=== PATIENT | female | born 1940 | race Caucasian/White ===

== ENCOUNTER → 2017-01-18 | Outpatient (CLI) | payer OTHER, MEDICARE ==
[2017-01-18 08:58] LABS: Basophils % (A) 1 %; CH 31.9; Eosinophils # (A) 0.1 k/uL (0-0.7); Eosinophils % (A) 1 %; HCT 42.2 % (34.0-46.0); HDW 2.18; HGB 13.5 gm/dL (11.4-16.0); Luc # (Auto) 0.12; Luc % (Auto) 3; Lymphocytes # (A) 0.9 k/uL (1.0-4.8); Lymphocytes % (A) 22 %; MCH 32.1 pg (25.0-35.0); MCV 100.2 fL (80.0-100.0); Macrocytosis Slight; Mean Platelet Volume 7.8; Monocytes # (A) 0.2 k/uL (0-1.0); Monocytes % (A) 6 %; Neutrophils # (A) 2.9 k/uL (1.3-7.7); Neutrophils % (A) 68 %; RBC 4.21 m/uL (3.80-5.40); RDW 15.2 % (11.5-15.5); WBC 4.2 k/uL (3.8-10.6); WBC (Perox) 4.17
[2017-01-18 09:11] LABS: ALT 28 U/L (9-52); AST 27 U/L (14-36); Alkaline Phosphatase 189 U/L (38-126); Anion Gap 10 mmol/L; Blood Urea Nitrogen 9 mg/dL (7-17); Calcium 9.5 mg/dL (8.4-10.2); Carbon Dioxide 29 mmol/L (22-30); Chloride 103 mmol/L (98-107); Cholesterol 160 mg/dL (<200); Glucose 109 mg/dL (74-99); HDL Cholesterol 68 mg/dL (40-60); Non-African American GFR(MDRD) >60 (>60 ml/min/1.73 sqM); Potassium 4.8 mmol/L (3.5-5.1); Sodium 142 mmol/L (137-145); Total Bilirubin 1.2 mg/dL (0.2-1.3); Total Protein 8.1 g/dL (6.3-8.2); Triglycerides 67 mg/dL (<150)
[2017-01-18 09:16] LABS: Appearance,Urine Clear (Clear); Bilirubin,Urine Negative (Negative); Glucose,Urine (UA) Negative (Negative); Ketones,Urine Negative (Negative); Leukocyte Esterase,Urine Small (Negative); Mucus,Urine Rare /hpf; Nitrite,Urine Negative (Negative); PH, Urine 6.5 (5.0-8.0); Particle Count 3392; Protein,Urine Trace (Negative); RBC,Urine 9 /hpf (0-5); Specific Gravity,Urine 1.012 (1.001-1.035); Squamous Epithelial Cell,Urine 1 /hpf (0-4); UA Billing (MACRO vs. MICRO) MICRO; Urobilinogen,Urine <2.0 mg/dL (<2.0); WBC,Urine 2 /hpf (0-5)
--- NOTE | 2017-01-18 14:39 | MM ---
Reason for exam: screening (asymptomatic). Last mammogram was performed 10 years and 7 months ago. History: Patient is postmenopausal and history of other cancer. Family history of breast cancer in grandmother. Physical Findings: A clinical breast exam by your physician is recommended on an annual basis and results should be correlated with mammographic findings. MG Screening Mammo w CAD Bilateral CC, MLO, and XCCL view(s) were taken. Prior study comparison: June 20, 2006, bilateral screening mammogram w/CAD. February 10, 2004, bilateral screening mammogram. The breast tissue is heterogeneously dense. This may lower the sensitivity of mammography. Stable benign calcifications. There is no discrete abnormality. No significant changes when compared with prior studies. ASSESSMENT: Benign, BI-RAD 2 RECOMMENDATION: Routine screening mammogram of both breasts in 1 year.
== END | disposition home or self-care (01) ==
LOC: RADMAMWWP 08:20
PROVIDERS: ATTEND Internal Medicine
DX: Z12.31 Encounter for screening mammogram for malignant neoplasm of breast (principal); I48.91 Unspecified atrial fibrillation; I10 Essential (primary) hypertension; I42.9 Cardiomyopathy, unspecified; E55.9 Vitamin D deficiency, unspecified
CPT/HCPCS: 83880; 80061; 80053; 84443; 85025; 81001; 82306; G0202

== ENCOUNTER 2017-01-28 08:30 | Observation (INO) | payer OTHER, MEDICARE ==
[2017-01-28] MEDS ORDERED: LORazepam 2 MG/ML SYRINGE IV STA (08:53)
[2017-01-28] MEDS ORDERED: MECLIZINE 12.5 MG TAB PO STA (08:53)
[2017-01-28] MEDS ORDERED: METOCLOPRAMIDE 5 MG/ML 2 ML VIAL IVP STA (08:54)
--- NOTE | 2017-01-28 08:58 | ED ---
General Adult HPI - General Chief complaint: Dizziness Stated complaint: DIZZINESS, NAUSEA Time Seen by Provider: 01/28/17 08:49 Source: patient, family, RN notes reviewed Mode of arrival: wheelchair Limitations: no limitations - History of Present Illness Initial comments: Patient is a pleasant 76-year-old female presenting to the emergency Department with complaints of dizziness and nausea and vomiting. Onset of symptoms was 2 or 3 days ago. Patient has dizziness described as a spinning sensation. Dizziness is worse with upright position and head. Dizziness is mild while lying down or resting. Patient did take Antivert once this morning without improvement. Patient has had similar symptoms previously and has had previous evaluations for this including computed tomography scan of the brain. Symptoms seem worse this time than other events. - Related Data Home Medications Medication Instructions Recorded Confirmed Amoxicillin 875 mg PO Q12HR 01/28/17 01/28/17 Aspirin EC [Ecotrin Low Dose] 81 mg PO BID 01/28/17 01/28/17 Cholecalciferol [Vitamin D3] 1,000 unit PO DAILY 01/28/17 01/28/17 Cyanocobalamin (Vitamin B-12) 1,000 mcg PO DAILY 01/28/17 01/28/17 [Vitamin B-12] Digoxin [Digitek] 125 mcg PO DAILY 01/28/17 01/28/17 Famotidine [Pepcid AC] 10 mg PO DAILY 01/28/17 01/28/17 L.acidoph,Paracasei, B.lactis 1 cap PO DAILY 01/28/17 01/28/17 [Probiotic] Levalbuterol HCl [Xopenex 0.63 mg INHALATION RT-DAILY PRN 01/28/17 01/28/17 Nebulized] Magnesium 200 mg PO DAILY PRN 01/28/17 01/28/17 Meclizine [Antivert] 25 mg PO Q6H PRN 01/28/17 01/28/17 Montelukast [Singulair] 10 mg PO DAILY 01/28/17 01/28/17 Ondansetron Odt [Zofran ODT] 4 mg SL TID PRN 01/28/17 01/28/17 Potassium 99 mg PO DAILY PRN 01/28/17 01/28/17 Scopolamine [TransDerm Scop] 1 mg TD Q3D 01/28/17 01/28/17 Spironolactone [Aldactone] 25 mg PO DAILY 01/28/17 01/28/17 Allergies Allergy/AdvReac Type Severity Reaction Status Date / Time diltiazem [From Cardizem] AdvReac Nausea & Verified 01/28/17 10:36 Vomiting verapamil AdvReac Nausea & Verified 01/28/17 10:36 Vomiting Review of Systems ROS Statement: Those systems with pertinent positive or pertinent negative responses have been documented in the HPI. ROS Other: All systems not noted in ROS Statement are negative. Constitutional: Denies: fever Eyes: Denies: eye pain ENT: Denies: ear pain Respiratory: Denies: cough Cardiovascular: Denies: chest pain Endocrine: Denies: fatigue Gastrointestinal: Reports: nausea, vomiting. Denies: abdominal pain Genitourinary: Denies: dysuria Musculoskeletal: Denies: back pain Skin: Denies: rash Neurological: Reports: vertigo. Denies: headache, weakness, paresthesias, confusion Past Medical History History of Any Multi-Drug Resistant Organisms: None Reported Past Surgical History: Ablation, Cholecystectomy Additional Past Surgical History / Comment(s): d and c Past Psychological History: No Psychological Hx Reported Smoking Status: Never smoker Past Alcohol Use History: None Reported Past Drug Use History: None Reported General Exam Limitations: no limitations General appearance: alert, in no apparent distress Head exam: Present: atraumatic Eye exam: Present: normal appearance, PERRL, EOMI. Absent: nystagmus ENT exam: Present: normal oropharynx Neck exam: Present: normal inspection Respiratory exam: Present: normal lung sounds bilaterally Cardiovascular Exam: Present: irregular rhythm GI/Abdominal exam: Present: soft. Absent: tenderness Extremities exam: Present: normal inspection Neurological exam: Present: alert, CN II-XII intact. Absent: motor sensory deficit Expanded Cranial nerves: EOM's Intact: Normal, Facial Sensation: Normal Sensory exam: Upper Extremity Light Touch: Normal, Lower Extremity Light Touch: Normal Motor strength exam: RUE: 5, LUE: 5, RLE: 5, LLE: 5 Eye Response: (4) open spontaneously Motor Response: (6) obeys commands Verbal Response: (5) oriented Psychiatric exam: Present: normal affect, normal mood Skin exam: Present: normal color Course Vital Signs 01/28/17 01/28/17 01/28/17 08:31 09:13 10:00 Temperature 97 F L Pulse Rate 121 H 97 95 Respiratory 18 20 20 Rate Blood Pressure 151/92 155/75 136/63 O2 Sat by Pulse 94 L 96 96 Oximetry 01/28/17 11:00 Temperature Pulse Rate 70 Respiratory 98 H Rate Blood Pressure 131/62 O2 Sat by Pulse 96 Oximetry EKG Findings - EKG Comments: EKG Findings:: A. fib with RVR, rate 105. QRS 96. QT 266. QTc 351. Right axis. Incomplete right bundle-branch block. Septal Q waves. T-wave inversion in leads V3 through V6 as well as inferior. Previous EKG reviewed dated 2012. Medical Decision Making - Medical Decision Making Patient reevaluated and resting comfortably in bed. Patient states nausea has improved however remains dizzy and unable to get up. Case was discussed with Dr. danielson, who will admit for Dr. Faustin. MRI will be added. Neurology will be consulted. Patient updated. - Lab Data Result diagrams: 01/28/17 09:00 01/28/17 09:00 Lab Results 01/28/17 01/28/17 01/28/17 Range/Units 09:00 09:00 09:00 WBC 6.5 (3.8-10.6) k/uL RBC 4.24 (3.80-5.40) m/uL Hgb 13.5 (11.4-16.0) gm/dL Hct 42.2 (34.0-46.0) % MCV 99.5 (80.0-100.0) fL MCH 31.7 (25.0-35.0) pg MCHC 31.9 (31.0-37.0) g/dL RDW 14.9 (11.5-15.5) % Plt Count 118 L (150-450) k/uL Neutrophils % 79 % Lymphocytes % 14 % Monocytes % 5 % Eosinophils % 0 % Basophils % 0 % Neutrophils # 5.1 (1.3-7.7) k/uL Lymphocytes # 0.9 L (1.0-4.8) k/uL Monocytes # 0.3 (0-1.0) k/uL Eosinophils # 0.0 (0-0.7) k/uL Basophils # 0.0 (0-0.2) k/uL Macrocytosis Slight PT 13.0 H (9.0-12.0) sec INR 1.3 H (<1.2) APTT 24.0 (22.0-30.0) sec Sodium 139 (137-145) mmol/L Potassium 4.3 (3.5-5.1) mmol/L Chloride 100 (98-107) mmol/L Carbon Dioxide 25 (22-30) mmol/L Anion Gap 14 mmol/L BUN 23 H (7-17) mg/dL Creatinine 0.78 (0.52-1.04) mg/dL Est GFR (MDRD) Af Amer >60 (>60 ml/min/1.73 sqM) Est GFR (MDRD) Non-Af >60 (>60 ml/min/1.73 sqM) Glucose 125 H (74-99) mg/dL Calcium 9.4 (8.4-10.2) mg/dL Total Bilirubin 1.7 H (0.2-1.3) mg/dL AST 32 (14-36) U/L ALT 22 (9-52) U/L Alkaline Phosphatase 176 H (38-126) U/L Troponin I (0.000-0.034) ng/mL Total Protein 8.6 H (6.3-8.2) g/dL Albumin 4.4 (3.5-5.0) g/dL Digoxin 0.8 ng/mL 01/28/17 Range/Units 09:00 WBC (3.8-10.6) k/uL RBC (3.80-5.40) m/uL Hgb (11.4-16.0) gm/dL Hct (34.0-46.0) % MCV (80.0-100.0) fL MCH (25.0-35.0) pg MCHC (31.0-37.0) g/dL RDW (11.5-15.5) % Plt Count (150-450) k/uL Neutrophils % % Lymphocytes % % Monocytes % % Eosinophils % % Basophils % % Neutrophils # (1.3-7.7) k/uL Lymphocytes # (1.0-4.8) k/uL Monocytes # (0-1.0) k/uL Eosinophils # (0-0.7) k/uL Basophils # (0-0.2) k/uL Macrocytosis PT (9.0-12.0) sec INR (<1.2) APTT (22.0-30.0) sec Sodium (137-145) mmol/L Potassium (3.5-5.1) mmol/L Chloride (98-107) mmol/L Carbon Dioxide (22-30) mmol/L Anion Gap mmol/L BUN (7-17) mg/dL Creatinine (0.52-1.04) mg/dL Est GFR (MDRD) Af Amer (>60 ml/min/1.73 sqM) Est GFR (MDRD) Non-Af (>60 ml/min/1.73 sqM) Glucose (74-99) mg/dL Calcium (8.4-10.2) mg/dL Total Bilirubin (0.2-1.3) mg/dL AST (14-36) U/L ALT (9-52) U/L Alkaline Phosphatase (38-126) U/L Troponin I <0.012 (0.000-0.034) ng/mL Total Protein (6.3-8.2) g/dL Albumin (3.5-5.0) g/dL Digoxin ng/mL Disposition Clinical Impression: Vertigo Disposition: ADMITTED IP TO THIS HOSP Referrals: Filippo Bryant MD [Primary Care Provider] - 1-2 days Decision Time: 11:34
[2017-01-28 09:13] LABS: Basophils % (A) 0 %; CH 32.3; CHCM 32.6; Eosinophils % (A) 0 %; HCT 42.2 % (34.0-46.0); HDW 2.25; HGB 13.5 gm/dL (11.4-16.0); Luc # (Auto) 0.12; Luc % (Auto) 2; Lymphocytes # (A) 0.9 k/uL (1.0-4.8); Lymphocytes % (A) 14 %; MCH 31.7 pg (25.0-35.0); MCHC 31.9 g/dL (31.0-37.0); MCV 99.5 fL (80.0-100.0); Macrocytosis Slight; Mean Platelet Volume 8.1; Monocytes # (A) 0.3 k/uL (0-1.0); Monocytes % (A) 5 %; Neutrophils # (A) 5.1 k/uL (1.3-7.7); Neutrophils % (A) 79 %; RBC 4.24 m/uL (3.80-5.40); RDW 14.9 % (11.5-15.5); WBC 6.5 k/uL (3.8-10.6); WBC (Perox) 6.06
[2017-01-28 09:25] LABS: INR 1.3 (<1.2)
[2017-01-28 09:31] LABS: ALT 22 U/L (9-52); AST 32 U/L (14-36); Alkaline Phosphatase 176 U/L (38-126); Anion Gap 14 mmol/L; Blood Urea Nitrogen 23 mg/dL (7-17); Calcium 9.4 mg/dL (8.4-10.2); Carbon Dioxide 25 mmol/L (22-30); Chloride 100 mmol/L (98-107); Glucose 125 mg/dL (74-99); Non-African American GFR(MDRD) >60 (>60 ml/min/1.73 sqM); Potassium 4.3 mmol/L (3.5-5.1); Sodium 139 mmol/L (137-145); Total Bilirubin 1.7 mg/dL (0.2-1.3); Total Protein 8.6 g/dL (6.3-8.2)
[2017-01-28] MEDS ORDERED: SCOPOLAMINE 1.5MG/72HR PATCH TRANSDERM STA (09:40)
[2017-01-28 09:54] LABS: Digoxin 0.8 ng/mL
[2017-01-28] MEDS ORDERED: ONDANSETRON 4 MG/2 ML VIAL IVP STA (10:31)
[2017-01-28] MEDS ORDERED: ONDANSETRON 4 MG/2 ML VIAL IVP PRN (11:35)
[2017-01-28] MEDS ORDERED: NALOXONE 0.4 MG/ML 1 ML VIAL IV PRN (11:35)
[2017-01-28] MEDS ORDERED: LORazepam 2 MG/ML SYRINGE IV PRN (11:35)
[2017-01-28] MEDS ORDERED: SODIUM CHLORIDE 0.9% 1,000 ML IV SCH (11:45)
[2017-01-28] MEDS ORDERED: MECLIZINE 25 MG TAB PO SCH (13:00)
[2017-01-28 13:15] VITALS: BMI 23.2
[2017-01-28] MEDS: METOCLOPRAMIDE 5 MG/ML 2 ML VIAL IVP SCH ×2 (13:22→18:18)
--- NOTE | 2017-01-28 15:14 | MR ---
EXAMINATION TYPE: MR brain wo/w con DATE OF EXAM: 01/28/2017 COMPARISON: MRI brain August 14, 2009. CT brain May 06, 2013 HISTORY: Intractable vertigo, nausea TECHNIQUE: Multiplanar, multisequence images of the brain and brainstem is performed without and with IV contras t, utilizing 10 mL intravenous MultiHance . FINDINGS: Diffusion weighted images demonstrate no evidence of a recent infarct or other diffusion ab normality. There is no worrisome extra-axial fluid collection. There is ventricular and sulcal promi nence consistent with diffuse cerebral atrophy. There are focal areas of T2 hyperintensity seen throu ghout the deep and periventricular white matter bilaterally. Lesions are nonspecific in appearance an d distribution but most likely on basis of product of chronic small vessel ischemic change in patient of this age. Progression in findings from [address] is noted. Midline structures demonstrate normal morphology. The craniocervical junction appears within normal limits. Post contrast images demonstrate no abnormal enhancement. The dural venous sinuses appear pa tent. There is moderate to severe mucosal thickening involving sphenoid sinuses bilaterally more prom inent than prior MRI. No suspicious fluid signal mastoid air cells is present bilaterally. IMPRESSION: 1. There is mild to moderate diffuse cerebral atrophy and chronic small vessel ischemic change identi fied with progression from prior MRI noted. 2. No evidence of a recent infarct or suspicious enhancement. 3. More prominent bilateral sphenoid sinus disease most likely chronic, acute component not excluded.
[2017-01-28 16:53] VITALS: BP 120/59; PULSE 93; RESP 16; TEMP 98.3
[2017-01-28] MEDS ORDERED: DIGOXIN 125 MCG TAB PO SCH (17:30)
[2017-01-28] MEDS ORDERED: ENOXAPARIN 40 MG/0.4 ML SYRINGE SQ SCH (17:30)
[2017-01-28] MEDS ORDERED: SPIRONOLACTONE 25 MG TAB PO SCH (17:30)
[2017-01-28] MEDS ORDERED: MONTELUKAST 10 MG TAB PO SCH (17:30)
[2017-01-28] MEDS ORDERED: FAMOTIDINE 20 MG TAB PO SCH (17:30)
[2017-01-28] MEDS ORDERED: AMOXICILLIN 875 MG TAB PO SCH (21:00)
[2017-01-28] MEDS ORDERED: ASPIRIN 81 MG CHEW PO SCH (21:00)
--- NOTE | 2017-01-29 11:24 | HP ---
DATE OF ADMISSION: 01/28/17 PRESENTING COMPLAINT: Vertigo. HISTORY OF PRESENTING COMPLAINT: This is a very pleasant 76-year-old patient of Dr. Bryant whose chronic stable medical conditions include atrial fibrillation , some allergies, GERD. The patient presents with two to three days of severe vertigo, things are spinning especially when she moves about. There is some dizziness and vomiting. No change in speech. No change in vision. No focal weakness. The patient did go to see Dr. Bryant in the office and she was prescribed some medications and she feels much worse after that. Hence decided to come down to the hospital. There is no fever. The patient had some trouble with the left ear. Does get ear gets her ear cleaned. Denies any head injury. REVIEW OF SYSTEMS: Constitutional: None. HEENT: As above. Respiratory: None. Cardiovascular: None. Gastrointestinal: Some heartburn. : None. Musculoskeletal: Aches and pains in the joints. Dermatological: None. Hematological: None . Lymphatics: None. PSYCHIATRY: Anxiety, situational. Neurological: As above. Past history of basal cell skin cancer, atrial fibrillation, anxiety, moderate tricuspid regurgitation, severe pulmonary hypertension. Past surgical history of ablation, cholecystectomy, D&C. SOCIAL HISTORY: No smoking. No alcohol. . FAMILY HISTORY: Diabetes Type 2. Home medications: 1. Potassium 99 meq po daily prn. 2. Xopenex 0.63 mg daily prn. 3. Magnesium 200 mg daily prn. 4. Vitamin B12 1000 mcg po daily. 5. Vitamin D3 1000 units po daily. 6. Pepcid a.c. 10 mg po daily. 7. Aspirin 81 mg po b.i.d. 8. Amoxicillin 875 po q12. 9. Aldactone 25 mg po daily. 10. Antivert 25 mg po q6h prn. 11. Digoxin 0.125 mcg po daily. 12. Scopolamine patch every three days. 13. Zofran 4 mg t.i.d. prn. 14. Singulair 10 mg daily. ALLERGIES: CARDIZEM, VERAPAMIL CAUSING NAUSEA. On examination, Temperature 97. Pulse 95. Respiratory rate 18. Blood pressure 124/74. Pulse ox 96% on 2 L. GENERAL APPEARANCE: Average built. Sitting up. Tired appearing. EYES: pupils equal. Conjunctivae normal. HEENT: Oral cavity normal. NECK: JVD not raised. Mass not palpable. RESPIRATORY: Effort normal. LUNGS: Slight decreased breath sounds. CARDIOVASCULAR: Heart sounds irregular. No edema. ABDOMEN: Soft. Nontender. Liver and spleen not palpable. LYMPHATICS: No lymph nodes palpable in the neck and axillae. PSYCHIATRIC: Alert and oriented times three. Mood and affect normal. NEUROLOGICAL: Questionable nystagmus. Slight facial asymmetry. The patient has history of [place] palsy. Power and sensation grossly intact. MUSCULOSKELETAL: Evidence of osteoarthritis especially in the hands. INVESTIGATIONS: White count 6.5, platelets 118. Potassium 4.3. BUN 23. EKG shows atrial fibrillation, rate 106. ASSESSMENT: 1. Acute severe vertigo associated with slight nystagmus. This could well be benign paroxysmal positional vertigo, less likely a central cause but need to rule out the same. 2. Persistent atrial fibrillation, on aspirin. 3. Moderate tricuspid regurgitation nonrheumatic. 4. Severe secondary pulmonary hypertension. 5. Elevated BUN probably from the patient being on diuretic and increased oral intake. PLAN: MRI of the brain was ordered. We will go ahead and do Eppley maneuver and see how she does. Home medications will be resumed. Care was discussed with the patient and at the bedside. Copy to Dr. Bryant. INÉS
--- NOTE | 2017-01-31 14:41 | DS ---
DATE OF ADMISSION: 01/28/2017 DATE OF DISCHARGE: 01/28/2017 FINAL DIAGNOSES: 1. Acute severe benign paroxysmal positional vertigo. 2. Intermittent asthma. 3. Persistent atrial fibrillation. 4. Moderate tricuspid regurgitation, nonrheumatic. 5. Severe secondary pulmonary hypertension. HOSPITAL COURSE: This patient presented with severe vertigo, nausea, vomiting and possible nystagmus was present. MR of the brain showed some chronic changes. 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 MR of the brain shows some chronic changes. I performed the Edwige maneuver at the bedside about 4 times. Patient felt remarkably improved, was able to walk to the door and back. I printed instructions for the same and gave that to the patient and the and did stop patient's scopolamine, Antivert and Zofran. DISCHARGE MEDICATIONS: 1. Amoxicillin 875 mg q.12 complete course. 2. Aspirin 81 mg p.o. b.i.d. 3. Vitamin D3 one thousand units p.o. daily. 4. Vitamin B12 one thousand mcg p.o. daily. 5. Digoxin 125 mcg p.o. daily. 6. Pepcid a.c. 10 mg p.o. daily. 7. Probiotic 1 capsule p.o. daily. 8. Xopenex 0.63 inhalation daily p.r.n. 9. Magnesium 200 mg p.o. daily p.r.n. 10. Singulair 10 mg p.o. daily. 11. Potassium 99 mEq p.o. daily p.r.n. 12. Aldactone 25 mg p.o. daily. Follow up with Dr. Bryant in 3 days. Patient has been given Edwige maneuver to be done at home, self instructions. [facility]
== END 2017-01-28 18:37 | disposition home or self-care (01) ==
LOC: EC 08:30 → 5MS5E 11:35
PROVIDERS: ADMIT Hospitalist; ATTEND Hospitalist
DX: J45.20 Mild intermittent asthma, uncomplicated (principal); H81.10 Benign paroxysmal vertigo, unspecified ear; I48.1 Persistent atrial fibrillation; I36.1 Nonrheumatic tricuspid (valve) insufficiency; I27.2 Other secondary pulmonary hypertension; G51.0 Bell's palsy; K21.9 Gastro-esophageal reflux disease without esophagitis; Z79.899 Other long term (current) drug therapy; Z79.82 Long term (current) use of aspirin; Z79.2 Long term (current) use of antibiotics; Z88.8 Allergy status to other drugs, medicaments and biological substances; Z83.3 Family history of diabetes mellitus; Z85.828 Personal history of other malignant neoplasm of skin; R79.89 Other specified abnormal findings of blood chemistry
CPT/HCPCS: 99285; 96374; 96375 ×2; 36415; 93005; 80053; 80162; 84484; 85025; 85610; 85730; 70553; G0378; J2060; J2765; J2405; A9577

== ENCOUNTER 2017-02-17 05:11 | Inpatient (IN) | payer OTHER, MEDICARE ==
[2017-02-17 05:26] LABS: Glucose,Whole Blood 138 mg/dL (75-99)
[2017-02-17] MEDS ORDERED: RX INFO: IV CONTRAST WAS GIVEN 1 EACH MISC MISCELLANE PRN (05:33)
--- NOTE | 2017-02-17 05:37 | ED ---
General Adult HPI - General Chief complaint: Neuro Symptoms/Deficit Stated complaint: poss stroke Time Seen by Provider: 02/17/17 05:14 Source: EMS, RN notes reviewed Mode of arrival: EMS Limitations: altered mental status, physical limitation - History of Present Illness Initial comments: Patient is a 76-year-old female presenting to the emergency department by EMS for concerns for stroke. Patient reportedly last seen well around 10 PM last night. Patient has inability to form words and provides no additional history. - Related Data Allergies Allergy/AdvReac Type Severity Reaction Status Date / Time No Known Allergies Allergy Verified 02/17/17 05:27 Review of Systems ROS Statement: Those systems with pertinent positive or pertinent negative responses have been documented in the HPI. ROS Other: All systems not noted in ROS Statement are negative. Limitations: ROS unobtainable due to patients medical condition Past Medical History Past Medical History: Unable to Obtain History of Any Multi-Drug Resistant Organisms: Unobtainable Past Surgical History: Unable to Obtain Past Psychological History: Unable to Obtain Smoking Status: Unknown if ever smoked Past Alcohol Use History: Unable to Obtain Past Drug Use History: Unable to Obtain General Exam Limitations: language barrier, altered mental status, physical limitation General appearance: alert, other (Left-sided neglect) Head exam: Present: atraumatic Eye exam: Present: normal appearance, PERRL, other (Unable to follow with eyes towards the left past midline.) ENT exam: Present: normal oropharynx Neck exam: Present: normal inspection Respiratory exam: Present: normal lung sounds bilaterally Cardiovascular Exam: Present: tachycardia, irregular rhythm GI/Abdominal exam: Present: soft. Absent: tenderness Extremities exam: Present: normal inspection Neurological exam: Present: alert, altered, other (Left-sided neglect. Nonverbal. Unable to evaluate sensory exam) Expanded Neurological exam: Present: other (Left sided facial droop) Speech: Present: total aphasia Cranial nerves: EOM's Intact: Abnormal Left Motor strength exam: RUE: 5, LUE: 0, RLE: 5, LLE: 2/1 Psychiatric exam: Present: flat affect, other (Nonverbal) Skin exam: Present: normal color Course Vital Signs 02/17/17 05:27 Temperature 97.9 F Pulse Rate 121 H Respiratory 16 Rate Blood Pressure 183/106 O2 Sat by Pulse 96 Oximetry - Reevaluation(s) Reevaluation #1: 02/17/17 05:44 Patient reevaluated and is able to lift left arm and leg off the bed at this time. No change of speech. Family is present. confirms last known well was 10 PM. Patient is not a candidate for TPA secondary to last known well is greater than 4.5 hours. 02/17/17 05:58 Patient was unable to be seen upon immediate arrival secondary to patient going directly to computed tomography scan. EKG Findings - EKG Comments: EKG Findings:: A. fib with RVR, rate 123. QRS 96. QT 290. QTC 4:15. Right axis. Incomplete right bundle-branch block. Inverted T waves inferior and V1 through V5. Medical Decision Making - Medical Decision Making Family was updated as well as patient. Case was discussed in detail with Dr. danielson, who will admit for Dr. Millan. - Lab Data Result diagrams: 02/17/17 05:31 02/17/17 05:31 Lab Results 02/17/17 02/17/17 02/17/17 Range/Units 05:25 05:31 05:31 WBC 6.1 (3.8-10.6) k/uL RBC 4.43 (3.80-5.40) m/uL Hgb 14.1 (11.4-16.0) gm/dL Hct 44.4 (34.0-46.0) % MCV 100.2 H (80.0-100.0) fL MCH 31.8 (25.0-35.0) pg MCHC 31.7 (31.0-37.0) g/dL RDW 15.6 H (11.5-15.5) % Plt Count 132 L (150-450) k/uL Neutrophils % 72 % Lymphocytes % 19 % Monocytes % 5 % Eosinophils % 1 % Basophils % 1 % Neutrophils # 4.4 (1.3-7.7) k/uL Lymphocytes # 1.2 (1.0-4.8) k/uL Monocytes # 0.3 (0-1.0) k/uL Eosinophils # 0.1 (0-0.7) k/uL Basophils # 0.0 (0-0.2) k/uL Macrocytosis Slight PT (9.0-12.0) sec INR (<1.2) APTT (22.0-30.0) sec Sodium (137-145) mmol/L Potassium (3.5-5.1) mmol/L Chloride (98-107) mmol/L Carbon Dioxide (22-30) mmol/L Anion Gap mmol/L BUN (7-17) mg/dL Creatinine (0.52-1.04) mg/dL Est GFR (MDRD) Af Amer (>60 ml/min/1.73 sqM) Est GFR (MDRD) Non-Af (>60 ml/min/1.73 sqM) Glucose (74-99) mg/dL POC Glucose (mg/dL) 138 H (75-99) mg/dL POC Glu Ruffling Hemmer Automatic ID Nani Suárez Calcium (8.4-10.2) mg/dL Total Bilirubin (0.2-1.3) mg/dL AST (14-36) U/L ALT (9-52) U/L Alkaline Phosphatase (38-126) U/L Total Creatine Kinase 47 (30-135) U/L Total Protein (6.3-8.2) g/dL Albumin (3.5-5.0) g/dL 02/17/17 02/17/17 Range/Units 05:31 05:31 WBC (3.8-10.6) k/uL RBC (3.80-5.40) m/uL Hgb (11.4-16.0) gm/dL Hct (34.0-46.0) % MCV (80.0-100.0) fL MCH (25.0-35.0) pg MCHC (31.0-37.0) g/dL RDW (11.5-15.5) % Plt Count (150-450) k/uL Neutrophils % % Lymphocytes % % Monocytes % % Eosinophils % % Basophils % % Neutrophils # (1.3-7.7) k/uL Lymphocytes # (1.0-4.8) k/uL Monocytes # (0-1.0) k/uL Eosinophils # (0-0.7) k/uL Basophils # (0-0.2) k/uL Macrocytosis PT 12.9 H (9.0-12.0) sec INR 1.3 H (<1.2) APTT 23.5 (22.0-30.0) sec Sodium 139 (137-145) mmol/L Potassium 4.1 (3.5-5.1) mmol/L Chloride 102 (98-107) mmol/L Carbon Dioxide 24 (22-30) mmol/L Anion Gap 13 mmol/L BUN 15 (7-17) mg/dL Creatinine 0.70 (0.52-1.04) mg/dL Est GFR (MDRD) Af Amer >60 (>60 ml/min/1.73 sqM) Est GFR (MDRD) Non-Af >60 (>60 ml/min/1.73 sqM) Glucose 153 H (74-99) mg/dL POC Glucose (mg/dL) (75-99) mg/dL POC Glu Ruffling Hemmer Automatic ID Calcium 9.7 (8.4-10.2) mg/dL Total Bilirubin 1.2 (0.2-1.3) mg/dL AST 24 (14-36) U/L ALT 27 (9-52) U/L Alkaline Phosphatase 235 H (38-126) U/L Total Creatine Kinase (30-135) U/L Total Protein 8.3 H (6.3-8.2) g/dL Albumin 4.3 (3.5-5.0) g/dL - Radiology Data Radiology results: image reviewed (Computed tomography scan of the brain shows subtle asymmetry left frontal lobe. Possible small infarct. 1 view chest x- ray shows cardiomegaly with prominent interstitial markings. Mediastinal and hilar prominence.) Disposition Clinical Impression: Cerebrovascular accident Disposition: ADMITTED IP TO THIS [facility] Condition: Serious Referrals: Filippo Bryant MD [Primary Care Provider] - 1-2 days Decision Time: 06:41
--- NOTE | 2017-02-17 05:40 | CT ---
ADDENDUM - Added by Harjeet Pedraza M.D. on 02/17/2017 5:39 AM (-04:00) EXAM: CT Head Without Intravenous Contrast CLINICAL HISTORY: Reason: Altered mental status, neurologic deficits. TECHNIQUE: Axial computed tomography images of the head/brain without intravenous contrast. CTDI is 60.30 mGy and DLP is 1090.40 mGy-cm. This CT exam was performed using one or more of the following dose reduction techniques: automated exposure control, adjustment of the mA and/or kV according to patient size, and/or use of iterative reconstruction technique. COMPARISON: No relevant prior studies available. FINDINGS: Brain: Set against the background of atrophy and chronic small vessel ischemic changes, there is a small subtle region of hypodensity in the posterior left frontal subcortical region, for example on axial images 35- 39. A small chronic appearing lacunar infarct is seen in the right internal capsule anterior limb. There is no bleed, midline shift or mass effect. Ventricles: No evidence of hydrocephalus. Bones/joints: No acute fracture. Soft tissues: Unremarkable. Vasculature: Intracranial atherosclerosis. Sinuses: Complex left sphenoid sinus disease, containing some higher density material within that may be on the basis of chronic inspissated secretions or fungal sinus disease. There is attenuation of a portion of the wall between the left and right sphenoid sinuses, with mild mucosal thickening present in the right sphenoid sinus, to a much lesser degree than the left. Small amount of mucosal thickening or tiny mucous retention cyst versus polyp inferiorly in the right frontal sinus. The remaining visualized paranasal sinuses are otherwise clear. Mastoid air cells: Unremarkable. No mastoid effusion. IMPRESSION: 1. Allowing for the presence of atrophy and chronic small vessel ischemic changes, there is subtle asymmetry with posterior left frontal lobe hypodensity that may be on the basis of a small infarct, that is of indeterminate chronicity and which could be better evaluated by MRI. 2. Bilateral sinus disease including complex left sphenoid sinus disease that may be extending into the right sphenoid sinus and for which further workup could be obtained on an elective basis if no priors. [employer] 02/17/17 05:43 Call Doctor Regarding Stroke, called Dr. Monk on 02/17 05: 42 (-04:00)
[2017-02-17 05:53] LABS: Basophils % (A) 1 %; CH 32.9; Eosinophils # (A) 0.1 k/uL (0-0.7); Eosinophils % (A) 1 %; HCT 44.4 % (34.0-46.0); HDW 2.21; HGB 14.1 gm/dL (11.4-16.0); Luc # (Auto) 0.14; Luc % (Auto) 2; Lymphocytes # (A) 1.2 k/uL (1.0-4.8); Lymphocytes % (A) 19 %; MCH 31.8 pg (25.0-35.0); MCHC 31.7 g/dL (31.0-37.0); MCV 100.2 fL (80.0-100.0); Macrocytosis Slight; Monocytes # (A) 0.3 k/uL (0-1.0); Monocytes % (A) 5 %; Neutrophils # (A) 4.4 k/uL (1.3-7.7); Neutrophils % (A) 72 %; RBC 4.43 m/uL (3.80-5.40); RDW 15.6 % (11.5-15.5); WBC 6.1 k/uL (3.8-10.6); WBC (Perox) 5.77
[2017-02-17 06:04] LABS: ALT 27 U/L (9-52); AST 24 U/L (14-36); Alkaline Phosphatase 235 U/L (38-126); Anion Gap 13 mmol/L; Blood Urea Nitrogen 15 mg/dL (7-17); Calcium 9.7 mg/dL (8.4-10.2); Carbon Dioxide 24 mmol/L (22-30); Chloride 102 mmol/L (98-107); Glucose 153 mg/dL (74-99); Non-African American GFR(MDRD) >60 (>60 ml/min/1.73 sqM); Potassium 4.1 mmol/L (3.5-5.1); Sodium 139 mmol/L (137-145); Total Bilirubin 1.2 mg/dL (0.2-1.3); Total Protein 8.3 g/dL (6.3-8.2)
[2017-02-17 06:16] LABS: Creatine Kinase 47 U/L (30-135)
--- NOTE | 2017-02-17 06:18 | XR ---
EXAM: XR Chest, 1 View CLINICAL HISTORY: Reason: altered mental status TECHNIQUE: Frontal view of the chest. COMPARISON: No relevant prior studies available. FINDINGS: Lungs: Prominent indistinct pulmonary vascular markings throughout, with subpleural reticular opacities in the right lung base. Linear opacities in the right and left mid lung field suggesting atelectasis or scarring. Pleural space: Unremarkable. No gross pleural effusion or pneumothorax. Heart: Moderate cardiomegaly is present. Mediastinum: Mild prominence of the mediastinal contours which may be on the basis of aortic ectasia, along with hilar prominence noted, more apparent on the right whereas on the left is partially obscured. Bones/joints: Mild curvature of the thoracic spine, may in part be positional. Osteopenia and degenerative changes without acute displaced fracture. IMPRESSION: 1. Cardiomegaly with prominent interstitial markings that may reflect a component of pulmonary vascular congestion/mild CHF in the acute setting. The possibility of underlying chronic interstitial disease is not excluded at this time, and could be further assessed by comparison of priors or attention on follow-up. 2. Likewise there is prominence of the mediastinum and [place] for which comparison to priors could be helpful to ensure stability, otherwise recommend attention on follow-up which could include nonemergent assessment by CT including to exclude a hilar or perihilar abnormality.
[2017-02-17 06:21] LABS: INR 1.3 (<1.2); Partial Thromboplastin Time 23.5 sec (22.0-30.0); Prothrombin Time 12.9 sec (9.0-12.0)
[2017-02-17 06:29] LABS: Creatine Kinase MB 1.2 ng/mL (0.0-2.4); Troponin I <0.012 ng/mL (0.000-0.034)
[2017-02-17] MEDS ORDERED: ASPIRIN 325 MG TAB PO STA (06:45)
[2017-02-17] MEDS ORDERED: ONDANSETRON 4 MG/2 ML VIAL IVP STA ×2 (06:48→10:42)
[2017-02-17] MEDS: SODIUM CHLORIDE 0.9% 1,000 ML IV SCH (06:49)
--- NOTE | 2017-02-17 07:21 | CT ---
EXAMINATION TYPE: CT angio head neck DATE OF EXAM: 02/17/2017 HISTORY: Possible stroke COMPARISON: NONE CT DLP: 193.1 mGycm. Automated Exposure Control for Dose Reduction was Utilized. TECHNIQUE: CTA scan of the neck is performed with IV Contrast, patient injected with 65 mL of Omnipa que 350, axial images are obtained, coronal and sagittal reformatted images are reviewed. Three-D rec onstructed images are created on an independent workstation and reviewed. FINDINGS: Neck: The origins of the great vessels are unremarkable. At the right carotid bulb. Approximately 33% stenosis of the common carotid artery and approximately 25% stenosis of the external carotid artery. Calcific atheromatous changes do not extend into the internal carotid artery. At the left carotid bu lb there is severe narrowing of the external carotid artery as a focus of atherosclerosis plaque is s ituated at the ostia occupying over 70% of the lumen. Within the internal carotid artery just after t he bifurcation there is also approximately 33% stenosis. Left upper lobe airspace disease with peribronchial thickening and air bronchograms is seen as well a s to a lesser degree within the right lung apex. Nodular pleural parenchymal scarring is appreciated as well as at least moderate emphysematous changes and left-sided pleural thickening. Osseous structu res appear overall intact with mild degenerative changes of the cervical spine noted. Head: The left posterior communicating artery is diminutive but thought to be present and therefore t he [place] of [place] is complete. Vertebral arteries are codominant. No evidence of intracranial aneur ysm, occlusion, or stenosis other than calcific atherosclerotic prominence changes of the cavernous p ortions and supraclinoid portions of the carotid arteries of approximately 60% bilaterally. IMPRESSION: 1. No evidence of hemodynamically significant stenosis within the common carotids or internal carotid s. No evidence of intracranial aneurysm, occlusion, or dissection. 2. At least 70% stenosis of the left external carotid artery. 3. Multifocal airspace disease within the lungs, suspicious for pneumonia superimposed upon pulmonary emphysema.
[2017-02-17 08:20] LABS: Glucose,Whole Blood 127 mg/dL (75-99)
[2017-02-17] MEDS ORDERED: MECLIZINE 25 MG TAB PO PRN (08:20)
[2017-02-17] MEDS ORDERED: FAMOTIDINE 20 MG TAB PO SCH (09:00)
[2017-02-17] MEDS ORDERED: NON-FORMULARY DRUG (Potassium [Potassium] 99 MG) PO SCH (09:00)
[2017-02-17] MEDS ORDERED: ENOXAPARIN 40 MG/0.4 ML SYRINGE SQ SCH (09:00)
[2017-02-17] MEDS: DIGOXIN 125 MCG TAB PO SCH (10:52)
[2017-02-17] MEDS: FAMOTIDINE 20 MG/2 ML VIAL IV SCH (11:08)
[2017-02-17] MEDS: CHOLECALCIFEROL 1,000 UNIT TAB PO SCH (11:15)
[2017-02-17] MEDS: MAGNESIUM OXIDE 400 MG TAB PO SCH (11:16)
[2017-02-17] MEDS: LACTOBACILLUS ACIDOPH & BULGAR 1 EACH PACKET PO SCH (11:16)
[2017-02-17] MEDS: DIGOXIN 100 MCG/ML 1 ML AMP IVP SCH (11:27)
[2017-02-17] MEDS: SPIRONOLACTONE 25 MG TAB PO SCH (11:28)
--- NOTE | 2017-02-17 13:36 | P.HPIM ---
History of Present Illness H&P Date: 02/17/17 Chief Complaint: Weak on the left side and slurring of speech History of presenting complaint: This is a pleasant 76-year-old patient of Dr. Faustin was chronic stable medical conditions include atrial fibrillation and GERD. Patient was recently in the hospital with vertigo diagnosed with BPPV and responded well to Hallpike maneuver. When patient went home she continued to improve after doing the exercises at home. Patient went to bed at 10:00 last night and 4:00 she woke up her stating not feeling well. Patient was weak in the left arm and left leg and speech becomes slurred. Patient has chronic Khan's palsy. Denies any headache or change in vision. Patient's speech is slurred able to speak some words. Most of history is updated with the at the bedside. GEN.: Tired EYES: None HEENT: None NECK: None RESPIRATORY: None CARDIOVASCULAR: None GASTROINTESTINAL: None GENITOURINARY: None MUSCULOSKELETAL: None LYMPHATICS: None HEMATOLOGICAL: None PSYCHIATRY: None NEUROLOGICAL: As above Past medical history: Intermittent asthma,, atrial fibrillation moderate tricuspid regurgitation nondramatic, severe secondary pulmonary hypertension Past surgical history Ablation, cholecystectomy, D&C Social history: No smoking, no alcohol, Family history: Diabetes mellitus type 2 Home medications reviewed in the computer ALLERGIES: Diltiazem, verapamil VITAL SIGNS: 97.9, 121, 16, 145/86, 96% 2 L GENERAL: Average built, laying in bed tired appearing slurred speech. EYES: Pupils equal. Conjunctiva normal. HEENT: External appearance of nose and ears normal, oral cavity grossly normal. NECK: JVD not raised; masses not palpable. HEART: Irregular heartbeat; no edema. LUNGS: Respiratory rate normal; clear to auscultation. ABDOMEN: Soft, nontender, liver spleen not palpable, no masses palpable. LYMPHATICS: No lymph nodes palpable in the axilla and neck. PSYCH: Difficult to assessl. NEUROLOGICAL: Mouth pulled to the to the right, speech is slurred, power in the left arm and left leg 4 /5 Investigations: White count 6.1, hemoglobin 14.1, potassium 4.1 CT with contrast of the brain-results noted EKG-atrial fibrillation Assessment: -Acute stroke in the left handed patient probably in the right MCA territory, could be embolic -Atrial fibrillation persistent with a prior history of ablation -Intermittent asthma -Moderate tricuspid regurgitation nondramatic -Severe secondary pulmonary hypertension Plan: PTOT and speech therapy consulted. Spoke to the nurse to get a bedside swallow eval with applesauce. We'll get a cardiology consultation. Hold off any anticoagulation because of stroke. According to left-sided weakness likely improved since this morning. Which is a good sign. Care was discussed with the patient and in detail. Past Medical History Past Medical History: Atrial Fibrillation, Cancer, Heart Failure, Hypertension, Pneumonia, Vascular Disorder Additional Past Medical History / Comment(s): Pt's family express concern over a chronic cough that has been a problem for alittle less than 1 yr, pulmonary HTN, bronchitis, "hole in heart", failed cardiac ablation, vertigo-recently tx with head/neck manipulation that helped, basal cell skin cancer with removal, stomach ulcer years ago, PVD, varicosities, diverticular dx, UTI/hematuria, sinus problems, past R knee fracture. PT IS LEFT HANDED. History of Any Multi-Drug Resistant Organisms: None Reported Past Surgical History: Cardiac Ablation, Section, Cholecystectomy, Orthopedic Surgery, Tonsillectomy Additional Past Surgical History / Comment(s): R rotator cuff repair, skin cancer removed from nose. Past Anesthesia/Blood Transfusion Reactions: Postoperative Nausea & Vomiting ( PONV) Additional Past Anesthesia/Blood Transfusion Reaction / Comment(s): Pt received blood in past without reaction. Smoking Status: Never smoker - Past Family History Father Family Medical History: CVA/TIA, Myocardial Infarction ([place]) Additional Family Medical History / Comment(s): Father had [place]/CVA sometime in his 60's. Mother Family Medical History: Cancer Additional Family Medical History / Comment(s): Mother at the age of 53yrs from cervical cancer. Medications and Allergies Home Medications Medication Instructions Recorded Confirmed Type Aspirin 81 mg PO BID 02/17/17 02/17/17 History Cholecalciferol [Vitamin D3] 1,000 unit PO DAILY 02/17/17 02/17/17 History Cyanocobalamin (Vitamin B-12) 1,000 mcg PO DAILY 02/17/17 02/17/17 History [Vitamin B-12] Digoxin [Digitek] 125 mcg PO DAILY 02/17/17 02/17/17 History Famotidine [Pepcid] 40 mg PO DAILY 02/17/17 02/17/17 History L.acidoph,Paracasei, B.lactis 1 cap PO DAILY 02/17/17 02/17/17 History [Probiotic] Levalbuterol HCl [Xopenex 0.63 mg INHALATION RT-DAILY 02/17/17 02/17/17 History Nebulized] Magnesium Oxide [Magox 400] 400 mg PO DAILY 02/17/17 02/17/17 History Meclizine [Antivert] 25 mg PO Q6H PRN 02/17/17 02/17/17 History Potassium 99 mg PO DAILY 02/17/17 02/17/17 History Spironolactone [Aldactone] 25 mg PO DAILY 02/17/17 02/17/17 History Unknown Otc Allergy Relief 1 - 2 tab PO Q8H PRN 02/17/17 02/17/17 History Allergies Allergy/AdvReac Type Severity Reaction Status Date / Time diltiazem [From Cardizem] Allergy Severe Unknown Verified 02/17/17 07:39 verapamil Allergy Severe Unknown Verified 02/17/17 07:39 Results CBC & Chem 7: 02/17/17 05:31 02/17/17 05:31 Thrombosis Risk Factor Assmnt - Choose All That Apply Thrombosis Risk Factor Assessment Level: High Risk
--- NOTE | 2017-02-17 14:36 | US ---
EXAMINATION TYPE: US carotid duplex BILAT DATE OF EXAM: 02/17/2017 COMPARISON: CT angio CLINICAL HISTORY: Stenosis. stroke EXAM MEASUREMENTS: RIGHT: Peak Systolic Velocity (PSV) cm/sec ----- Right CCA: 83.4 ----- Right ICA: 91.9 ----- Right ECA: 135.2 ICA/CCA ratio: 1.1 RIGHT: End Diastole cm/sec ----- Right CCA: 10.1 ----- Right ICA: 11.7 ----- Right ECA: 0.0 LEFT: Peak Systolic Velocity (PSV) cm/sec ----- Left CCA: 86.4 ----- Left ICA: 85.3 ----- Left ECA: 99.6 ICA/CCA ratio: 1.0 LEFT: End Diastole cm/sec ----- Left CCA: 12.8 ----- Left ICA: 10.6 ----- Left ECA: 0.0 VERTEBRALS (direction of flow): Right Vertebral: Antegrade Left Vertebral: Antegrade No significant stenosis seen, bilateral plaque noted, intimal thickening noted. IMPRESSION: Bilateral matos scale plaquing within the bilateral carotid bulbs and left common carotid without hemodynamically significant stenosis within either carotid system.
--- NOTE | 2017-02-17 14:55 | P.CRDCN ---
History of Present Illness Consult reason: atrial fibrillation Chief complaint: cva, acute History of present illness: Patient was admitted with a stroke. She is underlying atrial fibrillation and has stopped Coumadin and also stop Xarelto plus because of bleeding in the mouth. She follows with a senior game designer in [place]. She states digoxin at home but has refused calcium channel blockers and possibly beta blockers for an unclear reason at this time she can't give me much of a history. Her states that she nudged him with the right hand at night indicating to him that her left arm was not moving and she could barely speak She denied chest discomfort she does not appear to be short of breath ALLERGIES state that she is ALLERGIC to diltiazem and verapamil Medication list is reviewed and does not include any anticoagulation, anticoagulants were stopped by the patient On examination heart rates are now in the 90s respirations 18-20 blood pressure 142/82 mmHg Breath sounds are reduced bilaterally Heart sounds S1 and S2 are irregular no murmurs no gallops abdomen is soft nontender extremities are warm left-sided weakness noted speech is slurred. Impression Permanent atrial fibrillation, history of A. fib ablation 10 years back at [facility] Not taking anticoagulants only taking aspirin at home Has stopped Coumadin as stopped xarelto in the past Hypertension Elevated AZALIA VASC or Suggest Rate controlled with metoprolol 25 mg twice daily and digoxin low-dose Anticoagulated with ELIQUIS 5 mg twice daily. She is under 60 kg weight, age 76 creatinine is normal. I will start her on 5 g twice daily of ELIQUIS if okay with neurology. CT of the brain shows a small infarct left frontal lobe posteriorly Her daughter also stated that she had a lot of cough and CT shows evidence for sinusitis Past Medical History Past Medical History: Atrial Fibrillation, Cancer, Heart Failure, Hypertension, Pneumonia, Vascular Disorder Additional Past Medical History / Comment(s): Pt's family express concern over a chronic cough that has been a problem for alittle less than 1 yr, pulmonary HTN, bronchitis, "hole in heart", failed cardiac ablation, vertigo-recently tx with head/neck manipulation that helped, basal cell skin cancer with removal, stomach ulcer years ago, PVD, varicosities, diverticular dx, UTI/hematuria, sinus problems, past R knee fracture. PT IS LEFT HANDED. History of Any Multi-Drug Resistant Organisms: None Reported Past Surgical History: Cardiac Ablation, Section, Cholecystectomy, Orthopedic Surgery, Tonsillectomy Additional Past Surgical History / Comment(s): R rotator cuff repair, skin cancer removed from nose. Past Anesthesia/Blood Transfusion Reactions: Postoperative Nausea & Vomiting ( PONV) Additional Past Anesthesia/Blood Transfusion Reaction / Comment(s): Pt received blood in past without reaction. Smoking Status: Never smoker - Past Family History Father Family Medical History: CVA/TIA, Myocardial Infarction ([place]) Additional Family Medical History / Comment(s): Father had [place]/CVA sometime in his 60's. Mother Family Medical History: Cancer Additional Family Medical History / Comment(s): Mother at the age of 53yrs from cervical cancer. Medications and Allergies Home Medications Medication Instructions Recorded Confirmed Type Cholecalciferol [Vitamin D3] 1,000 unit PO DAILY 02/17/17 02/17/17 History Cyanocobalamin (Vitamin B-12) 1,000 mcg PO DAILY 02/17/17 02/17/17 History [Vitamin B-12] Digoxin [Digitek] 125 mcg PO DAILY 02/17/17 02/17/17 History Famotidine [Pepcid] 40 mg PO DAILY 02/17/17 02/17/17 History L.acidoph,Paracasei, B.lactis 1 cap PO DAILY 02/17/17 02/17/17 History [Probiotic] Levalbuterol HCl [Xopenex 0.63 mg INHALATION RT-DAILY 02/17/17 02/17/17 History Nebulized] Magnesium Oxide [Magox 400] 400 mg PO DAILY 02/17/17 02/17/17 History Meclizine [Antivert] 25 mg PO Q6H PRN 02/17/17 02/17/17 History RX: Aspirin 81 mg PO BID 02/17/17 02/17/17 History RX: Potassium 99 mg PO DAILY 02/17/17 02/17/17 History Spironolactone [Aldactone] 25 mg PO DAILY 02/17/17 02/17/17 History Unknown Otc Allergy Relief 1 - 2 tab PO Q8H PRN 02/17/17 02/17/17 History Allergies Allergy/AdvReac Type Severity Reaction Status Date / Time diltiazem [From Cardizem] Allergy Severe Unknown Verified 02/17/17 07:39 verapamil Allergy Severe Unknown Verified 02/17/17 07:39 Physical Exam Vitals: Vital Signs Temp Pulse Pulse Resp BP BP Pulse Ox 02/17/17 14:00 91 29 H 142/82 98 02/17/17 13:50 87 23 140/68 99 02/17/17 13:40 89 21 140/68 98 02/17/17 13:30 95 125/67 98 02/17/17 13:20 95 25 H 145/71 99 02/17/17 13:10 88 22 145/71 98 02/17/17 13:00 87 17 145/79 98 02/17/17 12:50 80 22 146/78 98 02/17/17 12:40 97 31 H 146/78 98 02/17/17 12:30 96 23 140/72 98 02/17/17 12:20 98.4 F 88 25 H 149/67 98 02/17/17 12:10 98 24 159/75 98 02/17/17 12:00 92 104 H 17 159/75 98 02/17/17 11:50 90 26 H 134/58 99 02/17/17 11:40 92 11 L 134/58 98 02/17/17 11:30 85 28 H 134/68 99 02/17/17 11:20 82 17 131/69 98 02/17/17 11:10 96 24 131/69 98 02/17/17 11:00 95 23 129/79 99 02/17/17 10:50 95 31 H 139/80 99 02/17/17 10:40 96 23 139/80 98 02/17/17 10:30 93 25 H 135/70 98 02/17/17 10:20 93 27 H 134/64 97 02/17/17 10:10 107 H 24 134/64 98 02/17/17 10:00 102 H 27 H 140/85 96 02/17/17 09:50 94 28 H 137/80 99 02/17/17 09:40 92 25 H 137/80 97 02/17/17 09:30 96 26 H 139/82 97 02/17/17 09:20 98 26 H 141/75 97 02/17/17 09:10 98 25 H 141/75 97 02/17/17 09:00 98 25 H 143/82 98 02/17/17 08:50 105 H 22 149/68 97 02/17/17 08:45 97.8 F 104 H 22 134/64 02/17/17 08:40 141/86 97 02/17/17 08:30 98.2 F 98 26 H 141/86 98 02/17/17 08:20 93 13 145/86 96 02/17/17 08:10 106 H 27 H 145/86 97 02/17/17 08:00 104 H 100 25 H 119/74 98 02/17/17 07:54 105 H 23 02/17/17 07:45 98.2 F 100 145/86 02/17/17 05:27 97.9 F 121 H 16 183/106 96 Intake and Output 02/16/17 02/17/17 02/17/17 22:59 06:59 14:59 Intake Total 140 Output Total 320 Balance -180 Intake: Intake, IV Titration 140 Amount Sodium Chloride 0.9% 1, 140 000 ml @ 20 mls/hr IV . Q24H [facility] Rx#:[id number] Output: Urine 320 Other: Voiding Method Bedpan Weight 58.105 kg 58 kg Patient Weight 02/18/17 06:59 Weight 58 kg Results 02/17/17 05:31 02/17/17 05:31 Cardiac Enzymes 02/17/17 02/17/17 Range/Units 05:31 05:31 AST 24 (14-36) U/L CK-MB (CK-2) 1.2 (0.0-2.4) ng/mL Troponin I <0.012 (0.000-0.034) ng/mL Coagulation 02/17/17 Range/Units 05:31 PT 12.9 H (9.0-12.0) sec APTT 23.5 (22.0-30.0) sec CBC 02/17/17 Range/Units 05:31 WBC 6.1 (3.8-10.6) k/uL RBC 4.43 (3.80-5.40) m/uL Hgb 14.1 (11.4-16.0) gm/dL Hct 44.4 (34.0-46.0) % Plt Count 132 L (150-450) k/uL Comprehensive Metabolic Panel 02/17/17 Range/Units 05:31 Sodium 139 (137-145) mmol/L Potassium 4.1 (3.5-5.1) mmol/L Chloride 102 (98-107) mmol/L Carbon Dioxide 24 (22-30) mmol/L BUN 15 (7-17) mg/dL Creatinine 0.70 (0.52-1.04) mg/dL Glucose 153 H (74-99) mg/dL Calcium 9.7 (8.4-10.2) mg/dL AST 24 (14-36) U/L ALT 27 (9-52) U/L Alkaline Phosphatase 235 H (38-126) U/L Total Protein 8.3 H (6.3-8.2) g/dL Albumin 4.3 (3.5-5.0) g/dL Current Medications Generic Name Dose Route Start Last Admin Trade Name Freq PRN Reason Stop Dose Admin Aspirin 300 mg 02/17/17 10:30 Aspirin RECTAL DAILY [facility] Cholecalciferol 1,000 unit 02/17/17 09:00 02/17/17 11:15 Vitamin D3 PO Not Given DAILY [facility] Digoxin 125 mcg 02/17/17 09:00 02/17/17 10:52 Lanoxin PO Not Given DAILY REJI Digoxin 100 mcg 02/17/17 10:45 02/17/17 11:27 Lanoxin Pediatric IVP 100 mcg DAILY REJI Administration Enoxaparin Sodium 40 mg 02/17/17 09:00 02/17/17 09:31 Lovenox SQ 40 mg DAILY REJI Administration Famotidine 20 mg 02/17/17 10:30 02/17/17 11:08 Pepcid IV 20 mg DAILY REJI Administration Sodium Chloride 1,000 mls @ 20 mls/hr 02/17/17 06:45 02/17/17 06:49 Saline 0.9% IV 20 mls/hr .Q24H REJI Administration Lactobacillus Acidoph/Bulgaricus 1 each 02/17/17 09:00 02/17/17 11:16 Lactinex PO Not Given DAILY REJI Levalbuterol HCl 0.625 mg 02/18/17 08:00 Xopenex Nebulized INHALATION RT-DAILY REJI Magnesium Oxide 400 mg 02/17/17 09:00 02/17/17 11:16 Mag-Ox PO Not Given DAILY REJI Meclizine HCl 25 mg 02/17/17 08:20 Antivert PO Q6H PRN Vertigo Metoprolol Tartrate 25 mg 02/17/17 21:00 Lopressor PO BID REJI Miscellaneous Information 1 each 02/17/17 05:33 02/17/17 06:48 Rx Info: Iv Contrast Was Given MISCELLANE 02/19/17 05:33 1 each DAILY PRN Administration Per Protocol Spironolactone 25 mg 02/17/17 09:00 02/17/17 11:28 Aldactone PO Not Given DAILY REJI Intake and Output 02/16/17 02/17/17 02/17/17 22:59 06:59 14:59 Intake Total 140 Output Total 320 Balance -180 Intake: Intake, IV Titration 140 Amount Sodium Chloride 0.9% 1, 140 000 ml @ 20 mls/hr IV . Q24H [facility] Rx#:[id number] Output: Urine 320 Other: Voiding Method Bedpan Weight 58.105 kg 58 kg Patient Weight 02/18/17 06:59 Weight 58 kg 02/17/17 05:31 02/17/17 05:31
--- NOTE | 2017-02-17 16:50 | ECHOF ---
Referral Reason:Thrombus MEASUREMENTS -------- HEIGHT: 157.5 cm WEIGHT: 58.1 kg BP: 141/86 RVIDd: 4.0 cm (< 3.3) IVSd: 1.2 cm (0.6 - 1.1) LVIDd: 3.4 cm (3.9 - 5.3) LVPWd: 1.0 cm (0.6 - 1.1) IVSs: 1.2 cm LVIDs: 2.8 cm LVPWs: 1.5 cm LA Diam: 3.6 cm (2.7 - 3.8) LAESV Index (A-L): 45.47 ml/m Ao Diam: 2.5 cm (2.0 - 3.7) AV Cusp: 1.3 cm (1.5 - 2.6) LA Diam: 4.0 cm (2.7 - 3.8) MV EXCURSION: 14.577 mm (> 18.000) MV EF SLOPE: 50 mm/s (70 - 150) EPSS: 0.4 cm MV E Gilberto: 1.11 m/s MV DecT: 235 ms MV A Gilberto: 0.02 m/s MV E/A Ratio: 48.98 RAP: 20.00 mmHg RVSP: 79.84 mmHg FINDINGS -------- Atrial fibrillation. This was a technically adequate study. There is mild concentric left ventricular hypertrophy. Overall left ventricular systolic function is normal with, an EF between 55 - 60 %. The right ventricle is severely enlarged. The right ventricular septal wall is flattened in systole which is consistent with right ventricular pressure overload. LA is severely dilated >40 ml/m2 The right atrium is markedly enlarged. There is mild aortic valve sclerosis. There is no evidence of aortic regurgitation. Mild mitral annular calcification present. Mild mitral regurgitation is present. Moderate to severe tricuspid regurgitation present. There is severe pulmonary hypertension. The right ventricular systolic pressure, as measured by Doppler, is 79.84mmHg. Trace/mild (physiologic) pulmonic regurgitation. The aortic root, ascending aorta and aortic arch are normal. The inferior vena cava is dilated with no significant inspiratory collapse which is consistent estimated right atrial pressure of >20 mmHg. There is no pericardial effusion. CONCLUSIONS -------- 1. There is mild concentric left ventricular hypertrophy. 2. Moderate to severe tricuspid regurgitation present. 3. There is severe pulmonary hypertension. 4. The right ventricular systolic pressure, as measured by Doppler, is 79.84mmHg. 5. Trace/mild (physiologic) pulmonic regurgitation. 6. The aortic root, ascending aorta and aortic arch are normal. 7. The inferior vena cava is dilated with no significant inspiratory collapse which is consistent estimated right atrial pressure of >20 mmHg. 8. There is no pericardial effusion. 9. Overall left ventricular systolic function is normal with, an EF between 55 - 60 %. 10. The right ventricle is severely enlarged. 11. The right ventricular septal wall is flattened in systole which is consistent with right ventricular pressure overload. 12. LA is severely dilated >40 ml/m2 13. The right atrium is markedly enlarged. 14. There is mild aortic valve sclerosis. 15. Mild mitral annular calcification present. 16. Mild mitral regurgitation is present. AUTOMAT[employer] PROFILE SANDER OPERATOR: Elisabeth Sheikh RDCS
[2017-02-17] MEDS: ASPIRIN 300 MG SUPP RECTAL SCH (18:25)
[2017-02-17] MEDS: METOPROLOL TARTRATE 25 MG TAB PO SCH (20:51)
[2017-02-17] MEDS: APIXABAN 5 MG TAB PO SCH (22:12)
[2017-02-18 05:53] LABS: Cholesterol 124 mg/dL (<200); HDL Cholesterol 42 mg/dL (40-60)
[2017-02-18] MEDS ORDERED: LEVALBUTEROL NEB 1.25 MG/3 ML AMP INHALATION SCH ×3 (08:00→16:34)
--- NOTE | 2017-02-18 08:07 | P.CNNES ---
History of Present Illness Consult date: 02/17/17 Reason for Consult: Patient with atrial fibrillation and left sided weakness. History of Present Illness: This patient is a 76-year-old right-handed white female who was brought into the emergency room at [facility] for evaluation of left-sided weakness. Patient apparently woke up at 2 AM in the morning and tried to awaken her to inform him that she was feeling weak on her left side. Apparently she had to use her right arm to shake him awake. When the was awakened he noticed that she was complaining of left-sided weakness. Her speech was also somewhat slurred. He was able to assist her to a sitting position on the bed and noticed that she also had left-sided facial droop. She did try to lift her left arm but it would fall to her side. The immediately called EMS and when they had arrived she continued to show signs of left-sided weakness. Her speech is also very hard to comprehend as it was slurred. The patient has a long-standing history of chronic atrial fibrillation. She had stopped taking Coumadin and Xarelto about 5 years ago even though she continues to be in atrial fibrillation. Apparently she had developed some bleeding problems and did not wish to continue using anticoagulant medications. The patient was brought into the emergency room where she was further evaluated. In the ER she was noted to have left-sided arm and leg weakness. Her speech was still dysarthric. She was sent for a computed tomography scan of the brain as well as a CT angiogram of the head and neck. Apparently a code stroke was initiated in the ER but the patient was not felt to be a candidate for TPA or other intervention. Her initial NIH stroke scale was noted to be 22 at 5:30 AM. A repeat NIH stroke scale done at 5:45 AM revealed a score to be 10. Patient was not a candidate for further neuro interventional treatments. She was recommended admission to the hospital for a complete stroke evaluation. The patient underwent a computed tomography scan of the brain which revealed atrophy and chronic small vessel ischemic changes. There was a questionable hypodensity noted in the left frontal lobe. There was evidence of diffuse sinusitis. The patient was transferred to the intensive care unit for further close monitoring. Her speech remains very dysarthric at this time. Her left-sided weakness is more pronounced. Her daughter and are at the bedside. They're aware that she has not been on anticoagulation even though she has a history of chronic atrial fibrillation. She has been very resistant to use long-term anticoagulation as she was afraid of bleeding. The patient underwent TACE speech evaluation and apparently did pass her swallow study. She underwent carotid Doppler ultrasound which revealed 70% stenosis of the left external carotid artery only. There was no comment of internal carotid artery stenosis. The patient is now evaluated in the intensive care unit. As noted her speech remains dysarthric. She denies any headache pain. She continues to demonstrate left-sided weakness. Neurology is now been consulted for further evaluation and recommendations. Review of Systems Constitutional: Denies chills, Denies fever Eyes: denies blurred vision, denies pain Ears, nose, mouth and throat: Denies headache, Denies sore throat Cardiovascular: Denies chest pain, Denies shortness of breath Respiratory: Denies cough Gastrointestinal: Denies abdominal pain, Denies diarrhea, Denies nausea, Denies vomiting Genitourinary: Denies dysuria, Denies hematuria Musculoskeletal: Denies myalgias Integumentary: Denies pruritus, Denies rash Neurological: Reports aphasia, Reports change in speech, Reports confusion, Reports motor disturbance, Reports paralysis, Denies numbness, Denies weakness Psychiatric: Denies anxiety, Denies depression Endocrine: Denies fatigue, Denies weight change Past Medical History Past Medical History: Atrial Fibrillation, Cancer, Heart Failure, Hypertension, Pneumonia, Vascular Disorder Additional Past Medical History / Comment(s): Pt's family express concern over a chronic cough that has been a problem for alittle less than 1 yr, pulmonary HTN, bronchitis, "hole in heart", failed cardiac ablation, vertigo-recently tx with head/neck manipulation that helped, basal cell skin cancer with removal, stomach ulcer years ago, PVD, varicosities, diverticular dx, UTI/hematuria, sinus problems, past R knee fracture. PT IS LEFT HANDED. History of Any Multi-Drug Resistant Organisms: None Reported Past Surgical History: Cardiac Ablation, Section, Cholecystectomy, Orthopedic Surgery, Tonsillectomy Additional Past Surgical History / Comment(s): R rotator cuff repair, skin cancer removed from nose. Past Anesthesia/Blood Transfusion Reactions: Postoperative Nausea & Vomiting ( PONV) Additional Past Anesthesia/Blood Transfusion Reaction / Comment(s): Pt received blood in past without reaction. Smoking Status: Never smoker - Past Family History Father Family Medical History: CVA/TIA, Myocardial Infarction (DC) Additional Family Medical History / Comment(s): Father had DC/CVA sometime in his 60's. Mother Family Medical History: Cancer Additional Family Medical History / Comment(s): Mother at the age of 53yrs from cervical cancer. Medications and Allergies Home Medications Medication Instructions Recorded Confirmed Type Aspirin 81 mg PO BID 02/17/17 02/17/17 History Cholecalciferol [Vitamin D3] 1,000 unit PO DAILY 02/17/17 02/17/17 History Cyanocobalamin (Vitamin B-12) 1,000 mcg PO DAILY 02/17/17 02/17/17 History [Vitamin B-12] Digoxin [Digitek] 125 mcg PO DAILY 02/17/17 02/17/17 History Famotidine [Pepcid] 40 mg PO DAILY 02/17/17 02/17/17 History L.acidoph,Paracasei, B.lactis 1 cap PO DAILY 02/17/17 02/17/17 History [Probiotic] Levalbuterol HCl [Xopenex 0.63 mg INHALATION RT-DAILY 02/17/17 02/17/17 History Nebulized] Magnesium Oxide [Magox 400] 400 mg PO DAILY 02/17/17 02/17/17 History Meclizine [Antivert] 25 mg PO Q6H PRN 02/17/17 02/17/17 History Potassium 99 mg PO DAILY 02/17/17 02/17/17 History Spironolactone [Aldactone] 25 mg PO DAILY 02/17/17 02/17/17 History Unknown Otc Allergy Relief 1 - 2 tab PO Q8H PRN 02/17/17 02/17/17 History Allergies Allergy/AdvReac Type Severity Reaction Status Date / Time diltiazem [From Cardizem] Allergy Severe Unknown Verified 02/17/17 07:39 verapamil Allergy Severe Unknown Verified 02/17/17 07:39 Physical Examination - Vital Signs Vital Signs: Vital Signs Temp Pulse Pulse Resp BP BP Pulse Ox 02/17/17 21:00 85 22 147/72 99 02/17/17 20:30 82 16 134/62 98 02/17/17 20:00 98 F 84 78 22 134/62 98 02/17/17 19:30 95 25 H 127/62 97 02/17/17 19:00 96 26 H 133/74 98 02/17/17 18:30 95 21 119/63 100 02/17/17 18:20 87 26 H 123/61 99 02/17/17 18:10 95 24 123/61 99 02/17/17 18:00 95 24 137/60 99 02/17/17 17:50 82 25 H 140/69 99 02/17/17 17:40 98 29 H 142/76 98 02/17/17 17:30 94 25 H 142/76 99 02/17/17 17:20 92 27 H 129/68 99 02/17/17 17:10 89 7 L 129/68 99 02/17/17 17:00 86 25 H 132/71 02/17/17 16:50 101 H 29 H 116/64 99 02/17/17 16:40 94 30 H 127/66 99 02/17/17 16:30 92 22 127/66 99 02/17/17 16:20 81 24 123/73 99 02/17/17 16:10 93 24 123/73 99 02/17/17 16:00 98.1 F 85 104 H 22 108/57 100 02/17/17 15:50 89 22 112/57 98 02/17/17 15:40 87 23 113/65 99 02/17/17 15:30 85 23 113/65 99 02/17/17 15:20 89 25 H 137/68 99 02/17/17 15:10 100 28 H 137/68 99 02/17/17 15:00 97 26 H 135/78 98 02/17/17 14:50 95 27 H 137/73 98 02/17/17 14:40 101 H 29 H 137/73 99 02/17/17 14:30 102 H 25 H 141/72 98 02/17/17 14:20 82 28 H 142/47 98 02/17/17 14:10 91 25 H 142/82 98 02/17/17 14:00 91 29 H 142/82 98 02/17/17 13:50 87 23 140/68 99 02/17/17 13:40 89 21 140/68 98 02/17/17 13:30 95 125/67 98 02/17/17 13:20 95 25 H 145/71 99 02/17/17 13:10 88 22 145/71 98 02/17/17 13:00 87 17 145/79 98 02/17/17 12:50 80 22 146/78 98 02/17/17 12:40 97 31 H 146/78 98 02/17/17 12:30 96 23 140/72 98 02/17/17 12:20 98.4 F 88 25 H 149/67 98 02/17/17 12:10 98 24 159/75 98 02/17/17 12:00 92 104 H 17 159/75 98 02/17/17 11:50 90 26 H 134/58 99 02/17/17 11:40 92 11 L 134/58 98 02/17/17 11:30 85 28 H 134/68 99 02/17/17 11:20 82 17 131/69 98 02/17/17 11:10 96 24 131/69 98 02/17/17 11:00 95 23 129/79 99 02/17/17 10:50 95 31 H 139/80 99 02/17/17 10:40 96 23 139/80 98 02/17/17 10:30 93 25 H 135/70 98 02/17/17 10:20 93 27 H 134/64 97 02/17/17 10:10 107 H 24 134/64 98 02/17/17 10:00 102 H 27 H 140/85 96 02/17/17 09:50 94 28 H 137/80 99 02/17/17 09:40 92 25 H 137/80 97 02/17/17 09:30 96 26 H 139/82 97 02/17/17 09:20 98 26 H 141/75 97 02/17/17 09:10 98 25 H 141/75 97 02/17/17 09:00 98 25 H 143/82 98 02/17/17 08:50 105 H 22 149/68 97 02/17/17 08:45 97.8 F 104 H 22 134/64 02/17/17 08:40 141/86 97 02/17/17 08:30 98.2 F 98 26 H 141/86 98 02/17/17 08:20 93 13 145/86 96 02/17/17 08:10 106 H 27 H 145/86 97 02/17/17 08:00 104 H 100 25 H 119/74 98 02/17/17 07:54 105 H 23 02/17/17 07:45 98.2 F 100 145/86 02/17/17 05:27 97.9 F 121 H 16 183/106 96 Intake and Output 02/17/17 02/17/17 02/17/17 06:59 14:59 22:59 Intake Total 140 480 Output Total 320 595 Balance -180 -115 Intake: IV 60 Sodium Chloride 0.9% 1, 60 000 ml @ 20 mls/hr IV . Q24H [facility] Rx#:[id number] Intake, IV Titration 140 60 Amount Sodium Chloride 0.9% 1, 140 60 000 ml @ 20 mls/hr IV . Q24H [facility] Rx#:[id number] Oral 360 Output: Urine 320 595 Other: Voiding Method Bedpan Bedpan Weight 58.105 kg 58 kg 58 kg Patient Weight 02/18/17 06:59 Weight 58 kg - Constitutional General appearance: average body habitus, cooperative - EENT EENT: mucous membranes moist - Respiratory Respiratory: lungs clear, normal breath sounds - Cardiovascular Cardiovascular: normal S1, normal S2 Extremities: no peripheral edema bilaterally - Gastrointestinal Gastrointestinal: normoactive bowel sounds - Integumentary Integumentary: normal - Neurologic Cranial nerve examination: PERRL, EOMI, VFF, V1/V2/V3 grossly intact, tongue midline, intact gag reflex, intact corneal reflex, facial droop (Patient has left upper motor neuron facial weakness.), normal palatal elevation Speech examination: intact Sensorimotor examination: intact Motor examination - right side: 4/5: biceps, triceps, wrist flexion, wrist extension, core blower, hip flexors, knee extensors, dorsiflexion, toe extension (EHL) , plantarflexion Motor examination - left side: 2/5: wrist flexion, wrist extension, 3/5: biceps , triceps, core blower, hip flexors, knee extensors, dorsiflexion, toe extension (EHL) , plantarflexion Detailed sensory examination: intact Reflex and gait examination: intact Reflexes: 1+: ankle, bicep, knee, tricep - Musculoskeletal Musculoskeletal: no pain - Psychiatric Psychiatric: mood/affect appropriate, cooperative Results - Laboratory Findings CBC and BMP: 02/17/17 05:31 02/17/17 05:31 Abnormal Lab Findings: Abnormal Labs 02/17/17 02/17/17 02/17/17 05:25 05:31 05:31 MCV 100.2 H RDW 15.6 H Plt Count 132 L PT INR Glucose 153 H POC Glucose (mg/dL) 138 H Alkaline Phosphatase 235 H Total Protein 8.3 H TSH 02/17/17 02/17/17 02/17/17 05:31 05:31 08:18 MCV RDW Plt Count PT 12.9 H INR 1.3 H Glucose POC Glucose (mg/dL) 127 H Alkaline Phosphatase Total Protein TSH 6.250 H Assessment and Plan (1) Acute right arterial ischemic stroke, MCA (middle cerebral artery) Status: Acute Code(s): I63.511 - CEREB INFRC D/T UNSP OCCLS OR STENOS OF RIGHT MID CEREB ART (2) Chronic atrial fibrillation Status: Acute Code(s): I48.2 - CHRONIC ATRIAL FIBRILLATION (3) Expressive aphasia Status: Acute Code(s): R47.01 - APHASIA (4) Vertigo Status: Acute Code(s): R42 - DIZZINESS AND GIDDINESS Plan: This patient is a 76-year-old right-handed white female who awakened at 2 AM in the morning with left-sided weakness. She was able to alert her who immediately called EMS. She was brought into the emergency room at [facility] for further evaluation. A code stroke was initiated in the ER. Her initial NIH stroke scale was noted to be 22. 15 minutes later her repeat NIH stroke scale was 10. The neural interventionalists did not feel she was a candidate for TPA or other neural intervention at this time. She underwent a computed tomography scan of the brain which revealed a questionable hypodensity in the left frontal lobe. She has a long-standing history of chronic atrial fibrillation but had stopped taking anticoagulation treatment for the past 5 years. She was transferred to the intensive care unit for close monitoring. Her neurological examination reveals significant left-sided weakness with expressive aphasia. This patient has suffered an acute right MCA stroke. We had a long discussion with the patient as well as her and daughter in the ICU. We're strongly recommending she should consider starting on anticoagulation with Eliquis which was recommended by Dr. Dhillon from cardiology. There is no contraindication answer CAT scan of the brain failed to reveal any evidence of acute hemorrhage. The daughter was very agreeable and had been mentioning to her mother over the years that she should restart anticoagulation. Apparently the patient was very resistant as she did develop some bleeding problems when she was on Coumadin earlier in her history. At this time given the finding of any acute stroke we have explained the importance of anticoagulation to the patient. She is now agreeable and she'll be started on Eliquis tonight. We are recommending the patient to undergo an MRI of the brain tomorrow morning for further evaluation for acute right MCA stroke. We are recommending a complete stroke evaluation for the patient. This case was discussed today with Dr. Dhillon and in regards to her neurological status. He is in full agreement with our recommendations. Her overall prognosis at this time remains very guarded. Her case was discussed at length with her and her daughter at bedside. All of their questions were answered. They are aware of her guarded condition in the intensive care unit at this time. Time with Patient: Greater than 30
[2017-02-18] MEDS: CHOLECALCIFEROL 1,000 UNIT TAB PO SCH (08:50)
[2017-02-18] MEDS: APIXABAN 5 MG TAB PO SCH ×2 (08:50→20:21)
[2017-02-18] MEDS: MAGNESIUM OXIDE 400 MG TAB PO SCH (08:50)
[2017-02-18] MEDS: FAMOTIDINE 20 MG/2 ML VIAL IV SCH (08:51)
[2017-02-18] MEDS: DIGOXIN 100 MCG/ML 1 ML AMP IVP SCH (08:51)
[2017-02-18] MEDS: SPIRONOLACTONE 25 MG TAB PO SCH (08:51)
[2017-02-18] MEDS: LACTOBACILLUS ACIDOPH & BULGAR 1 EACH PACKET PO SCH (08:51)
[2017-02-18] MEDS: ASPIRIN 300 MG SUPP RECTAL SCH (08:51)
[2017-02-18] MEDS: METOPROLOL TARTRATE 25 MG TAB PO SCH ×2 (08:51→20:21)
[2017-02-18] MEDS: SODIUM CHLORIDE 0.9% 1,000 ML IV SCH ×2 (08:52→11:00)
[2017-02-18] MEDS ORDERED: ASPIRIN 325 MG TAB PO SCH (09:00)
--- NOTE | 2017-02-18 09:56 | MR ---
EXAMINATION TYPE: MR brain wo con DATE OF EXAM: 02/18/2017 COMPARISON: NONE HISTORY: Facial droop T1-weighted sagittal, T2, FLAIR, and diffusion axial, and T2 coronal coronal views of the brain are s ubmitted. There is 1.8 cm area of abnormal signal involving the right basal ganglia extending into the right pe riventricular white matter. Small additional focus of abnormal signal seen adjacent within the more s uperior right periventricular white matter 2 additional tiny adjacent foci compatible with acute isch emia. No midline shift.. Ventricular system remains midline. There are numerous focal areas of abnormal signal additionally within the white matter which are nons pecific but most typical remote microvascular ischemia. Changes of chronic sinusitis noted. [id number] degenerative change. Craniocervical junction maintained. Sella turcica has a normal appearance. Craniocervical junction ma intained. Sella turcica has a normal appearance. No cerebellopontine angle mass. Port called to patient's nurse. IMPRESSION: 1. Findings are compatible with acute ischemia with multiple areas involving the right basal ganglia and deep white matter on the right with the largest measuring approximately 1.8 cm. 2. Degenerative and nonspecific white matter findings most typical of remote microvascular ischemia.
--- NOTE | 2017-02-18 13:21 | P.PN ---
<oRse Mason - Last Filed: 02/18/17 12:46> Progress Note - Text DATE OF SERVICE: 02/18/2017 PRESENTING COMPLAINT: Left sided weakness slurring of speech INTERVAL HISTORY: 76-year-old female was awoken from sleep not feeling well with weakness in her left arm and left leg speech becomes slurred. Has chronic Khan's palsy. MRI imaging reveals acute ischemia multiple areas involving the right basal ganglia on the right with the greatest measuring approximately 1.8 cm. 02/18/2017: Patient sitting up in the bed today, drinking a protein shake. Still has some difficulty speaking, however improved. Left-sided weakness improving. Speech recommending mechanical soft with thin liquids. Remains in atrial fibrillation , cardiology initiated Eliquis for anticoagulation. REVIEW OF SYSTEMS: Done for constitutional ,cardiovascular, GI, pulmonary with relevant findings as above. CURRENT MEDICATIONS Eliquis, aspirin, digoxin, Pepcid, Xopenex, Antivert, Lopressor. PHYSICAL EXAM VITAL SIGNS: Temperature 98.7, pulse 95, respirations 19, blood pressure 119/61, oxygen saturation 95% on 2 L. GENERAL APPEARANCE: Sitting up in bed, not in distress. EYES: Pupils equal. Conjunctiva normal. NECK: JVD not raised. Mass not palpable. RESPIRATORY: Respiratory effort normal. Lungs clear to auscultation. CARDIOVASCULAR: Irregular rhythm. No edema. ABDOMEN: Soft. Liver and spleen not palpable. No tenderness. No mass palpable. PSYCHIATRY: Alert and oriented x3. Mood and affect normal. NEUROLOGICAL: Mouth pulled to the right, speech slurred power in the left arm and left leg 4/5. INVESTIGATIONS: Temperature 98.7, respiratory rate 19, blood pressure 119/61, oxygen saturation 95% on 2 L pulse 71. Brain MRI: Acute ischemia in multiple areas above the right basal ganglia. Degenerative nonspecific white matter findings. ASSESSMENT: -Acute stroke in the left handed patient probably in the right MCA territory, could be embolic -Atrial fibrillation persistent with a prior history of ablation -Intermittent asthma -Moderate tricuspid regurgitation nonrheumatic -Severe secondary pulmonary hypertension PLAN: PT OT continues to work with the patient. speech recommends mechanical soft with thin liquid diet and cardiology has initiated Eliquis for anticoagulation for atrial fibrillation. Plan of care discussed with the patient and granddaughter at the bedside questions were answered. We'll continue to follow closely. NETBACKUP ADMIN statement: Patient was seen and examined by nurse practitioner Rose Mason and all elements of the case discussed with attending Dr. Washington <Mark Washington - Last Filed: 02/18/17 15:48> Progress Note - Text Attending note. Date of service-02/18/2017 This patient was seen and examined by me . Discussed the patient with my nurse practitioner Ms. Mason. Admitted stroke. In the ICU/overflow. Heart rate is controlled. And A. fib. Left-sided weakness a bit better. Speech is a bit more clear. more awake.. Patient had not been taking anticoagulation for last 5 years in fear of bleeding. Now started on Eliquis On examination: Neuro-speech slurred but improved, power on the left-sided 4 /5 improved from yesterday Investigations: MRI-shows infarct in the basal ganglia on the right side Assessment and plan: Acute stroke in the right basal ganglia felt to be embolic acute and a left- handed patient Persistent atrial fibrillation Patient now on Eliquis. Discussed with the patient and at the bedside.
[2017-02-18] MEDS ORDERED: FUROSEMIDE 10 MG/ML 2 ML VIAL IV ONE (15:38)
[2017-02-18] MEDS ORDERED: POLYETHYLENE GLYCOL 3350 17 GM POWD.PACK PO PRN (17:32)
[2017-02-19] MEDS: SODIUM CHLORIDE 0.9% 1,000 ML IV SCH ×2 (02:07→12:00)
[2017-02-19 05:06] LABS: Anion Gap 8 mmol/L; Blood Urea Nitrogen 18 mg/dL (7-17); Carbon Dioxide 27 mmol/L (22-30); Chloride 105 mmol/L (98-107); Glucose 97 mg/dL (74-99); Non-African American GFR(MDRD) >60 (>60 ml/min/1.73 sqM); Potassium 4.4 mmol/L (3.5-5.1); Sodium 140 mmol/L (137-145)
[2017-02-19] MEDS: APIXABAN 5 MG TAB PO SCH ×2 (10:49→20:39)
[2017-02-19] MEDS: METOPROLOL TARTRATE 25 MG TAB PO SCH ×2 (10:50→20:39)
[2017-02-19] MEDS: LACTOBACILLUS ACIDOPH & BULGAR 1 EACH PACKET PO SCH (10:50)
[2017-02-19] MEDS: FAMOTIDINE 20 MG/2 ML VIAL IV SCH (10:50)
[2017-02-19] MEDS: DIGOXIN 100 MCG/ML 1 ML AMP IVP SCH (10:50)
[2017-02-19] MEDS: ASPIRIN 325 MG TAB PO SCH (10:50)
[2017-02-19] MEDS: MAGNESIUM OXIDE 400 MG TAB PO SCH (10:51)
[2017-02-19] MEDS: CHOLECALCIFEROL 1,000 UNIT TAB PO SCH (10:51)
[2017-02-19] MEDS: SPIRONOLACTONE 25 MG TAB PO SCH (10:51)
[2017-02-19] MEDS ORDERED: FUROSEMIDE 10 MG/ML 2 ML VIAL IV ONE (11:31)
--- NOTE | 2017-02-19 11:31 | P.PN ---
Subjective Patient shows neurologic improvement since her admission. She was admitted with a CVA with speech disturbance and left-sided weakness. Both have begun to improve. She has permanent atrial fibrillation and she was not taking any anticoagulants. She had been treated with Coumadin in the past and she had been treated with a NOAC in the past but she stopped it. She denies any chest discomfort she does not appear to be short of breath On examination she is afebrile 96.8F pulse rate is in the 90s blood pressure 125/60 mmHg respirations 18 nonlabored Breath sounds are reduced bilaterally with rhonchorous breath sounds and some crackles at the bases bilaterally Heart sounds irregular soft no murmurs Abdomen soft nontender Extremities are warm, no lower extremity edema Impression Permanent atrial fibrillation, rate controlled on digoxin and beta blockers now Anticoagulated with ELIQUIS Acute CVA secondary to noncompliance with medications, anticoagulants for stroke prevention Plan. Continue current medications but if she is eating enough. IV fluids and give her Lasix Objective - Vital Signs Vital signs: Vital Signs Temp 96.8 F L 02/19/17 08:00 Pulse 95 02/19/17 08:00 Resp 18 02/19/17 08:00 BP 125/62 02/19/17 08:00 Pulse Ox 93 L 02/19/17 08:00 Intake & Output 02/18/17 02/19/17 02/19/17 18:59 06:59 18:59 Intake Total 160 236 Output Total 200 1000 Balance -200 -840 236 Weight 57.8 kg 53.5 kg Intake: IV 160 Sodium Chloride 0.9% 1, 160 000 ml @ 20 mls/hr IV . Q24H [facility] Rx#:[id number] Oral 236 Output: Urine 200 1000 Other: Voiding Method Bedpan Bedpan Bedpan # Voids 2 - Labs CBC & Chem 7: 02/17/17 05:31 02/19/17 03:46 Labs: Abnormal Lab Results - Last 24 Hours (Table) 02/19/17 Range/Units 03:46 BUN 18 H (7-17) mg/dL
[2017-02-19] MEDS ORDERED: LEVALBUTEROL NEB 1.25 MG/3 ML AMP INHALATION SCH (11:45)
--- NOTE | 2017-02-19 14:01 | P.PN ---
Subjective This patient is a 76-year-old female who was seen yesterday and neurology consultation for acute stroke syndrome. Patient presented with acute left- sided weakness and slurred speech. She underwent MRI of the brain today which confirms evidence of right hemispheric stroke. There are multiple areas of acute infarction suggesting a cardioembolic stroke. She has a long-standing history of chronic atrial fibrillation. Yesterday she was finally convinced to start on anticoagulation for treatment of her atrial fibrillation. She is now on Eliquis. Case was discussed today with her cosmetic chemist Dr. Foley. He is in full agreement that she will need long-term anticoagulation with Eliquis. The patient was seen today in the intensive care unit. She does seem to be more awake and alert. She is following simple commands. She continues to demonstrate significant left-sided hemiparesis and an expressive aphasia. We will continue close neurological follow-up of this patient during this admission. Objective - Vital Signs Vital signs: Vital Signs Temp 98.3 F 02/18/17 20:00 Pulse 75 02/18/17 16:00 Resp 16 02/18/17 20:00 BP 117/59 02/18/17 20:00 Pulse Ox 99 02/18/17 20:00 Intake & Output 02/18/17 02/18/17 02/19/17 06:59 18:59 06:59 Intake Total 100 Output Total 175 200 500 Balance -75 -200 -500 Weight 57.8 kg 57.8 kg Intake: IV 100 Sodium Chloride 0.9% 1, 100 000 ml @ 20 mls/hr IV . Q24H [facility] Rx#:[id number] Output: Urine 175 200 500 Other: Voiding Method Bedpan Bedpan # Voids 1 - Exam Physical examination: PHYSICAL EXAMINATION: Patient is resting comfortably in bed. VITAL SIGNS: Blood pressure is [119/61]. Heart rate is [75]. Respiration is [18] . Temperature is [98.7]. HEENT: Head is atraumatic, neck is supple, there were no carotid bruits. CHEST: Lungs are clear to auscultation and percussion. CARDIAC: S1, S2 normal rate and rhythm. There is no murmur. ABDOMEN: Soft and nontender. Bowel sounds are present. EXTREMITIES: There is no pedal edema. Peripheral pulses are present. Neurological examination: Patient's neurological examination is unchanged from yesterday. - Labs CBC & Chem 7: 02/17/17 05:31 02/19/17 03:46 Assessment and Plan (1) Acute right arterial ischemic stroke, MCA (middle cerebral artery) Status: Acute Code(s): I63.511 - CEREB INFRC D/T UNSP OCCLS OR STENOS OF RIGHT MID CEREB ART (2) Chronic atrial fibrillation Status: Acute Code(s): I48.2 - CHRONIC ATRIAL FIBRILLATION (3) Expressive aphasia Status: Acute Code(s): R47.01 - APHASIA (4) Vertigo Status: Acute Code(s): R42 - DIZZINESS AND GIDDINESS Plan: This patient is a 76-year-old right-handed white female who awakened at 2 AM in the morning with left-sided weakness. She was able to alert her who immediately called EMS. She was brought into the emergency room at [facility] for further evaluation. A code stroke was initiated in the ER. Her initial NIH stroke scale was noted to be 22. 15 minutes later her repeat NIH stroke scale was 10. The neural interventionalists did not feel she was a candidate for TPA or other neural intervention at this time. She underwent a computed tomography scan of the brain which revealed a questionable hypodensity in the left frontal lobe. She has a long-standing history of chronic atrial fibrillation but had stopped taking anticoagulation treatment for the past 5 years. She was transferred to the intensive care unit for close monitoring. Her neurological examination reveals significant left-sided weakness with expressive aphasia. This patient has suffered an acute right MCA stroke. We had a long discussion with the patient as well as her and daughter in the ICU. We're strongly recommending she should consider starting on anticoagulation with Eliquis which was recommended by Dr. Dhillon from cardiology. There is no contraindication answer CAT scan of the brain failed to reveal any evidence of acute hemorrhage. The daughter was very agreeable and had been mentioning to her mother over the years that she should restart anticoagulation. Apparently the patient was very resistant as she did develop some bleeding problems when she was on Coumadin earlier in her history. At this time given the finding of any acute stroke we have explained the importance of anticoagulation to the patient. She is now agreeable and she'll be started on Eliquis tonight. Patient underwent MRI of the brain today which was reviewed. MRI does reveal evidence of acute right MCA infarction involving multiple areas. This MRI finding is consistent with cardioembolic stroke. Patient has been started on long-term anticoagulation for treatment of her atrial fibrillation. This case was discussed today with Dr. Dhillon and in regards to her neurological status. He is in full agreement with our recommendations. Her overall prognosis at this time remains very guarded. Her case was discussed at length with her and her daughter at bedside. All of their questions were answered. They are aware of her guarded condition in the intensive care unit at this time.
--- NOTE | 2017-02-19 15:23 | P.PN ---
<Rose Mason - Last Filed: 02/19/17 15:11> Progress Note - Text DATE OF SERVICE: 02/19/2017 PRESENTING COMPLAINT: Left sided weakness slurring of speech INTERVAL HISTORY: 76-year-old female was awoken from sleep not feeling well with weakness in her left arm and left leg speech becomes slurred. Has chronic Khan's palsy. MRI imaging reveals acute ischemia multiple areas involving the right basal ganglia on the right with the greatest measuring approximately 1.8 cm. 02/19/2017: Patient sitting up in her bed, appears rn wound, drinking a protein shake. Continues to have difficulty speaking improves daily. Left-sided weakness improving. Remains in atrial fibrillation rate controlled in the 70s to 80s. Tolerating her diet eating about 50%. Ambulatory with assistance and a walker. Last BM 02/19/2017. Has had a bloody nose secondary dry effects of oxygen. 02/18/2017: Patient sitting up in the bed today, drinking a protein shake. Still has some difficulty speaking, however improved. Left-sided weakness improving. Speech recommending mechanical soft with thin liquids. Remains in atrial fibrillation , cardiology initiated Eliquis for anticoagulation. REVIEW OF SYSTEMS: Done for constitutional ,cardiovascular, GI, pulmonary, neurologic with relevant findings as above. CURRENT MEDICATIONS Eliquis, aspirin, digoxin, Pepcid, Xopenex, Antivert, Lopressor. PHYSICAL EXAM VITAL SIGNS: Temperature 96.8, pulse 98, respiratory rate 18, blood pressure 123/68, oxygen saturation 93% on room air. GENERAL APPEARANCE: Sitting up in bed, not in distress. EYES: Pupils equal. Conjunctiva normal. NECK: JVD not raised. Mass not palpable. RESPIRATORY: Respiratory effort normal. Lungs clear to auscultation. CARDIOVASCULAR: Irregular rhythm. No edema. ABDOMEN: Soft. Liver and spleen not palpable. No tenderness. No mass palpable. PSYCHIATRY: Alert and oriented x3. Mood and affect normal. NEUROLOGICAL: Mouth pulled to the right, speech slurred power in the left arm and left leg 4/5. INVESTIGATIONS: BUN 18, Accu-Cheks noted ASSESSMENT: -Acute stroke in the left handed patient probably in the right basal ganglia, could be embolic -Persistent Atrial fibrillation persistent with a prior history of ablation -Intermittent asthma -Moderate tricuspid regurgitation nonrheumatic -Severe secondary pulmonary hypertension PLAN: PT OT continues to work with the patient. We'll continue with mechanical soft/ thin liquid diet. Continue with Eliquis for anticoagulation for atrial fibrillation. Plan of care discussed with the patient and granddaughter at the bedside questions were answered. We'll continue to follow closely. PHOTOCOMPOSITION KEYBOARD OPERATOR statement: Patient was seen and examined by nurse practitioner Rose Mason and all elements of the case discussed with attending Dr. Washington <Mark Washington - Last Filed: 02/19/17 17:23> Progress Note - Text Attending note. Date of service-02/19/2017 This patient was seen and examined by me . Discussed the patient with my nurse practitioner Ms. Mason. Admitted with acute stroke. Speech more improvement. Though still slurred. Left-sided weakness even better. Tolerating a diet. and son at the bedside. Patient states she's had respiratory symptoms on and off for about at least a year. She was exposed to the smoking all 4 first and parents for many years that is second hand smoking. Patient often has a cough. Sometimes clear sputum and sometimes yellow. Some wheezing present. Coughing sputum right now. On examination: Lungs-decreased breath sounds respiratory wheezing, some crackles. Neurology- power on the left side 4/5, speech is still slurred but improved Investigations: Potassium 4.4, BUN 18, creatinine 0.7 Assessment and plan: -Acute COPD exacerbation in a patient exposed to secondhand smoking -Possible right basal pneumonia suspected gram-negative organism -Acute stroke in the basal ganglia improving along with dysarthria Will start patient on inhaled bronchodilators, nebulized steroid and Mucinex. Checks x-ray will be done. Sputum be sent off for Gram stain and culture. Care was discussed with the patient and family the bedside. Will DC the IV fluids.
--- NOTE | 2017-02-19 18:38 | XR ---
EXAMINATION TYPE: XR chest 1V DATE OF EXAM: 02/19/2017 COMPARISON: NONE HISTORY: 02/17/2017 TECHNIQUE: Single frontal view of the chest is obtained. FINDINGS: There is increasing confluence within the mil[place] and prominent pulmonary vascular markings a nd interstitial lung markings with diffuse reticular opacities. No evidence of pleural effusion or pn eumothorax. Cardiomegaly is redemonstrated. There is tortuosity of the thoracic aorta and redemonstra tion of hilar prominence. Generalized osseous demineralization and degenerative changes of the thorac ic spine are noted. Lungs are hyperinflated. IMPRESSION: Worsening interstitial edema and pulmonary vascular congestion in combination with cardi omegaly likely relates to underlying congestive heart failure. Multifocal pneumonia is also possible. Hilar prominence could also relate to underlying adenopathy.
[2017-02-19] MEDS: guaiFENesin 600 MG TABLET.ER PO SCH (20:39)
[2017-02-19] MEDS: LEVALBUTEROL NEB 1.25 MG/3 ML AMP INHALATION SCH ×2 (20:40→20:41)
[2017-02-19] MEDS: IPRATROPIUM 0.5 MG/2.5 ML NEBU INHALATION SCH ×2 (20:40→20:41)
[2017-02-19] MEDS: BUDESONIDE 1 MG/2 ML NEBU INHALATION SCH (20:41)
--- NOTE | 2017-02-20 00:35 | P.PN ---
Subjective This patient is a 76-year-old female who was seen yesterday and neurology consultation for acute stroke syndrome. Patient presented with acute left- sided weakness and slurred speech. She underwent MRI of the brain today which confirms evidence of right hemispheric stroke. There are multiple areas of acute infarction suggesting a cardioembolic stroke. She has a long-standing history of chronic atrial fibrillation. Yesterday she was finally convinced to start on anticoagulation for treatment of her atrial fibrillation. She is now on Eliquis. We are waiting for the recommendations from cardiology. In terms of her neurological status following this recent stroke there is some improvement with that her speech today. Her left-sided facial weakness also seems to be improved today. Patient is to continue with all inpatient therapies including PT OT and speech therapy evaluations. She may be a candidate for inpatient rehab placement. We will continue to monitor her progress summary closely during this admission. Her overall prognosis at this time remains guarded. Objective - Vital Signs Vital signs: Vital Signs Temp 96.8 F L 02/19/17 11:30 Pulse 98 02/19/17 11:30 Resp 18 02/19/17 11:30 BP 123/68 02/19/17 11:30 Pulse Ox 93 L 02/19/17 11:30 Intake & Output 02/18/17 02/19/17 02/19/17 18:59 06:59 18:59 Intake Total 160 856 Output Total 200 1000 Balance -200 -840 856 Weight 57.8 kg 53.5 kg Intake: IV 160 Sodium Chloride 0.9% 1, 160 000 ml @ 20 mls/hr IV . Q[facility]H [facility] Rx#:[id number] Oral 856 Output: Urine 200 1000 Other: Voiding Method Bedpan Bedpan Bedpan # Voids 2 1 # Bowel Movements 1 - Exam Physical examination: PHYSICAL EXAMINATION: Patient is resting comfortably in bed. VITAL SIGNS: Blood pressure is [119/61]. Heart rate is [75]. Respiration is [18] . Temperature is [98.7]. HEENT: Head is atraumatic, neck is supple, there were no carotid bruits. CHEST: Lungs are clear to auscultation and percussion. CARDIAC: S1, S2 normal rate and rhythm. There is no murmur. ABDOMEN: Soft and nontender. Bowel sounds are present. EXTREMITIES: There is no pedal edema. Peripheral pulses are present. Neurological examination: Patient's neurological examination is unchanged from yesterday. - Labs CBC & Chem 7: 02/17/17 05:31 02/19/17 03:46 Labs: Abnormal Lab Results - Last 24 Hours (Table) 02/19/17 Range/Units 03:46 BUN 18 H (7-17) mg/dL Assessment and Plan (1) Acute right arterial ischemic stroke, MCA (middle cerebral artery) Status: Acute Code(s): I63.511 - CEREB INFRC D/T UNSP OCCLS OR STENOS OF RIGHT MID CEREB ART (2) Chronic atrial fibrillation Status: Acute Code(s): I48.2 - CHRONIC ATRIAL FIBRILLATION (3) Expressive aphasia Status: Acute Code(s): R47.01 - APHASIA (4) Vertigo Status: Acute Code(s): R42 - DIZZINESS AND GIDDINESS Plan: This patient is a 76-year-old right-handed white female who awakened at 2 AM in the morning with left-sided weakness. She was able to alert her who immediately called EMS. She was brought into the emergency room at [facility] for further evaluation. A code stroke was initiated in the ER. Her initial NIH stroke scale was noted to be 22. 15 minutes later her repeat NIH stroke scale was 10. The neural interventionalists did not feel she was a candidate for TPA or other neural intervention at this time. She underwent a computed tomography scan of the brain which revealed a questionable hypodensity in the left frontal lobe. She has a long-standing history of chronic atrial fibrillation but had stopped taking anticoagulation treatment for the past 5 years. She was transferred to the intensive care unit for close monitoring. Her neurological examination reveals significant left-sided weakness with expressive aphasia. This patient has suffered an acute right MCA stroke. We had a long discussion with the patient as well as her and daughter in the ICU. We're strongly recommending she should consider starting on anticoagulation with Eliquis which was recommended by Dr. Dhillon from cardiology. There is no contraindication answer CAT scan of the brain failed to reveal any evidence of acute hemorrhage. The daughter was very agreeable and had been mentioning to her mother over the years that she should restart anticoagulation. Apparently the patient was very resistant as she did develop some bleeding problems when she was on Coumadin earlier in her history. At this time given the finding of any acute stroke we have explained the importance of anticoagulation to the patient. She is now agreeable and she'll be started on Eliquis tonight. Patient underwent MRI of the brain today which was reviewed. MRI does reveal evidence of acute right MCA infarction involving multiple areas. This MRI finding is consistent with cardioembolic stroke. Patient has been started on long-term anticoagulation for treatment of her atrial fibrillation. This case was discussed today with Dr. Dhillon and in regards to her neurological status. He is in full agreement with our recommendations. Her overall prognosis at this time remains very guarded. Her case was discussed at length with her and her daughter at bedside. All of their questions were answered. Patient was transferred out of the ICU today as she is showing some slight improvement from her recent stroke. She denies any headache at this time. We will continue close neurological follow-up and recommendations: They are aware of her guarded condition and we will need to monitor her neurological status daily. Her overall prognosis at this time remains very guarded.
[2017-02-20] MEDS ORDERED: LEVALBUTEROL NEB (CONC) 1.25 MG/0.5 ML AMP INHALATION SCH (08:00)
[2017-02-20] MEDS: BUDESONIDE 1 MG/2 ML NEBU INHALATION SCH ×2 (08:28→19:50)
[2017-02-20] MEDS: IPRATROPIUM 0.5 MG/2.5 ML NEBU INHALATION SCH ×2 (08:28→12:52)
[2017-02-20] MEDS: ASPIRIN 325 MG TAB PO SCH (08:57)
[2017-02-20] MEDS: METOPROLOL TARTRATE 25 MG TAB PO SCH ×2 (08:57→22:34)
[2017-02-20] MEDS: APIXABAN 5 MG TAB PO SCH ×2 (08:58→22:35)
[2017-02-20] MEDS: guaiFENesin 600 MG TABLET.ER PO SCH ×2 (08:58→22:40)
[2017-02-20] MEDS: FAMOTIDINE 20 MG/2 ML VIAL IV SCH (08:59)
[2017-02-20] MEDS: MAGNESIUM OXIDE 400 MG TAB PO SCH (08:59)
[2017-02-20] MEDS: SPIRONOLACTONE 25 MG TAB PO SCH (08:59)
[2017-02-20] MEDS: LACTOBACILLUS ACIDOPH & BULGAR 1 EACH PACKET PO SCH (08:59)
[2017-02-20] MEDS: CHOLECALCIFEROL 1,000 UNIT TAB PO SCH (08:59)
--- NOTE | 2017-02-20 13:08 | P.PN ---
Subjective Principal diagnosis: CVA This is a 76-year-old female with history of paroxysmal atrial fibrillation with prior ablation, secundum ASD, hypertension, pulmonary hypertension who presented to the hospital with a CVA. Patient had been on Coumadin as well as Xarelto in the past and had stopped taking both of these on her own. Patient had also been on Valium in the past which she discontinued. She is now been initiated on Eliquis. He did have a lengthy discussion with her and her daughter today regarding the importance of continuing on anticoagulation. Brain MRI did reveal findings compatible with acute ischemia with multiple areas involving the right basal ganglia and deep white matter in the right. Measuring approximately 1.8 cm. Patient was seen and examined this morning, sitting up in the chair, complaining of feeling tired, did not sleep well through the night last night. Still having some symptoms of expressive aphasia, although able to get her words out eventually. Blood pressure 132/80 with a heart rate in the low 100s. Continues to be in atrial fibrillation Objective - Vital Signs Vital signs: Vital Signs Temp 97.6 F 02/20/17 08:00 Pulse 105 H 02/20/17 08:47 Resp 18 02/20/17 08:00 BP 133/78 02/20/17 08:00 Pulse Ox 95 02/20/17 08:28 Intake & Output 02/19/17 02/20/17 02/20/17 18:59 06:59 18:59 Intake Total 1452 100 240 Output Total 250 675 Balance 1202 -575 240 Weight 55.1 kg Intake: Oral 1452 100 240 Output: Urine 250 675 Other: Voiding Method Bedpan Bedpan Bedside Commode # Voids 1 # Bowel Movements 1 - Exam PHYSICAL EXAMINATION: HEENT: Head is atraumatic, normocephalic. Pupils equal, round. Neck is supple. There is no elevated jugular venous pressure. HEART EXAMINATION: Heart S1 and S2 irregularly irregular CHEST EXAMINATION: Lungs are clear to auscultation and precussion. No chest wall tenderness is noted on palpation or with deep breathing. ABDOMEN: Soft, nontender. Bowel sounds are heard. No organomegaly noted. EXTREMITIES: 2+ peripheral pulses with no evidence of peripheral edema and no calf tenderness noted. NEUROLOGIC patient is awake, alert and oriented -3. Positive expressive aphasia . - Labs CBC & Chem 7: 02/17/17 05:31 02/19/17 03:46 Labs: Microbiology - Last 24 Hours (Table) 02/19/17 14:00 Gram Stain - Preliminary Sputum Assessment and Plan (1) Paroxysmal a-fib Status: Acute (2) ASD (atrial septal defect) Status: Acute (3) HTN (hypertension) Status: Acute (4) Pulmonary HTN Status: Acute (5) Acute right arterial ischemic stroke, MCA (middle cerebral artery) Status: Acute (6) Expressive aphasia Status: Acute Plan: From cardiology's perspective, we'll recommend to continue current medications which include the Eliquis 5 mg one tablet by mouth twice a day. Patient and daughter have been instructed regarding the importance of not stopping Eliquis under any circumstance DNP note has been reviewed, I agree with a documented findings and plan of care. Patient was seen and examined.
[2017-02-20] MEDS: IPRATROPIUM-ALBUTEROL 3 ML NEB INHALATION SCH ×2 (15:16→19:50)
--- NOTE | 2017-02-20 15:33 | CDI ---
In responding to this query, please exercise your independent professional judgment. The [facility] Coding Staff and Clinical Documentation Specialists appreciate your assistance in clarifying documentation, maintaining compliance with coding guidelines, accurately documenting patients condition and capturing severity of illness. The fact that a question is asked does not imply that any particular answer is desired or expected. Communication forms are a method of clarifying documentation and are not made part of the Legal Health Record. Thank you in advance for your clarification. Last Revision, August 2016 Christophe Wooten [address] [place] [place] [address] Documentation Clarification Form Date: 02/20/2017 3:21:00 PM From: Lara Boyce CCS, CCDS Admit Date: 02/17/2017 6:41:00 AM Patient Name: Margarette Arambula Visit Number: [id number] Discharge Date: Dr. Sahil Dhillon: CHF is documented in the patient's history of the H/P and the consults by cardiology & neurology. History/Risk Factors: Permanent Atrial Fibrillation, moderate tricuspid regurgitation & severe secondary pulmonary hypertension. Previously was on anticoagulants, stopped taking due to bleeding. Clinical Indicators: The patient presented with left side weakness & slurred speech, diagnosed with an about CVA. VS: P 121, BP 183/106, PO 96 2Lnc BNP: 1010 Echocardiogram Results: EF 55-60% left ventricular systolic function is normal, right ventricle severely enlarged. Chest X Ray: Cardiomegaly with prominent interstitial markings, may reflect a component of pulmonary vascular congestion/mild CHF in the acute setting. Treatment: IV Lasix started 02/18, Levalbuterol neb INH, O2 2Lnc. Consults: Cardiology & Neurology In your professional opinion, can you please clarify the acuity and type of CHF if known? Systolic Heart Failure: Acute Chronic Acute on Chronic Diastolic Heart Failure: Acute Chronic Acute on Chronic Systolic & Diastolic Heart Failure: Acute Chronic Acute on Chronic Unable to determine Other, please specify Please document in your progress notes and discharge summary in order to capture severity of illness and risk of mortality. Include clinical findings that support your diagnosis. FYI: Press F11 to launch patient chart. IN[employer]
--- NOTE | 2017-02-20 16:58 | P.PN ---
<Rose Mason - Last Filed: 02/21/17 14:37> Progress Note - Text DATE OF SERVICE: 02/20/2017 PRESENTING COMPLAINT: Left sided weakness slurring of speech INTERVAL HISTORY: 76-year-old female was awoken from sleep not feeling well with weakness in her left arm and left leg speech becomes slurred. Has chronic Khan's palsy. MRI imaging reveals acute ischemia multiple areas involving the right basal ganglia on the right with the greatest measuring approximately 1.8 cm. 02/20/2017: Patient sitting up in bed, just finished a shower, speech improving much more clear today. Left-sided weakness improving. Remains in atrial fibrillation rate controlled in the 70s to 80s, tolerating her diet eating about 50%. Ambulatory with assistance and a walker. Agreeable to work with physical therapy. Last BM 02/19/2017. No further bloody noses. 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 Continues to have difficulty speaking improves daily. Left-sided weakness improving. Remains in atrial fibrillation rate controlled in the 70s to 80s. Tolerating her diet eating about 50%. Ambulatory with assistance and a walker. Last BM 02/19/2017. Has had a bloody nose secondary dry effects of oxygen. 02/18/2017: Patient sitting up in the bed today, drinking a protein shake. Still has some difficulty speaking, however improved. Left-sided weakness improving. Speech recommending mechanical soft with thin liquids. Remains in atrial fibrillation , cardiology initiated Eliquis for anticoagulation. REVIEW OF SYSTEMS: Done for constitutional ,cardiovascular, GI, pulmonary, neurologic with relevant findings as above. CURRENT MEDICATIONS Eliquis, aspirin, digoxin, Pepcid, Xopenex, Antivert, Lopressor, ceftriaxone. PHYSICAL EXAM VITAL SIGNS: Temperature 96.8, pulse 98, respiratory rate 18, blood pressure 123/68, oxygen saturation 93% on room air. GENERAL APPEARANCE: Sitting up in bed, not in distress. EYES: Pupils equal. Conjunctiva normal. NECK: JVD not raised. Mass not palpable. RESPIRATORY: Respiratory effort normal. Lungs diminished with crackles on the right base to auscultation. CARDIOVASCULAR: Irregular rhythm. No edema. ABDOMEN: Soft. Liver and spleen not palpable. No tenderness. No mass palpable. PSYCHIATRY: Alert and oriented x3. Mood and affect normal. NEUROLOGICAL: Mouth pulled to the right, speech slurred power in the left arm and left leg 4/5. INVESTIGATIONS: None new ASSESSMENT: -Acute stroke in the left handed patient probably in the right basal ganglia, along with dysarthria could be embolic -Right basal pneumonia suspect gram-negative organism -Acute COPD exacerbation in a patient exposed to secondhand smoking -Epistaxis, secondary to dry effects of oxygen therapy -Persistent Atrial fibrillation persistent with a prior history of ablation -Intermittent asthma -Moderate tricuspid regurgitation nonrheumatic -Severe secondary pulmonary hypertension PLAN: PT OT continues to work with the patient. We'll continue with mechanical soft/ thin liquid diet. Continue with Eliquis for anticoagulation for atrial fibrillation. Continue inhaled bronchodilators antibiotics, nebulized steroids and Mucinex. Await sputum culture results. We'll see how the patient is tomorrow and may be able to discharge her to home versus inpatient rehab at [facility](patient request). Plan of care discussed with the patient the bedside she is in agreement. We will continue to follow closely. RN STAFF statement: Patient was seen and examined by nurse practitioner Rose Mason and all elements of the case discussed with attending Dr. Washington <Mark Washington - Last Filed: 02/21/17 17:28> Progress Note - Text Attending note. Date of service-02/20/2017 This patient was seen and examined by me . Discussed the patient with my nurse practitioner Ms. Mason. Left-sided weakness improving. Speech bit more clear. On examination: Neuro-power of the left side 4/5, speech improved-still slurred Investigations: Assessment and plan: Acute stroke in the right basal ganglia. Physical therapy suggesting possibly inpatient rehab patient is not sure. Other medications to continue. Discussed with the patient.
--- NOTE | 2017-02-21 06:30 | P.CONS ---
History of Present Illness - Chief Complaint Gait disturbance with left hemiparesthesias - History of Present Illness I had the op to see patient for inpatient rehab consultation with regard to gait disturbance. She was admitted to [facility] February 17 with acute onset left- sided weakness. Seen by Dr. Lissa Rausch who notes MCA infarct. Seen by Dr. Dhillon for A. fib. Workup includes chest x-ray demonstrates increased congestion as well as cardiomegaly. Brain MRI demonstrates right basal ganglia infarct as well as chronic change. Carotid Doppler with bilateral plaques only. In November CT negative for stenosis. Head CT with atrophy and chronic change. Speech therapy reports swallow study and recommend pured and thin liquid. PT and OT prescribed. Previous functional history as elicited from patient: 76-year-old left-handed white female who is lives in one floor home with . Retired. Doesn't smoke or drink and never did. Describes independent with cooking, laundry, driving, standing shower and gait without device. Dr. Bryant his regular doctor. Review of Systems Review of systems: ENT: Denies sneezes or discharge. Eyes: Denies discharge or photophobia. Cardiac: Denies chest pain or palpitation. Pulmonary: Denies cough or shortness of breath. Breast: Denies discharge or lumps. Gastrointestinal: Denies nausea, emesis, constipation, diarrhea. Genitourinary: Denies discharge or frequency. Musculoskeletal: Mild discomfort in left leg. Neurologic: Left-sided weakness and numbness. Endocrine: Denies shakes or sweats. Oncology: Denies cancers. Dermatologic: Denies rash, itching, pruritus. ALLERGY/immunology: Denies sneezes, rashes. Past Medical History Past Medical History: Atrial Fibrillation, Cancer, Heart Failure, Hypertension, Pneumonia, Vascular Disorder Additional Past Medical History / Comment(s): Pt's family express concern over a chronic cough that has been a problem for alittle less than 1 yr, pulmonary HTN, bronchitis, "hole in heart", failed cardiac ablation, vertigo-recently tx with head/neck manipulation that helped, basal cell skin cancer with removal, stomach ulcer years ago, PVD, varicosities, diverticular dx, UTI/hematuria, sinus problems, past R knee fracture. PT IS LEFT HANDED. History of Any Multi-Drug Resistant Organisms: None Reported Past Surgical History: Cardiac Ablation, Section, Cholecystectomy, Orthopedic Surgery, Tonsillectomy Additional Past Surgical History / Comment(s): R rotator cuff repair, skin cancer removed from nose. Past Anesthesia/Blood Transfusion Reactions: Postoperative Nausea & Vomiting ( PONV) Additional Past Anesthesia/Blood Transfusion Reaction / Comm: Pt received blood in past without reaction. Smoking Status: Never smoker - Past Family History Mother Family Medical History: Diabetes Mellitus Father Family Medical History: CVA/TIA, Myocardial Infarction ([place]) Additional Family Medical History / Comment(s): Father had [place]/CVA sometime in his 60's. Medications and Allergies Home Medications Medication Instructions Recorded Confirmed Type Amoxicillin 875 mg PO Q12HR 01/28/17 01/28/17 History Aspirin EC [Ecotrin Low Dose] 81 mg PO BID 01/28/17 01/28/17 History Cholecalciferol [Vitamin D3] 1,000 unit PO DAILY 01/28/17 01/28/17 History Cyanocobalamin (Vitamin B-12) 1,000 mcg PO DAILY 01/28/17 01/28/17 History [Vitamin B-12] Digoxin [Digitek] 125 mcg PO DAILY 01/28/17 01/28/17 History Famotidine [Pepcid AC] 10 mg PO DAILY 01/28/17 01/28/17 History L.acidoph,Paracasei, B.lactis 1 cap PO DAILY 01/28/17 01/28/17 History [Probiotic] Levalbuterol HCl [Xopenex 0.63 mg INHALATION RT-DAILY PRN 01/28/17 01/28/17 History Nebulized] Magnesium 200 mg PO DAILY PRN 01/28/17 01/28/17 History Montelukast [Singulair] 10 mg PO DAILY 01/28/17 01/28/17 History Potassium 99 mg PO DAILY PRN 01/28/17 01/28/17 History Spironolactone [Aldactone] 25 mg PO DAILY 01/28/17 01/28/17 History Aspirin 81 mg PO BID 02/17/17 02/17/17 History Cholecalciferol [Vitamin D3] 1,000 unit PO DAILY 02/17/17 02/17/17 History Cyanocobalamin (Vitamin B-12) 1,000 mcg PO DAILY 02/17/17 02/17/17 History [Vitamin B-12] Digoxin [Digitek] 125 mcg PO DAILY 02/17/17 02/17/17 History Famotidine [Pepcid] 40 mg PO DAILY 02/17/17 02/17/17 History L.acidoph,Paracasei, B.lactis 1 cap PO DAILY 02/17/17 02/17/17 History [Probiotic] Levalbuterol HCl [Xopenex 0.63 mg INHALATION RT-DAILY 02/17/17 02/17/17 History Nebulized] Magnesium Oxide [Magox 400] 400 mg PO DAILY 02/17/17 02/17/17 History Meclizine [Antivert] 25 mg PO Q6H PRN 02/17/17 02/17/17 History Potassium 99 mg PO DAILY 02/17/17 02/17/17 History Spironolactone [Aldactone] 25 mg PO DAILY 02/17/17 02/17/17 History Unknown Otc Allergy Relief 1 - 2 tab PO Q8H PRN 02/17/17 02/17/17 History Allergies Allergy/AdvReac Type Severity Reaction Status Date / Time diltiazem [From Cardize] AdvReac Nausea & Verified 01/28/17 10:36 Vomiting verapamil AdvReac Nausea & Verified 01/28/17 10:36 Vomiting Physical Exam Vitals: Vital Signs Temp Pulse Pulse Resp BP Pulse Ox 02/20/17 22:46 97 F L 116 H 18 151/76 97 02/20/17 20:11 95 02/20/17 19:52 105 H 02/20/17 16:00 96 16 02/20/17 15:55 98 02/20/17 15:17 97 02/20/17 15:00 96 16 129/61 98 02/20/17 08:47 105 H 02/20/17 08:28 103 H 95 02/20/17 08:00 97.6 F 98 18 133/78 98 Intake and Output 02/20/17 02/20/17 02/21/17 14:59 22:59 06:59 Intake Total 340 100 Output Total 400 100 Balance -60 0 Intake: Oral 340 100 Output: Urine 400 100 Other: Voiding Method Bedside Commode # Voids 2 Skin: Atrophic, intact. General: Medium build and comfortable appearance. Head: Normocephalic, atraumatic. Eyes: Symmetric. Pupils equal round. Ears: Symmetric. Hearing within normal limits. Mouth: Clear. Neck: Supple. Carotid without bruit. Cardiac: Regular rate and rhythm. Lungs: Clear anteriorly and posteriorly. Abdomen: Soft active nontender. Extremities: Normal tone. Neurological: Mental status: Alert, cooperative, pleasant. Cranial nerves: Symmetric facial tone and trapezius. Motor: Active movement all 4 limbs with apraxia and synergy on left side. Sensation: Intact throughout. DTRs: Symmetric and equal throughout. Mobility: Sits with minimal assistance. Results CBC & Chem 7: 02/17/17 05:31 02/19/17 03:46 Chest x-ray: report reviewed (Cardiomegaly. Followed for increasing congestion. ) CT Scan - head: report reviewed (Chronic small vessel change and atrophy.) MRI - head: report reviewed (Left basal ganglia infarct. Chronic change.) Assessment and Plan (1) Acute right arterial ischemic stroke, MCA (middle cerebral artery) Status: Acute Plan: Impression: 1. Gait disturbance. 2. Acute stroke result in left hemiparesthesias. 3. Atrial septal defect. 4. Atrial fibrillation. 5. Cardiac disease. 6. Peripheral vascular disease. 7. Hypertension. Comments and plan: At this time speech therapies ongoing in PT and OT are prescribed. We'll follow therapies with yourself. We will of course consider for inpatient rehab.
[2017-02-21 07:40] VITALS: BP 120/78; RESP 16; TEMP 98.5
[2017-02-21] MEDS: IPRATROPIUM-ALBUTEROL 3 ML NEB INHALATION SCH ×2 (07:58→11:10)
[2017-02-21] MEDS: BUDESONIDE 1 MG/2 ML NEBU INHALATION SCH (07:58)
[2017-02-21 08:00] VITALS: PULSE 100
[2017-02-21] MEDS: METOPROLOL TARTRATE 25 MG TAB PO SCH (09:33)
[2017-02-21] MEDS: LACTOBACILLUS ACIDOPH & BULGAR 1 EACH PACKET PO SCH (09:33)
[2017-02-21] MEDS: ASPIRIN 325 MG TAB PO SCH (09:33)
[2017-02-21] MEDS: SPIRONOLACTONE 25 MG TAB PO SCH (09:34)
[2017-02-21] MEDS: MAGNESIUM OXIDE 400 MG TAB PO SCH (09:34)
[2017-02-21] MEDS: APIXABAN 5 MG TAB PO SCH (09:34)
[2017-02-21] MEDS: DIGOXIN 125 MCG TAB PO SCH (09:34)
[2017-02-21] MEDS: guaiFENesin 600 MG TABLET.ER PO SCH (09:34)
[2017-02-21] MEDS: FAMOTIDINE 20 MG/2 ML VIAL IV SCH (09:34)
[2017-02-21] MEDS: CHOLECALCIFEROL 1,000 UNIT TAB PO SCH (09:34)
[2017-02-21 14:41] VITALS: BMI 22.2
--- NOTE | 2017-02-21 14:49 | P.DS ---
<Rose Mason - Last Filed: 02/21/17 14:35> Providers Date of admission: 02/17/17 06:41 Expected date of discharge: 02/21/17 Attending physician: Mark Washington Consults: 02/17/17 06:45 Consult Physician Urgent Consulting Provider: Karolyn Headley Consult Reason/Comments: cva Do you want consulting provider notified?: Yes 02/20/17 15:47 Consult Physician Routine Consulting Provider: Lakhwinder Iraheta Consult Reason/Comments: eval for inpatient rehab Do you want consulting provider notified?: Yes Primary care physician: [facility] [place] Course: FINAL DIAGNOSES: -Acute stroke in the left handed patient in the right basal ganglia, along with dysarthria could be embolic -Right basal pneumonia suspect gram-negative organism -Acute COPD exacerbation in a patient exposed to secondhand smoking -Epistaxis, secondary to dry effects of oxygen therapy -Persistent Atrial fibrillation persistent with a prior history of ablation -Moderate tricuspid regurgitation nonrheumatic -Severe secondary pulmonary hypertension -Subclinical hypothyroidism HOSPTIAL COURSE: 76-year-old female presented after she was awoken from sleep with stroke-like symptoms which included weakness in the left arm and left leg and slurred speech. Imaging revealed acute stroke in the right basal ganglia. Neurology cardiology, speech therapy, physical therapy occupational therapy all consulted. Has history is significant for atrial fibrillation, anticoagulation held per cardiology and neurology. Speech and left-sided weakness improved over subsequent days. Anti-coagulation reinitiated by cardiology for atrial fibrillation. Condition has stabilized and patient would like to go home however no family at home during the day and there are concerns for her safety patient may benefit from additional intensive therapy at rehab. Tolerating her diet, ambulatory with a walker and assistance, moving her bowels. Therefore patient is being transferred to [facility] for rehabilitation. PHYSICAL EXAM: CARDIOVASCULAR: Irregular rhythm, no edema RESPIRATORY: Respiratory effort normal, lungs clear to auscultation bilaterally MUSKULOSKELETAL: Left-sided hemiparesis continues strength 4/5 on the left 5/5 on the right NEUROLOGIC: Alert and oriented 3, has some dysarthria, has some gait dysfunction requiring the use a walker. Patient was seen and examined by nurse practitioner Rose Mason in all elements of the case discussed with attending Dr. Washington DISPOSITION: Discharge to [facility] rehabilitation [facility] Patient Condition at Discharge: Stable Plan - Discharge Summary New Discharge Prescriptions: New Apixaban [Eliquis] 5 mg PO BID tab Budesonide [Pulmicort] 1 mg INHALATION RT-BID neb Cefuroxime Axetil [Ceftin] 500 mg PO BID #6 tab Ipratropium Nebulized [Atrovent Nebulized] 0.5 mg INHALATION Q8HR #1 neb Metoprolol Tartrate [Lopressor] 25 mg PO BID tab Polyethylene Glycol 3350 [Miralax] 17 gm PO DAILY PRN pack PRN Reason: Constipation Atorvastatin [Lipitor] 20 mg PO HS tab Continue Montelukast [Singulair] 10 mg PO DAILY Magnesium 200 mg PO DAILY PRN PRN Reason: When she remembers/wants to Cyanocobalamin (Vitamin B-12) [Vitamin B-12] 1,000 mcg PO DAILY Cholecalciferol [Vitamin D3] 1,000 unit PO DAILY Magnesium Oxide [Magox 400] 400 mg PO DAILY Cholecalciferol [Vitamin D3] 1,000 unit PO DAILY L.acidoph,Paracasei, B.lactis [Probiotic] 1 cap PO DAILY Famotidine [Pepcid] 40 mg PO DAILY Aspirin 81 mg PO BID Spironolactone [Aldactone] 25 mg PO DAILY Digoxin [Digitek] 125 mcg PO DAILY Changed Levalbuterol HCl [Xopenex Nebulized] 0.63 mg INHALATION RT-TID #0 Discontinued Potassium 99 mg PO DAILY PRN PRN Reason: When she remembers/wants to L.acidoph,Paracasei, B.lactis [Probiotic] 1 cap PO DAILY Famotidine [Pepcid AC] 10 mg PO DAILY Aspirin EC [Ecotrin Low Dose] 81 mg PO BID Amoxicillin 875 mg PO Q12HR Spironolactone [Aldactone] 25 mg PO DAILY Digoxin [Digitek] 125 mcg PO DAILY Levalbuterol HCl [Xopenex Nebulized] 0.63 mg INHALATION RT-DAILY PRN PRN Reason: sob Potassium 99 mg PO DAILY Meclizine [Antivert] 25 mg PO Q6H PRN PRN Reason: Vertigo Cyanocobalamin (Vitamin B-12) [Vitamin B-12] 1,000 mcg PO DAILY Unknown Otc Allergy Relief 1 - 2 tab PO Q8H PRN PRN Reason: Allergy Symptoms Discharge Medication List Cholecalciferol [Vitamin D3] 1,000 unit PO DAILY 01/28/17 [History] Cyanocobalamin (Vitamin B-12) [Vitamin B-12] 1,000 mcg PO DAILY 01/28/17 [ History] Magnesium 200 mg PO DAILY PRN 01/28/17 [History] Montelukast [Singulair] 10 mg PO DAILY 01/28/17 [History] Aspirin 81 mg PO BID 02/17/17 [History] Cholecalciferol [Vitamin D3] 1,000 unit PO DAILY 02/17/17 [History] Digoxin [Digitek] 125 mcg PO DAILY 02/17/17 [History] Famotidine [Pepcid] 40 mg PO DAILY 02/17/17 [History] L.acidoph,Paracasei, B.lactis [Probiotic] 1 cap PO DAILY 02/17/17 [History] Magnesium Oxide [Magox 400] 400 mg PO DAILY 02/17/17 [History] Spironolactone [Aldactone] 25 mg PO DAILY 02/17/17 [History] Apixaban [Eliquis] 5 mg PO BID tab 02/21/17 [Rx] Atorvastatin [Lipitor] 20 mg PO HS tab 02/21/17 [Rx] Budesonide [Pulmicort] 1 mg INHALATION RT-BID neb 02/21/17 [Rx] Cefuroxime Axetil [Ceftin] 500 mg PO BID #6 tab 02/21/17 [Rx] Ipratropium Nebulized [Atrovent Nebulized] 0.5 mg INHALATION Q8HR #1 neb [Rx] Levalbuterol HCl [Xopenex Nebulized] 0.63 mg INHALATION RT-TID #0 02/21/17 [Rx] Metoprolol Tartrate [Lopressor] 25 mg PO BID tab 02/21/17 [Rx] Polyethylene Glycol 3350 [Miralax] 17 gm PO DAILY PRN pack 02/21/17 [Rx] Follow up Appointment(s)/Referral(s): Lakhwinder Iraheta MD [STAFF PHYSICIAN] - 02/22/17 Filippo Bryant MD [Primary Care Provider] - As Needed Discharge Disposition: STILL PT- FOR INTERIM BILLING <Mark Washington - Last Filed: 02/22/17 19:05> Hospital Course: Attending note. Date of service-02/21/2017 This patient was seen and examined by me . Discussed the patient with my nurse practitioner Ms. Mason. Doing better. Speech improved. Patient will be going to rehab. Walking better with support. On examination: Power and left-sided 4/5, speech a bit slow Investigations: Assessment and plan: Acute stroke with left-sided weakness and dysarthria slowly improving. Discharge to [facility] inpatient rehab under care of Dr. Villavicencio Discharge planning more than 35 minutes
[2017-02-21] MEDS ORDERED: ATORVASTATIN 20 MG TAB PO SCH (21:00)
== END 2017-02-21 15:24 | disposition still patient (30) | DRG 64 ==
LOC: EDBD → SUPCPDRO 05:11 → EC 05:11 → 6ICU 06:41 → MERGE 06:41 → 6SEL 02-19 04:52 → 4MS4W 02-20 22:04
PROVIDERS: ADMIT Hospitalist; ATTEND Hospitalist
DX: I63.511 Cerebral infarction due to unspecified occlusion or stenosis of right middle cerebral artery (principal); J15.6 Pneumonia due to other Gram-negative bacteria; I11.0 Hypertensive heart disease with heart failure; I48.1 Persistent atrial fibrillation; I27.2 Other secondary pulmonary hypertension; I50.9 Heart failure, unspecified; J44.0 Chronic obstructive pulmonary disease with (acute) lower respiratory infection; J44.1 Chronic obstructive pulmonary disease with (acute) exacerbation; Q21.1 Atrial septal defect; I48.0 Paroxysmal atrial fibrillation; I48.2 Chronic atrial fibrillation; G51.0 Bell's palsy; I07.1 Rheumatic tricuspid insufficiency; I73.9 Peripheral vascular disease, unspecified; K21.9 Gastro-esophageal reflux disease without esophagitis; Z77.22 Contact with and (suspected) exposure to environmental tobacco smoke (acute) (chronic); E02 Subclinical iodine-deficiency hypothyroidism; R04.0 Epistaxis; R47.81 Slurred speech; R29.710 NIHSS score 10; R47.01 Aphasia; R42 Dizziness and giddiness; R26.9 Unspecified abnormalities of gait and mobility; I45.10 Unspecified right bundle-branch block; I65.22 Occlusion and stenosis of left carotid artery; J45.20 Mild intermittent asthma, uncomplicated; Y92.230 Patient room in hospital as the place of occurrence of the external cause; T41.5X5A Adverse effect of therapeutic gases, initial encounter; Z83.3 Family history of diabetes mellitus; I69.322 Dysarthria following cerebral infarction; Z88.8 Allergy status to other drugs, medicaments and biological substances; Z79.899 Other long term (current) drug therapy; Z90.49 Acquired absence of other specified parts of digestive tract; Z86.79 Personal history of other diseases of the circulatory system; Z87.01 Personal history of pneumonia (recurrent); Z85.828 Personal history of other malignant neoplasm of skin; Z82.3 Family history of stroke; Z79.82 Long term (current) use of aspirin; Z79.51 Long term (current) use of inhaled steroids; Z80.49 Family history of malignant neoplasm of other genital organs; Z82.49 Family history of ischemic heart disease and other diseases of the circulatory system
CPT/HCPCS: 36415; 70450; 70496; 70498; 70551; 71010; 80048; 80053; 80061; 82550; 82553; 83880; 84439; 84443; 84484; 85025; 85610; 85730; 87070; 87077; 87186; 87205; 93005; 93306; 93880; 94640; 94760; 95819; 96361; 96374; 99285

== ENCOUNTER → 2017-04-07 | Outpatient (CLI) | payer OTHER, MEDICARE ==
--- NOTE | 2017-04-07 17:08 | CT ---
EXAMINATION TYPE: CT chest wo con DATE OF EXAM: 04/07/2017 COMPARISON: May 27, 2016 HISTORY: Chronic cough X [address] DLP: 131.6 mGycm. Automated Exposure Control for Dose Reduction was Utilized. TECHNIQUE: CT scan of the thorax is performed without IV contrast. FINDINGS: There is consolidation and atelectasis in the anterior segment of the left upper lobe. There is bilat eral nodular pulmonary infiltrate. There is patchy reticular nodular infiltrate at the midlung [place] bilaterally. Heart is moderately enlarged. There is no pleural effusion. There are large central pul monary arteries. There is no pericardial effusion. Thoracic aorta is atheromatous. There is no eviden ce of aneurysm. The bony thorax is intact. There is some mild focal consolidation and atelectasis in the right middle lobe. IMPRESSION: Extensive bilateral pulmonary findings as above. These are fairly stable compared to old CT scan. I see no new pulmonary infiltrate. Severe cardiomegaly. Enlarged pulmonary arteries consistent with chronic pulmonary hypertension.
== END | disposition home or self-care (01) ==
LOC: RADCTMAIN 16:38
PROVIDERS: ATTEND Internal Medicine Critical Care Medicine
DX: I28.8 Other diseases of pulmonary vessels (principal); I51.7 Cardiomegaly
CPT/HCPCS: 71250

== ENCOUNTER → 2017-08-10 | Outpatient (CLI) | payer OTHER, MEDICARE ==
--- NOTE | 2017-06-15 07:34 | P.PN ---
Progress Note - Text This is in response to documentation query Chart reviewed. Reviewed my notes. Patient was evaluated and managed for atrial fibrillation, permanent. Was receiving IV Lasix Normal LV function and normal ejection fraction left ventricular on 2-D echo Dilated right ventricle secondary to severe pulmonary hypertension on 2-D echo Likely acute on chronic right-sided heart failure secondary to pulmonary hypertension Possible diastolic heart failure, acute and chronic Unable to determine any further
== END ==
LOC: RADBDWWP 15:04
PROVIDERS: ATTEND Family Medicine
DX: Z53.9 Procedure and treatment not carried out, unspecified reason (principal)

== ENCOUNTER → 2017-08-10 | Outpatient (CLI) | payer OTHER, MEDICARE ==
--- NOTE | 2017-08-10 16:04 | US ---
EXAMINATION TYPE: US carotid duplex BILAT DATE OF EXAM: 08/10/2017 COMPARISON: US CLINICAL HISTORY: I65.29 OCCLUSION AND STENOSIS OF CAROTID ARTERY; atrial fibrillation; left facial w eakness per patient after prior TIA 2017 EXAM MEASUREMENTS: RIGHT: Peak Systolic Velocity (PSV) cm/sec ----- Right CCA: 75.3 ----- Right ICA: 78.2 ----- Right ECA: 138.4 ICA/CCA ratio: 1.0 RIGHT: End Diastole cm/sec ----- Right CCA: 5.6 ----- Right ICA: 11.0 ----- Right ECA: 0.0 LEFT: Peak Systolic Velocity (PSV) cm/sec ----- Left CCA: 63.4 ----- Left ICA: 65.1 ----- Left ECA: 117.4 ICA/CCA ratio: 1.0 LEFT: End Diastole cm/sec ----- Left CCA: 13.6 ----- Left ICA: 10.1 ----- Left ECA: 9.8 VERTEBRALS (direction of flow): Right Vertebral: Antegrade Left Vertebral: Antegrade Rhythm: Arrhythmia IMPRESSION: Abnormal high resistive waveform is noted in bilateral ICA. Hyperechoic wall plaque is n oted at bilateral carotid bifurcation and abnormally elevated PSV (>125cm/sec) is noted in right ECA proximally. Criteria for Assigning % of Stenosis / Diameter reduction (Estimation based on the indirect measurements of the internal carotid artery velocities (ICA PSV). 1. Normal (no stenosis)=ICA PSV < 125 cm/s: ratio < 2.0: ICA EDV<40 cm/s. 2. Less than 50% stenosis=ICA PSV < 125 cm/s: ratio < 2.0: ICA EDV<40 cm/s. 3. 50 to 69% stenosis=ICA PSV of 125 to 230 cm/s: ration 2.0 ? 4.0: ICA EDV 40-100 cm/s. 4. Greater than 70% stenosis to near occlusion= ICA PSV > 230 cm/s: ratio > 4.0: ICA EDV > 100 cm/s. 5. Near occlusion= ICA PSV velocities may be low or undetectable: variable ratio and ICA EDV. 6. Total occlusion=unable to detect flow.
== END | disposition home or self-care (01) ==
LOC: RADUSWWP 15:06
PROVIDERS: ATTEND Family Medicine
DX: I65.23 Occlusion and stenosis of bilateral carotid arteries (principal)
CPT/HCPCS: 93880

== ENCOUNTER → 2017-11-09 | Outpatient (CLI) | payer OTHER, MEDICARE ==
[2017-11-09 11:00] LABS: Anion Gap 11 mmol/L; Blood Urea Nitrogen 13 mg/dL (7-17); Calcium 9.1 mg/dL (8.4-10.2); Carbon Dioxide 33 mmol/L (22-30); Chloride 84 mmol/L (98-107); Glucose 192 mg/dL (74-99); Potassium 3.9 mmol/L (3.5-5.1); Sodium 128 mmol/L (137-145)
[2017-11-09 14:01] LABS: Magnesium 1.6 mg/dL (1.6-2.3)
== END ==
LOC: LABWHC1 10:16
PROVIDERS: ATTEND Nurse Practitioner Adult Health
DX: I10 Essential (primary) hypertension (principal)
CPT/HCPCS: 36415; 80048; 83735

== ENCOUNTER 2017-11-23 19:43 | Inpatient (IN) | payer OTHER, MEDICARE ==
[2017-11-23] MEDS ORDERED: FUROSEMIDE 10 MG/ML 4 ML VIAL IV STA (21:12)
[2017-11-23] MEDS ORDERED: methylPREDNISolone SOD SUCCI 125 MG/2 ML VIAL IV STA (21:12)
[2017-11-23] MEDS ORDERED: SODIUM CHLORIDE 0.9% 1,000 ML IV STA ×2 (21:12)
[2017-11-23] MEDS ORDERED: IPRATROPIUM-ALBUTEROL 3 ML NEB INHALATION STA (21:12)
[2017-11-23 21:47] LABS: Basophils % (A) 0 %; Eosinophils % (A) 1 %; HCT 35.6 % (34.0-46.0); HGB 12.1 gm/dL (11.4-16.0); Lymphocytes # (A) 0.7 k/uL (1.0-4.8); Lymphocytes % (A) 10 %; MCH 32.9 pg (25.0-35.0); MCV 96.9 fL (80.0-100.0); Mean Platelet Volume 8.2; Monocytes # (A) 0.4 k/uL (0-1.0); Monocytes % (A) 6 %; Neutrophils # (A) 5.6 k/uL (1.3-7.7); Neutrophils % (A) 83 %; Platelet Count 136 k/uL (150-450); RBC 3.67 m/uL (3.80-5.40); RDW 13.6 % (11.5-15.5); WBC 6.8 k/uL (3.8-10.6)
[2017-11-23 21:56] LABS: INR 1.4 (<1.2); Partial Thromboplastin Time 25.8 sec (22.0-30.0); Prothrombin Time 13.5 sec (9.0-12.0)
--- NOTE | 2017-11-23 21:58 | ED ---
Extremity Problem HPI - General Chief complaint: Extremity Problem,Nontraumatic Stated complaint: weakness/leg swelling Time Seen by Provider: 11/23/17 20:54 Source: patient, RN notes reviewed, old records reviewed Mode of arrival: ambulatory Limitations: no limitations - History of Present Illness Initial comments: 77-year-old female presents emergency Department chief complaint of increased fatigue weakness short of breath and bilateral lower extremity swelling. She reports she called her florist supplies salesperson told her to double her Lasix. She states that she is about 2 weeks ago but stopped. Patient states that her which was grossly worse over the past few weeks. Patient also states that she's been having a significant cough and shortness of breath. Unable to lay down flat with her difficult in breathing. - Related Data Home Medications Medication Instructions Recorded Confirmed Cyanocobalamin (Vitamin B-12) 1,000 mcg PO DAILY 01/28/17 11/23/17 [Vitamin B-12] Cholecalciferol [Vitamin D3] 1,000 unit PO DAILY 02/17/17 11/23/17 Digoxin [Digitek] 125 mcg PO DAILY 02/17/17 11/23/17 L.acidoph,Paracasei, B.lactis 1 cap PO DAILY 02/17/17 11/23/17 [Probiotic] Spironolactone [Aldactone] 25 mg PO DAILY 02/17/17 11/23/17 Apixaban [Eliquis] 2.5 mg PO BID 11/23/17 11/23/17 Famotidine [Pepcid] 20 mg PO DAILY 11/23/17 11/23/17 Furosemide [Lasix] 40 mg PO DAILY PRN 11/23/17 11/23/17 Magnesium Oxide [Mag-Ox] 250 mg PO DAILY 11/23/17 11/23/17 Potassium 99 mg PO DAILY 11/23/17 11/23/17 guaiFENesin [Mucinex] 600 mg PO Q12H 11/23/17 11/23/17 Previous Rx's Medication Instructions Recorded Levalbuterol HCl [Xopenex 0.63 mg INHALATION RT-TID #0 02/21/17 Nebulized] Metoprolol Tartrate [Lopressor] 25 mg PO BID tab 02/21/17 Allergies Allergy/AdvReac Type Severity Reaction Status Date / Time diltiazem [From Cardizem] AdvReac Nausea & Verified 11/23/17 21:01 Vomiting verapamil AdvReac Nausea & Verified 11/23/17 21:01 Vomiting Review of Systems ROS Statement: Those systems with pertinent positive or pertinent negative responses have been documented in the HPI. ROS Other: All systems not noted in ROS Statement are negative. Past Medical History Past Medical History: Atrial Fibrillation, Cancer, Heart Failure, Hypertension, Pneumonia, Vascular Disorder Additional Past Medical History / Comment(s): Pt's family express concern over a chronic cough that has been a problem for alittle less than 1 yr, pulmonary HTN, bronchitis, "hole in heart", failed cardiac ablation, vertigo-recently tx with head/neck manipulation that helped, basal cell skin cancer with removal, stomach ulcer years ago, PVD, varicosities, diverticular dx, UTI/hematuria, sinus problems, past R knee fracture. PT IS LEFT HANDED. History of Any Multi-Drug Resistant Organisms: None Reported Past Surgical History: Ablation, Cardiac Ablation, Section, Cholecystectomy, Orthopedic Surgery, Tonsillectomy Additional Past Surgical History / Comment(s): R rotator cuff repair, skin cancer removed from nose. Past Anesthesia/Blood Transfusion Reactions: No Reported Reaction, Postoperative Nausea & Vomiting (PONV) Additional Past Anesthesia/Blood Transfusion Reaction / Comment(s): Pt received blood in past without reaction. Past Psychological History: Anxiety, No Psychological Hx Reported Smoking Status: Never smoker - Past Family History Mother Family Medical History: Diabetes Mellitus Father Family Medical History: CVA/TIA, Myocardial Infarction ([place]) Additional Family Medical History / Comment(s): Father had [place]/CVA sometime in his 60's. General Exam - General Exam Comments Initial Comments: Is a 77-year-old female. Does appear weak. Limitations: no limitations General appearance: alert, in no apparent distress Head exam: Present: atraumatic, normocephalic, normal inspection Eye exam: Present: normal appearance, PERRL, EOMI. Absent: scleral icterus, conjunctival injection, periorbital swelling ENT exam: Present: normal exam, mucous membranes moist Neck exam: Present: normal inspection. Absent: tenderness, meningismus, lymphadenopathy Respiratory exam: Present: wheezes, rhonchi, decreased breath sounds. Absent: normal lung sounds bilaterally, respiratory distress, rales, stridor Cardiovascular Exam: Present: regular rate, normal rhythm, normal heart sounds. Absent: systolic murmur, diastolic murmur, rubs, gallop, clicks GI/Abdominal exam: Present: soft, normal bowel sounds. Absent: distended, tenderness, guarding, rebound, rigid Extremities exam: Present: normal inspection, full ROM, normal capillary refill. Absent: tenderness, pedal edema, joint swelling, calf tenderness Back exam: Present: normal inspection Neurological exam: Present: alert, oriented X3, CN II-XII intact Psychiatric exam: Present: normal affect, normal mood Skin exam: Present: warm, dry, intact, normal color. Absent: rash Course Vital Signs 11/23/17 11/23/17 11/23/17 20:15 21:43 21:51 Temperature 98.9 F Pulse Rate 109 H 92 86 Respiratory 18 18 18 Rate Blood Pressure 147/65 143/63 O2 Sat by Pulse 95 98 Oximetry 11/23/17 11/24/17 23:00 00:19 Temperature Pulse Rate 92 83 Respiratory 18 18 Rate Blood Pressure 137/61 133/61 O2 Sat by Pulse 100 98 Oximetry Medical Decision Making - Medical Decision Making Patient is a 77-year-old female presents today chief complaint of bilateral edema, shortness of breath. She also said an increased cough. History of pulmonary fibrosis. She's been on amoxicillin from her roll icer. At this time Patient does have significant wheezing and productive cough. DuoNeb treatment completed and started on Solu-Medrol. She does have significant bilateral pitting edema. Started the Patient on Lasix as well. Does complain of orthopnea. Patient will be started on 40 mg Lasix every 4 as well as Nitropaste for heart failure exacerbation. Chest x-ray does show some cardiac megaly in mild pleural effusion. We'll consult patient's roll icer and florist supplies salesperson. I'll start the Patient on Levaquin as well due to the significant cough with productive sputum. - Lab Data Result diagrams: 11/23/17 21:35 11/23/17 21:35 Lab Results 11/23/17 11/23/17 11/23/17 Range/Units 21:35 21:35 21:35 WBC 6.8 (3.8-10.6) k/uL RBC 3.67 L (3.80-5.40) m/uL Hgb 12.1 (11.4-16.0) gm/dL Hct 35.6 (34.0-46.0) % MCV 96.9 (80.0-100.0) fL MCH 32.9 (25.0-35.0) pg MCHC 34.0 (31.0-37.0) g/dL RDW 13.6 (11.5-15.5) % Plt Count 136 L (150-450) k/uL Neutrophils % 83 % Lymphocytes % 10 % Monocytes % 6 % Eosinophils % 1 % Basophils % 0 % Neutrophils # 5.6 (1.3-7.7) k/uL Lymphocytes # 0.7 L (1.0-4.8) k/uL Monocytes # 0.4 (0-1.0) k/uL Eosinophils # 0.0 (0-0.7) k/uL Basophils # 0.0 (0-0.2) k/uL PT (9.0-12.0) sec INR (<1.2) APTT (22.0-30.0) sec Sodium 130 L (137-145) mmol/L Potassium 4.3 (3.5-5.1) mmol/L Chloride 88 L (98-107) mmol/L Carbon Dioxide 31 H (22-30) mmol/L Anion Gap 11 mmol/L BUN 12 (7-17) mg/dL Creatinine 0.60 (0.52-1.04) mg/dL Est GFR (CKD-EPI)AfAm >90 (>60 ml/min/1.73 sqM) Est GFR (CKD-EPI)NonAf 90 (>60 ml/min/1.73 sqM) Glucose 125 H (74-99) mg/dL Plasma Lactic Acid Christopher (0.7-2.0) mmol/L Calcium 9.5 (8.4-10.2) mg/dL Total Bilirubin 1.1 (0.2-1.3) mg/dL AST 29 (14-36) U/L ALT 25 (9-52) U/L Alkaline Phosphatase 142 H (38-126) U/L Total Creatine Kinase 56 (30-135) U/L CK-MB (CK-2) 0.9 (0.0-2.4) ng/mL CK-MB (CK-2) Rel Index 1.6 Troponin I 0.013 (0.000-0.034) ng/mL NT-Pro-B Natriuret Pep pg/mL Total Protein 8.4 H (6.3-8.2) g/dL Albumin 4.3 (3.5-5.0) g/dL Urine Color Urine Appearance (Clear) Urine pH (5.0-8.0) Ur Specific [place] (1.001-1.035) Urine Protein (Negative) Urine Glucose (UA) (Negative) Urine Ketones (Negative) Urine Blood (Negative) Urine Nitrite (Negative) Urine Bilirubin (Negative) Urine Urobilinogen (<2.0) mg/dL Ur Leukocyte Esterase (Negative) Urine RBC (0-5) /hpf Urine WBC (0-5) /hpf Ur Squamous Epith Cells (0-4) /hpf Urine Bacteria (None) /hpf 11/23/17 11/23/17 11/23/17 Range/Units 21:35 21:35 21:35 WBC (3.8-10.6) k/uL RBC (3.80-5.40) m/uL Hgb (11.4-16.0) gm/dL Hct (34.0-46.0) % MCV (80.0-100.0) fL MCH (25.0-35.0) pg MCHC (31.0-37.0) g/dL RDW (11.5-15.5) % Plt Count (150-450) k/uL Neutrophils % % Lymphocytes % % Monocytes % % Eosinophils % % Basophils % % Neutrophils # (1.3-7.7) k/uL Lymphocytes # (1.0-4.8) k/uL Monocytes # (0-1.0) k/uL Eosinophils # (0-0.7) k/uL Basophils # (0-0.2) k/uL PT 13.5 H (9.0-12.0) sec INR 1.4 H (<1.2) APTT 25.8 (22.0-30.0) sec Sodium (137-145) mmol/L Potassium (3.5-5.1) mmol/L Chloride (98-107) mmol/L Carbon Dioxide (22-30) mmol/L Anion Gap mmol/L BUN (7-17) mg/dL Creatinine (0.52-1.04) mg/dL Est GFR (CKD-EPI)AfAm (>60 ml/min/1.73 sqM) Est GFR (CKD-EPI)NonAf (>60 ml/min/1.73 sqM) Glucose (74-99) mg/dL Plasma Lactic Acid Christopher 1.1 (0.7-2.0) mmol/L Calcium (8.4-10.2) mg/dL Total Bilirubin (0.2-1.3) mg/dL AST (14-36) U/L ALT (9-52) U/L Alkaline Phosphatase (38-126) U/L Total Creatine Kinase (30-135) U/L CK-MB (CK-2) (0.0-2.4) ng/mL CK-MB (CK-2) Rel Index Troponin I (0.000-0.034) ng/mL NT-Pro-B Natriuret Pep 1810 pg/mL Total Protein (6.3-8.2) g/dL Albumin (3.5-5.0) g/dL Urine Color Urine Appearance (Clear) Urine pH (5.0-8.0) Ur Specific [place] (1.001-1.035) Urine Protein (Negative) Urine Glucose (UA) (Negative) Urine Ketones (Negative) Urine Blood (Negative) Urine Nitrite (Negative) Urine Bilirubin (Negative) Urine Urobilinogen (<2.0) mg/dL Ur Leukocyte Esterase (Negative) Urine RBC (0-5) /hpf Urine WBC (0-5) /hpf Ur Squamous Epith Cells (0-4) /hpf Urine Bacteria (None) /hpf 11/23/17 Range/Units 21:50 WBC (3.8-10.6) k/uL RBC (3.80-5.40) m/uL Hgb (11.4-16.0) gm/dL Hct (34.0-46.0) % MCV (80.0-100.0) fL MCH (25.0-35.0) pg MCHC (31.0-37.0) g/dL RDW (11.5-15.5) % Plt Count (150-450) k/uL Neutrophils % % Lymphocytes % % Monocytes % % Eosinophils % % Basophils % % Neutrophils # (1.3-7.7) k/uL Lymphocytes # (1.0-4.8) k/uL Monocytes # (0-1.0) k/uL Eosinophils # (0-0.7) k/uL Basophils # (0-0.2) k/uL PT (9.0-12.0) sec INR (<1.2) APTT (22.0-30.0) sec Sodium (137-145) mmol/L Potassium (3.5-5.1) mmol/L Chloride (98-107) mmol/L Carbon Dioxide (22-30) mmol/L Anion Gap mmol/L BUN (7-17) mg/dL Creatinine (0.52-1.04) mg/dL Est GFR (CKD-EPI)AfAm (>60 ml/min/1.73 sqM) Est GFR (CKD-EPI)NonAf (>60 ml/min/1.73 sqM) Glucose (74-99) mg/dL Plasma Lactic Acid Christopher (0.7-2.0) mmol/L Calcium (8.4-10.2) mg/dL Total Bilirubin (0.2-1.3) mg/dL AST (14-36) U/L ALT (9-52) U/L Alkaline Phosphatase (38-126) U/L Total Creatine Kinase (30-135) U/L CK-MB (CK-2) (0.0-2.4) ng/mL CK-MB (CK-2) Rel Index Troponin I (0.000-0.034) ng/mL NT-Pro-B Natriuret Pep pg/mL Total Protein (6.3-8.2) g/dL Albumin (3.5-5.0) g/dL Urine Color Light Yellow Urine Appearance Clear (Clear) Urine pH 7.5 (5.0-8.0) Ur Specific [place] 1.005 (1.001-1.035) Urine Protein Negative (Negative) Urine Glucose (UA) Negative (Negative) Urine Ketones Negative (Negative) Urine Blood Trace H (Negative) Urine Nitrite Negative (Negative) Urine Bilirubin Negative (Negative) Urine Urobilinogen <2.0 (<2.0) mg/dL Ur Leukocyte Esterase Large H (Negative) Urine RBC 3 (0-5) /hpf Urine WBC 16 H (0-5) /hpf Ur Squamous Epith Cells <1 (0-4) /hpf Urine Bacteria Occasional H (None) /hpf 11/23/17 21:59 EKG shows A. fib with RVR. Possible right ventricular hypertrophy. ST-T wave anabiotic comments considering for ischemia. I see to having significant anterolateral ischemia. Abnormal EKG noted. I did compare this EKG from her previous one and January. There is no significant changes. Ventricular rate of 160s per minute. I'll detect. Respiration 90. QTQTC's to 88/382 ms. - Radiology Data Radiology results: report reviewed CT chest excursion is currently midline from pulmonary fibrosis. Mild heart failure. No change compared on exam. Disposition Clinical Impression: Weakness, Difficulty breathing, CHF (congestive heart failure), Pulmonary fibrosis Disposition: ADMITTED IP TO THIS HOSP Condition: Stable Is patient prescribed a controlled substance at d/c from ED?: No When asked, does pt state using other controlled substances?: No If prescribed controlled substance>3 days was MAPS reviewed?: No If opioid is for acute pain is fill amount 7 days or less?: No If Rx opioid, was Start Talking consent form obtained?: No Time of Disposition: 23:41
[2017-11-23 22:00] LABS: ALT 25 U/L (9-52); AST 29 U/L (14-36); Albumin 4.3 g/dL (3.5-5.0); Alkaline Phosphatase 142 U/L (38-126); Blood Urea Nitrogen 12 mg/dL (7-17); Calcium 9.5 mg/dL (8.4-10.2); Carbon Dioxide 31 mmol/L (22-30); Glucose 125 mg/dL (74-99); Potassium 4.3 mmol/L (3.5-5.1); Sodium 130 mmol/L (137-145); Total Bilirubin 1.1 mg/dL (0.2-1.3); Total Protein 8.4 g/dL (6.3-8.2)
[2017-11-23 22:03] LABS: Chloride 88 mmol/L (98-107)
[2017-11-23 22:23] LABS: Appearance,Urine Clear (Clear); Bacteria,Urine Occasional /hpf; Bilirubin,Urine Negative (Negative); Blood,Urine Trace (Negative); Color,Urine Light Yellow; Glucose,Urine (UA) Negative (Negative); Ketones,Urine Negative (Negative); Leukocyte Esterase,Urine Large (Negative); Nitrite,Urine Negative (Negative); PH, Urine 7.5 (5.0-8.0); Protein,Urine Negative (Negative); RBC,Urine 3 /hpf (0-5); Specific Gravity,Urine 1.005 (1.001-1.035); Squamous Epithelial Cell,Urine <1 /hpf (0-4); Urobilinogen,Urine <2.0 mg/dL (<2.0); WBC,Urine 16 /hpf (0-5)
--- NOTE | 2017-11-23 22:24 | XR ---
EXAMINATION TYPE: XR chest 2V DATE OF EXAM: 11/23/2017 COMPARISON: 02/19/2017 HISTORY: Weakness. Leg swelling TECHNIQUE: Frontal and lateral views of the chest are obtained. FINDINGS: Heart is enlarged. There is pulmonary vascular congestion. Thoracic aorta is atheromatous. There are mild bilateral perihilar pulmonary infiltrates. IMPRESSION: Cardiomegaly and pulmonary fibrosis. There is probably mild heart failure. No change com pared to old exam.
[2017-11-23 22:26] LABS: Creatine Kinase MB 0.9 ng/mL (0.0-2.4); Troponin I 0.013 ng/mL (0.000-0.034)
[2017-11-23] MEDS ORDERED: LEVOFLOXACIN 750MG-D5W PMX 750 MG in DEXTROSE/WATER 1 150ML.BAG IVPB STA (23:21)
[2017-11-23] MEDS ORDERED: IBUPROFEN 400 MG TAB PO PRN (23:41)
[2017-11-23] MEDS ORDERED: ACETAMINOPHEN TAB 325 MG TAB PO PRN (23:41)
[2017-11-23] MEDS ORDERED: ONDANSETRON 4 MG/2 ML VIAL IVP PRN (23:41)
[2017-11-23] MEDS ORDERED: NALOXONE 0.4 MG/ML 1 ML VIAL IV PRN (23:41)
[2017-11-23] MEDS ORDERED: KETOROLAC 30 MG/ML 1 ML VIAL IVP PRN (23:41)
[2017-11-23] MEDS ORDERED: MORPHINE SULFATE 2 MG/ML SYRINGE IV PRN (23:41)
[2017-11-23] MEDS ORDERED: SODIUM CHLORIDE 0.9% 1,000 ML IV SCH (23:45)
[2017-11-23 23:55] LABS: Anion Gap 11 mmol/L
[2017-11-24] MEDS: ASPIRIN 325 MG TAB PO STA ×2 (00:20→00:26)
[2017-11-24] MEDS ORDERED: IPRATROPIUM-ALBUTEROL 3 ML NEB INHALATION PRN (00:43)
[2017-11-24 01:01] VITALS: RESP 16
[2017-11-24] MEDS ORDERED: IPRATROPIUM-ALBUTEROL 3 ML NEB INHALATION SCH (04:00)
[2017-11-24] MEDS: FUROSEMIDE 10 MG/ML 4 ML VIAL IV SCH ×3 (06:32→21:09)
[2017-11-24] MEDS ORDERED: NITROGLYCERIN OINT 1 INCH/GM PACKET TOPICAL SCH (09:00)
[2017-11-24] MEDS ORDERED: PANTOPRAZOLE 40 MG/10 ML VIAL IV SCH (09:00)
[2017-11-24] MEDS ORDERED: SPIRONOLACTONE 25 MG TAB PO SCH (09:15)
[2017-11-24] MEDS: IPRATROPIUM-ALBUTEROL 3 ML NEB INHALATION SCH ×4 (09:26→19:46)
[2017-11-24] MEDS: DIGOXIN 125 MCG TAB PO SCH (10:49)
[2017-11-24] MEDS: METOPROLOL TARTRATE 25 MG TAB PO SCH ×2 (10:49→21:09)
[2017-11-24] MEDS: APIXABAN 5 MG TAB PO SCH ×2 (10:49→21:08)
[2017-11-24] MEDS: MAGNESIUM OXIDE 400 MG TAB PO SCH (10:49)
[2017-11-24 11:44] VITALS: BMI 21.4
--- NOTE | 2017-11-24 11:47 | P.CRDCN ---
History of Present Illness History of present illness: Patient interviewed and examined Admitted with right-sided failure Suggest increasing spironolactone to 50 g by mouth daily, stopping oral potassium and upon discharge she should be on 40 mg by mouth twice a day of Lasix Follow-up with Dr. Escalante in about 4 weeks post discharge Please see full dictation by nurse practitioner Past Medical History Past Medical History: Atrial Fibrillation, Cancer, Heart Failure, Hypertension, Pneumonia, Vascular Disorder Additional Past Medical History / Comment(s): Pt's family express concern over a chronic cough that has been a problem for alittle less than 1 yr, pulmonary HTN, bronchitis, "hole in heart", failed cardiac ablation, vertigo-recently tx with head/neck manipulation that helped, basal cell skin cancer with removal, stomach ulcer years ago, PVD, varicosities, diverticular dx, UTI/hematuria, sinus problems, past R knee fracture. PT IS LEFT HANDED. History of Any Multi-Drug Resistant Organisms: None Reported Past Surgical History: Ablation, Cardiac Ablation, Section, Cholecystectomy, Orthopedic Surgery, Tonsillectomy Additional Past Surgical History / Comment(s): R rotator cuff repair, skin cancer removed from nose. Past Anesthesia/Blood Transfusion Reactions: No Reported Reaction, Postoperative Nausea & Vomiting (PONV) Additional Past Anesthesia/Blood Transfusion Reaction / Comment(s): Pt received blood in past without reaction. Past Psychological History: Anxiety, No Psychological Hx Reported Smoking Status: Never smoker - Past Family History Mother Family Medical History: Diabetes Mellitus Father Family Medical History: CVA/TIA, Myocardial Infarction ([place]) Additional Family Medical History / Comment(s): Father had [place]/CVA sometime in his 60's. Medications and Allergies Home Medications Medication Instructions Recorded Confirmed Type Cyanocobalamin (Vitamin B-12) 1,000 mcg PO DAILY 01/28/17 11/23/17 History [Vitamin B-12] Cholecalciferol [Vitamin D3] 1,000 unit PO DAILY 02/17/17 11/23/17 History Digoxin [Digitek] 125 mcg PO DAILY 02/17/17 11/23/17 History L.acidoph,Paracasei, B.lactis 1 cap PO DAILY 02/17/17 11/23/17 History [Probiotic] Spironolactone [Aldactone] 25 mg PO DAILY 02/17/17 11/23/17 History Levalbuterol HCl [Xopenex 0.63 mg INHALATION RT-TID #0 02/21/17 11/23/17 Rx Nebulized] Metoprolol Tartrate [Lopressor] 25 mg PO BID tab 02/21/17 11/23/17 Rx Apixaban [Eliquis] 2.5 mg PO BID 11/23/17 11/23/17 History Famotidine [Pepcid] 20 mg PO DAILY 11/23/17 11/23/17 History Furosemide [Lasix] 40 mg PO DAILY PRN 11/23/17 11/23/17 History Magnesium Oxide [Mag-Ox] 250 mg PO DAILY 11/23/17 11/23/17 History Potassium 99 mg PO DAILY 11/23/17 11/23/17 History guaiFENesin [Mucinex] 600 mg PO Q12H 11/23/17 11/23/17 History Allergies Allergy/AdvReac Type Severity Reaction Status Date / Time diltiazem [From Cardizem] AdvReac Nausea & Verified 11/23/17 21:01 Vomiting verapamil AdvReac Nausea & Verified 11/23/17 21:01 Vomiting Physical Exam Vitals: Vital Signs Temp Pulse Pulse Resp BP BP Pulse Ox 11/24/17 09:36 80 16 11/24/17 09:26 78 16 98 11/24/17 08:00 81 16 11/24/17 06:21 97.1 F L 86 16 107/57 96 11/24/17 01:18 83 11/24/17 00:59 97.9 F 89 16 128/75 100 11/24/17 00:19 83 18 133/61 98 11/23/17 23:00 92 18 137/61 100 11/23/17 21:51 86 18 143/63 98 11/23/17 21:43 92 18 11/23/17 20:15 98.9 F 109 H 18 147/65 95 Intake and Output 11/23/17 11/24/17 11/24/17 22:59 06:59 14:59 Intake Total 250 Balance 250 Intake: Oral 250 Other: Voiding Method Bedside Commode Bedside Commode # Voids 3 4 # Bowel Movements 1 Weight 49.442 kg 51.5 kg 51.5 kg Results 11/23/17 21:35 11/23/17 21:35 Cardiac Enzymes 11/23/17 11/23/17 Range/Units 21:35 21:35 AST 29 (14-36) U/L CK-MB (CK-2) 0.9 (0.0-2.4) ng/mL Troponin I 0.013 (0.000-0.034) ng/mL Coagulation 11/23/17 Range/Units 21:35 PT 13.5 H (9.0-12.0) sec APTT 25.8 (22.0-30.0) sec CBC 11/23/17 Range/Units 21:35 WBC 6.8 (3.8-10.6) k/uL RBC 3.67 L (3.80-5.40) m/uL Hgb 12.1 (11.4-16.0) gm/dL Hct 35.6 (34.0-46.0) % Plt Count 136 L (150-450) k/uL Comprehensive Metabolic Panel 11/23/17 Range/Units 21:35 Sodium 130 L (137-145) mmol/L Potassium 4.3 (3.5-5.1) mmol/L Chloride 88 L (98-107) mmol/L Carbon Dioxide 31 H (22-30) mmol/L BUN 12 (7-17) mg/dL Creatinine 0.60 (0.52-1.04) mg/dL Glucose 125 H (74-99) mg/dL Calcium 9.5 (8.4-10.2) mg/dL AST 29 (14-36) U/L ALT 25 (9-52) U/L Alkaline Phosphatase 142 H (38-126) U/L Total Protein 8.4 H (6.3-8.2) g/dL Albumin 4.3 (3.5-5.0) g/dL Current Medications Generic Name Dose Route Start Last Admin Trade Name Freq PRN Reason Stop Dose Admin Acetaminophen 650 mg 11/23/17 23:41 Tylenol Tab PO Q6HR PRN Mild Pain or Fever > 100.5 Albuterol/Ipratropium 3 ml 11/24/17 00:43 Duoneb 0.5 Mg-3 Mg/3 Ml Soln INHALATION RT-QID PRN Shortness Of Breath Or Wheezing Albuterol/Ipratropium 3 ml 11/24/17 08:00 11/24/17 09:26 Duoneb 0.5 Mg-3 Mg/3 Ml Soln INHALATION 3 ml RT-QID REJI Administration Apixaban 5 mg 11/24/17 09:15 11/24/17 10:49 Eliquis PO 5 mg BID REJI Administration Digoxin 125 mcg 11/24/17 09:15 11/24/17 10:49 Lanoxin PO 125 mcg DAILY REJI Administration Furosemide 40 mg 11/24/17 06:00 11/24/17 06:32 Lasix IV 40 mg Q8H REJI Administration Sodium Chloride 1,000 mls @ 50 mls/hr 11/23/17 21:12 11/23/17 21:51 Saline 0.9% IV 11/24/17 17:11 50 mls/hr .Q20H STA Administration Magnesium Oxide 400 mg 11/24/17 12:00 11/24/17 10:49 Mag-Ox PO 400 mg 1200 REJI Administration Metoprolol Tartrate 25 mg 11/24/17 09:15 11/24/17 10:49 Lopressor PO 25 mg BID REJI Administration Morphine Sulfate 4 mg 11/23/17 23:41 Morphine Sulfate (Inj) IV Q4HR PRN Severe Pain Naloxone HCl 0.2 mg 11/23/17 23:41 Narcan IV Q2M PRN Opioid Reversal Ondansetron HCl 4 mg 11/23/17 23:41 Zofran IVP Q8HR PRN Nausea And Vomiting Pantoprazole Sodium 40 mg 11/24/17 09:00 Protonix IV DAILY REJI Spironolactone 25 mg 11/24/17 09:15 11/24/17 10:49 Aldactone PO 25 mg DAILY REJI Administration Spironolactone 50 mg 11/25/17 09:00 Aldactone PO DAILY REJI Intake and Output 11/23/17 11/24/17 11/24/17 22:59 06:59 14:59 Intake Total 250 Balance 250 Intake: Oral 250 Other: Voiding Method Bedside Commode Bedside Commode # Voids 3 4 # Bowel Movements 1 Weight 49.442 kg 51.5 kg 51.5 kg Patient Weight 11/25/17 06:59 Weight 51.5 kg 11/23/17 21:35 11/23/17 21:35
--- NOTE | 2017-11-24 12:57 | P.CRDCN ---
History of Present Illness History of present illness: Mrs. Arambula is a pleasant 77-year-old female past medical history significant for paroxysmal atrial fibrillation, hypertension, right-sided diastolic heart failure, pulmonary fibrosis and anxiety. She follows with Dr. Escalante in the office. We have been asked to see her in consultation secondary to symptoms of heart failure. She presented to the hospital last night with complaints of increased weakness, fatigue, shortness of breath, orthopnea and bilateral lower extremity edema. This has been getting progressively worse over the previous 2 weeks. She denies symptoms of chest pain, dizziness, palpitations, nausea or vomiting. At the time of my exam this morning she is seen resting comfortably in bed. She continues to have ongoing lower extremity edema however she states this has significantly decreased since being admitted into the hospital. She has been receiving IV Lasix 40 mg every 8 hours. Most recent echocardiogram performed in the office January 2017 reveals preserved left ventricular systolic function with ejection fraction 55-60%, moderate to severe tricuspid regurgitation and severe pulmonary hypertension with RVSP of 79.84 mmHg. 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 She has since followed up in the office and was recommended to discontinue daily aspirin remain on Eliquis 5 mg twice a day. However she was discharged home on 2.5 mg twice a day. EKG reveals atrial fibrillation with controlled ventricular response. Chest x-ray shows cardiomegaly and pulmonary fibrosis with mild heart failure. Laboratory data reviewed, hemoglobin 12.1, platelets 136, INR 1.4, sodium 1:30, potassium 4.3, creatinine 0.6, GFR 90, proBNP 1810, troponin 0.013. Current cardiac medications include Eliquis 2.5 mg twice a day, Lasix 40 mg daily when necessary, Aldactone 25 mg daily, digoxin 125 g daily, Lopressor 25 mg twice a day and potassium and magnesium supplementation. Review of Systems At the time of my exam: CONSTITUTIONAL: Denies fever. Denies chills. EYES: Denies blurred vision. Denies vision changes. Denies eye pain. EARS, NOSE, MOUTH & THROAT: Denies headache. Denies sore throat. Denies ear pain. CARDIOVASCULAR: Denies chest pain. Complains of shortness of breath. Complains of orthopnea. Denies PND. Denies palpitations. RESPIRATORY: Denies cough. GASTROINTESTINAL: Denies abdominal pain. Denies diarrhea. Denies constipation. Denies nausea. Denies vomiting. MUSCULOSKELETAL: Denies myalgias. INTEGUMENTARY: Denies pruitis. Denies rash. NEUROLOGIC: Denies numbness. Denies tingling. Denies weakness. PSYCHIATRIC: Denies anxiety. Denies depression. ENDOCRINE: Denies fatigue. Denies weight change. Denies polydipsia. Denies polyurina. GENITOURINARY: Denies burning, hematuria or urgency with micturation. HEMATOLOGIC: Denies history of anemia. Denies bleeding. Past Medical History Past Medical History: Atrial Fibrillation, Cancer, Heart Failure, Hypertension, Pneumonia, Vascular Disorder Additional Past Medical History / Comment(s): Pt's family express concern over a chronic cough that has been a problem for alittle less than 1 yr, pulmonary HTN, bronchitis, "hole in heart", failed cardiac ablation, vertigo-recently tx with head/neck manipulation that helped, basal cell skin cancer with removal, stomach ulcer years ago, PVD, varicosities, diverticular dx, UTI/hematuria, sinus problems, past R knee fracture. PT IS LEFT HANDED. History of Any Multi-Drug Resistant Organisms: None Reported Past Surgical History: Ablation, Cardiac Ablation, Section, Cholecystectomy, Orthopedic Surgery, Tonsillectomy Additional Past Surgical History / Comment(s): R rotator cuff repair, skin cancer removed from nose. Past Anesthesia/Blood Transfusion Reactions: No Reported Reaction, Postoperative Nausea & Vomiting (PONV) Additional Past Anesthesia/Blood Transfusion Reaction / Comment(s): Pt received blood in past without reaction. Past Psychological History: Anxiety, No Psychological Hx Reported Smoking Status: Never smoker - Past Family History Mother Family Medical History: Diabetes Mellitus Father Family Medical History: CVA/TIA, Myocardial Infarction ([place]) Additional Family Medical History / Comment(s): Father had [place]/CVA sometime in his 60's. Medications and Allergies Home Medications Medication Instructions Recorded Confirmed Type Cyanocobalamin (Vitamin B-12) 1,000 mcg PO DAILY 01/28/17 11/23/17 History [Vitamin B-12] Cholecalciferol [Vitamin D3] 1,000 unit PO DAILY 02/17/17 11/23/17 History Digoxin [Digitek] 125 mcg PO DAILY 02/17/17 11/23/17 History L.acidoph,Paracasei, B.lactis 1 cap PO DAILY 02/17/17 11/23/17 History [Probiotic] Spironolactone [Aldactone] 25 mg PO DAILY 02/17/17 11/23/17 History Levalbuterol HCl [Xopenex 0.63 mg INHALATION RT-TID #0 02/21/17 11/23/17 Rx Nebulized] Metoprolol Tartrate [Lopressor] 25 mg PO BID tab 02/21/17 11/23/17 Rx Famotidine [Pepcid] 20 mg PO DAILY 11/23/17 11/23/17 History Magnesium Oxide [Mag-Ox] 250 mg PO DAILY 11/23/17 11/23/17 History guaiFENesin [Mucinex] 600 mg PO Q12H 11/23/17 11/23/17 History Apixaban [Eliquis] 5 mg PO BID #60 tab 11/24/17 Rx Furosemide [Lasix] 40 mg PO BID #60 tablet 11/24/17 Rx Spironolactone [Aldactone] 50 mg PO DAILY #30 tab 11/24/17 Rx Allergies Allergy/AdvReac Type Severity Reaction Status Date / Time diltiazem [From Cardizem] AdvReac Nausea & Verified 11/23/17 21:01 Vomiting verapamil AdvReac Nausea & Verified 11/23/17 21:01 Vomiting Physical Exam Vitals: Vital Signs Temp Pulse Pulse Resp BP BP Pulse Ox 11/24/17 06:21 97.1 F L 86 16 107/57 96 11/24/17 01:18 83 11/24/17 00:59 97.9 F 89 16 128/75 100 11/24/17 00:19 83 18 133/61 98 11/23/17 23:00 92 18 137/61 100 11/23/17 21:51 86 18 143/63 98 11/23/17 21:43 92 18 11/23/17 20:15 98.9 F 109 H 18 147/65 95 Intake and Output 11/23/17 11/24/17 11/24/17 22:59 06:59 14:59 Intake Total 250 Balance 250 Intake: Oral 250 Other: Voiding Method Bedside Commode # Voids 3 Weight 49.442 kg 51.5 kg Blood pressure 107/57 heart rate 86 afebrile maintaining oxygen saturation on nasal cannula 2 L GENERAL: This is a 77-year-old female in no apparent distress at the time of my examination. HEENT: Head is atraumatic, normocephalic. Pupils are equal, round. Sclerae anicteric. Conjunctivae are clear. Mucous membranes of the mouth are moist. Neck is supple. There is jugular venous distention, 1 cm. No carotid bruit is heard. LUNGS: Bibasilar rales. No wheezes or rhonchi. No chest wall tenderness is noted on palpation or with deep breathing. Diminished bilaterally. HEART: Irregular rate and rhythm without murmurs, rubs or gallops. S1 and S2 heard. ABDOMEN: Soft, nontender. Bowel sounds are heard. No organomegaly noted. EXTREMITIES: 2+ pitting bilateral lower extremity edema and no calf tenderness noted. VASCULAR: Radial and dorsalis pedis pulses palpated, no evidence of clubbing. NEUROLOGIC: Patient is awake, alert and oriented x3. Results 11/23/17 21:35 11/23/17 21:35 Cardiac Enzymes 11/23/17 11/23/17 Range/Units 21:35 21:35 AST 29 (14-36) U/L CK-MB (CK-2) 0.9 (0.0-2.4) ng/mL Troponin I 0.013 (0.000-0.034) ng/mL Coagulation 11/23/17 Range/Units 21:35 PT 13.5 H (9.0-12.0) sec APTT 25.8 (22.0-30.0) sec CBC 11/23/17 Range/Units 21:35 WBC 6.8 (3.8-10.6) k/uL RBC 3.67 L (3.80-5.40) m/uL Hgb 12.1 (11.4-16.0) gm/dL Hct 35.6 (34.0-46.0) % Plt Count 136 L (150-450) k/uL Comprehensive Metabolic Panel 11/23/17 Range/Units 21:35 Sodium 130 L (137-145) mmol/L Potassium 4.3 (3.5-5.1) mmol/L Chloride 88 L (98-107) mmol/L Carbon Dioxide 31 H (22-30) mmol/L BUN 12 (7-17) mg/dL Creatinine 0.60 (0.52-1.04) mg/dL Glucose 125 H (74-99) mg/dL Calcium 9.5 (8.4-10.2) mg/dL AST 29 (14-36) U/L ALT 25 (9-52) U/L Alkaline Phosphatase 142 H (38-126) U/L Total Protein 8.4 H (6.3-8.2) g/dL Albumin 4.3 (3.5-5.0) g/dL Current Medications Generic Name Dose Route Start Last Admin Trade Name Freq PRN Reason Stop Dose Admin Acetaminophen 650 mg 11/23/17 23:41 Tylenol Tab PO Q6HR PRN Mild Pain or Fever > 100.5 Albuterol/Ipratropium 3 ml 11/24/17 00:43 Duoneb 0.5 Mg-3 Mg/3 Ml Soln INHALATION RT-QID PRN Shortness Of Breath Or Wheezing Albuterol/Ipratropium 3 ml 11/24/17 08:00 Duoneb 0.5 Mg-3 Mg/3 Ml Soln INHALATION RT-QID [facility] Apixaban 5 mg 11/24/17 09:15 Eliquis PO BID [facility] Digoxin 125 mcg 11/24/17 09:15 Lanoxin PO DAILY [facility] Furosemide 40 mg 11/24/17 06:00 11/24/17 06:32 Lasix IV 40 mg Q8H REJI Administration Sodium Chloride 1,000 mls @ 50 mls/hr 11/23/17 21:12 11/23/17 21:51 Saline 0.9% IV 11/24/17 17:11 50 mls/hr .Q20H STA Administration Metoprolol Tartrate 25 mg 11/24/17 09:15 Lopressor PO BID [facility] Morphine Sulfate 4 mg 11/23/17 23:41 Morphine Sulfate (Inj) IV Q4HR PRN Severe Pain Naloxone HCl 0.2 mg 11/23/17 23:41 Narcan IV Q2M PRN Opioid Reversal Non-Formulary Medication 250 mg 11/24/17 09:15 Magnesium Oxide PO DAILY [facility] Ondansetron HCl 4 mg 11/23/17 23:41 Zofran IVP Q8HR PRN Nausea And Vomiting Pantoprazole Sodium 40 mg 11/24/17 09:00 Protonix IV DAILY REJI Spironolactone 25 mg 11/24/17 09:15 Aldactone PO DAILY REJI Intake and Output 11/23/17 11/24/17 11/24/17 22:59 06:59 14:59 Intake Total 250 Balance 250 Intake: Oral 250 Other: Voiding Method Bedside Commode # Voids 3 Weight 49.442 kg 51.5 kg 11/23/17 21:35 11/23/17 21:35 Assessment and Plan Assessment: ASSESSMENT 1. Acute on chronic diastolic heart failure 2. Pulmonary hypertension 3. Pulmonary fibrosis 4. Paroxysmal atrial fibrillation with controlled ventricular response on long- term anticoagulation 5. Hypertension PLAN Obtain 2D echocardiogram and doppler study to assess cardiac structure and function. Agree with aggressive diuresis with IV Lasix 40 mg every 8 hours. Increase Aldactone to 50 mg daily. Discontinue potassium supplementation. Daily weights. Strict intake and output. Follow kidney function and electrolytes daily. Eliquis should be increased to 5 mg by mouth twice a day, no aspirin. When she is stable for discharge she should go on Lasix 40 mg twice a day. Thank you kindly for this consultation, we will continue to follow this patient closely. Nurse Practitioner note has been reviewed, I agree with a documented findings and plan of care. Patient was seen and examined.
--- NOTE | 2017-11-24 14:42 | P.CNPUL ---
History of Present Illness Consult date: 11/24/17 Reason for consult: dyspnea History of present illness: This is a 77-year-old. Patient was hospitalized because of increased shortness of breath and fluid overload consistent with CHF. The patient is known to have right-sided heart failure. The patient also known to have some chronic nonspecific pulmonary fibrosis and the exact etiology has not been established although based on the CAT scan findings the distribution and the characteristics of the pulmonary fibrosis is not consistent with UIP. The patient has been under the care of Dr. Spear in our office. The patient has significant pulmonary hypertension and based on recent echocardiogram the patient has a normal LV function with an ejection fraction of 55-60% and she has severe tricuspid regurgitation and severe pulmonary potential with a RVSP of 79 mmHg. The patient has had previous hospitalization for CVA and she has also history of chronic atrial fibrillation for which she is maintained on long- term articulation with Eliquis. She has hypertensive also. During this current hospitalization, she reports marked edema in lower extremity is bilaterally and she is responding nicely to diuretics and she is currently on IV Lasix. Going back to our records from the office, the patient has pulmonary function tests that were done in our office and the patient FVC is 39% and total lung capacity of 60% of predicted and this is consistent with severe restrictive lung disease exacerbation with her pulmonary fibrosis. Note that there has been only limited decline in her lung capacity over the past 7 years in comparison to the previous function test that was done in 2009.. The patient does not have any exposure to organic or inorganic dust. No history of any rheumatologic disease or disorder. Most of lupus. No other connective tissue disease or rheumatologic disorder. She has worked as a respiratory therapist in the past. No previous history of DVT. No previous history of pulmonary embolism. No history of any chronic liver disease. She has a chronic cough. Her last CAT scan of the chest that was done in 03/2017 showed chronic fibrotic changes along with cardiomegaly and pulmonary hypertension and distended pulmonary arteries yet unchanged compared to the prior films and her pulmonary fibrosis within thought to be relatively stable. Review of Systems CONSTITUTIONAL: Denies fever. Denies chills. The patient reports that she's been progressively getting worse and she's been losing weight because of diminished eating. EYES: Denies blurred vision. Denies vision changes. Denies eye pain. EARS, NOSE, MOUTH & THROAT: Denies headache. Denies sore throat. Denies ear pain. CARDIOVASCULAR: Denies chest pain. Complains of shortness of breath. Complains of orthopnea. Denies PND. Denies palpitations. The patient has chronic lower extremity edema bilaterally which has gotten worse RESPIRATORY: Patient has a chronic cough. The patient also has chronic exertional dyspnea GASTROINTESTINAL: Denies abdominal pain. Denies diarrhea. Denies constipation. Denies nausea. Denies vomiting. MUSCULOSKELETAL: Denies myalgias. INTEGUMENTARY: Denies pruitis. Denies rash. NEUROLOGIC: Denies numbness. Denies tingling. Denies weakness. PSYCHIATRIC: Denies anxiety. Denies depression. ENDOCRINE: Denies fatigue. Denies weight change. Denies polydipsia. Denies polyurina. GENITOURINARY: Denies burning, hematuria or urgency with micturation. HEMATOLOGIC: Denies history of anemia. Denies bleeding. Past Medical History Past Medical History: Atrial Fibrillation, Cancer, Heart Failure, Hypertension, Pneumonia, Vascular Disorder Additional Past Medical History / Comment(s): Pulmonary fibrosis, severe restrictive lung disease secondary to pulmonary fibrosis, right-sided heart failure, severe pulmonary hypertension, chronic atrial fibrillation, skin cancer , hypertension, peripheral vascular disease, previous history of cardiac ablation for A. fib/failed, varicose his lower extremities, diverticulosis, chronic sinus disease, degenerative arthritis, history of peptic ulcer disease requiring surgery, history of vertigo, basal cell cancer of the skin that was resected. History of CVA doubt any significant residuals. History of Any Multi-Drug Resistant Organisms: None Reported Past Surgical History: Ablation, Cardiac Ablation, Section, Cholecystectomy, Orthopedic Surgery, Tonsillectomy Additional Past Surgical History / Comment(s): R rotator cuff repair, skin cancer removed from nose. Past Anesthesia/Blood Transfusion Reactions: No Reported Reaction, Postoperative Nausea & Vomiting (PONV) Additional Past Anesthesia/Blood Transfusion Reaction / Comment(s): Pt received blood in past without reaction. Past Psychological History: Anxiety, No Psychological Hx Reported Smoking Status: Never smoker - Past Family History Mother Family Medical History: Diabetes Mellitus Father Family Medical History: CVA/TIA, Myocardial Infarction ([place]) Additional Family Medical History / Comment(s): Father had [place]/CVA sometime in his 60's. Medications and Allergies Home Medications Medication Instructions Recorded Confirmed Type Cyanocobalamin (Vitamin B-12) 1,000 mcg PO DAILY 01/28/17 11/23/17 History [Vitamin B-12] Cholecalciferol [Vitamin D3] 1,000 unit PO DAILY 02/17/17 11/23/17 History Digoxin [Digitek] 125 mcg PO DAILY 02/17/17 11/23/17 History L.acidoph,Paracasei, B.lactis 1 cap PO DAILY 02/17/17 11/23/17 History [Probiotic] Spironolactone [Aldactone] 25 mg PO DAILY 02/17/17 11/23/17 History Levalbuterol HCl [Xopenex 0.63 mg INHALATION RT-TID #0 02/21/17 11/23/17 Rx Nebulized] Metoprolol Tartrate [Lopressor] 25 mg PO BID tab 02/21/17 11/23/17 Rx Famotidine [Pepcid] 20 mg PO DAILY 11/23/17 11/23/17 History Magnesium Oxide [Mag-Ox] 250 mg PO DAILY 11/23/17 11/23/17 History guaiFENesin [Mucinex] 600 mg PO Q12H 11/23/17 11/23/17 History Apixaban [Eliquis] 5 mg PO BID #60 tab 11/24/17 Rx Furosemide [Lasix] 40 mg PO BID #60 tablet 11/24/17 Rx Spironolactone [Aldactone] 50 mg PO DAILY #30 tab 11/24/17 Rx Allergies Allergy/AdvReac Type Severity Reaction Status Date / Time diltiazem [From Cardizem] AdvReac Nausea & Verified 11/23/17 21:01 Vomiting verapamil AdvReac Nausea & Verified 11/23/17 21:01 Vomiting Physical Exam Vitals: Vital Signs Temp Pulse Pulse Resp BP BP Pulse Ox 11/24/17 09:36 80 16 11/24/17 09:26 78 16 98 11/24/17 08:00 81 16 11/24/17 06:21 97.1 F L 86 16 107/57 96 11/24/17 01:18 83 11/24/17 00:59 97.9 F 89 16 128/75 100 11/24/17 00:19 83 18 133/61 98 11/23/17 23:00 92 18 137/61 100 11/23/17 21:51 86 18 143/63 98 11/23/17 21:43 92 18 11/23/17 20:15 98.9 F 109 H 18 147/65 95 Intake and Output 11/23/17 11/24/17 11/24/17 22:59 06:59 14:59 Intake Total 250 Balance 250 Intake: Oral 250 Other: Voiding Method Bedside Commode Bedside Commode # Voids 3 4 # Bowel Movements 1 Weight 49.442 kg 51.5 kg 51.5 kg Gen. appearance the patient is calm comfortable likely distress. She is not using excessive muscle breathing and she is very comfortable in terms of her breathing. Head exam was generally normal. There was no scleral icterus or corneal arcus. Mucous membranes were moist. Neck was supple and with jugular venous distension, thyromegaly, or carotid bruits. Carotids were easily palpable bilaterally. There was no adenopathy. Lungs sounds are diminished and the patient has crackles in the mid and lower lung [place] bilaterally heard posteriorly and anteriorly. No wheezing. Her still Abdominal exam revealed normal bowel sounds. The abdomen was soft, non-tender, and without masses, organomegaly, or appreciable enlargement of the abdominal aorta. Extremities show decreased edema lower oximetry is bilaterally, +1-2 pitting edema, no cyanosis or clubbing, no wounds or ulceration Examination of the skin revealed no evidence of significant rashes, suspicious appearing nevi or other concerning lesions. Neurologic to the patient awake and alert and is no focal neurological deficit. Results - Laboratory Findings CBC and BMP: 11/23/17 21:35 11/23/17 21:35 PT/INR, D-dimer PT 13.5 sec (9.0-12.0) H 11/23/17 21:35 INR 1.4 (<1.2) H 11/23/17 21:35 Abnormal lab findings: Abnormal Labs 11/23/17 11/23/17 11/23/17 21:35 21:35 21:35 RBC 3.67 L Plt Count 136 L Lymphocytes # 0.7 L PT 13.5 H INR 1.4 H Sodium 130 L Chloride 88 L Carbon Dioxide 31 H Glucose 125 H Alkaline Phosphatase 142 H Total Protein 8.4 H Urine Blood Ur Leukocyte Esterase Urine WBC Urine Bacteria 11/23/17 21:50 RBC Plt Count Lymphocytes # PT INR Sodium Chloride Carbon Dioxide Glucose Alkaline Phosphatase Total Protein Urine Blood Trace H Ur Leukocyte Esterase Large H Urine WBC 16 H Urine Bacteria Occasional H - Diagnostic Findings Chest x-ray: image reviewed Assessment and Plan Plan: Assessment 1 pulmonary fibrosis with severe restrictive lung disease. The exact nature of this pulmonary fibrosis is not established, yet based on our records, the patient's pulmonary fibrosis and severe yet stable. Pulmonary function test that was done in 2009 and 2016 showed a limited drop in the lung capacity with the most recent PFT showing an FVC of 39% and a total lung capacity of 60%. The patient is not oxygen dependent yet. Meanwhile, CAT scans in 2016 and 2016 showed no significant progression in the pulmonary fibrosis 2 congestion heart failure which is essentially right-sided heart failure with severe pulmonary hypertension and extensive lower extremity edema. 3 acute hypoxic history failure essentially secondary to CHF and the patient is currently responding nicely to diuretics. Lower extremity edema is improving and the patient is less short of breath compared to yesterday 4 chronic atrial fibrillation on long-term and to coagulation with Eliquis 5 history of CVA without any residual deficits 6 hypertension 7 peripheral vascular disease 8 history of peptic ulcer disease 9 diverticular disease 10 osteoarthritis 11 skin cancer of a basal cell type, resected Plan Discussed the findings with the patient. Agree on diuresis for now with Lasix 40 mg every 8 hours to which the patient is responding nicely. Continue Aldactone. Fluid and salt restriction. Monitor lower extremity edema. Monitor the electrolytes and renal function. Continue Eliquis for now. Assess for home O2 at time of discharge. No need for antibiotics. We'll continue to follow.
--- NOTE | 2017-11-24 16:53 | P.HPIM ---
History of Present Illness 17-year-old female patient is admitted came in with complains of generalized fatigue pedal edema patient does have significant pulmonary artery hypertension possible right-sided high heart failure and cor pulmonale. Patient was also comparing of some shortness of breath patient chest x-ray showed interstitial lung disease with possibly of some mild pulmonary edema. Patient is receiving Lasix for cor pulmonale right-sided heart failure along with possibly of chronic diastolic dysfunction. Patient does have history of atrial fibrillation on anticoagulations with Eliquis. Patient is feeling better today but the lung examination quite a bit of wheezing patient appears to have COPD as well never smoked was exposed to secondhand smoking. Presently patient is being continued on systemic steroids in the form of IV steroids pulmonology is following the patient as well as IV diuretic therapy and cardiology is following the patient as well. Patient denied any cough fever chills patient does not have pneumonia as per the chest x-ray Review of Systems REVIEW OF SYSTEMS: CONSTITUTIONAL: No fever, no malaise, no fatigue. HEENT: No recent visual problems or hearing problems. Denied any sore throat. CARDIOVASCULAR: No chest pain, orthopnea, PND, no palpitations, no syncope. PULMONARY: no cough, no hemoptysis. GASTROINTESTINAL: No diarrhea, no nausea, no vomiting, no abdominal pain. Normoactive bowel sounds. NEUROLOGICAL: No headaches, no weakness, no numbness. HEMATOLOGICAL: Denies any bleeding or petechiae. GENITOURINARY: Denies any burning micturition, frequency, or urgency. MUSCULOSKELETAL/RHEUMATOLOGICAL: Denies any joint pain, swelling, or any muscle pain. ENDOCRINE: Denies any polyuria or polydipsia. The rest of the 14-point review of systems is negative. Past Medical History Past Medical History: Atrial Fibrillation, Cancer, Heart Failure, Hypertension, Pneumonia, Vascular Disorder Additional Past Medical History / Comment(s): Pulmonary fibrosis, severe restrictive lung disease secondary to pulmonary fibrosis, right-sided heart failure, severe pulmonary hypertension, chronic atrial fibrillation, skin cancer , hypertension, peripheral vascular disease, previous history of cardiac ablation for A. fib/failed, varicose his lower extremities, diverticulosis, chronic sinus disease, degenerative arthritis, history of peptic ulcer disease requiring surgery, history of vertigo, basal cell cancer of the skin that was resected. History of CVA doubt any significant residuals. History of Any Multi-Drug Resistant Organisms: None Reported Past Surgical History: Ablation, Cardiac Ablation, Section, Cholecystectomy, Orthopedic Surgery, Tonsillectomy Additional Past Surgical History / Comment(s): R rotator cuff repair, skin cancer removed from nose. Past Anesthesia/Blood Transfusion Reactions: No Reported Reaction, Postoperative Nausea & Vomiting (PONV) Additional Past Anesthesia/Blood Transfusion Reaction / Comment(s): Pt received blood in past without reaction. Past Psychological History: Anxiety, No Psychological Hx Reported Smoking Status: Never smoker - Past Family History Mother Family Medical History: Diabetes Mellitus Father Family Medical History: CVA/TIA, Myocardial Infarction (VT) Additional Family Medical History / Comment(s): Father had VT/CVA sometime in his 60's. Medications and Allergies Home Medications Medication Instructions Recorded Confirmed Type Cyanocobalamin (Vitamin B-12) 1,000 mcg PO DAILY 01/28/17 11/23/17 History [Vitamin B-12] Cholecalciferol [Vitamin D3] 1,000 unit PO DAILY 02/17/17 11/23/17 History Digoxin [Digitek] 125 mcg PO DAILY 02/17/17 11/23/17 History L.acidoph,Paracasei, B.lactis 1 cap PO DAILY 02/17/17 11/23/17 History [Probiotic] Spironolactone [Aldactone] 25 mg PO DAILY 02/17/17 11/23/17 History Levalbuterol HCl [Xopenex 0.63 mg INHALATION RT-TID #0 02/21/17 11/23/17 Rx Nebulized] Metoprolol Tartrate [Lopressor] 25 mg PO BID tab 02/21/17 11/23/17 Rx Famotidine [Pepcid] 20 mg PO DAILY 11/23/17 11/23/17 History Magnesium Oxide [Mag-Ox] 250 mg PO DAILY 11/23/17 11/23/17 History guaiFENesin [Mucinex] 600 mg PO Q12H 11/23/17 11/23/17 History Apixaban [Eliquis] 5 mg PO BID #60 tab 11/24/17 Rx Furosemide [Lasix] 40 mg PO BID #60 tablet 11/24/17 Rx Spironolactone [Aldactone] 50 mg PO DAILY #30 tab 11/24/17 Rx Allergies Allergy/AdvReac Type Severity Reaction Status Date / Time diltiazem [From Cardizem] AdvReac Nausea & Verified 11/23/17 21:01 Vomiting verapamil AdvReac Nausea & Verified 11/23/17 21:01 Vomiting Physical Exam Vitals: Vital Signs Temp Pulse Pulse Resp BP BP Pulse Ox 11/24/17 15:56 80 11/24/17 15:49 78 11/24/17 14:40 97.0 F L 77 16 113/55 96 11/24/17 09:36 80 16 11/24/17 09:26 78 16 98 11/24/17 08:00 81 16 11/24/17 06:21 97.1 F L 86 16 107/57 96 11/24/17 01:18 83 11/24/17 00:59 97.9 F 89 16 128/75 100 11/24/17 00:19 83 18 133/61 98 11/23/17 23:00 92 18 137/61 100 11/23/17 21:51 86 18 143/63 98 11/23/17 21:43 92 18 11/23/17 20:15 98.9 F 109 H 18 147/65 95 Intake and Output 11/24/17 11/24/17 11/24/17 06:59 14:59 22:59 Intake Total 250 Balance 250 Intake: Oral 250 Other: Voiding Method Bedside Commode Bedside Commode Bedside Commode # Voids 3 4 # Bowel Movements 1 Weight 51.5 kg 51.5 kg PHYSICAL EXAMINATION: GENERAL: The patient is alert and oriented x3, not in any acute distress. Well developed, well nourished. HEENT: Pupils are round and equally reacting to light. EOMI. No scleral icterus. No conjunctival pallor. Normocephalic, atraumatic. No pharyngeal erythema. No thyromegaly. CARDIOVASCULAR: S1 and S2 present. No murmurs, rubs, or gallops. Patient appears to have some elevated JVD PULMONARY: Rhonchus breath sounds bibasilar crackles fine crackles bilaterally and expiratory wheezing ABDOMEN: Soft, nontender, nondistended, normoactive bowel sounds. No palpable organomegaly. MUSCULOSKELETAL: No joint swelling or deformity. EXTREMITIES: No cyanosis, clubbing, does have 2+ pitting pedal edema or pedal edema was much worse yesterday. NEUROLOGICAL: Gross neurological examination did not reveal any focal deficits. SKIN: No rashes. Results CBC & Chem 7: 11/23/17 21:35 11/23/17 21:35 Labs: Abnormal Lab Results - Last 24 Hours (Table) 11/23/17 11/23/17 11/23/17 Range/Units 21:35 21:35 21:35 RBC 3.67 L (3.80-5.40) m/uL Plt Count 136 L (150-450) k/uL Lymphocytes # 0.7 L (1.0-4.8) k/uL PT 13.5 H (9.0-12.0) sec INR 1.4 H (<1.2) Sodium 130 L (137-145) mmol/L Chloride 88 L (98-107) mmol/L Carbon Dioxide 31 H (22-30) mmol/L Glucose 125 H (74-99) mg/dL Alkaline Phosphatase 142 H (38-126) U/L Total Protein 8.4 H (6.3-8.2) g/dL Urine Blood (Negative) Ur Leukocyte Esterase (Negative) Urine WBC (0-5) /hpf Urine Bacteria (None) /hpf 11/23/17 Range/Units 21:50 RBC (3.80-5.40) m/uL Plt Count (150-450) k/uL Lymphocytes # (1.0-4.8) k/uL PT (9.0-12.0) sec INR (<1.2) Sodium (137-145) mmol/L Chloride (98-107) mmol/L Carbon Dioxide (22-30) mmol/L Glucose (74-99) mg/dL Alkaline Phosphatase (38-126) U/L Total Protein (6.3-8.2) g/dL Urine Blood Trace H (Negative) Ur Leukocyte Esterase Large H (Negative) Urine WBC 16 H (0-5) /hpf Urine Bacteria Occasional H (None) /hpf Thrombosis Risk Factor Assmnt - Choose All That Apply Any of the Below Risk Factors Present?: No Each Risk Factor Represents 3 Points: Age 75 years or older Other congenital or acquired thrombophilia - If yes, enter type in comment: No Thrombosis Risk Factor Assessment Total Risk Factor Score: 3 Thrombosis Risk Factor Assessment Level: Moderate Risk Assessment and Plan Plan: -Shortness of breath: Secondary to pulmonary fibrosis, and COPD exacerbation patient is still surgery to be continued -Patient has right-sided heart failure with cor pulmonale by suspicion is low that patient has chronic diastolic dysfunction patient has bilateral pedal edema patient is diuresing well with the diuretics which will be continued. -Atrial fibrillation chronic rate controlled on anti-correlation as mentioned above which will be continued -History of CVA in the past -Hypertension Having progressive disease -Gastroesophageal reflux disease -Severe osteoarthritis -Hyponatremia: Appears to be hypervolemic hyponatremia expected to improve with the Lasix
[2017-11-24] MEDS: BENZOCAINE/MENTHOL LOZENG 1 EACH LOZENGE MUCOUS MEM PRN ×2 (17:56→21:09)
[2017-11-25] MEDS: BENZOCAINE/MENTHOL LOZENG 1 EACH LOZENGE MUCOUS MEM PRN ×2 (03:59→12:04)
[2017-11-25] MEDS: FUROSEMIDE 10 MG/ML 4 ML VIAL IV SCH ×2 (06:08→14:35)
[2017-11-25 08:04] VITALS: BP 115/62; TEMP 97.5
[2017-11-25] MEDS: METOPROLOL TARTRATE 25 MG TAB PO SCH (08:06)
[2017-11-25] MEDS: APIXABAN 5 MG TAB PO SCH (08:07)
[2017-11-25] MEDS: DIGOXIN 125 MCG TAB PO SCH (08:07)
[2017-11-25 08:27] LABS: HCT 36.1 % (34.0-46.0); HGB 12.4 gm/dL (11.4-16.0); MCH 33.6 pg (25.0-35.0); MCHC 34.3 g/dL (31.0-37.0); MCV 97.9 fL (80.0-100.0); Mean Platelet Volume 7.8; Platelet Count 121 k/uL (150-450); RBC 3.69 m/uL (3.80-5.40); WBC 8.2 k/uL (3.8-10.6)
[2017-11-25 08:32] LABS: Anion Gap 15 mmol/L; Calcium 9.2 mg/dL (8.4-10.2); Carbon Dioxide 29 mmol/L (22-30); Chloride 92 mmol/L (98-107); Glucose 96 mg/dL (74-99); Sodium 136 mmol/L (137-145)
[2017-11-25 08:36] LABS: Blood Urea Nitrogen 17 mg/dL (7-17); Potassium 4.3 mmol/L (3.5-5.1)
[2017-11-25] MEDS ORDERED: SPIRONOLACTONE 25 MG TAB PO SCH (09:00)
[2017-11-25] MEDS ORDERED: PANTOPRAZOLE 40 MG TABLET PO SCH (09:00)
[2017-11-25] MEDS: IPRATROPIUM-ALBUTEROL 3 ML NEB INHALATION SCH ×3 (09:16→15:31)
--- NOTE | 2017-11-25 11:56 | ECHOF ---
Referral Reason:sob MEASUREMENTS -------- HEIGHT: 154.9 cm WEIGHT: 51.3 kg BP: 107/57 RVIDd: 3.5 cm (< 3.3) IVSd: 1.0 cm (0.6 - 1.1) LVIDd: 2.7 cm (3.9 - 5.3) LVPWd: 1.0 cm (0.6 - 1.1) IVSs: 1.3 cm LVIDs: 2.0 cm LVPWs: 1.3 cm LAESV Index (A-L): 58.83 ml/m Ao Diam: 2.9 cm (2.0 - 3.7) AV Cusp: 1.4 cm (1.5 - 2.6) LA Diam: 4.8 cm (2.7 - 3.8) EPSS: 0.9 cm MV E Gilberto: 1.37 m/s MV DecT: 171 ms MV A Gilberto: 0.51 m/s MV E/A Ratio: 2.66 RAP: 15.00 mmHg RVSP: 81.28 mmHg MV EF SLOPE: 59.18 mm/s (70 - 150) MV EXCURSION: 1.19 cm (> 18.000) FINDINGS -------- Sinus rhythm. This was a technically good study. The left ventricular size is normal. Left ventricular wall thickness is normal. Overall left vent ricular systolic function is low-normal with, an EF between 50 - 55 %. The right ventricle is severely enlarged. The right ventricular septal wall is flattened in diastol e and systole which is consistent with right ventricular volume and pressure overload. LA is severely dilated >40 ml/m2 The right atrium is markedly enlarged. Aortic valve is trileaflet and is mildly thickened. There is no evidence of aortic regurgitation. There is no evidence of aortic stenosis. The mitral valve leaflets are mildly thickened. Moderate mitral annular calcification present. Mi ld mitral regurgitation is present. Severe tricuspid regurgitation present. There is severe pulmonary hypertension. The right ventric ular systolic pressure, as measured by Doppler, is 81.28mmHg. Trace/mild (physiologic) pulmonic regurgitation. The aortic root size is normal. The inferior vena cava is dilated with no significant inspiratory collapse which is consistent estima loida right atrial pressure of >20 mmHg. There is no pericardial effusion. CONCLUSIONS -------- 1. Sinus rhythm. 2. This was a technically good study. 3. The left ventricular size is normal. 4. Left ventricular wall thickness is normal. 5. Overall left ventricular systolic function is low-normal with, an EF between 50 - 55 %. 6. The right ventricle is severely enlarged. 7. The right ventricular septal wall is flattened in diastole and systole which is consistent with r ight ventricular volume and pressure overload. 8. LA is severely dilated >40 ml/m2 9. The right atrium is markedly enlarged. 10. Aortic valve is trileaflet and is mildly thickened. 11. The mitral valve leaflets are mildly thickened. 12. Moderate mitral annular calcification present. 13. Mild mitral regurgitation is present. 14. Severe tricuspid regurgitation present. 15. There is severe pulmonary hypertension. 16. The right ventricular systolic pressure, as measured by Doppler, is 81.28mmHg. 17. Trace/mild (physiologic) pulmonic regurgitation. 18. The aortic root size is normal. 19. The inferior vena cava is dilated with no significant inspiratory collapse which is consistent es timated right atrial pressure of >20 mmHg. 20. There is no pericardial effusion. FURNACE KEEPER: Adalberto Philip RDCS
[2017-11-25] MEDS: MAGNESIUM OXIDE 400 MG TAB PO SCH (12:04)
--- NOTE | 2017-11-25 12:52 | P.PN ---
Subjective Progress Note Date: 11/25/17 Principal diagnosis: Acute exacerbation of chronic right-sided congestive heart failure and pulmonary fibrosis. This is a 77-year-old. Patient was hospitalized because of increased shortness of breath and fluid overload consistent with CHF. The patient is known to have right-sided heart failure. The patient also known to have some chronic nonspecific pulmonary fibrosis and the exact etiology has not been established although based on the CAT scan findings the distribution and the characteristics of the pulmonary fibrosis is not consistent with UIP. The patient has been under the care of Dr. Spear in our office. The patient has significant pulmonary hypertension and based on recent echocardiogram the patient has a normal LV function with an ejection fraction of 55-60% and she has severe tricuspid regurgitation and severe pulmonary potential with a RVSP of 79 mmHg. The patient has had previous hospitalization for CVA and she has also history of chronic atrial fibrillation for which she is maintained on long- term articulation with Eliquis. She has hypertensive also. During this current hospitalization, she reports marked edema in lower extremity is bilaterally and she is responding nicely to diuretics and she is currently on IV Lasix. Going back to our records from the office, the patient has pulmonary function tests that were done in our office and the patient FVC is 39% and total lung capacity of 60% of predicted and this is consistent with severe restrictive lung disease exacerbation with her pulmonary fibrosis. Note that there has been only limited decline in her lung capacity over the past 7 years in comparison to the previous function test that was done in 2009.. The patient does not have any exposure to organic or inorganic dust. No history of any rheumatologic disease or disorder. Most of lupus. No other connective tissue disease or rheumatologic disorder. She has worked as a respiratory therapist in the past. No previous history of DVT. No previous history of pulmonary embolism. No history of any chronic liver disease. She has a chronic cough. Her last CAT scan of the chest that was done in 03/2017 showed chronic fibrotic changes along with cardiomegaly and pulmonary hypertension and distended pulmonary arteries yet unchanged compared to the prior films and her pulmonary fibrosis within thought to be relatively stable. The patient is seen today 11/25/2017 in follow-up on the regular medical floor. She is currently awake and alert in no acute distress. She is resting quite comfortably in bed. She is maintaining O2 saturations in the 90s on room air. She is doing quite a bit better today as compared to yesterday. She is diuresing well. Weight has improved from 51.5 kg to 48.5 kg. White count 8.2. Hemoglobin 12.4. Bicarb 29. Creatinine 0.65. Objective - Vital Signs Vital signs: Vital Signs Temp 97.5 F L 11/25/17 07:00 Pulse 80 11/25/17 12:37 Resp 16 11/25/17 07:00 BP 115/62 11/25/17 07:00 Pulse Ox 97 11/25/17 07:00 Intake & Output 11/24/17 11/25/17 11/25/17 18:59 06:59 18:59 Intake Total 1450 200 Output Total 1650 750 Balance -200 -750 200 Weight 51.5 kg 48.5 kg Intake: Oral 1450 200 Output: Urine 1650 750 Other: Voiding Method Bedside Commode Bedside Commode # Voids 1 1 # Bowel Movements 1 - Exam Gen. appearance the patient is calm comfortable likely distress. She is not using excessive muscle breathing and she is very comfortable in terms of her breathing. Head exam was generally normal. There was no scleral icterus or corneal arcus. Mucous membranes were moist. Neck was supple and with jugular venous distension, thyromegaly, or carotid bruits. Carotids were easily palpable bilaterally. There was no adenopathy. Lungs sounds are diminished and the patient has crackles in the mid and lower lung el[place] bilaterally heard posteriorly and anteriorly. No wheezing. Her still Abdominal exam revealed normal bowel sounds. The abdomen was soft, non-tender, and without masses, organomegaly, or appreciable enlargement of the abdominal aorta. Extremities show decreased edema lower oximetry is bilaterally, +1 pitting edema , no cyanosis or clubbing, no wounds or ulceration Examination of the skin revealed no evidence of significant rashes, suspicious appearing nevi or other concerning lesions. Neurologic to the patient awake and alert and is no focal neurological deficit. - Labs CBC & Chem 7: 11/25/17 07:29 11/25/17 07:29 Labs: Abnormal Lab Results - Last 24 Hours (Table) 11/25/17 11/25/17 Range/Units 07: 07:29 RBC 3.69 L (3.80-5.40) m/uL Plt Count 121 L (150-450) k/uL Sodium 136 L (137-145) mmol/L Chloride 92 L (98-107) mmol/L Microbiology - Last 24 Hours (Table) 11/23/17 21:35 Blood Culture - Preliminary Blood No Growth after 24 hours 11/24/17 11:36 Urine Culture - Preliminary Urine,Voided Assessment and Plan Assessment: Assessment 1 pulmonary fibrosis with severe restrictive lung disease. The exact nature of this pulmonary fibrosis is not established, yet based on our records, the patient's pulmonary fibrosis and severe yet stable. Pulmonary function test that was done in 2009 and 2016 showed a limited drop in the lung capacity with the most recent PFT showing an FVC of 39% and a total lung capacity of 60%. The patient is not oxygen dependent yet. Meanwhile, CAT scans in 2015 and 2016 showed no significant progression in the pulmonary fibrosis 2 congestion heart failure which is essentially right-sided heart failure with severe pulmonary hypertension and extensive lower extremity edema. 3 acute hypoxic history failure essentially secondary to CHF and the patient is currently responding nicely to diuretics. Lower extremity edema is improving and the patient is less short of breath compared to yesterday 4 chronic atrial fibrillation on long-term and to coagulation with Eliquis 5 history of CVA without any residual deficits 6 hypertension 7 peripheral vascular disease 8 history of peptic ulcer disease 9 diverticular disease 10 osteoarthritis 11 skin cancer of a basal cell type, resected Plan The patient was seen and evaluated by Dr. Johnson. She is improved from the pulmonary standpoint. Maintaining O2 saturations in the 90s on room air now. We'll continue with her current medications. Increase her activity as tolerated. We'll continue to follow make further recommendations based on her clinical status. I, the cosigning physician, performed a history & physical examination of the patient. Lungs sounds a crackles in the bilateral posterior bases. Maintaining good O2 saturations in the 90s on room air. I discussed the assessment and plan of care with my nurse practitioner, Dea Desia. I attest to the above note as dictated by her.
--- NOTE | 2017-11-25 13:08 | P.DS ---
Providers Date of admission: 11/23/17 23:32 Attending physician: Teresa Ring Consults: 11/23/17 23:41 Consult Physician Stat Consulting Provider: Cody Spear Consult Reason/Comments: Pulmonary fibrosis, YOUNG Do you want consulting provider notified?: Yes, Notify in am Consult Physician Stat Consulting Provider: Sahil Dhillon Consult Reason/Comments: CHF Do you want consulting provider notified?: Yes, Notify in am Primary care physician: Rigo Hyman Hospital Course: This is a 77-year-old female patient who presented to the hospital with generalized fatigue and pedal edema. The patient has a significant pulmonary history including pulmonary fibrosis. She follows closely with a coding compliance auditor on a regular basis. She still has some lower extremity edema but it has improved. She denies any shortness of breath and has been able to ambulate without any difficulties. She states she feels stronger and she is stable for discharge home today. Patient Condition at Discharge: Stable Plan - Discharge Summary Discharge Rx Participant: Yes New Discharge Prescriptions: New Apixaban [Eliquis] 5 mg PO BID #60 tab Spironolactone [Aldactone] 50 mg PO DAILY #30 tab Changed Furosemide [Lasix] 40 mg PO BID #60 tablet Discontinued Apixaban [Eliquis] 2.5 mg PO BID Potassium 99 mg PO DAILY No Action Cyanocobalamin (Vitamin B-12) [Vitamin B-12] 1,000 mcg PO DAILY Cholecalciferol [Vitamin D3] 1,000 unit PO DAILY L.acidoph,Paracasei, B.lactis [Probiotic] 1 cap PO DAILY Spironolactone [Aldactone] 25 mg PO DAILY Digoxin [Digitek] 125 mcg PO DAILY Metoprolol Tartrate [Lopressor] 25 mg PO BID tab Levalbuterol HCl [Xopenex Nebulized] 0.63 mg INHALATION RT-TID #0 guaiFENesin [Mucinex] 600 mg PO Q12H Magnesium Oxide [Mag-Ox] 250 mg PO DAILY Famotidine [Pepcid] 20 mg PO DAILY Discharge Medication List Cyanocobalamin (Vitamin B-12) [Vitamin B-12] 1,000 mcg PO DAILY 01/28/17 [ History] Cholecalciferol [Vitamin D3] 1,000 unit PO DAILY 02/17/17 [History] Digoxin [Digitek] 125 mcg PO DAILY 02/17/17 [History] L.acidoph,Paracasei, B.lactis [Probiotic] 1 cap PO DAILY 02/17/17 [History] Spironolactone [Aldactone] 25 mg PO DAILY 02/17/17 [History] Levalbuterol HCl [Xopenex Nebulized] 0.63 mg INHALATION RT-TID #0 02/21/17 [Rx] Metoprolol Tartrate [Lopressor] 25 mg PO BID tab 02/21/17 [Rx] Famotidine [Pepcid] 20 mg PO DAILY 11/23/17 [History] Magnesium Oxide [Mag-Ox] 250 mg PO DAILY 11/23/17 [History] guaiFENesin [Mucinex] 600 mg PO Q12H 11/23/17 [History] Apixaban [Eliquis] 5 mg PO BID #60 tab 11/24/17 [Rx] Furosemide [Lasix] 40 mg PO BID #60 tablet 11/24/17 [Rx] Spironolactone [Aldactone] 50 mg PO DAILY #30 tab 11/24/17 [Rx] Follow up Appointment(s)/Referral(s): Rigo Hyman MD [Primary Care Provider] - 3 Days Sahil Dhillon MD [STAFF PHYSICIAN] - 2 Weeks Guero Johnson MD [STAFF PHYSICIAN] - 1 Week Discharge Disposition: HOME SELF-CARE
[2017-11-25 15:34] VITALS: PULSE 84
== END 2017-11-25 16:46 | disposition home or self-care (01) | DRG 291 ==
LOC: EC 19:43 → 4MS4W 23:32
PROVIDERS: ADMIT Hospitalist; ATTEND Hospitalist
DX: I11.0 Hypertensive heart disease with heart failure (principal); J96.01 Acute respiratory failure with hypoxia; J44.1 Chronic obstructive pulmonary disease with (acute) exacerbation; E87.1 Hypo-osmolality and hyponatremia; I50.33 Acute on chronic diastolic (congestive) heart failure; J84.10 Pulmonary fibrosis, unspecified; F41.9 Anxiety disorder, unspecified; I07.1 Rheumatic tricuspid insufficiency; I27.21 Secondary pulmonary arterial hypertension; I48.2 Chronic atrial fibrillation; I27.81 Cor pulmonale (chronic); I73.9 Peripheral vascular disease, unspecified; K21.9 Gastro-esophageal reflux disease without esophagitis; K57.90 Diverticulosis of intestine, part unspecified, without perforation or abscess without bleeding; M19.90 Unspecified osteoarthritis, unspecified site; Z79.01 Long term (current) use of anticoagulants; Z79.899 Other long term (current) drug therapy; Z82.3 Family history of stroke; Z82.49 Family history of ischemic heart disease and other diseases of the circulatory system; Z83.3 Family history of diabetes mellitus; Z85.828 Personal history of other malignant neoplasm of skin; Z86.73 Personal history of transient ischemic attack (TIA), and cerebral infarction without residual deficits; Z87.11 Personal history of peptic ulcer disease
CPT/HCPCS: 36415; 71046; 80048; 80053; 81001; 82550; 82553; 83605; 83880; 84484; 85025; 85027; 85610; 85730; 87040; 87086; 93005; 93306; 94640; 94760; 96361; 96374; 96375; 99285

== ENCOUNTER 2018-04-15 17:46 | Emergency (ER) | payer OTHER, MEDICARE ==
[2018-04-15] MEDS ORDERED: SODIUM CHLORIDE 0.9% 500 ML 500 ML IV STA (18:06)
[2018-04-15] MEDS ORDERED: SODIUM CHLORIDE 0.9% 1,000 ML IV STA ×2 (18:06)
--- NOTE | 2018-04-15 18:07 | ED ---
Weakness HPI - General Chief complaint: Weakness Stated complaint: weakness Time Seen by Provider: 04/15/18 17:56 Source: patient, RN notes reviewed, old records reviewed Mode of arrival: wheelchair Limitations: no limitations - History of Present Illness Initial comments: This is a 77-year-old female the ER for evaluation. Patient is significant history of heart disease significant history of lung disease coming in for failure to thrive weakness and anorexia dehydration not feeling well. Symptoms of been increasing steadily over the past few months. No recent change in medications no fevers no cough no congestion no chest pain no significant shortness of breath that is different from normal MD Complaint: generalized weakness -: month(s) Location: generalized Severity: moderate Severity scale (1-10): 6 Quality: crushing Consistency: constant Improves with: rest Worsens with: movement Context: recent illness Associated Symptoms: nausea/vomiting, shortness of breath - Related Data Home Medications Medication Instructions Recorded Confirmed Cyanocobalamin (Vitamin B-12) 1,000 mcg PO DAILY 01/28/17 04/18/18 [Vitamin B-12] Cholecalciferol [Vitamin D3] 1,000 unit PO DAILY 02/17/17 04/18/18 Digoxin [Digitek] 125 mcg PO DAILY 02/17/17 04/18/18 L.acidoph,Paracasei, B.lactis 1 cap PO DAILY 02/17/17 04/18/18 [Probiotic] Spironolactone [Aldactone] 25 mg PO DAILY 02/17/17 04/18/18 Famotidine [Pepcid] 20 mg PO DAILY 11/23/17 04/18/18 Apixaban [Eliquis] 2.5 mg PO HS 04/18/18 04/18/18 Apixaban [Eliquis] 5 mg PO QAM 04/18/18 04/18/18 Benzonatate [Tessalon Perles] 200 mg PO TID 04/18/18 04/18/18 Levalbuterol HCl [Xopenex 0.63 mg INHALATION RT-Q4H 04/18/18 04/18/18 Nebulized] Previous Rx's Medication Instructions Recorded Metoprolol Tartrate [Lopressor] 25 mg PO BID tab 02/21/17 Furosemide [Lasix] 40 mg PO BID #60 tablet 11/24/17 Allergies Allergy/AdvReac Type Severity Reaction Status Date / Time diltiazem [From Cardizem] AdvReac Nausea & Verified 04/18/18 20:59 Vomiting verapamil AdvReac Nausea & Verified 04/18/18 20:59 Vomiting Review of Systems ROS Statement: Those systems with pertinent positive or pertinent negative responses have been documented in the HPI. ROS Other: All systems not noted in ROS Statement are negative. Past Medical History Past Medical History: Atrial Fibrillation, Cancer, Heart Failure, Hypertension, Pneumonia, Vascular Disorder Additional Past Medical History / Comment(s): Pulmonary fibrosis, severe restrictive lung disease secondary to pulmonary fibrosis, right-sided heart failure, severe pulmonary hypertension, chronic atrial fibrillation, skin cancer , hypertension, peripheral vascular disease, previous history of cardiac ablation for A. fib/failed, varicose his lower extremities, diverticulosis, chronic sinus disease, degenerative arthritis, history of peptic ulcer disease requiring surgery, history of vertigo, basal cell cancer of the skin that was resected. History of CVA doubt any significant residuals. History of Any Multi-Drug Resistant Organisms: None Reported Past Surgical History: Ablation, Cardiac Ablation, Section, Cholecystectomy, Orthopedic Surgery, Tonsillectomy Additional Past Surgical History / Comment(s): R rotator cuff repair, skin cancer removed from nose. Past Anesthesia/Blood Transfusion Reactions: No Reported Reaction, Postoperative Nausea & Vomiting (PONV) Additional Past Anesthesia/Blood Transfusion Reaction / Comment(s): Pt received blood in past without reaction. Past Psychological History: Anxiety Smoking Status: Never smoker Past Alcohol Use History: None Reported Past Drug Use History: None Reported - Past Family History Mother Family Medical History: Diabetes Mellitus Father Family Medical History: CVA/TIA, Myocardial Infarction ([place]) Additional Family Medical History / Comment(s): Father had PR/CVA sometime in his 60's. General Exam Limitations: no limitations General appearance: alert, in no apparent distress Head exam: Present: atraumatic, normocephalic, normal inspection Eye exam: Present: normal appearance, PERRL, EOMI. Absent: scleral icterus, conjunctival injection, periorbital swelling ENT exam: Present: normal exam, mucous membranes moist Neck exam: Present: normal inspection. Absent: tenderness, meningismus, lymphadenopathy Respiratory exam: Present: normal lung sounds bilaterally. Absent: respiratory distress, wheezes, rales, rhonchi, stridor Cardiovascular Exam: Present: regular rate, normal rhythm, normal heart sounds. Absent: systolic murmur, diastolic murmur, rubs, gallop, clicks GI/Abdominal exam: Present: soft, normal bowel sounds. Absent: distended, tenderness, guarding, rebound, rigid Extremities exam: Present: normal inspection, full ROM, normal capillary refill. Absent: tenderness, pedal edema, joint swelling, calf tenderness Back exam: Present: normal inspection Neurological exam: Present: alert, oriented X3, CN II-XII intact Psychiatric exam: Present: normal affect, normal mood Skin exam: Present: warm, dry, intact, normal color. Absent: rash Course Vital Signs 04/15/18 04/15/18 04/15/18 17:50 19:38 19:40 Temperature 98.3 F Pulse Rate 106 H 98 Respiratory 18 18 Rate Blood Pressure 123/65 O2 Sat by Pulse 96 100 98 Oximetry 04/15/18 04/15/18 04/15/18 19:50 20:00 20:10 Temperature Pulse Rate 101 H 98 104 H Respiratory 18 16 18 Rate Blood Pressure 131/81 131/81 137/69 O2 Sat by Pulse 96 97 100 Oximetry 04/15/18 04/15/18 20:20 21:25 Temperature 97.1 F L Pulse Rate 90 85 Respiratory 16 16 Rate Blood Pressure 137/69 134/60 O2 Sat by Pulse 100 100 Oximetry - Reevaluation(s) Reevaluation #1: Medical record is reviewed Patient currently denies any specific complaints, states symptoms much improved feels improved EKG Findings - EKG Comments: EKG Findings:: EKG shows A. fib rate of 91, QRS 90, QTC 373 Medical Decision Making - Medical Decision Making 77 female the ER with nonspecific weakness. Lab work x-ray unremarkable. Patient sent better with hydration, be discharged home - Lab Data Result diagrams: 04/15/18 18:55 04/15/18 18:55 Lab Results 04/15/18 04/15/18 04/15/18 Range/Units 18:55 18:55 18:55 WBC 5.1 (3.8-10.6) k/uL RBC 3.14 L (3.80-5.40) m/uL Hgb 8.6 L (11.4-16.0) gm/dL Hct 27.1 L (34.0-46.0) % MCV 86.3 (80.0-100.0) fL MCH 27.3 (25.0-35.0) pg MCHC 31.6 (31.0-37.0) g/dL RDW 15.3 (11.5-15.5) % Plt Count 205 (150-450) k/uL Neutrophils % 78 % Lymphocytes % 11 % Monocytes % 8 % Eosinophils % 1 % Basophils % 0 % Neutrophils # 3.9 (1.3-7.7) k/uL Lymphocytes # 0.6 L (1.0-4.8) k/uL Monocytes # 0.4 (0-1.0) k/uL Eosinophils # 0.0 (0-0.7) k/uL Basophils # 0.0 (0-0.2) k/uL Hypochromasia Marked Poikilocytosis Slight Sodium 134 L (137-145) mmol/L Potassium 3.7 (3.5-5.1) mmol/L Chloride 93 L (98-107) mmol/L Carbon Dioxide 32 H (22-30) mmol/L Anion Gap 9 mmol/L BUN 22 H (7-17) mg/dL Creatinine 0.67 (0.52-1.04) mg/dL Est GFR (CKD-EPI)AfAm >90 (>60 ml/min/1.73 sqM) Est GFR (CKD-EPI)NonAf 86 (>60 ml/min/1.73 sqM) Glucose 123 H (74-99) mg/dL Calcium 9.0 (8.4-10.2) mg/dL Phosphorus 2.9 (2.5-4.5) mg/dL Magnesium 1.7 (1.6-2.3) mg/dL Total Bilirubin 0.9 (0.2-1.3) mg/dL AST 30 (14-36) U/L ALT 20 (9-52) U/L Alkaline Phosphatase 165 H (38-126) U/L Total Creatine Kinase 45 (30-135) U/L CK-MB (CK-2) 1.2 (0.0-2.4) ng/mL CK-MB (CK-2) Rel Index 2.7 Troponin I <0.012 (0.000-0.034) ng/mL Total Protein 8.8 H (6.3-8.2) g/dL Albumin 3.8 (3.5-5.0) g/dL TSH 2.170 (0.465-4.680) mIU/L Urine Color Urine Appearance (Clear) Urine pH (5.0-8.0) Ur Specific [place] (1.001-1.035) Urine Protein (Negative) Urine Glucose (UA) (Negative) Urine Ketones (Negative) Urine Blood (Negative) Urine Nitrite (Negative) Urine Bilirubin (Negative) Urine Urobilinogen (<2.0) mg/dL Ur Leukocyte Esterase (Negative) Urine RBC (0-5) /hpf Urine WBC (0-5) /hpf 04/15/18 Range/Units 20:15 WBC (3.8-10.6) k/uL RBC (3.80-5.40) m/uL Hgb (11.4-16.0) gm/dL Hct (34.0-46.0) % MCV (80.0-100.0) fL MCH (25.0-35.0) pg MCHC (31.0-37.0) g/dL RDW (11.5-15.5) % Plt Count (150-450) k/uL Neutrophils % % Lymphocytes % % Monocytes % % Eosinophils % % Basophils % % Neutrophils # (1.3-7.7) k/uL Lymphocytes # (1.0-4.8) k/uL Monocytes # (0-1.0) k/uL Eosinophils # (0-0.7) k/uL Basophils # (0-0.2) k/uL Hypochromasia Poikilocytosis Sodium (137-145) mmol/L Potassium (3.5-5.1) mmol/L Chloride (98-107) mmol/L Carbon Dioxide (22-30) mmol/L Anion Gap mmol/L BUN (7-17) mg/dL Creatinine (0.52-1.04) mg/dL Est GFR (CKD-EPI)AfAm (>60 ml/min/1.73 sqM) Est GFR (CKD-EPI)NonAf (>60 ml/min/1.73 sqM) Glucose (74-99) mg/dL Calcium (8.4-10.2) mg/dL Phosphorus (2.5-4.5) mg/dL Magnesium (1.6-2.3) mg/dL Total Bilirubin (0.2-1.3) mg/dL AST (14-36) U/L ALT (9-52) U/L Alkaline Phosphatase (38-126) U/L Total Creatine Kinase (30-135) U/L CK-MB (CK-2) (0.0-2.4) ng/mL CK-MB (CK-2) Rel Index Troponin I (0.000-0.034) ng/mL Total Protein (6.3-8.2) g/dL Albumin (3.5-5.0) g/dL TSH (0.465-4.680) mIU/L Urine Color Yellow Urine Appearance Clear (Clear) Urine pH 6.5 (5.0-8.0) Ur Specific [place] 1.008 (1.001-1.035) Urine Protein Negative (Negative) Urine Glucose (UA) Negative (Negative) Urine Ketones Negative (Negative) Urine Blood Negative (Negative) Urine Nitrite Negative (Negative) Urine Bilirubin Negative (Negative) Urine Urobilinogen <2.0 (<2.0) mg/dL Ur Leukocyte Esterase Small H (Negative) Urine RBC <1 (0-5) /hpf Urine WBC 6 H (0-5) /hpf - Radiology Data Radiology results: report reviewed (Chest x-rays negative for acute disease), image reviewed Disposition Clinical Impression: Weakness Disposition: HOME SELF-CARE Condition: Fair Instructions: Weakness (ED) Is patient prescribed a controlled substance at d/c from ED?: No Referrals: Rigo Hyman MD [Primary Care Provider] - 1-2 days
[2018-04-15 19:10] LABS: Basophils % (A) 0 %; Eosinophils % (A) 1 %; HCT 27.1 % (34.0-46.0); HGB 8.6 gm/dL (11.4-16.0); Hypochromasia Marked; Lymphocytes # (A) 0.6 k/uL (1.0-4.8); Lymphocytes % (A) 11 %; MCH 27.3 pg (25.0-35.0); MCHC 31.6 g/dL (31.0-37.0); MCV 86.3 fL (80.0-100.0); Mean Platelet Volume 7.1; Monocytes # (A) 0.4 k/uL (0-1.0); Monocytes % (A) 8 %; Neutrophils # (A) 3.9 k/uL (1.3-7.7); Neutrophils % (A) 78 %; Platelet Count 205 k/uL (150-450); Poikilocytosis Slight; RBC 3.14 m/uL (3.80-5.40); RDW 15.3 % (11.5-15.5); WBC 5.1 k/uL (3.8-10.6)
--- NOTE | 2018-04-15 19:11 | XR ---
EXAMINATION TYPE: XR chest 2V DATE OF EXAM: 04/15/2018 COMPARISON: 11/23/2017 HISTORY: Pulmonary fibrosis TECHNIQUE: Frontal and lateral views of the chest are obtained. FINDINGS: Heart is enlarged. There is coarsening of the pulmonary interstitial markings. There is mi nimal pulmonary interstitial edema. Thoracic aorta is atheromatous. There are large central pulmonary arteries. There is no definite pleural effusion. IMPRESSION: Pulmonary fibrosis. Mild heart failure is possible. Pulmonary hypertension. No significa nt change.
[2018-04-15 19:20] LABS: ALT 20 U/L (9-52); AST 30 U/L (14-36); Albumin 3.8 g/dL (3.5-5.0); Alkaline Phosphatase 165 U/L (38-126); Anion Gap 9 mmol/L; Blood Urea Nitrogen 22 mg/dL (7-17); Carbon Dioxide 32 mmol/L (22-30); Chloride 93 mmol/L (98-107); Glucose 123 mg/dL (74-99); Magnesium 1.7 mg/dL (1.6-2.3); Phosphorus 2.9 mg/dL (2.5-4.5); Potassium 3.7 mmol/L (3.5-5.1); Sodium 134 mmol/L (137-145); Total Bilirubin 0.9 mg/dL (0.2-1.3); Total Protein 8.8 g/dL (6.3-8.2)
[2018-04-15 19:22] LABS: Creatine Kinase 45 U/L (30-135)
[2018-04-15 19:35] LABS: Creatine Kinase MB 1.2 ng/mL (0.0-2.4); Troponin I <0.012 ng/mL (0.000-0.034)
[2018-04-15 20:38] LABS: Appearance,Urine Clear (Clear); Bilirubin,Urine Negative (Negative); Blood,Urine Negative (Negative); Color,Urine Yellow; Glucose,Urine (UA) Negative (Negative); Ketones,Urine Negative (Negative); Leukocyte Esterase,Urine Small (Negative); Nitrite,Urine Negative (Negative); PH, Urine 6.5 (5.0-8.0); Protein,Urine Negative (Negative); RBC,Urine <1 /hpf (0-5); Specific Gravity,Urine 1.008 (1.001-1.035); Urobilinogen,Urine <2.0 mg/dL (<2.0); WBC,Urine 6 /hpf (0-5)
[2018-04-15 21:27] VITALS: BP 134/60; PULSE 85; RESP 16; TEMP 97.1
== END 2018-04-15 21:38 | disposition home or self-care (01) ==
LOC: EC 17:46
DX: R53.1 Weakness (principal); E86.0 Dehydration; R62.7 Adult failure to thrive; R63.0 Anorexia; R11.2 Nausea with vomiting, unspecified; R06.02 Shortness of breath; I11.0 Hypertensive heart disease with heart failure; I50.9 Heart failure, unspecified; I27.20 Pulmonary hypertension, unspecified; I48.2 Chronic atrial fibrillation; J84.10 Pulmonary fibrosis, unspecified; I73.9 Peripheral vascular disease, unspecified; Z85.828 Personal history of other malignant neoplasm of skin; Z86.73 Personal history of transient ischemic attack (TIA), and cerebral infarction without residual deficits; Z98.890 Other specified postprocedural states; Z82.49 Family history of ischemic heart disease and other diseases of the circulatory system; Z79.899 Other long term (current) drug therapy; Z88.8 Allergy status to other drugs, medicaments and biological substances
CPT/HCPCS: 36415; 71046; 80053; 81001; 82550; 82553; 83735; 84100; 84443; 84484; 85025; 87077; 87086; 87186; 93005; 96360; 96361; 99285

== ENCOUNTER 2018-04-18 16:43 | Inpatient (IN) | payer OTHER, MEDICARE ==
--- NOTE | 2018-04-18 17:05 | ED ---
General Adult HPI - General Chief complaint: Recheck/Abnormal Lab/Rx Stated complaint: Weakness, Swelling in legs Time Seen by Provider: 04/18/18 17:00 Source: patient, RN notes reviewed Mode of arrival: wheelchair Limitations: no limitations - History of Present Illness Initial comments: 37-year-old female with significant past medical cardiac and pulmonary history presents to the emergency department for a chief complaint weakness in bilateral lower extremity swelling. Patient states this weakness has been ongoing for 1 year and worsening. She states she has difficulty sleeping at night due to pulmonary fibrosis which causes her to be tired and weak. Patient states she was last seen here in the emergency department 4 days ago for weakness and discharged home. She states she followed up with Dr. Hyman's office who diagnosed her with anemia and attempted to direct admit her but was unable. Patient admits to mild increase in her baseline shortness of breath due to the weakness. She states she has a chronic cough due to pulmonary fibrosis. Patient states she also has congestive heart failure and chronic A. fib and has had increased swelling in her legs over the past week. She states she is currently taking Lasix. She states the swelling increased after she received saline while in the emergency department. Patient denies any complaints of chest pain. Patient has no other complaints at this time including fever, back pain, chest pain, abdominal pain, nausea or vomiting, headache, or visual changes. - Related Data Home Medications Medication Instructions Recorded Confirmed Cyanocobalamin (Vitamin B-12) 1,000 mcg PO DAILY 01/28/17 04/18/18 [Vitamin B-12] Cholecalciferol [Vitamin D3] 1,000 unit PO DAILY 02/17/17 04/18/18 Digoxin [Digitek] 125 mcg PO DAILY 02/17/17 04/18/18 L.acidoph,Paracasei, B.lactis 1 cap PO DAILY 02/17/17 04/18/18 [Probiotic] Spironolactone [Aldactone] 25 mg PO DAILY 02/17/17 04/18/18 Famotidine [Pepcid] 20 mg PO DAILY 11/23/17 04/18/18 Apixaban [Eliquis] 2.5 mg PO HS 04/18/18 04/18/18 Apixaban [Eliquis] 5 mg PO QAM 04/18/18 04/18/18 Benzonatate [Tessalon Perles] 200 mg PO TID 04/18/18 04/18/18 Levalbuterol HCl [Xopenex 0.63 mg INHALATION RT-Q4H PRN 04/18/18 04/18/18 Nebulized] Previous Rx's Medication Instructions Recorded Metoprolol Tartrate [Lopressor] 25 mg PO BID tab 02/21/17 Furosemide [Lasix] 40 mg PO BID #60 tablet 11/24/17 Allergies Allergy/AdvReac Type Severity Reaction Status Date / Time diltiazem [From Cardizem] AdvReac Nausea & Verified 04/18/18 19:21 Vomiting verapamil AdvReac Nausea & Verified 04/18/18 19:21 Vomiting Review of Systems ROS Statement: Those systems with pertinent positive or pertinent negative responses have been documented in the HPI. ROS Other: All systems not noted in ROS Statement are negative. Past Medical History Past Medical History: Atrial Fibrillation, Cancer, Heart Failure, Hypertension, Pneumonia, Vascular Disorder Additional Past Medical History / Comment(s): Pulmonary fibrosis, severe restrictive lung disease secondary to pulmonary fibrosis, right-sided heart failure, severe pulmonary hypertension, chronic atrial fibrillation, skin cancer , hypertension, peripheral vascular disease, previous history of cardiac ablation for A. fib/failed, varicose his lower extremities, diverticulosis, chronic sinus disease, degenerative arthritis, history of peptic ulcer disease requiring surgery, history of vertigo, basal cell cancer of the skin that was resected. History of CVA doubt any significant residuals. History of Any Multi-Drug Resistant Organisms: None Reported Past Surgical History: Ablation, Cardiac Ablation, Section, Cholecystectomy, Orthopedic Surgery, Tonsillectomy Additional Past Surgical History / Comment(s): R rotator cuff repair, skin cancer removed from nose. Past Anesthesia/Blood Transfusion Reactions: No Reported Reaction, Postoperative Nausea & Vomiting (PONV) Additional Past Anesthesia/Blood Transfusion Reaction / Comment(s): Pt received blood in past without reaction. Past Psychological History: Anxiety Smoking Status: Never smoker Past Alcohol Use History: None Reported Past Drug Use History: None Reported - Past Family History Mother Family Medical History: Diabetes Mellitus Father Family Medical History: CVA/TIA, Myocardial Infarction ([place]) Additional Family Medical History / Comment(s): Father had [place]/CVA sometime in his 60's. General Exam Limitations: no limitations General appearance: alert, in no apparent distress Head exam: Present: atraumatic, normocephalic, normal inspection Eye exam: Present: normal appearance, PERRL, EOMI. Absent: scleral icterus, conjunctival injection, periorbital swelling ENT exam: Present: normal exam, mucous membranes moist Neck exam: Present: normal inspection, full ROM. Absent: tenderness, meningismus, lymphadenopathy Respiratory exam: Present: wheezes (Mild wheezing bilaterally) Cardiovascular Exam: Present: regular rate, irregular rhythm (Atrial fibrillation) GI/Abdominal exam: Present: soft, normal bowel sounds. Absent: distended, tenderness, guarding, rebound, rigid Extremities exam: Present: normal capillary refill (Capillary refill less than 2 seconds and DP pulse 2+.), pedal edema (2+ pitting edema in bilateral lower extremities), other (Non-erythematous, non-cellulitic appearing. No wheezing noted. No open wounds. No signs of infection noted.). Absent: joint swelling Back exam: Absent: tenderness, CVA tenderness (R), CVA tenderness (L) Neurological exam: Present: alert, oriented X3, CN II-XII intact Psychiatric exam: Present: normal affect, normal mood Course Vital Signs 04/18/18 04/18/18 04/18/18 16:51 18:34 18:43 Temperature 98.0 F Pulse Rate 82 79 78 Respiratory 16 18 18 Rate Blood Pressure 124/56 O2 Sat by Pulse 100 Oximetry 04/18/18 19:45 Temperature 98.5 F Pulse Rate 80 Respiratory 16 Rate Blood Pressure 119/67 O2 Sat by Pulse 95 Oximetry EKG Findings - EKG Comments: EKG Findings:: Atrial fibrillation with a ventricular rate of 86, QRS duration 92, QTC 375. Increased depression in V6 compared to last EKG. Medical Decision Making - Medical Decision Making 77-year-old female presents To the emergency department for a chief complaint of anemia sent in by Dr. Hyman. Patient was last seen in the emergency department 4 days ago for weakness times months and discharged home. However she saw Dr. Hyman today who wanted to direct admit but was unable and sent to the emergency department. Patient has a history of pulmonary fibrosis and states cough she currently has is chronic. Exam was unremarkable. Vitals are stable. Patient does state that shortness of breath is somewhat increased. EKG showed minor changes in V6, troponin negative. Hemoglobin 8.8 which is increased from 8.6 4 days ago. INR 1.5, currently on Eliquis for A fib. CMP unremarkable. Urine negative. Patient will be admitted to the hospital, Dr. Hyman did accept. Patient denies noting any blood in the stool and guaiac was negative. Eliquis will be continued to cover for atrial fibrillation and confusion will not be ordered at this time patient does not appear exceptionally symptomatic and weakness has been ongoing for months. - Lab Data Result diagrams: 04/18/18 17:30 04/18/18 17:30 Lab Results 04/18/18 04/18/18 04/18/18 Range/Units 17:09 17:30 17:30 WBC (3.8-10.6) k/uL RBC (3.80-5.40) m/uL Hgb (11.4-16.0) gm/dL Hct (34.0-46.0) % MCV (80.0-100.0) fL MCH (25.0-35.0) pg MCHC (31.0-37.0) g/dL RDW (11.5-15.5) % Plt Count (150-450) k/uL Neutrophils % % Lymphocytes % % Monocytes % % Eosinophils % % Basophils % % Neutrophils # (1.3-7.7) k/uL Lymphocytes # (1.0-4.8) k/uL Monocytes # (0-1.0) k/uL Eosinophils # (0-0.7) k/uL Basophils # (0-0.2) k/uL Hypochromasia PT (9.0-12.0) sec INR (<1.2) APTT (22.0-30.0) sec Sodium (137-145) mmol/L Potassium (3.5-5.1) mmol/L Chloride (98-107) mmol/L Carbon Dioxide (22-30) mmol/L Anion Gap mmol/L BUN (7-17) mg/dL Creatinine (0.52-1.04) mg/dL Est GFR (CKD-EPI)AfAm (>60 ml/min/1.73 sqM) Est GFR (CKD-EPI)NonAf (>60 ml/min/1.73 sqM) Glucose (74-99) mg/dL Calcium (8.4-10.2) mg/dL Magnesium (1.6-2.3) mg/dL Total Bilirubin (0.2-1.3) mg/dL AST (14-36) U/L ALT (9-52) U/L Alkaline Phosphatase (38-126) U/L Total Creatine Kinase 51 (30-135) U/L CK-MB (CK-2) 1.2 (0.0-2.4) ng/mL CK-MB (CK-2) Rel Index 2.4 Troponin I <0.012 (0.000-0.034) ng/mL NT-Pro-B Natriuret Pep pg/mL Total Protein (6.3-8.2) g/dL Albumin (3.5-5.0) g/dL Urine Color Light Yellow Urine Appearance Clear (Clear) Urine pH 7.0 (5.0-8.0) Ur Specific [place] 1.005 (1.001-1.035) Urine Protein Negative (Negative) Urine Glucose (UA) Negative (Negative) Urine Ketones Negative (Negative) Urine Blood Negative (Negative) Urine Nitrite Negative (Negative) Urine Bilirubin Negative (Negative) Urine Urobilinogen <2.0 (<2.0) mg/dL Ur Leukocyte Esterase Negative (Negative) Blood Type B Positive Blood Type Recheck CABO Indicated Antibody Screen NEGATIVE Spec Expiration Date 04/21/2018 - 232904/18/18 04/18/18 04/18/18 Range/Units 17:30 17:30 17:30 WBC 6.5 (3.8-10.6) k/uL RBC 3.35 L (3.80-5.40) m/uL Hgb 8.8 L (11.4-16.0) gm/dL Hct 28.2 L (34.0-46.0) % MCV 84.3 (80.0-100.0) fL MCH 26.2 (25.0-35.0) pg MCHC 31.1 (31.0-37.0) g/dL RDW 15.7 H (11.5-15.5) % Plt Count 198 (150-450) k/uL Neutrophils % 81 % Lymphocytes % 10 % Monocytes % 6 % Eosinophils % 1 % Basophils % 0 % Neutrophils # 5.3 (1.3-7.7) k/uL Lymphocytes # 0.6 L (1.0-4.8) k/uL Monocytes # 0.4 (0-1.0) k/uL Eosinophils # 0.0 (0-0.7) k/uL Basophils # 0.0 (0-0.2) k/uL Hypochromasia Marked PT (9.0-12.0) sec INR (<1.2) APTT (22.0-30.0) sec Sodium 135 L (137-145) mmol/L Potassium 3.9 (3.5-5.1) mmol/L Chloride 93 L (98-107) mmol/L Carbon Dioxide 30 (22-30) mmol/L Anion Gap 12 mmol/L BUN 25 H (7-17) mg/dL Creatinine 0.64 (0.52-1.04) mg/dL Est GFR (CKD-EPI)AfAm >90 (>60 ml/min/1.73 sqM) Est GFR (CKD-EPI)NonAf 88 (>60 ml/min/1.73 sqM) Glucose 120 H (74-99) mg/dL Calcium 8.8 (8.4-10.2) mg/dL Magnesium 1.6 (1.6-2.3) mg/dL Total Bilirubin 0.9 (0.2-1.3) mg/dL AST 30 (14-36) U/L ALT 18 (9-52) U/L Alkaline Phosphatase 183 H (38-126) U/L Total Creatine Kinase (30-135) U/L CK-MB (CK-2) (0.0-2.4) ng/mL CK-MB (CK-2) Rel Index Troponin I (0.000-0.034) ng/mL NT-Pro-B Natriuret Pep 2450 pg/mL Total Protein 8.8 H (6.3-8.2) g/dL Albumin 3.7 (3.5-5.0) g/dL Urine Color Urine Appearance (Clear) Urine pH (5.0-8.0) Ur Specific [place] (1.001-1.035) Urine Protein (Negative) Urine Glucose (UA) (Negative) Urine Ketones (Negative) Urine Blood (Negative) Urine Nitrite (Negative) Urine Bilirubin (Negative) Urine Urobilinogen (<2.0) mg/dL Ur Leukocyte Esterase (Negative) Blood Type Blood Type Recheck Antibody Screen Spec Expiration Date 04/18/18 Range/Units 17:30 WBC (3.8-10.6) k/uL RBC (3.80-5.40) m/uL Hgb (11.4-16.0) gm/dL Hct (34.0-46.0) % MCV (80.0-100.0) fL MCH (25.0-35.0) pg MCHC (31.0-37.0) g/dL RDW (11.5-15.5) % Plt Count (150-450) k/uL Neutrophils % % Lymphocytes % % Monocytes % % Eosinophils % % Basophils % % Neutrophils # (1.3-7.7) k/uL Lymphocytes # (1.0-4.8) k/uL Monocytes # (0-1.0) k/uL Eosinophils # (0-0.7) k/uL Basophils # (0-0.2) k/uL Hypochromasia PT 13.9 H (9.0-12.0) sec INR 1.5 H (<1.2) APTT 25.9 (22.0-30.0) sec Sodium (137-145) mmol/L Potassium (3.5-5.1) mmol/L Chloride (98-107) mmol/L Carbon Dioxide (22-30) mmol/L Anion Gap mmol/L BUN (7-17) mg/dL Creatinine (0.52-1.04) mg/dL Est GFR (CKD-EPI)AfAm (>60 ml/min/1.73 sqM) Est GFR (CKD-EPI)NonAf (>60 ml/min/1.73 sqM) Glucose (74-99) mg/dL Calcium (8.4-10.2) mg/dL Magnesium (1.6-2.3) mg/dL Total Bilirubin (0.2-1.3) mg/dL AST (14-36) U/L ALT (9-52) U/L Alkaline Phosphatase (38-126) U/L Total Creatine Kinase (30-135) U/L CK-MB (CK-2) (0.0-2.4) ng/mL CK-MB (CK-2) Rel Index Troponin I (0.000-0.034) ng/mL NT-Pro-B Natriuret Pep pg/mL Total Protein (6.3-8.2) g/dL Albumin (3.5-5.0) g/dL Urine Color Urine Appearance (Clear) Urine pH (5.0-8.0) Ur Specific [place] (1.001-1.035) Urine Protein (Negative) Urine Glucose (UA) (Negative) Urine Ketones (Negative) Urine Blood (Negative) Urine Nitrite (Negative) Urine Bilirubin (Negative) Urine Urobilinogen (<2.0) mg/dL Ur Leukocyte Esterase (Negative) Blood Type Blood Type Recheck Antibody Screen Spec Expiration Date - EKG Data -: EKG Interpreted by Me (And Dr coleman) Disposition Clinical Impression: Anemia, Edema, Chronic atrial fibrillation, Weakness Disposition: ADMITTED IP TO THIS HOSP Condition: Good Is patient prescribed a controlled substance at d/c from ED?: No Time of Disposition: 19:35
[2018-04-18 17:53] LABS: Appearance,Urine Clear (Clear); Bilirubin,Urine Negative (Negative); Blood,Urine Negative (Negative); Color,Urine Light Yellow; Glucose,Urine (UA) Negative (Negative); Ketones,Urine Negative (Negative); Leukocyte Esterase,Urine Negative (Negative); Nitrite,Urine Negative (Negative); Protein,Urine Negative (Negative); Specific Gravity,Urine 1.005 (1.001-1.035); Urobilinogen,Urine <2.0 mg/dL (<2.0)
[2018-04-18 17:53] LABS: Basophils % (A) 0 %; Eosinophils % (A) 1 %; HCT 28.2 % (34.0-46.0); HGB 8.8 gm/dL (11.4-16.0); Hypochromasia Marked; Lymphocytes # (A) 0.6 k/uL (1.0-4.8); Lymphocytes % (A) 10 %; MCH 26.2 pg (25.0-35.0); MCHC 31.1 g/dL (31.0-37.0); MCV 84.3 fL (80.0-100.0); Mean Platelet Volume 7.6; Monocytes # (A) 0.4 k/uL (0-1.0); Monocytes % (A) 6 %; Neutrophils # (A) 5.3 k/uL (1.3-7.7); Neutrophils % (A) 81 %; Platelet Count 198 k/uL (150-450); RBC 3.35 m/uL (3.80-5.40); RDW 15.7 % (11.5-15.5); WBC 6.5 k/uL (3.8-10.6)
[2018-04-18 18:03] LABS: ALT 18 U/L (9-52); AST 30 U/L (14-36); Albumin 3.7 g/dL (3.5-5.0); Alkaline Phosphatase 183 U/L (38-126); Anion Gap 12 mmol/L; Blood Urea Nitrogen 25 mg/dL (7-17); Calcium 8.8 mg/dL (8.4-10.2); Carbon Dioxide 30 mmol/L (22-30); Chloride 93 mmol/L (98-107); Glucose 120 mg/dL (74-99); Magnesium 1.6 mg/dL (1.6-2.3); Potassium 3.9 mmol/L (3.5-5.1); Sodium 135 mmol/L (137-145); Total Bilirubin 0.9 mg/dL (0.2-1.3); Total Protein 8.8 g/dL (6.3-8.2)
[2018-04-18 18:04] LABS: INR 1.5 (<1.2); Partial Thromboplastin Time 25.9 sec (22.0-30.0); Prothrombin Time 13.9 sec (9.0-12.0)
[2018-04-18] MEDS ORDERED: IPRATROPIUM-ALBUTEROL 3 ML NEB INHALATION STA (18:07)
[2018-04-18 18:09] LABS: Creatine Kinase 51 U/L (30-135)
[2018-04-18 18:23] LABS: Creatine Kinase MB 1.2 ng/mL (0.0-2.4); Troponin I <0.012 ng/mL (0.000-0.034)
--- NOTE | 2018-04-18 18:50 | XR ---
EXAMINATION TYPE: XR chest 2V DATE OF EXAM: 04/18/2018 COMPARISON: 04/15/2018 HISTORY: Weakness TECHNIQUE: Frontal and lateral views of the chest are obtained. FINDINGS: Heart is enlarged. There are large central pulmonary arteries. There is general coarsening of interstitial markings. There is no pleural effusion. There are chest leads. IMPRESSION: Cardiomegaly. There is probably pulmonary hypertension. Pulmonary interstitial fibrosis. No definite heart failure. No significant change.
[2018-04-18] MEDS ORDERED: NALOXONE 0.4 MG/ML 1 ML VIAL IV PRN (19:27)
[2018-04-18] MEDS ORDERED: ACETAMINOPHEN TAB 325 MG TAB PO PRN (19:27)
[2018-04-18] MEDS ORDERED: IPRATROPIUM-ALBUTEROL 3 ML NEB INHALATION PRN (19:33)
[2018-04-18] MEDS ORDERED: METOPROLOL TARTRATE 25 MG TAB PO SCH (21:00)
[2018-04-18] MEDS: BENZONATATE 100 MG CAP PO SCH (21:15)
[2018-04-18] MEDS: APIXABAN 2.5 MG TABLET PO SCH ×2 (21:16→21:24)
[2018-04-18] MEDS: IPRATROPIUM-ALBUTEROL 3 ML NEB INHALATION SCH (22:40)
[2018-04-19] MEDS: IPRATROPIUM-ALBUTEROL 3 ML NEB INHALATION SCH ×5 (01:41→19:19)
[2018-04-19] MEDS: MENTHOL (NICE) LOZENGE MUCOUS MEM PRN ×3 (02:44→23:37)
[2018-04-19] MEDS ORDERED: IPRATROPIUM-ALBUTEROL 3 ML NEB INHALATION PRN (04:23)
[2018-04-19] MEDS ORDERED: FUROSEMIDE 10 MG/ML 4 ML VIAL IV STA (07:42)
[2018-04-19] MEDS ORDERED: METOPROLOL SUCCINATE (ER) 50 MG TAB.ER.24H PO STA (08:10)
[2018-04-19] MEDS ORDERED: DIGOXIN 125 MCG TAB PO SCH (09:00)
[2018-04-19] MEDS ORDERED: APIXABAN 5 MG TAB PO SCH (09:00)
[2018-04-19] MEDS ORDERED: CYANOCOBALAMIN 500 MCG TAB PO SCH (09:00)
[2018-04-19] MEDS ORDERED: FUROSEMIDE 40 MG TAB PO SCH (09:00)
--- NOTE | 2018-04-19 09:05 | P.CRDCN ---
History of Present Illness History of present illness: This is a pleasant 77-year-old female past medical history significant for atrial fibrillation on long-term anticoagulation, chronic diastolic heart failure, hypertension, pulmonary fibrosis with pulmonary hypertension and peripheral vascular disease. She follows with Dr. Dhillon in the office. She presented to the hospital with increased weakness, fatigue and bilateral lower extremity edema. She states she came to the hospital on Monday with similar complaints of weakness and fatigue and received 2 L of normal saline and was sent home. Her leg slowly started swelling since that time. She denies symptoms of chest pain, dizziness or palpitations. She suffers from chronic shortness of breath secondary to her pulmonary disease and chronically sleeps sitting up in a recliner secondary to cough. She denies any increased shortness of breath lately. She was found to have a low hemoglobin on Monday was 8.3 repeat today 8.6. Baseline runs around 12. She denies any acute active bleeding, black or bloody stools or blood in the urine. She states she was suffering from frequent nosebleeds a few months back and her Eliquis was decreased from 5 mg twice a day to 5 mg in the morning and 2.5 mg at bedtime. Since that time the nosebleeds have completely subsided. EKG reveals atrial fibrillation with incomplete right bundle branch block. Review of her previous size EKGs since 2017 all reveal atrial fibrillation and look similar. Chest x-ray shows evidence of pulmonary hypertension with pulmonary interstitial fibrosis. Laboratory data reviewed, hemoglobin 8.8, platelets 198, INR 1.5, PT 13.9, sodium 135, potassium 3.9, creatinine 0.64, magnesium 1.6, cardiac enzymes negative 1, NT proBNP 2450 and stool for quite bulbous negative. Current cardiac medications at home include Eliquis 5 mg in the morning and 2.5 mg at bedtime, digoxin 125 g daily, Lasix 40 mg twice a day, Lopressor 25 mg twice a day and Aldactone 25 mg daily. Most recent echocardiogram performed November 2017 reveals preserved left ventricular systolic function with ejection fraction 50-55%, severely dilated left atrium, moderate mitral calcification with mild mitral regurgitation, severe tricuspid regurgitation, severe pulmonary hypertension with an RVSP of 81.28 mmHg. At the time of my exam: CONSTITUTIONAL: Denies fever. Denies chills. EYES: Denies blurred vision. Denies vision changes. Denies eye pain. EARS, NOSE, MOUTH & THROAT: Denies headache. Denies sore throat. Denies ear pain. CARDIOVASCULAR: Denies chest pain. Complains of chronic ongoing shortness of breath. Denies orthopnea. Denies PND. Denies palpitations. RESPIRATORY: Complains of cough. GASTROINTESTINAL: Denies abdominal pain. Denies diarrhea. Denies constipation. Denies nausea. Denies vomiting. MUSCULOSKELETAL: Denies myalgias. INTEGUMENTARY: Denies pruitis. Denies rash. Complains of bilateral lower extremity edema. NEUROLOGIC: Denies numbness. Denies tingling. Denies weakness. PSYCHIATRIC: Denies anxiety. Denies depression. ENDOCRINE: Denies fatigue. Denies weight change. Denies polydipsia. Denies polyurina. GENITOURINARY: Denies burning, hematuria or urgency with micturation. HEMATOLOGIC: Denies history of anemia. Denies bleeding. Blood pressure 117/73 heart rate 90-110 GENERAL: This is a 77-year-old female in no apparent distress at the time of my examination. HEENT: Head is atraumatic, normocephalic. Pupils are equal, round. Sclerae anicteric. Conjunctivae are clear. Mucous membranes of the mouth are moist. Neck is supple. There is no jugular venous distention. No carotid bruit is heard. LUNGS: Coarse bibasilar rales. No wheezes or rhonchi. No chest wall tenderness is noted on palpation or with deep breathing. HEART: Regular rate and rhythm without murmurs, rubs or gallops. S1 and S2 heard. ABDOMEN: Soft, nontender. Bowel sounds are heard. No organomegaly noted. EXTREMITIES: 2+ pitting bilateral lower extremity edema and no calf tenderness noted. VASCULAR: Radial and dorsalis pedis pulses palpated, no evidence of clubbing. NEUROLOGIC: Patient is awake, alert and oriented x3. ASSESSMENT Acute on chronic diastolic heart failure secondary to right-sided heart failure with severe pulmonary hypertension Normocytic normochromic anemia, unknown etiology. Symptomatic. Weakness and fatigue Persistent atrial fibrillation on long-term anticoagulation Severe pulmonary hypertension RVSP 81 mmHg Hypertension Pulmonary fibrosis PLAN Initiate the patient on IV Lasix 40 mg twice a day. Obtain daily weights, intake and output and follow renal function and electrolytes daily. For better rate control we recommend to discontinue digoxin and metoprolol tartrate. Start her on metoprolol succinate 75 mg daily. First dose now. Medical team to evaluate source of her acute anemia. We will continue to follow. Thank you kindly for this consultation. Nurse Practitioner note has been reviewed, I agree with a documented findings and plan of care. Patient was seen and examined. Past Medical History Past Medical History: Atrial Fibrillation, Cancer, Heart Failure, Hypertension, Pneumonia, Vascular Disorder Additional Past Medical History / Comment(s): Pulmonary fibrosis, severe restrictive lung disease secondary to pulmonary fibrosis, right-sided heart failure, severe pulmonary hypertension, chronic atrial fibrillation, skin cancer , hypertension, peripheral vascular disease, previous history of cardiac ablation for A. fib/failed, varicose his lower extremities, diverticulosis, chronic sinus disease, degenerative arthritis, history of peptic ulcer disease requiring surgery, history of vertigo, basal cell cancer of the skin that was resected. History of CVA doubt any significant residuals. History of Any Multi-Drug Resistant Organisms: None Reported Past Surgical History: Ablation, Cardiac Ablation, Section, Cholecystectomy, Orthopedic Surgery, Tonsillectomy Additional Past Surgical History / Comment(s): R rotator cuff repair, skin cancer removed from nose. Past Anesthesia/Blood Transfusion Reactions: Postoperative Nausea & Vomiting ( PONV) Additional Past Anesthesia/Blood Transfusion Reaction / Comment(s): Pt received blood in past without reaction. Smoking Status: Never smoker - Past Family History Mother Family Medical History: Diabetes Mellitus Father Family Medical History: CVA/TIA, Myocardial Infarction ([place]) Additional Family Medical History / Comment(s): Father had [place]/CVA sometime in his 60's. Medications and Allergies Home Medications Medication Instructions Recorded Confirmed Type Cyanocobalamin (Vitamin B-12) 1,000 mcg PO DAILY 01/28/17 04/18/18 History [Vitamin B-12] Cholecalciferol [Vitamin D3] 1,000 unit PO DAILY 02/17/17 04/18/18 History Digoxin [Digitek] 125 mcg PO DAILY 02/17/17 04/18/18 History L.acidoph,Paracasei, B.lactis 1 cap PO DAILY 02/17/17 04/18/18 History [Probiotic] Spironolactone [Aldactone] 25 mg PO DAILY 02/17/17 04/18/18 History Metoprolol Tartrate [Lopressor] 25 mg PO BID tab 02/21/17 04/18/18 Rx Famotidine [Pepcid] 20 mg PO DAILY 11/23/17 04/18/18 History Furosemide [Lasix] 40 mg PO BID #60 tablet 11/24/17 04/18/18 Rx Apixaban [Eliquis] 2.5 mg PO HS 04/18/18 04/18/18 History Apixaban [Eliquis] 5 mg PO QAM 04/18/18 04/18/18 History Benzonatate [Tessalon Perles] 200 mg PO TID 04/18/18 04/18/18 History Levalbuterol HCl [Xopenex 0.63 mg INHALATION RT-Q4H 04/18/18 04/18/18 History Nebulized] Allergies Allergy/AdvReac Type Severity Reaction Status Date / Time diltiazem [From Cardizem] AdvReac Nausea & Verified 04/18/18 20:59 Vomiting verapamil AdvReac Nausea & Verified 04/18/18 20:59 Vomiting Physical Exam Vitals: Vital Signs Temp Pulse Pulse Resp BP BP Pulse Ox 04/19/18 08:12 95 04/19/18 08:00 95 04/19/18 07:40 98.0 F 109 H 18 117/73 100 04/19/18 04:46 80 04/19/18 04:36 88 04/19/18 04:00 16 04/19/18 01:41 78 04/18/18 23:49 16 04/18/18 23:44 98.0 F 70 16 97/62 99 04/18/18 22:48 77 16 04/18/18 22:42 73 16 04/18/18 21:41 18 04/18/18 20:59 97.6 F 90 18 123/69 99 04/18/18 20:27 98 F 80 18 120/67 99 04/18/18 19:45 98.5 F 80 16 119/67 95 04/18/18 18:43 78 18 04/18/18 18:34 79 18 04/18/18 16:51 98.0 F 82 16 124/56 100 Intake and Output 04/18/18 04/19/18 04/19/18 22:59 06:59 14:59 Intake Total 240 Balance 240 Intake: Oral 240 Other: # Voids 1 1 1 # Bowel Movements 1 Weight 47.1 kg Results 04/18/18 17:30 04/18/18 17:30 Cardiac Enzymes 04/18/18 04/18/18 Range/Units 17:30 17:30 AST 30 (14-36) U/L CK-MB (CK-2) 1.2 (0.0-2.4) ng/mL Troponin I <0.012 (0.000-0.034) ng/mL Coagulation 04/18/18 Range/Units 17:30 PT 13.9 H (9.0-12.0) sec APTT 25.9 (22.0-30.0) sec CBC 04/18/18 Range/Units 17:30 WBC 6.5 (3.8-10.6) k/uL RBC 3.35 L (3.80-5.40) m/uL Hgb 8.8 L (11.4-16.0) gm/dL Hct 28.2 L (34.0-46.0) % Plt Count 198 (150-450) k/uL Comprehensive Metabolic Panel 04/18/18 Range/Units 17:30 Sodium 135 L (137-145) mmol/L Potassium 3.9 (3.5-5.1) mmol/L Chloride 93 L (98-107) mmol/L Carbon Dioxide 30 (22-30) mmol/L BUN 25 H (7-17) mg/dL Creatinine 0.64 (0.52-1.04) mg/dL Glucose 120 H (74-99) mg/dL Calcium 8.8 (8.4-10.2) mg/dL AST 30 (14-36) U/L ALT 18 (9-52) U/L Alkaline Phosphatase 183 H (38-126) U/L Total Protein 8.8 H (6.3-8.2) g/dL Albumin 3.7 (3.5-5.0) g/dL Current Medications Generic Name Dose Route Start Last Admin Trade Name Freq PRN Reason Stop Dose Admin Acetaminophen 650 mg 04/18/18 19:27 Tylenol Tab PO Q6HR PRN Mild Pain or Fever > 100.5 Albuterol/Ipratropium 3 ml 04/19/18 00:00 04/19/18 08:00 Duoneb 0.5 Mg-3 Mg/3 Ml Soln INHALATION 3 ml RT-Q4H REJI Administration Albuterol/Ipratropium 3 ml 04/19/18 04:23 04/19/18 04:36 Duoneb 0.5 Mg-3 Mg/3 Ml Soln INHALATION 3 ml Q2H PRN Administration Shortness Of Breath Apixaban 2.5 mg 04/18/18 21:00 04/18/18 21:24 Eliquis PO Not Given HS REJI Apixaban 5 mg 04/19/18 09:00 Eliquis PO QAM REJI Benzonatate 200 mg 04/18/18 22:00 04/18/18 21:15 Tessalon Perles PO 200 mg TID REJI Administration Cyanocobalamin 1,000 mcg 04/19/18 09:00 Vitamin B-12 PO DAILY REJI Famotidine 20 mg 04/19/18 09:00 Pepcid PO DAILY REJI Furosemide 40 mg 04/19/18 21:00 Lasix IV Q12HR REJI Menthol 1 each 04/19/18 01:48 04/19/18 02:44 Nice Cough Drops MUCOUS MEM 1 each Q2H PRN Administration Sore Throat Naloxone HCl 0.2 mg 04/18/18 19:27 Narcan IV Q2M PRN Opioid Reversal Spironolactone 25 mg 04/19/18 09:00 Aldactone PO DAILY REJI Intake and Output 04/18/18 04/19/18 04/19/18 22:59 06:59 14:59 Intake Total 240 Balance 240 Intake: Oral 240 Other: # Voids 1 1 1 # Bowel Movements 1 Weight 47.1 kg 04/18/18 17:30 04/18/18 17:30
[2018-04-19] MEDS: FAMOTIDINE 20 MG TAB PO SCH (09:20)
[2018-04-19] MEDS: BENZONATATE 100 MG CAP PO SCH ×3 (09:20→21:39)
[2018-04-19] MEDS: SPIRONOLACTONE 25 MG TAB PO SCH (09:21)
[2018-04-19] MEDS ORDERED: METOPROLOL SUCCINATE (ER) 25 MG TAB.ER.24H PO STA (10:54)
--- NOTE | 2018-04-19 12:59 | P.HPIM ---
History of Present Illness 77-year-old of female presented to family physician for follow-up from emergency room visit. Hemoglobin found to be 8.6 in November hemoglobin was 12. Also found to be iron deficient with iron saturation of 3 and iron levels of 14. Patient is malnutrition from poor appetite. Patient has a history of pulmonary fibrosis of pulmonary hypertension severe peripheral vascular disease of right-sided congestive heart failure hypertension. Patient complains of extreme weakness patient is pale patient is very thin Review of Systems Constitutional: Reports fatigue Respiratory: Reports cough, Reports dyspnea Past Medical History Past Medical History: Atrial Fibrillation, Cancer, Heart Failure, Hypertension, Pneumonia, Vascular Disorder Additional Past Medical History / Comment(s): Pulmonary fibrosis, severe restrictive lung disease secondary to pulmonary fibrosis, right-sided heart failure, severe pulmonary hypertension, chronic atrial fibrillation, skin cancer , hypertension, peripheral vascular disease, previous history of cardiac ablation for A. fib/failed, varicose his lower extremities, diverticulosis, chronic sinus disease, degenerative arthritis, history of peptic ulcer disease requiring surgery, history of vertigo, basal cell cancer of the skin that was resected. History of CVA doubt any significant residuals. History of Any Multi-Drug Resistant Organisms: None Reported Past Surgical History: Ablation, Cardiac Ablation, Section, Cholecystectomy, Orthopedic Surgery, Tonsillectomy Additional Past Surgical History / Comment(s): R rotator cuff repair, skin cancer removed from nose. Past Anesthesia/Blood Transfusion Reactions: Postoperative Nausea & Vomiting ( PONV) Additional Past Anesthesia/Blood Transfusion Reaction / Comment(s): Pt received blood in past without reaction. Smoking Status: Never smoker - Past Family History Mother Family Medical History: Diabetes Mellitus Father Family Medical History: CVA/TIA, Myocardial Infarction ([place]) Additional Family Medical History / Comment(s): Father had [place]/CVA sometime in his 60's. Medications and Allergies Home Medications Medication Instructions Recorded Confirmed Type Cyanocobalamin (Vitamin B-12) 1,000 mcg PO DAILY 01/28/17 04/18/18 History [Vitamin B-12] Cholecalciferol [Vitamin D3] 1,000 unit PO DAILY 02/17/17 04/18/18 History Digoxin [Digitek] 125 mcg PO DAILY 02/17/17 04/18/18 History L.acidoph,Paracasei, B.lactis 1 cap PO DAILY 02/17/17 04/18/18 History [Probiotic] Spironolactone [Aldactone] 25 mg PO DAILY 02/17/17 04/18/18 History Metoprolol Tartrate [Lopressor] 25 mg PO BID tab 02/21/17 04/18/18 Rx Famotidine [Pepcid] 20 mg PO DAILY 11/23/17 04/18/18 History Furosemide [Lasix] 40 mg PO BID #60 tablet 11/24/17 04/18/18 Rx Apixaban [Eliquis] 2.5 mg PO HS 04/18/18 04/18/18 History Apixaban [Eliquis] 5 mg PO QAM 04/18/18 04/18/18 History Benzonatate [Tessalon Perles] 200 mg PO TID 04/18/18 04/18/18 History Levalbuterol HCl [Xopenex 0.63 mg INHALATION RT-Q4H 04/18/18 04/18/18 History Nebulized] Allergies Allergy/AdvReac Type Severity Reaction Status Date / Time diltiazem [From Cardize] AdvReac Nausea & Verified 04/18/18 20:59 Vomiting verapamil AdvReac Nausea & Verified 04/18/18 20:59 Vomiting Physical Exam Vitals: Vital Signs Temp Pulse Pulse Resp BP BP Pulse Ox 04/19/18 11:38 94 04/19/18 11:28 94 04/19/18 08:12 95 04/19/18 08:00 95 04/19/18 07:40 98.0 F 109 H 18 117/73 100 04/19/18 04:46 80 04/19/18 04:36 88 04/19/18 04:00 16 04/19/18 01:41 78 04/18/18 23:49 16 04/18/18 23:44 98.0 F 70 16 97/62 99 04/18/18 22:48 77 16 04/18/18 22:42 73 16 04/18/18 21:41 18 04/18/18 20:59 97.6 F 90 18 123/69 99 04/18/18 20:27 98 F 80 18 120/67 99 04/18/18 19:45 98.5 F 80 16 119/67 95 04/18/18 18:43 78 18 04/18/18 18:34 79 18 04/18/18 16:51 98.0 F 82 16 124/56 100 Intake and Output 04/18/18 04/19/18 04/19/18 22:59 06:59 14:59 Intake Total 240 Balance 240 Intake: Oral 240 Other: # Voids 1 1 1 # Bowel Movements 1 Weight 47.1 kg - Constitutional General appearance: mild distress, thin - EENT Eyes: PERRLA Ears: bilateral: normal - Neck Neck: normal ROM - Respiratory Respiratory: bilateral: diminished - Cardiovascular Rhythm: irregularly irregular - Gastrointestinal General gastrointestinal: soft - Integumentary Integumentary: pale - Neurologic Neurologic: CNII-XII intact - Musculoskeletal Musculoskeletal: generalized weakness - Psychiatric Psychiatric: A&O x's 3, appropriate affect, intact judgment & insight Results CBC & Chem 7: 04/18/18 17:30 04/18/18 17:30 Labs: Abnormal Lab Results - Last 24 Hours (Table) 04/18/18 04/18/18 04/18/18 Range/Units 17:30 17:30 17:30 RBC 3.35 L (3.80-5.40) m/uL Hgb 8.8 L (11.4-16.0) gm/dL Hct 28.2 L (34.0-46.0) % RDW 15.7 H (11.5-15.5) % Lymphocytes # 0.6 L (1.0-4.8) k/uL PT 13.9 H (9.0-12.0) sec INR 1.5 H (<1.2) Sodium 135 L (137-145) mmol/L Chloride 93 L (98-107) mmol/L BUN 25 H (7-17) mg/dL Glucose 120 H (74-99) mg/dL Alkaline Phosphatase 183 H (38-126) U/L Total Protein 8.8 H (6.3-8.2) g/dL Chest x-ray: report reviewed Thrombosis Risk Factor Assmnt - Choose All That Apply Each Factor Represents 1 point: Swollen legs (current) Each Risk Factor Represents 3 Points: Age 75 years or older Thrombosis Risk Factor Assessment Total Risk Factor Score: 4 Thrombosis Risk Factor Assessment Level: Moderate Risk Assessment and Plan Plan: Assessment Iron deficient anemia Edema to extremities Chronic atrial fibrillation Generalized weakness Acute on chronic right-sided congestive heart failure with severe pulmonary hypertension Pulmonary fibrosis Hypertension Peripheral vascular disease Malnutrition moderate protein deficiency secondary to poor intake Plan Consultation with cardiology Consultation with pulmonology Consultation with gastroenterology regarding anemia
--- NOTE | 2018-04-19 13:43 | P.CNPUL ---
History of Present Illness Consult date: 04/19/18 Reason for consult: dyspnea History of present illness: A 77-year-old female patient who presented with generalized weakness and worsening in lower extremity edema. The patient is known to our practice. She has limited pulmonary fibrosis. She has limited left upper lobe bronchiectatic changes. She is known to have severe pulmonary hypertension right-sided heart failure. The exact cause has not been well established. The patient was seen at [facility] and she was tried on oral medications to reduce the pulmonary artery pressure however she failed to respond that she had experienced side effects. Since then the treatment has been discontinued. The patient's last echocardiogram at shown ejection fraction of 55-60% with severe tricuspid regurgitation and severe pulmonary hypertension with right ventricular systolic pressure of around 79 mmHg. She has chronic lower extremity edema. She suffers from chronic atrial fibrillation. She also has peripheral vascular disease. The patient is free of any chest pain. She is complaining of increased lower extremity edema that developed over the past week or so. Overall her health is gradually declining and she is losing weight. No nausea. No vomiting. No emesis. No chest pain. No angina. No altered mentation. Significance also, the patient was found to have a new onset anemia. Hemoglobin has been within normal limits. Current hemoglobin is down to 8.8 and the patient will need further investigation. Otherwise the rest of the blood work is within normal limits. Renal function is within normal limits. Review of Systems CONSTITUTIONAL: Denies fever. Denies chills. The patient reports that she's been progressively getting worse and the patient has been losing weight. No fever. No chills. Appetite is diminished in general. EYES: Denies blurred vision. Denies vision changes. Denies eye pain. EARS, NOSE, MOUTH & THROAT: Denies headache. Denies sore throat. Denies ear pain. CARDIOVASCULAR: Denies chest pain. Complains of shortness of breath. Complains of orthopnea. Denies PND. Denies palpitations. The patient has chronic lower extremity edema bilaterally which has gotten worse RESPIRATORY: Patient has a chronic cough. The patient also has chronic exertional dyspnea. No pleurisy. No hemoptysis. GASTROINTESTINAL: Denies abdominal pain. Denies diarrhea. Denies constipation. Denies nausea. Denies vomiting. MUSCULOSKELETAL: Denies myalgias. INTEGUMENTARY: Denies pruitis. Denies rash. NEUROLOGIC: Denies numbness. Denies tingling. Denies weakness. PSYCHIATRIC: Denies anxiety. Denies depression. ENDOCRINE: Denies fatigue. Denies weight change. Denies polydipsia. Denies polyurina. GENITOURINARY: Denies burning, hematuria or urgency with micturation. HEMATOLOGIC: Denies history of anemia. Denies bleeding. Past Medical History Past Medical History: Atrial Fibrillation, Cancer, Heart Failure, Hypertension, Pneumonia, Vascular Disorder Additional Past Medical History / Comment(s): Limited Pulmonary fibrosis, Limited left upper lobe bronchiectasis, severe restrictive lung disease as noted to the previous pulmonary function test, right-sided heart failure, severe pulmonary hypertension, chronic atrial fibrillation, skin cancer, hypertension, peripheral vascular disease, previous history of cardiac ablation for A. fib/failed, varicose his lower extremities, diverticulosis, chronic sinus disease, degenerative arthritis, history of peptic ulcer disease requiring surgery, history of vertigo, basal cell cancer of the skin that was resected. History of CVA without any significant residuals. History of Any Multi-Drug Resistant Organisms: None Reported Past Surgical History: Ablation, Cardiac Ablation, Section, Cholecystectomy, Orthopedic Surgery, Tonsillectomy Additional Past Surgical History / Comment(s): R rotator cuff repair, skin cancer removed from nose. Past Anesthesia/Blood Transfusion Reactions: Postoperative Nausea & Vomiting ( PONV) Additional Past Anesthesia/Blood Transfusion Reaction / Comment(s): Pt received blood in past without reaction. Smoking Status: Never smoker - Past Family History Mother Family Medical History: Diabetes Mellitus Father Family Medical History: CVA/TIA, Myocardial Infarction ([place]) Additional Family Medical History / Comment(s): Father had [place]/CVA sometime in his 60's. Medications and Allergies Home Medications Medication Instructions Recorded Confirmed Type Cyanocobalamin (Vitamin B-12) 1,000 mcg PO DAILY 01/28/17 04/18/18 History [Vitamin B-12] Cholecalciferol [Vitamin D3] 1,000 unit PO DAILY 02/17/17 04/18/18 History Digoxin [Digitek] 125 mcg PO DAILY 02/17/17 04/18/18 History L.acidoph,Paracasei, B.lactis 1 cap PO DAILY 02/17/17 04/18/18 History [Probiotic] Spironolactone [Aldactone] 25 mg PO DAILY 02/17/17 04/18/18 History Metoprolol Tartrate [Lopressor] 25 mg PO BID tab 02/21/17 04/18/18 Rx Famotidine [Pepcid] 20 mg PO DAILY 11/23/17 04/18/18 History Furosemide [Lasix] 40 mg PO BID #60 tablet 11/24/17 04/18/18 Rx Apixaban [Eliquis] 2.5 mg PO HS 04/18/18 04/18/18 History Apixaban [Eliquis] 5 mg PO QAM 04/18/18 04/18/18 History Benzonatate [Tessalon Perles] 200 mg PO TID 04/18/18 04/18/18 History Levalbuterol HCl [Xopenex 0.63 mg INHALATION RT-Q4H 04/18/18 04/18/18 History Nebulized] Allergies Allergy/AdvReac Type Severity Reaction Status Date / Time diltiazem [From Cardizem] AdvReac Nausea & Verified 04/18/18 20:59 Vomiting verapamil AdvReac Nausea & Verified 04/18/18 20:59 Vomiting Physical Exam Vitals: Vital Signs Temp Pulse Pulse Resp BP BP Pulse Ox 04/19/18 11:38 94 04/19/18 11:28 94 04/19/18 08:12 95 04/19/18 08:00 95 04/19/18 07:40 98.0 F 109 H 18 117/73 100 04/19/18 04:46 80 04/19/18 04:36 88 04/19/18 04:00 16 04/19/18 01:41 78 04/18/18 23:49 16 04/18/18 23:44 98.0 F 70 16 97/62 99 04/18/18 22:48 77 16 04/18/18 22:42 73 16 04/18/18 21:41 18 04/18/18 20:59 97.6 F 90 18 123/69 99 04/18/18 20:27 98 F 80 18 120/67 99 04/18/18 19:45 98.5 F 80 16 119/67 95 04/18/18 18:43 78 18 04/18/18 18:34 79 18 04/18/18 16:51 98.0 F 82 16 124/56 100 Intake and Output 04/18/18 04/19/18 04/19/18 22:59 06:59 14:59 Intake Total 240 Balance 240 Intake: Oral 240 Other: # Voids 1 1 1 # Bowel Movements 1 Weight 47.1 kg Gen. appearance the patient is calm comfortable likely distress. She is not using excessive muscle breathing and she is very comfortable in terms of her breathing. Head exam was generally normal. There was no scleral icterus or corneal arcus. Mucous membranes were moist. Neck was supple and with jugular venous distension, thyromegaly, or carotid bruits. Carotids were easily palpable bilaterally. There was no adenopathy. Lungs sounds are diminished and the patient has minimal crackles in lung bases bilaterally. No wheezes. Abdominal exam revealed normal bowel sounds. The abdomen was soft, non-tender, and without masses, organomegaly, or appreciable enlargement of the abdominal aorta. Extremities +1-2 pitting edema, no cyanosis or clubbing, no wounds or ulceration, there is significant amount of edema lower extremities bilaterally. No open wounds or sores or ulceration. Examination of the skin revealed no evidence of significant rashes, suspicious appearing nevi or other concerning lesions. Neurologic to the patient awake and alert and is no focal neurological deficit. Results - Laboratory Findings CBC and BMP: 04/18/18 17:30 04/18/18 17:30 PT/INR, D-dimer PT 13.9 sec (9.0-12.0) H 04/18/18 17:30 INR 1.5 (<1.2) H 04/18/18 17:30 Abnormal lab findings: Abnormal Labs 04/18/18 04/18/18 04/18/18 17:30 17:30 17:30 RBC 3.35 L Hgb 8.8 L Hct 28.2 L RDW 15.7 H Lymphocytes # 0.6 L PT 13.9 H INR 1.5 H Sodium 135 L Chloride 93 L BUN 25 H Glucose 120 H Alkaline Phosphatase 183 H Total Protein 8.8 H - Diagnostic Findings CT scan - chest: image reviewed Assessment and Plan Plan: Assessment 1 congestion heart failure which is essentially right-sided heart failure with severe pulmonary hypertension and extensive lower extremity edema. The patient presenting with worsening lower extremity edema and symptoms of right-sided heart failure. The patient will be started on diuretics for now to optimize the volume balance and lower extremity edema. The exact cause for the right- sided heart failure is not clear. It's likely the patient had primary pulmonary hypertension. The patient was evaluated [facility]. At one point she was placed on oral therapy regarding pulmonary hypertension. She did not follow-up on the treatment. 2 limited left upper lobe bronchiectasis with fibrosis. Overall poor function data is showing restrictive lung disease. 3 acute hypoxic history failure essentially secondary to CHF and the patient is currently responding nicely to diuretics. Reasonable for this patient to be evaluated for home oxygen at time of discharge specially with her significant pulmonary hypertension. 4 chronic atrial fibrillation on long-term and to coagulation with Eliquis 5 history of CVA without any residual deficits 6 hypertension 7 peripheral vascular disease 8 history of peptic ulcer disease 9 diverticular disease 10 osteoarthritis 11 skin cancer of a basal cell type, resected 12 new-onset anemia, currently under investigation. No evidence of any acute GI bleed. Rule out underlying iron deficiency Plan Continue bronchodilators. Continue IV Lasix 40 mg every 12 hours. Monitor daily body weight. Monitor urine output. Monitor electrolytes. Check iron studies. Monitor hemoglobin. Watch for any signs of bleeding. Cardiology will be placed on consultation. Assess for home O2 at time of discharge. We' ll continue to follow.
--- NOTE | 2018-04-19 14:14 | P.CONS ---
History of Present Illness - Reason for Consult Consult date: 04/19/18 anemia Requesting physician: Rigo Hyman - Chief Complaint Weakness fatigue - History of Present Illness 77-year-old female patient Dr. Rigo Hyman past medical history of pulmonary fibrosis, restrictive lung disease, heart failure, pulmonary hypertension, chronic atrial fibrillation maintained on Eliquis, anxiety, hypertension. Admitted with profound weakness lower extremity edema and fatigue secondary to acute on chronic diastolic heart failure. Consult requested for anemia. FOBT negative. Patient denies overt bleeding such as hematemesis hematochezia or melena. No history of EtOH abuse, NSAID usage, anemia or GI bleed. EGD colonoscopy in the past but its been several years. Denies abdominal pain or weight loss. Admission hemoglobin 8.8. MCV 84. Platelet 198. INR 1.5. BUN 25. Creatinine 0.6. Previous hemoglobin in November was 12.4. Review of Systems Constitutional: Denies fever, chills, sweats, weight gain, or loss. Admitted with weakness fatigue lower extremity edema. HEENT: Negative for migraines, blurred vision or loss, earaches, drainage, tinnitus, oral mucosal lesions, dysphagia, or odynophagia. CARDIAC: Negative for chest pain, arrhythmias, or palpitation. RESPIRATORY: Chronic shortness of breath, denies hemoptysis, cough, or sputum production. GI: See HPI for pertinent findings. : Negative for hematuria, urgency, frequency, polyuria, or dysuria. GYNc: Negative vaginal discharge. MUSCULOSKELETAL: Negative for muscle aches, swelling, arthritis, and arthralgias. NEUROLOGIC: Negative for stroke or TIA. ENDOCRINE: Negative for thyroid problems. SKIN: Negative for rash or itching. PSYCHIATRIC: Negative history for depression and anxiety Past Medical History Past Medical History: Atrial Fibrillation, Cancer, Heart Failure, Hypertension, Pneumonia, Vascular Disorder Additional Past Medical History / Comment(s): Limited Pulmonary fibrosis, Limited left upper lobe bronchiectasis, severe restrictive lung disease as noted to the previous pulmonary function test, right-sided heart failure, severe pulmonary hypertension, chronic atrial fibrillation, skin cancer, hypertension, peripheral vascular disease, previous history of cardiac ablation for A. fib/failed, varicose his lower extremities, diverticulosis, chronic sinus disease, degenerative arthritis, history of peptic ulcer disease requiring surgery, history of vertigo, basal cell cancer of the skin that was resected. History of CVA without any significant residuals. History of Any Multi-Drug Resistant Organisms: None Reported Past Surgical History: Ablation, Cardiac Ablation, Section, Cholecystectomy, Orthopedic Surgery, Tonsillectomy Additional Past Surgical History / Comment(s): R rotator cuff repair, skin cancer removed from nose. Past Anesthesia/Blood Transfusion Reactions: Postoperative Nausea & Vomiting ( PONV) Additional Past Anesthesia/Blood Transfusion Reaction / Comm: Pt received blood in past without reaction. Smoking Status: Never smoker - Past Family History Mother Family Medical History: Diabetes Mellitus Father Family Medical History: CVA/TIA, Myocardial Infarction ([place]) Additional Family Medical History / Comment(s): Father had [place]/CVA sometime in his 60's. Medications and Allergies Home Medications Medication Instructions Recorded Confirmed Type Cyanocobalamin (Vitamin B-12) 1,000 mcg PO DAILY 01/28/17 04/18/18 History [Vitamin B-12] Cholecalciferol [Vitamin D3] 1,000 unit PO DAILY 02/17/17 04/18/18 History Digoxin [Digitek] 125 mcg PO DAILY 02/17/17 04/18/18 History L.acidoph,Paracasei, B.lactis 1 cap PO DAILY 02/17/17 04/18/18 History [Probiotic] Spironolactone [Aldactone] 25 mg PO DAILY 02/17/17 04/18/18 History Metoprolol Tartrate [Lopressor] 25 mg PO BID tab 02/21/17 04/18/18 Rx Famotidine [Pepcid] 20 mg PO DAILY 11/23/17 04/18/18 History Furosemide [Lasix] 40 mg PO BID #60 tablet 11/24/17 04/18/18 Rx Apixaban [Eliquis] 2.5 mg PO HS 04/18/18 04/18/18 History Apixaban [Eliquis] 5 mg PO QAM 04/18/18 04/18/18 History Benzonatate [Tessalon Perles] 200 mg PO TID 04/18/18 04/18/18 History Levalbuterol HCl [Xopenex 0.63 mg INHALATION RT-Q4H 04/18/18 04/18/18 History Nebulized] Allergies Allergy/AdvReac Type Severity Reaction Status Date / Time diltiazem [From Cardizem] AdvReac Nausea & Verified 04/18/18 20:59 Vomiting verapamil AdvReac Nausea & Verified 04/18/18 20:59 Vomiting Physical Exam Vitals: Vital Signs Temp Pulse Pulse Resp BP BP Pulse Ox 04/19/18 11:38 94 04/19/18 11:28 94 04/19/18 08:12 95 04/19/18 08:00 95 04/19/18 07:40 98.0 F 109 H 18 117/73 100 04/19/18 04:46 80 04/19/18 04:36 88 04/19/18 04:00 16 04/19/18 01:41 78 04/18/18 23:49 16 04/18/18 23:44 98.0 F 70 16 97/62 99 04/18/18 22:48 77 16 04/18/18 22:42 73 16 04/18/18 21:41 18 04/18/18 20:59 97.6 F 90 18 123/69 99 04/18/18 20:27 98 F 80 18 120/67 99 04/18/18 19:45 98.5 F 80 16 119/67 95 04/18/18 18:43 78 18 04/18/18 18:34 79 18 04/18/18 16:51 98.0 F 82 16 124/56 100 Intake and Output 04/18/18 04/19/18 04/19/18 22:59 06:59 14:59 Intake Total 240 Balance 240 Intake: Oral 240 Other: # Voids 1 1 1 # Bowel Movements 1 Weight 47.1 kg General appearance: The patient is alert, oriented, in no acute distress. HET: Head is normocephalic and atraumatic. Pupils are equal and reactive. Oropharynx is clear without lesions. Neck: Supple without lymphadenopathy. Trachea midline. Heart: S1 S2. Lungs: Diminished mild bibasilar crackles. Abdomen: Soft, nontender, nondistended with bowel sounds. No peritoneal signs. No palpable organomegaly or masses. Extremities: Lower extremity edema. Radial and pedal pulses are 2/4 bilaterally. Neurological: No focal deficits. Strength and sensation are grossly intact. Results CBC & Chem 7: 04/18/18 17:30 04/18/18 17:30 Labs: Abnormal Lab Results - Last 24 Hours (Table) 04/18/18 04/18/18 04/18/18 Range/Units 17:30 17:30 17:30 RBC 3.35 L (3.80-5.40) m/uL Hgb 8.8 L (11.4-16.0) gm/dL Hct 28.2 L (34.0-46.0) % RDW 15.7 H (11.5-15.5) % Lymphocytes # 0.6 L (1.0-4.8) k/uL PT 13.9 H (9.0-12.0) sec INR 1.5 H (<1.2) Sodium 135 L (137-145) mmol/L Chloride 93 L (98-107) mmol/L BUN 25 H (7-17) mg/dL Glucose 120 H (74-99) mg/dL Alkaline Phosphatase 183 H (38-126) U/L Total Protein 8.8 H (6.3-8.2) g/dL Assessment and Plan (1) Anemia Narrative/Plan: 77-year-old female admitted with weakness fatigue lower extremity edema symptomatic anemia secondary to acute on chronic congestive heart failure right- sided with severe pulmonary hypertension underlying COPD restrictive lung disease. New-onset of normocytic hypochromic acute blood loss anemia without overt bleeding maintained on anticoagulation for history of atrial fibrillation , underlying occult GI bleed, neoplasm, bleeding angiectasia exacerbated by anticoagulation cannot be excluded. Current Visit: Yes Status: Acute Code(s): D64.9 - ANEMIA, UNSPECIFIED SNOMED Code(s): 920311167 Plan: 1. EGD colonoscopy advised this can be performed as early as Monday morning if she obtains clearance from pulmonary and cardiac service. Anticoagulation will need to be held tonight and tomorrow for Monday exam. Diuresis. 2. Iron indices. Cardiac diet today. Clear liquid start in a.m. The outside sales account executive has discussed the risks, benefits and alternative therapies for the above-mentioned procedure and for both sedation/analgesia as well as necessary blood product administration, if indicated, as they pertain to this patient. The patient has indicated understanding and acceptance of the risks and procedures discussed. Thank you for this kind referral and the opportunity to participate in the care of your patient. This consultation was discussed with Dr. Hau. The impression and plan of care have been directed as dictated.
[2018-04-19 16:01] LABS: Iron Saturation 3.39 (12.00-45.00)
[2018-04-19] MEDS: FUROSEMIDE 10 MG/ML 4 ML VIAL IV SCH (21:38)
[2018-04-20] MEDS: IPRATROPIUM-ALBUTEROL 3 ML NEB INHALATION SCH ×6 (00:48→21:41)
--- NOTE | 2018-04-20 08:54 | P.PN ---
Subjective On-call hospitalist covering for Dr. Hyman This is a pleasant 77 years old female with past medical history of atrial fibrillation, congestive heart failure, hypertension, pulmonary fibrosis, pulmonary hypertension, right sided heart failure and cor pulmonale and, peripheral vascular disease, history of PUD and Citro with no residual weakness. Who presents because of generalized weakness, progressive over one month. Associated with exertional dyspnea for 1-2 weeks duration. Patient states she is sleeping in a chair for she has history of severe pulmonary hypertension, which makes her not sleep difficult and she spends day sleeping, and this affects her eating habits as per patient and for this she was noticed she is getting progressively weak. She came to the emergency room and they discharged her home when she was following up with her PCP nephrology has RN deficiency anemia and asked her to call to the hospital. Patient complaining of from chronic cough with yellow phlegm for 2 years without recent worsening. Patient denies chest pain or abdominal pain. No lightheadedness. However patient complaining of from progressive bilateral leg swelling which got worse after the IV fluid she got in the emergency room. Patient has been evaluated by the GI team and they recommended EGD/colonoscopy on 04/21/2018 Vitamin B12 came back high at 2500, DC vitamin B12 CONSTITUTIONAL: No fever, no malaise HEENT: No recent visual problems or hearing problems. Denied any sore throat. CARDIOVASCULAR: No orthopnea, PND, no palpitations, no syncope. PULMONARY: No shortness of breath, no cough, no hemoptysis. GASTROINTESTINAL: No diarrhea, no nausea, no vomiting, no abdominal pain. Normoactive bowel sounds. NEUROLOGICAL: No headaches, no weakness, no numbness. HEMATOLOGICAL: Denies any bleeding or petechiae. GENITOURINARY: Denies any burning micturition, frequency, or urgency. MUSCULOSKELETAL/RHEUMATOLOGICAL: Denies any joint pain, swelling, or any muscle pain. ENDOCRINE: Denies any polyuria or polydipsia. Medications are reviewed including: Tylenol 650 mg, duoneb 0.5-3 mg, Benzonatate 200 mg, vitamin B12, Pepcid 20 mg, Lasix 40 mg, metoprolol 75 mg, spironolactone 25 mg. Objective - Vital Signs Vital signs: Vital Signs Temp 97.6 F 04/20/18 07:35 Pulse 90 04/20/18 07:35 Resp 18 04/20/18 07:35 BP 107/63 04/20/18 07:35 Pulse Ox 98 04/20/18 07:35 Intake & Output 04/19/18 04/20/18 04/20/18 18:59 06:59 18:59 Intake Total 1196 Balance 1196 Intake: Oral 1196 Other: Voiding Method Bedside Commode Bedside Commode # Voids 1 2 # Bowel Movements 1 - Exam GENERAL: The patient is alert and oriented x3, not in any acute distress. Thin build HEENT: Pupils are round and equally reacting to light. EOMI. No scleral icterus. No conjunctival pallor. Normocephalic, atraumatic. No pharyngeal erythema. No thyromegaly. CARDIOVASCULAR: S1 and S2 present. No murmurs, rubs, or gallops. PULMONARY: Chest is clear to auscultation, no wheezing or crackles. ABDOMEN: Soft, nontender, nondistended, normoactive bowel sounds. No palpable organomegaly. MUSCULOSKELETAL: No joint swelling or deformity. -EXTREMITIES: No cyanosis, clubbing, 2+ bilateral pedal edema. NEUROLOGICAL: Gross neurological examination did not reveal any focal deficits. SKIN: No rashes. - Labs CBC & Chem 7: 04/18/18 17:30 04/18/18 17:30 Labs: Abnormal Lab Results - Last 24 Hours (Table) 04/19/18 04/19/18 04/19/18 Range/Units 11:06 11:06 11:27 Iron 14 L (50-170) ug/dL Iron Saturation 3.39 L (12.00-45.00) Vitamin B12 2535.0 H (200.0-944.0) pg/mL RBC Folate 1,410 H (280 - 791) ng/mL Microbiology - Last 24 Hours (Table) 04/18/18 17:30 Blood Culture - Preliminary Blood No Growth after 24 hours Assessment and Plan Assessment: Iron deficiency anemia Generalized weakness, mostly related to above. Multifactorial Acute on chronic Right sided failure, cor pulmonale. diastolic heart failure with ejection fraction 50-55% History of Severe pulmonary hypertension Chronic atrial fibrillation History of peptic ulcer disease and History of stroke with no residual weakness Plan: This is a pleasant 77 years old female who presents with symptomatic anemia. Labs and medication were reviewed. Hemoglobin dropped from 12.4-8.6 over 4 months. Start iron pills. GI consult is appreciated patient is going for EGD/ colonoscopy on 04/21/2018. Cardiology and pulmonary consult are appreciated for pulmonary fibrosis, pulmonary hypertension and right-sided heart failure. Continue with IV diuretics for bilateral leg swelling. Same treatment. Continue with symptomatic treatment. Resume home medication. GI and DVT prophylaxis. Further recommendations based on the clinical course of the patient and DVT prophylaxis: No anticoagulation, for patient is going for procedure GI prophylaxis: Pepcid PT/OT: Pending Prognosis is guarded
[2018-04-20 09:37] LABS: Basophils % (A) 1 %; Eosinophils # (A) 0.1 k/uL (0-0.7); Eosinophils % (A) 1 %; HCT 26.9 % (34.0-46.0); HGB 8.5 gm/dL (11.4-16.0); Hypochromasia Marked; Lymphocytes # (A) 0.8 k/uL (1.0-4.8); Lymphocytes % (A) 17 %; MCH 26.8 pg (25.0-35.0); MCHC 31.8 g/dL (31.0-37.0); MCV 84.3 fL (80.0-100.0); Mean Platelet Volume 7.2; Monocytes # (A) 0.4 k/uL (0-1.0); Monocytes % (A) 8 %; Neutrophils # (A) 3.4 k/uL (1.3-7.7); Neutrophils % (A) 70 %; Platelet Count 192 k/uL (150-450); Poikilocytosis Slight; RBC 3.19 m/uL (3.80-5.40); RDW 15.9 % (11.5-15.5); WBC 4.8 k/uL (3.8-10.6)
[2018-04-20 09:57] LABS: Anion Gap 11 mmol/L; Blood Urea Nitrogen 21 mg/dL (7-17); Carbon Dioxide 32 mmol/L (22-30); Chloride 92 mmol/L (98-107); Glucose 112 mg/dL (74-99); Potassium 3.5 mmol/L (3.5-5.1); Sodium 135 mmol/L (137-145)
[2018-04-20] MEDS ORDERED: BISACODYL 5 MG TABLET.DR PO STA (10:07)
--- NOTE | 2018-04-20 10:17 | P.PN ---
Subjective This is a pleasant 77-year-old female past medical history significant for atrial fibrillation on long-term anticoagulation, chronic diastolic heart failure, hypertension, pulmonary fibrosis with pulmonary hypertension and peripheral vascular disease. She was started on IV lasix yesterday for exacerbation of diastolic heart failure with increased lower extremity edema and rales in the lungs. She was also seen by GI and is scheduled for colonoscopy tomorrow morning. Laboratory data reviewed, hemoglobin 12.5, platelet count 182, sodium 135, potassium 3.5, creatinine 0.65. She denies chest pain, shortness of breath, palpitations or dizziness. No documentation of intake/output or daily weights. Blood pressure 107/63 heart rate 92 afebrile and maintaining oxygen saturation on room air. GENERAL: This is a 77-year-old female in no apparent distress at the time of my examination. No JVD. LUNGS: Clear to auscultation b/l. No wheezes, rhonchi or rales. No chest wall tenderness is noted on palpation or with deep breathing. HEART: Regular rate and rhythm without murmurs, rubs or gallops. S1 and S2 heard. ABDOMEN: Soft, nontender. Bowel sounds are heard. No organomegaly noted. EXTREMITIES: 2+ pitting bilateral lower extremity edema ongoing with no improvement from yesterday and no calf tenderness noted. VASCULAR: Radial and dorsalis pedis pulses palpated, no evidence of clubbing. ASSESSMENT Acute on chronic diastolic heart failure secondary to right-sided heart failure with severe pulmonary hypertension Normocytic normochromic anemia, unknown etiology. Symptomatic. Weakness and fatigue Persistent atrial fibrillation on long-term anticoagulation Severe pulmonary hypertension RVSP 81 mmHg Hypertension Pulmonary fibrosis PLAN Continue with IV lasix for another 24 hours for ongoing lower extremity edema. Lungs have improved. Eliquis has been held for GI studies tomorrow. She is an appropriate risk for sedation from a cardiac perspective. Cautious fluid administration secondary to acute fluid overload. Nurse Practitioner note has been reviewed, I agree with a documented findings and plan of care. Patient was seen and examined. Objective - Vital Signs Vital signs: Vital Signs Temp 97.6 F 04/20/18 07:35 Pulse 88 04/20/18 09:18 Resp 18 04/20/18 07:35 BP 107/63 04/20/18 07:35 Pulse Ox 98 04/20/18 07:35 Intake & Output 04/19/18 04/20/18 04/20/18 18:59 06:59 18:59 Intake Total 1196 Balance 1196 Intake: Oral 1196 Other: Voiding Method Bedside Commode Bedside Commode # Voids 1 2 # Bowel Movements 1 - Labs CBC & Chem 7: 04/20/18 08:47 04/20/18 08:47 Labs: Abnormal Lab Results - Last 24 Hours (Table) 04/19/18 04/19/18 04/19/18 Range/Units 11:06 11:06 11:27 RBC (3.80-5.40) m/uL Hgb (11.4-16.0) gm/dL Hct (34.0-46.0) % RDW (11.5-15.5) % Lymphocytes # (1.0-4.8) k/uL Sodium (137-145) mmol/L Chloride (98-107) mmol/L Carbon Dioxide (22-30) mmol/L BUN (7-17) mg/dL Glucose (74-99) mg/dL Iron 14 L (50-170) ug/dL Iron Saturation 3.39 L (12.00-45.00) Vitamin B12 2535.0 H (200.0-944.0) pg/mL RBC Folate 1,410 H (280 - 791) ng/mL 04/20/18 04/20/18 Range/Units 08:47 08:47 RBC 3.19 L (3.80-5.40) m/uL Hgb 8.5 L (11.4-16.0) gm/dL Hct 26.9 L (34.0-46.0) % RDW 15.9 H (11.5-15.5) % Lymphocytes # 0.8 L (1.0-4.8) k/uL Sodium 135 L (137-145) mmol/L Chloride 92 L (98-107) mmol/L Carbon Dioxide 32 H (22-30) mmol/L BUN 21 H (7-17) mg/dL Glucose 112 H (74-99) mg/dL Iron (50-170) ug/dL Iron Saturation (12.00-45.00) Vitamin B12 (200.0-944.0) pg/mL RBC Folate (280 - 791) ng/mL Microbiology - Last 24 Hours (Table) 04/18/18 17:30 Blood Culture - Preliminary Blood No Growth after 24 hours
[2018-04-20] MEDS: FUROSEMIDE 10 MG/ML 4 ML VIAL IV SCH ×2 (10:49→21:08)
[2018-04-20] MEDS: METOPROLOL SUCCINATE (ER) 25 MG TAB.ER.24H PO SCH (10:49)
[2018-04-20] MEDS: BENZONATATE 100 MG CAP PO SCH ×3 (10:49→21:07)
[2018-04-20] MEDS: FAMOTIDINE 20 MG TAB PO SCH (10:49)
[2018-04-20] MEDS: SPIRONOLACTONE 25 MG TAB PO SCH (10:50)
[2018-04-20] MEDS ORDERED: PEG 3350-NA SULF,BICARB,CL/KCL 4,000 ML BOTTLE PO ONE (13:00)
--- NOTE | 2018-04-20 13:11 | P.PN ---
Subjective Progress Note Date: 04/20/18 Principal diagnosis: CHF exacerbation symptomatic anemia Resting comfortably. Denies hematemesis hematochezia melena. Hemoglobin 8.5. Iron 14. TIBC 413. Iron saturation 3.3%. Ferritin 59. Anticoagulation on hold; EGD colonoscopy scheduled tomorrow morning. Objective - Vital Signs Vital signs: Vital Signs Temp 97.5 F L 04/20/18 11:26 Pulse 94 04/20/18 11:26 Resp 18 04/20/18 11:26 BP 117/59 04/20/18 11:26 Pulse Ox 95 04/20/18 11:26 Intake & Output 04/19/18 04/20/18 04/20/18 18:59 06:59 18:59 Intake Total 1196 Balance 1196 Weight 47.1 kg Intake: Oral 1196 Other: Voiding Method Bedside Commode Bedside Commode # Voids 1 2 # Bowel Movements 1 - Exam General appearance: The patient is alert, oriented, in no acute distress. HET: Head is normocephalic and atraumatic. Pupils are equal and reactive. Oropharynx is clear without lesions. Neck: Supple without lymphadenopathy. Trachea midline. Heart: S1 S2. Lungs: Diminished mild bibasilar crackles. Abdomen: Soft, nontender, nondistended with bowel sounds. No peritoneal signs. No palpable organomegaly or masses. Extremities: Lower extremity edema. Radial and pedal pulses are 2/4 bilaterally. Neurological: No focal deficits. Strength and sensation are grossly intact. - Labs CBC & Chem 7: 04/20/18 08:47 04/20/18 08:47 Labs: Abnormal Lab Results - Last 24 Hours (Table) 04/19/18 04/19/18 04/19/18 Range/Units 11:06 11:06 11:27 RBC (3.80-5.40) m/uL Hgb (11.4-16.0) gm/dL Hct (34.0-46.0) % RDW (11.5-15.5) % Lymphocytes # (1.0-4.8) k/uL Sodium (137-145) mmol/L Chloride (98-107) mmol/L Carbon Dioxide (22-30) mmol/L BUN (7-17) mg/dL Glucose (74-99) mg/dL Iron 14 L (50-170) ug/dL Iron Saturation 3.39 L (12.00-45.00) Vitamin B12 2535.0 H (200.0-944.0) pg/mL RBC Folate 1,410 H (280 - 791) ng/mL 04/20/18 04/20/18 Range/Units 08:47 08:47 RBC 3.19 L (3.80-5.40) m/uL Hgb 8.5 L (11.4-16.0) gm/dL Hct 26.9 L (34.0-46.0) % RDW 15.9 H (11.5-15.5) % Lymphocytes # 0.8 L (1.0-4.8) k/uL Sodium 135 L (137-145) mmol/L Chloride 92 L (98-107) mmol/L Carbon Dioxide 32 H (22-30) mmol/L BUN 21 H (7-17) mg/dL Glucose 112 H (74-99) mg/dL Iron (50-170) ug/dL Iron Saturation (12.00-45.00) Vitamin B12 (200.0-944.0) pg/mL RBC Folate (280 - 791) ng/mL Microbiology - Last 24 Hours (Table) 04/18/18 17:30 Blood Culture - Preliminary Blood No Growth after 24 hours Assessment and Plan (1) Anemia Narrative/Plan: 77-year-old female admitted with weakness fatigue lower extremity edema symptomatic anemia secondary to acute on chronic congestive heart failure right- sided with severe pulmonary hypertension underlying COPD restrictive lung disease. New-onset of normocytic hypochromic iron deficient acute blood loss anemia without overt bleeding maintained on anticoagulation for history of atrial fibrillation, underlying occult GI bleed, neoplasm, bleeding angiectasia exacerbated by anticoagulation cannot be excluded. Current Visit: Yes Status: Acute Code(s): D64.9 - ANEMIA, UNSPECIFIED SNOMED Code(s): 095265163 (2) Iron deficiency anemia Current Visit: Yes Status: Acute Code(s): D50.9 - IRON DEFICIENCY ANEMIA, UNSPECIFIED SNOMED Code(s): 07428454 Plan: 1. Clear liquids today. PT/INR pending previously 1.5. Anti-correlation on hold. Nothing by mouth after midnight. EGD colonoscopy in a.m. Assessment and plan a care discussed with Dr. Hua
[2018-04-20 14:41] LABS: INR 1.6 (<1.2); Prothrombin Time 14.6 sec (9.0-12.0)
--- NOTE | 2018-04-20 15:09 | P.PN ---
Subjective Progress Note Date: 04/20/18 A 77-year-old female patient who presented with generalized weakness and worsening in lower extremity edema. The patient is known to our practice. She has limited pulmonary fibrosis. She has limited left upper lobe bronchiectatic changes. She is known to have severe pulmonary hypertension right-sided heart failure. The exact cause has not been well established. The patient was seen at [facility] and she was tried on oral medications to reduce the pulmonary artery pressure however she failed to respond that she had experienced side effects. Since then the treatment has been discontinued. The patient's last echocardiogram at shown ejection fraction of 55-60% with severe tricuspid regurgitation and severe pulmonary hypertension with right ventricular systolic pressure of around 79 mmHg. She has chronic lower extremity edema. She suffers from chronic atrial fibrillation. She also has peripheral vascular disease. The patient is free of any chest pain. She is complaining of increased lower extremity edema that developed over the past week or so. Overall her health is gradually declining and she is losing weight. No nausea. No vomiting. No emesis. No chest pain. No angina. No altered mentation. Significance also, the patient was found to have a new onset anemia. Hemoglobin has been within normal limits. Current hemoglobin is down to 8.8 and the patient will need further investigation. Otherwise the rest of the blood work is within normal limits. Renal function is within normal limits. On and I'm seeing this patient for a follow-up. Patient is feeling slightly better compared to yesterday. She is diuresing well and she is improving in terms of her lower extremity edema. She was found to have iron deficiency and the patient will be having a EGD and colonoscopy by gastroenterology and this will be done tomorrow. On today's evaluation, the patient remains on IV Lasix 40 mg every 12 hours. Her net fluid balance is negative and the patient is responding to diuretics. The blood work shows a hemoglobin of 8.5. INR is 1.6. TPN is 21 creatinine 0.6 and the rest of the blood work is all within normal limits. Serum iron came back at 14. Objective - Vital Signs Vital signs: Vital Signs Temp 97.5 F L 04/20/18 11:26 Pulse 92 04/20/18 13:18 Resp 18 04/20/18 11:26 BP 117/59 04/20/18 11:26 Pulse Ox 95 04/20/18 11:26 Intake & Output 04/19/18 04/20/18 04/20/18 18:59 06:59 18:59 Intake Total 1196 Balance 1196 Weight 47.1 kg Intake: Oral 1196 Other: Voiding Method Bedside Commode Bedside Commode # Voids 1 2 # Bowel Movements 1 - Exam Gen. appearance the patient is calm comfortable likely distress. She is not using excessive muscle breathing and she is very comfortable in terms of her breathing. Head exam was generally normal. There was no scleral icterus or corneal arcus. Mucous membranes were moist. Neck was supple and with jugular venous distension, thyromegaly, or carotid bruits. Carotids were easily palpable bilaterally. There was no adenopathy. Lungs sounds are diminished and the patient has minimal crackles in lung bases bilaterally. No wheezes. Abdominal exam revealed normal bowel sounds. The abdomen was soft, non-tender, and without masses, organomegaly, or appreciable enlargement of the abdominal aorta. Extremities +1-2 pitting edema, no cyanosis or clubbing, no wounds or ulceration, there is significant amount of edema lower extremities bilaterally. No open wounds or sores or ulceration. Examination of the skin revealed no evidence of significant rashes, suspicious appearing nevi or other concerning lesions. Neurologic to the patient awake and alert and is no focal neurological deficit. - Labs CBC & Chem 7: 04/20/18 08:47 04/20/18 08:47 Labs: Abnormal Lab Results - Last 24 Hours (Table) 04/19/18 04/19/18 04/19/18 Range/Units 11:06 11:06 11:27 RBC (3.80-5.40) m/uL Hgb (11.4-16.0) gm/dL Hct (34.0-46.0) % RDW (11.5-15.5) % Lymphocytes # (1.0-4.8) k/uL PT (9.0-12.0) sec INR (<1.2) Sodium (137-145) mmol/L Chloride (98-107) mmol/L Carbon Dioxide (22-30) mmol/L BUN (7-17) mg/dL Glucose (74-99) mg/dL Iron 14 L (50-170) ug/dL Iron Saturation 3.39 L (12.00-45.00) Vitamin B12 2535.0 H (200.0-944.0) pg/mL RBC Folate 1,410 H (280 - 791) ng/mL 04/20/18 04/20/18 04/20/18 Range/Units 08:47 08:47 14:14 RBC 3.19 L (3.80-5.40) m/uL Hgb 8.5 L (11.4-16.0) gm/dL Hct 26.9 L (34.0-46.0) % RDW 15.9 H (11.5-15.5) % Lymphocytes # 0.8 L (1.0-4.8) k/uL PT 14.6 H (9.0-12.0) sec INR 1.6 H (<1.2) Sodium 135 L (137-145) mmol/L Chloride 92 L (98-107) mmol/L Carbon Dioxide 32 H (22-30) mmol/L BUN 21 H (7-17) mg/dL Glucose 112 H (74-99) mg/dL Iron (50-170) ug/dL Iron Saturation (12.00-45.00) Vitamin B12 (200.0-944.0) pg/mL RBC Folate (280 - 791) ng/mL Microbiology - Last 24 Hours (Table) 04/18/18 17:30 Blood Culture - Preliminary Blood No Growth after 24 hours Assessment and Plan Plan: Assessment 1 congestion heart failure which is essentially right-sided heart failure with severe pulmonary hypertension and extensive lower extremity edema. The patient presenting with worsening lower extremity edema and symptoms of right-sided heart failure. The patient will be started on diuretics for now to optimize the volume balance and lower extremity edema. The exact cause for the right- sided heart failure is not clear. It's likely the patient had primary pulmonary hypertension. The patient was evaluated [facility]. At one point she was placed on oral therapy regarding pulmonary hypertension. She did not follow-up on the treatment. On today's evaluation of 04/20/2018, the patient is improving and she is responding to diuretics. She is on IV Lasix 40 mg every 12 hours. Lower extremity edema is gradually improving. Blood work shows no major electrodes abnormalities and renal function remains stable. 2 limited left upper lobe bronchiectasis with fibrosis. Overall poor function data is showing restrictive lung disease. 3 acute hypoxic history failure essentially secondary to CHF and the patient is currently responding nicely to diuretics. Reasonable for this patient to be evaluated for home oxygen at time of discharge specially with her significant pulmonary hypertension. 4 chronic atrial fibrillation on long-term and to coagulation with Eliquis 5 history of CVA without any residual deficits 6 hypertension 7 peripheral vascular disease 8 history of peptic ulcer disease 9 diverticular disease 10 osteoarthritis 11 skin cancer of a basal cell type, resected 12 new-onset anemia, currently under investigation. No evidence of any acute GI bleed. She has underlying iron deficiency and the patient will be undergoing a GI evaluation. Plan Continue bronchodilators. Continue IV Lasix 40 mg every 12 hours. Monitor blood work. EGD and colonoscopy in a.m. No overt signs of GI bleeding. INR is at 1.6. Patient is also off anticoagulation for now and she is off Eliquis.
[2018-04-21] MEDS: IPRATROPIUM-ALBUTEROL 3 ML NEB INHALATION SCH ×7 (00:33→23:24)
[2018-04-21] MEDS ORDERED: LACTATED RINGERS 1,000 ML IV ONE (07:05)
[2018-04-21] MEDS ORDERED: PROPOFOL 10 MG/ML 20 ML VIAL IV ONE (07:15)
--- NOTE | 2018-04-21 07:38 | P.PCN ---
Date of Procedure: 04/21/18 Procedure(s) Performed: Brief history: Patient is a pleasant 77-year-old white female admitted hospital with exacerbation of congestive heart failure and symptomatic anemia. She has A. fib and on clear liquids which has been on hold for 2 days'. She is scheduled for an elective upper endoscopy as well as colonoscopy as a part of evaluation of anemia. Procedure performed: Esophagogastroduodenoscopy with biopsy Colonoscopy with snare polypectomy Preoperative diagnosis: Severe symptomatic anemia. Anesthesia: MAC Procedure: After informed consent was obtained from the patient was brought into the endoscopy unit and IV sedation was administered by anesthesia under continuous monitoring. Initially upper endoscopy was done. The Olympus GF 160 video endoscope was inserted inserted into the mouth and esophagus intubated without any difficulty and was gradually advanced into the stomach and duodenum and carefully examined. The bulb and second part of the duodenum appeared normal. Biopsies were done from the duodenum to rule out celiac disease. The scope was then withdrawn into the stomach adequately insufflated with air and upon careful examination the antrum had mild antral gastritis and biopsies were done from this area. The body, cardia and fundus appeared normal. The scope was then withdrawn into the esophagus. The GE junction was located at 40 cm to the incisors. It appeared regular with no erythema erosions or ulcerations. Rest of the esophagus appeared normal. Patient tolerated the procedure well. At this time the patient continued to remain sedation. Initial digital rectal examination was normal. Olympus CF 160 video colonoscope was then inserted into the rectum and gradually advanced to the cecum without any difficulty. Careful examination was performed as the scope was gradually being withdrawn. The prep was excellent. There was a 7 mm polyp on the ileocecal valve that was removed by snare polypectomy. The cecum, ascending colon, appeared normal. In the hepatic flexure there was a 5 mL sessile polyp removed by snare polypectomy. Rest of the transverse colon, descending colon, sigmoid colon and rectum appeared normal. Moderate left-sided diverticulosis seen. Retroflexion was performed in the rectum and no lesions were noted. Patient tolerated the procedure well. Impression: 1. Upper endoscopy revealed mild antral gastritis. 2. Colonoscopy revealed 7 mm polyp on the ileocecal valve and 5 mm polyp in the hepatic flexure both of which were removed by snare polypectomy and moderate sigmoidal diverticulosis Recommendations: Findings of this examination were discussed with the patient as well as her family. She was advised to follow with the biopsy results. Diet will be advanced as tolerated. Eliquis can be resumed today
--- NOTE | 2018-04-21 08:57 | P.PN ---
Subjective On-call hospitalist covering for Dr. Hyman This is a pleasant 77 years old female with past medical history of atrial fibrillation, congestive heart failure, hypertension, pulmonary fibrosis, pulmonary hypertension, right sided heart failure and cor pulmonale and, peripheral vascular disease, history of PUD and Citro with no residual weakness. Who presents because of generalized weakness, progressive over one month. Associated with exertional dyspnea for 1-2 weeks duration. Patient states she is sleeping in a chair for she has history of severe pulmonary hypertension, which makes her not sleep difficult and she spends day sleeping, and this affects her eating habits as per patient and for this she was noticed she is getting progressively weak. She came to the emergency room and they discharged her home when she was following up with her PCP nephrology has RN deficiency anemia and asked her to call to the hospital. Patient complaining of from chronic cough with yellow phlegm for 2 years without recent worsening. Patient denies chest pain or abdominal pain. No lightheadedness. However patient complaining of from progressive bilateral leg swelling which got worse after the IV fluid she got in the emergency room. Patient has been evaluated by the GI team and they recommended EGD/colonoscopy on 04/21/2018 Vitamin B12 came back high at 2500, DC vitamin B12 04/21/2018 Patient seen and examined today after she came back from colonoscopy/EGD. Patient tolerated the procedure well. Patient she was scuffing heavily after the procedure however it was dry cough. No chest pain or dyspnea. Rectus remained stable and patient is afebrile. She still feels generally weak and her bilateral leg swelling. EGD shows mild antral gastritis while colonoscopy reveals polyps . Eliquis is resumed for patient history of chronic A. fib and. Cardiology evaluated the patient for acute diastolic CHF. Patient still have bilateral leg swelling. Continue with IV diuretics. Physical therapy and occupational therapist recommended home health care CONSTITUTIONAL: No fever, no malaise HEENT: No recent visual problems or hearing problems. Denied any sore throat. CARDIOVASCULAR: No orthopnea, PND, no palpitations, no syncope. PULMONARY: No shortness of breath, no cough, no hemoptysis. GASTROINTESTINAL: No diarrhea, no nausea, no vomiting, no abdominal pain. Normoactive bowel sounds. NEUROLOGICAL: No headaches, no weakness, no numbness. HEMATOLOGICAL: Denies any bleeding or petechiae. GENITOURINARY: Denies any burning micturition, frequency, or urgency. MUSCULOSKELETAL/RHEUMATOLOGICAL: Denies any joint pain, swelling, or any muscle pain. ENDOCRINE: Denies any polyuria or polydipsia. Medications are reviewed including: Tylenol 650 mg, duoneb 0.5-3 mg, Benzonatate 200 mg, vitamin B12, Pepcid 20 mg, Lasix 40 mg, metoprolol 75 mg, spironolactone 25 mg. Objective - Vital Signs Vital signs: Vital Signs Temp 96.9 F L 04/21/18 01:30 Pulse 84 04/21/18 05:47 Resp 16 04/21/18 01:30 BP 133/62 04/21/18 01:30 Pulse Ox 93 L 04/21/18 01:30 Intake & Output 04/20/18 04/21/18 04/21/18 18:59 06:59 18:59 Intake Total 500 100 Balance 500 100 Weight 47.1 kg Intake: IV 100 Oral 500 Other: # Voids 2 6 - Exam GENERAL: The patient is alert and oriented x3, not in any acute distress. Thin build HEENT: Pupils are round and equally reacting to light. EOMI. No scleral icterus. No conjunctival pallor. Normocephalic, atraumatic. No pharyngeal erythema. No thyromegaly. CARDIOVASCULAR: S1 and S2 present. No murmurs, rubs, or gallops. PULMONARY: Chest is clear to auscultation, no wheezing or crackles. ABDOMEN: Soft, nontender, nondistended, normoactive bowel sounds. No palpable organomegaly. MUSCULOSKELETAL: No joint swelling or deformity. -EXTREMITIES: No cyanosis, clubbing, 2+ bilateral pedal edema. NEUROLOGICAL: Gross neurological examination did not reveal any focal deficits. SKIN: No rashes. - Labs CBC & Chem 7: 04/20/18 08:47 04/20/18 08:47 Labs: Abnormal Lab Results - Last 24 Hours (Table) 04/20/18 04/20/18 04/20/18 Range/Units 08:47 08:47 14:14 RBC 3.19 L (3.80-5.40) m/uL Hgb 8.5 L (11.4-16.0) gm/dL Hct 26.9 L (34.0-46.0) % RDW 15.9 H (11.5-15.5) % Lymphocytes # 0.8 L (1.0-4.8) k/uL PT 14.6 H (9.0-12.0) sec INR 1.6 H (<1.2) Sodium 135 L (137-145) mmol/L Chloride 92 L (98-107) mmol/L Carbon Dioxide 32 H (22-30) mmol/L BUN 21 H (7-17) mg/dL Glucose 112 H (74-99) mg/dL Microbiology - Last 24 Hours (Table) 04/18/18 17:30 Blood Culture - Preliminary Blood No Growth after 48 hours Assessment and Plan Assessment: Iron deficiency anemia, Status post EGD: Mild antral gastritis, and colonoscopy showing polyps Acute on chronic Right sided failure, cor pulmonale. diastolic heart failure with ejection fraction 50-55% History of Severe pulmonary hypertension Generalized weakness, mostly related to above. Multifactorial Chronic atrial fibrillation History of peptic ulcer disease and History of stroke with no residual weakness Plan: This is a pleasant 77 years old female who presents with symptomatic anemia. Labs and medication were reviewed. Hemoglobin dropped from 12.4-8.6 over 4 months. Start iron pills. GI consult is appreciated patient is going for EGD/ colonoscopy on 04/21/2018. Cardiology and pulmonary consult are appreciated for pulmonary fibrosis, pulmonary hypertension and right-sided heart failure. Continue with IV diuretics for bilateral leg swelling. Same treatment. Continue with symptomatic treatment. Resume home medication. GI and DVT prophylaxis. Further recommendations based on the clinical course of the patient and DVT prophylaxis: No anticoagulation, for patient is going for procedure GI prophylaxis: Pepcid PT/OT: Home health care Prognosis is guarded
[2018-04-21] MEDS: MENTHOL (NICE) LOZENGE MUCOUS MEM PRN (09:12)
[2018-04-21] MEDS: FUROSEMIDE 10 MG/ML 4 ML VIAL IV SCH ×2 (09:13→20:18)
[2018-04-21] MEDS: FAMOTIDINE 20 MG TAB PO SCH (09:20)
[2018-04-21 10:30] LABS: Anisocytosis Slight; Basophils % (A) 1 %; Eosinophils % (A) 0 %; HCT 26.9 % (34.0-46.0); HGB 8.2 gm/dL (11.4-16.0); Hypochromasia Marked; Lymphocytes # (A) 0.4 k/uL (1.0-4.8); Lymphocytes % (A) 7 %; MCH 25.4 pg (25.0-35.0); MCHC 30.5 g/dL (31.0-37.0); MCV 83.3 fL (80.0-100.0); Mean Platelet Volume 6.9; Monocytes # (A) 0.4 k/uL (0-1.0); Monocytes % (A) 6 %; Neutrophils # (A) 4.8 k/uL (1.3-7.7); Neutrophils % (A) 83 %; Platelet Count 196 k/uL (150-450); Poikilocytosis Slight; RBC 3.23 m/uL (3.80-5.40); RDW 16.1 % (11.5-15.5); WBC 5.8 k/uL (3.8-10.6)
[2018-04-21 10:35] LABS: Anion Gap 10 mmol/L; Blood Urea Nitrogen 17 mg/dL (7-17); Calcium 8.8 mg/dL (8.4-10.2); Carbon Dioxide 35 mmol/L (22-30); Chloride 91 mmol/L (98-107); Glucose 132 mg/dL (74-99); Potassium 4.3 mmol/L (3.5-5.1); Sodium 136 mmol/L (137-145)
[2018-04-21] MEDS: SPIRONOLACTONE 25 MG TAB PO SCH (11:58)
[2018-04-21] MEDS: APIXABAN 5 MG TAB PO SCH (11:58)
[2018-04-21] MEDS: METOPROLOL SUCCINATE (ER) 25 MG TAB.ER.24H PO SCH (11:58)
[2018-04-21] MEDS: BENZONATATE 100 MG CAP PO SCH ×3 (12:00→20:18)
--- NOTE | 2018-04-21 14:22 | P.PN ---
Subjective Progress Note Date: 04/21/18 Principal diagnosis: Right-sided congestive heart failure. Severe pulmonary hypertension with extensive lower extremity edema. A 77-year-old female patient who presented with generalized weakness and worsening in lower extremity edema. The patient is known to our practice. She has limited pulmonary fibrosis. She has limited left upper lobe bronchiectatic changes. She is known to have severe pulmonary hypertension right-sided heart failure. The exact cause has not been well established. The patient was seen at [facility] and she was tried on oral medications to reduce the pulmonary artery pressure however she failed to respond that she had experienced side effects. Since then the treatment has been discontinued. The patient's last echocardiogram at shown ejection fraction of 55-60% with severe tricuspid regurgitation and severe pulmonary hypertension with right ventricular systolic pressure of around 79 mmHg. She has chronic lower extremity edema. She suffers from chronic atrial fibrillation. She also has peripheral vascular disease. The patient is free of any chest pain. She is complaining of increased lower extremity edema that developed over the past week or so. Overall her health is gradually declining and she is losing weight. No nausea. No vomiting. No emesis. No chest pain. No angina. No altered mentation. Significance also, the patient was found to have a new onset anemia. Hemoglobin has been within normal limits. Current hemoglobin is down to 8.8 and the patient will need further investigation. Otherwise the rest of the blood work is within normal limits. Renal function is within normal limits. On and I'm seeing this patient for a follow-up. Patient is feeling slightly better compared to yesterday. She is diuresing well and she is improving in terms of her lower extremity edema. She was found to have iron deficiency and the patient will be having a EGD and colonoscopy by gastroenterology and this will be done tomorrow. On today's evaluation, the patient remains on IV Lasix 40 mg every 12 hours. Her net fluid balance is negative and the patient is responding to diuretics. The blood work shows a hemoglobin of 8.5. INR is 1.6. TPN is 21 creatinine 0.6 and the rest of the blood work is all within normal limits. Serum iron came back at 14. The patient is seen again today 04/21/2018 in follow-up on the regular medical floor. She remains awake and alert in no acute distress. She is maintaining good O2 saturations in the 90s on room air. She's been afebrile. Hemodynamically stable. Blood culture reveals no growth. White count 5.8. Hemoglobin 8.2. Creatinine 0.70. She remains on IV Lasix 40 mg every 12 hours. Aldactone. She is down another kilogram today. Anticoagulated with Eliquis. She did undergo endoscopy unit and was found to have mild antral gastritis. She also had undergone colonoscopy that revealed 7 mm polyp on ileocecal valve and a 5 mm polyp on the hepatic flexure both of which were removed by snare polypectomy. There is noted moderate sigmoidal diverticulosis. Objective - Vital Signs Vital signs: Vital Signs Temp 98.0 F 04/21/18 08:00 Pulse 75 04/21/18 12:12 Resp 16 04/21/18 08:00 BP 146/78 04/21/18 12:12 Pulse Ox 96 04/21/18 08:00 Intake & Output 04/20/18 04/21/18 04/21/18 18:59 06:59 18:59 Intake Total 500 600 Balance 500 600 Weight 47.1 kg 46.3 kg Intake: IV 100 Oral 500 500 Other: # Voids 2 6 - Exam Gen. appearance the patient is calm comfortable no acute distress. She is not using excessive muscle breathing and she is very comfortable in terms of her breathing. On room air. Head exam was generally normal. There was no scleral icterus or corneal arcus. Mucous membranes were moist. Neck was supple and with jugular venous distension, thyromegaly, or carotid bruits. Carotids were easily palpable bilaterally. There was no adenopathy. Lungs sounds are diminished and the patient has minimal crackles in lung bases bilaterally. No wheezes. Abdominal exam revealed normal bowel sounds. The abdomen was soft, non-tender, and without masses, organomegaly, or appreciable enlargement of the abdominal aorta. Extremities +1-2 pitting edema, no cyanosis or clubbing, no wounds or ulceration, there is significant amount of edema lower extremities bilaterally. No open wounds or sores or ulceration. Examination of the skin revealed no evidence of significant rashes, suspicious appearing nevi or other concerning lesions. Neurologic to the patient awake and alert and is no focal neurological deficit. - Labs CBC & Chem 7: 04/21/18 09:56 04/21/18 09:56 Labs: Abnormal Lab Results - Last 24 Hours (Table) 04/20/18 04/21/18 04/21/18 Range/Units 14:14 09:56 09:56 RBC 3.23 L (3.80-5.40) m/uL Hgb 8.2 L (11.4-16.0) gm/dL Hct 26.9 L (34.0-46.0) % MCHC 30.5 L (31.0-37.0) g/dL RDW 16.1 H (11.5-15.5) % Lymphocytes # 0.4 L (1.0-4.8) k/uL PT 14.6 H (9.0-12.0) sec INR 1.6 H (<1.2) Sodium 136 L (137-145) mmol/L Chloride 91 L (98-107) mmol/L Carbon Dioxide 35 H (22-30) mmol/L Glucose 132 H (74-99) mg/dL Microbiology - Last 24 Hours (Table) 04/18/18 17:30 Blood Culture - Preliminary Blood No Growth after 48 hours Assessment and Plan Assessment: Assessment 1 congestion heart failure which is essentially right-sided heart failure with severe pulmonary hypertension and extensive lower extremity edema. The patient presenting with worsening lower extremity edema and symptoms of right-sided heart failure. The patient will be started on diuretics for now to optimize the volume balance and lower extremity edema. The exact cause for the right- sided heart failure is not clear. It's likely the patient had primary pulmonary hypertension. The patient was evaluated [facility]. At one point she was placed on oral therapy regarding pulmonary hypertension. She did not follow-up on the treatment. 2 limited left upper lobe bronchiectasis with fibrosis. Overall poor function data is showing restrictive lung disease. 3 acute hypoxic history failure essentially secondary to CHF and the patient is currently responding nicely to diuretics. Reasonable for this patient to be evaluated for home oxygen at time of discharge specially with her significant pulmonary hypertension. 4 chronic atrial fibrillation on long-term and to coagulation with Eliquis 5 history of CVA without any residual deficits 6 hypertension 7 peripheral vascular disease 8 history of peptic ulcer disease 9 diverticular disease 10 osteoarthritis 11 skin cancer of a basal cell type, resected 12 new-onset anemia, currently under investigation. No evidence of any acute GI bleed. She did undergo endoscopy unit and was found to have mild antral gastritis. She also had undergone colonoscopy that revealed 7 mm polyp on ileocecal valve and a 5 mm polyp on the hepatic flexure both of which were removed by snare polypectomy. There is noted moderate sigmoidal diverticulosis.. Plan: The patient was seen and evaluated by Dr. Johnson. She continues to respond well to the diuretics and is improving. We'll continue with the current treatment plan. ECG colonoscopy as above. We'll continue to follow make further recommendations based on her clinical status. I, the cosigning physician, performed a history & physical examination of the patient. Lungs sounds with crackles in the bilateral posterior bases. Maintaining good O2 saturations in the 90s on room air. I discussed the assessment and plan of care with my nurse practitioner, Dea Desai. I attest to the above note as dictated by her.
[2018-04-21] MEDS: FERROUS SULFATE 325 MG TAB PO SCH (17:17)
[2018-04-21] MEDS: APIXABAN 2.5 MG TABLET PO SCH (20:18)
[2018-04-22] MEDS: IPRATROPIUM-ALBUTEROL 3 ML NEB INHALATION SCH ×5 (03:50→20:00)
[2018-04-22 07:17] LABS: Anisocytosis Slight; Basophils % (A) 0 %; Eosinophils # (A) 0.1 k/uL (0-0.7); Eosinophils % (A) 1 %; HCT 25.3 % (34.0-46.0); HGB 7.7 gm/dL (11.4-16.0); Hypochromasia Marked; Lymphocytes # (A) 0.8 k/uL (1.0-4.8); Lymphocytes % (A) 18 %; MCH 25.4 pg (25.0-35.0); MCHC 30.6 g/dL (31.0-37.0); Mean Platelet Volume 7.1; Monocytes # (A) 0.3 k/uL (0-1.0); Monocytes % (A) 6 %; Neutrophils # (A) 3.2 k/uL (1.3-7.7); Neutrophils % (A) 72 %; Platelet Count 181 k/uL (150-450); Poikilocytosis Slight; RBC 3.05 m/uL (3.80-5.40); RDW 16.1 % (11.5-15.5); WBC 4.5 k/uL (3.8-10.6)
[2018-04-22] MEDS: BENZONATATE 100 MG CAP PO SCH ×3 (09:09→21:48)
[2018-04-22] MEDS: FERROUS SULFATE 325 MG TAB PO SCH ×2 (09:09→17:12)
[2018-04-22] MEDS: FUROSEMIDE 10 MG/ML 4 ML VIAL IV SCH ×2 (09:10→20:38)
[2018-04-22] MEDS: FAMOTIDINE 20 MG TAB PO SCH (09:10)
[2018-04-22] MEDS: APIXABAN 5 MG TAB PO SCH (09:10)
[2018-04-22] MEDS: METOPROLOL SUCCINATE (ER) 25 MG TAB.ER.24H PO SCH (09:10)
[2018-04-22] MEDS: SPIRONOLACTONE 25 MG TAB PO SCH (09:12)
[2018-04-22] MEDS ORDERED: SENNOSIDES-DOCUSATE SODIUM 1 EACH TAB PO PRN (10:19)
--- NOTE | 2018-04-22 10:20 | P.PN ---
Subjective On-call hospitalist covering for Dr. Hyman This is a pleasant 77 years old female with past medical history of atrial fibrillation, congestive heart failure, hypertension, pulmonary fibrosis, pulmonary hypertension, right sided heart failure and cor pulmonale and, peripheral vascular disease, history of PUD and Citro with no residual weakness. Who presents because of generalized weakness, progressive over one month. Associated with exertional dyspnea for 1-2 weeks duration. Patient states she is sleeping in a chair for she has history of severe pulmonary hypertension, which makes her not sleep difficult and she spends day sleeping, and this affects her eating habits as per patient and for this she was noticed she is getting progressively weak. She came to the emergency room and they discharged her home when she was following up with her PCP nephrology has RN deficiency anemia and asked her to call to the hospital. Patient complaining of from chronic cough with yellow phlegm for 2 years without recent worsening. Patient denies chest pain or abdominal pain. No lightheadedness. However patient complaining of from progressive bilateral leg swelling which got worse after the IV fluid she got in the emergency room. Patient has been evaluated by the GI team and they recommended EGD/colonoscopy on 04/21/2018 Vitamin B12 came back high at 2500, DC vitamin B12 04/21/2018 Patient seen and examined today after she came back from colonoscopy/EGD. Patient tolerated the procedure well. Patient she was scuffing heavily after the procedure however it was dry cough. No chest pain or dyspnea. Rectus remained stable and patient is afebrile. She still feels generally weak and her bilateral leg swelling. EGD shows mild antral gastritis while colonoscopy reveals polyps . Eliquis is resumed for patient history of chronic A. fib and. Cardiology evaluated the patient for acute diastolic CHF. Patient still have bilateral leg swelling. Continue with IV diuretics. Physical therapy and occupational therapist recommended home health care 04/22/2018 Patient seen and examined today after she came back from colonoscopy/EGD. Patient tolerated the procedure well. her dry cough is better today. No chest pain or dyspnea. vitals remain stable and patient is afebrile. She still feels generally weak and her bilateral leg swelling however both are improving. EGD shows mild antral gastritis while colonoscopy reveals polyps . Eliquis is resumed for patient history of chronic A. fib and. Cardiology evaluated the patient for acute diastolic CHF. Patient still have bilateral leg swelling. Continue with IV diuretics. Physical therapy and occupational therapist recommended home health care. pulmonary f/u is appreciated . add Treatment for her constipation CONSTITUTIONAL: No fever, no malaise HEENT: No recent visual problems or hearing problems. Denied any sore throat. CARDIOVASCULAR: No orthopnea, PND, no palpitations, no syncope. PULMONARY: No shortness of breath, no cough, no hemoptysis. GASTROINTESTINAL: No diarrhea, no nausea, no vomiting, no abdominal pain. Normoactive bowel sounds. NEUROLOGICAL: No headaches, no weakness, no numbness. HEMATOLOGICAL: Denies any bleeding or petechiae. GENITOURINARY: Denies any burning micturition, frequency, or urgency. MUSCULOSKELETAL/RHEUMATOLOGICAL: Denies any joint pain, swelling, or any muscle pain. ENDOCRINE: Denies any polyuria or polydipsia. Medications are reviewed including: Tylenol 650 mg, duoneb 0.5-3 mg, Benzonatate 200 mg, vitamin B12, Pepcid 20 mg, Lasix 40 mg, metoprolol 75 mg, spironolactone 25 mg. Objective - Vital Signs Vital signs: Vital Signs Temp 98.0 F 04/22/18 06:50 Pulse 100 04/22/18 07:38 Resp 16 04/22/18 06:50 BP 104/56 04/22/18 06:50 Pulse Ox 94 L 04/22/18 07:22 Intake & Output 04/21/18 04/22/18 04/22/18 18:59 06:59 18:59 Intake Total 1100 590 Balance 1100 590 Weight 46.3 kg 46.3 kg Intake: IV 100 Oral 1000 590 Other: Voiding Method Bedside Commode # Voids 3 2 - Exam GENERAL: The patient is alert and oriented x3, not in any acute distress. Thin build HEENT: Pupils are round and equally reacting to light. EOMI. No scleral icterus. No conjunctival pallor. Normocephalic, atraumatic. No pharyngeal erythema. No thyromegaly. CARDIOVASCULAR: S1 and S2 present. No murmurs, rubs, or gallops. PULMONARY: Chest is clear to auscultation, no wheezing or crackles. ABDOMEN: Soft, nontender, nondistended, normoactive bowel sounds. No palpable organomegaly. MUSCULOSKELETAL: No joint swelling or deformity. -EXTREMITIES: No cyanosis, clubbing, 2+ bilateral pedal edema. NEUROLOGICAL: Gross neurological examination did not reveal any focal deficits. SKIN: No rashes. - Labs CBC & Chem 7: 04/22/18 06:47 04/21/18 09:56 Labs: Abnormal Lab Results - Last 24 Hours (Table) 04/21/18 04/21/18 04/22/18 Range/Units 09:56 09:56 06:47 RBC 3.23 L 3.05 L (3.80-5.40) m/uL Hgb 8.2 L 7.7 L (11.4-16.0) gm/dL Hct 26.9 L 25.3 L (34.0-46.0) % MCHC 30.5 L 30.6 L (31.0-37.0) g/dL RDW 16.1 H 16.1 H (11.5-15.5) % Lymphocytes # 0.4 L 0.8 L (1.0-4.8) k/uL Sodium 136 L (137-145) mmol/L Chloride 91 L (98-107) mmol/L Carbon Dioxide 35 H (22-30) mmol/L Glucose 132 H (74-99) mg/dL Microbiology - Last 24 Hours (Table) 04/18/18 17:30 Blood Culture - Preliminary Blood No Growth after 72 hours Assessment and Plan Assessment: Iron deficiency anemia, Status post EGD: Mild antral gastritis, and colonoscopy showing polyps Acute on chronic Right sided failure, cor pulmonale. diastolic heart failure with ejection fraction 50-55% History of Severe pulmonary hypertension Generalized weakness, mostly related to above. Multifactorial Chronic atrial fibrillation History of peptic ulcer disease and History of stroke with no residual weakness Plan: This is a pleasant 77 years old female who presents with symptomatic anemia. Labs and medication were reviewed. Hemoglobin dropped from 12.4-8.6 over 4 months. Start iron pills. GI consult is appreciated patient is going for EGD/ colonoscopy on 04/21/2018. Cardiology and pulmonary consult are appreciated for pulmonary fibrosis, pulmonary hypertension and right-sided heart failure. Continue with IV diuretics for bilateral leg swelling. Same treatment. Continue with symptomatic treatment. Resume home medication. GI and DVT prophylaxis. Further recommendations based on the clinical course of the patient and DVT prophylaxis: No anticoagulation, for patient is going for procedure GI prophylaxis: Pepcid PT/OT: Home health care Prognosis is guarded
[2018-04-22] MEDS: MENTHOL (NICE) LOZENGE MUCOUS MEM PRN (10:38)
--- NOTE | 2018-04-22 12:57 | PN ---
PROGRESS NOTE DATE OF SERVICE: 04/22/2018. HISTORY: The patient is a 77-year-old pleasant white female admitted to hospital with severe symptomatic anemia and hemoglobin of 8. She has a history of atrial fibrillation, on Eliquis. She underwent an EGD and colonoscopy as a part of workup of severe anemia, which revealed some gastritis and 2 small colon polyps as well as diverticulosis. Eliquis has been resumed yesterday. The patient is doing well. No evidence of bleeding. She reports no abdominal pain. No nausea, vomiting. PHYSICAL EXAMINATION: Appears comfortable, in no apparent distress. VITAL SIGNS: Stable. Blood pressure is 104/56, pulse is 65, temperature 98. HEENT: Unremarkable. Conjunctivae pink. Sclerae anicteric. Oral cavity no lesions. NECK: No JVD, no lymph node enlargement. CHEST: Clear to auscultation. HEART: Regular rate and rhythm. ABDOMEN: Soft. Bowel sounds are positive. No organomegaly. EXTREMITIES: No pedal edema. SKIN: No rashes. NEUROLOGIC: She is alert and oriented x3. No focal deficits. LABS: From today, WBC 4.5, hemoglobin 7.7, platelets are 181,000. IMPRESSION: 1. Symptomatic anemia with no active gastrointestinal bleed, status post esophagogastroduodenoscopy and colonoscopy yesterday that showed evidence of mild gastritis, two small colon polyps, and sigmoid diverticulosis. No active bleeding noted. 2. History of atrial fibrillation, on Eliquis, which has been resumed yesterday. She dropped hemoglobin to 7.7, but clinically no evidence of active bleeding. RECOMMENDATIONS: 1. Continue Eliquis. 2. Follow hemoglobin closely. 3. If she continues to have persistent drop in hemoglobin, we will consider small bowel capsule endoscopy on outpatient basis. Thank you for this consultation. MMODL / IJN: [id number] /
--- NOTE | 2018-04-22 15:48 | P.PN ---
Subjective Progress Note Date: 04/22/18 A 77-year-old female patient who presented with generalized weakness and worsening in lower extremity edema. The patient is known to our practice. She has limited pulmonary fibrosis. She has limited left upper lobe bronchiectatic changes. She is known to have severe pulmonary hypertension right-sided heart failure. The exact cause has not been well established. The patient was seen at [facility] and she was tried on oral medications to reduce the pulmonary artery pressure however she failed to respond that she had experienced side effects. Since then the treatment has been discontinued. The patient's last echocardiogram at shown ejection fraction of 55-60% with severe tricuspid regurgitation and severe pulmonary hypertension with right ventricular systolic pressure of around 79 mmHg. She has chronic lower extremity edema. She suffers from chronic atrial fibrillation. She also has peripheral vascular disease. The patient is free of any chest pain. She is complaining of increased lower extremity edema that developed over the past week or so. Overall her health is gradually declining and she is losing weight. No nausea. No vomiting. No emesis. No chest pain. No angina. No altered mentation. Significance also, the patient was found to have a new onset anemia. Hemoglobin has been within normal limits. Current hemoglobin is down to 8.8 and the patient will need further investigation. Otherwise the rest of the blood work is within normal limits. Renal function is within normal limits. On and I'm seeing this patient for a follow-up. Patient is feeling slightly better compared to yesterday. She is diuresing well and she is improving in terms of her lower extremity edema. She was found to have iron deficiency and the patient will be having a EGD and colonoscopy by gastroenterology and this will be done tomorrow. On today's evaluation, the patient remains on IV Lasix 40 mg every 12 hours. Her net fluid balance is negative and the patient is responding to diuretics. The blood work shows a hemoglobin of 8.5. INR is 1.6. TPN is 21 creatinine 0.6 and the rest of the blood work is all within normal limits. Serum iron came back at 14. The patient is seen again today 04/21/2018 in follow-up on the regular medical floor. She remains awake and alert in no acute distress. She is maintaining good O2 saturations in the 90s on room air. She's been afebrile. Hemodynamically stable. Blood culture reveals no growth. White count 5.8. Hemoglobin 8.2. Creatinine 0.70. She remains on IV Lasix 40 mg every 12 hours. Aldactone. She is down another kilogram today. Anticoagulated with Eliquis. She did undergo endoscopy unit and was found to have mild antral gastritis. She also had undergone colonoscopy that revealed 7 mm polyp on ileocecal valve and a 5 mm polyp on the hepatic flexure both of which were removed by snare polypectomy. There is noted moderate sigmoidal diverticulosis. On today's evaluation of 04/22/2018, the patient is resting comfortably in bed. She is responding nicely to diuretics patient continues to lose weight. Her lower extremity edema is also improving. No signs of GI bleed. The colonoscopy results were noted. The EGD results were noted. The patient underwent polypectomy. Final path is not out yet. The patient is also on oral iron for iron deficiency anemia. Note that she also has a moderate degree of diverticulosis involving the sigmoid colon. Her hemoglobin is stable. Renal function is stable. He has some limited cough. She has no significant sputum production. No other significant events over the past 24 hours. Objective - Vital Signs Vital signs: Vital Signs Temp 98.7 F 04/22/18 15:00 Pulse 98 04/22/18 15:00 Resp 16 04/22/18 15:00 BP 111/52 04/22/18 15:00 Pulse Ox 94 L 04/22/18 15:00 Intake & Output 04/21/18 04/22/18 04/22/18 18:59 06:59 18:59 Intake Total 1100 590 Balance 1100 590 Weight 46.3 kg 46.3 kg Intake: IV 100 Oral 1000 590 Other: Voiding Method Bedside Commode # Voids 3 2 - Exam Gen. appearance the patient is calm comfortable likely distress. She is not using excessive muscle breathing and she is very comfortable in terms of her breathing. Head exam was generally normal. There was no scleral icterus or corneal arcus. Mucous membranes were moist. Neck was supple and with jugular venous distension, thyromegaly, or carotid bruits. Carotids were easily palpable bilaterally. There was no adenopathy. Lungs sounds are diminished and the patient has minimal crackles in lung bases bilaterally. No wheezes. Abdominal exam revealed normal bowel sounds. The abdomen was soft, non-tender, and without masses, organomegaly, or appreciable enlargement of the abdominal aorta. Extremities +1- pitting edema, no cyanosis or clubbing, no wounds or ulceration , there is significant amount of edema lower extremities bilaterally. No open wounds or sores or ulceration. Examination of the skin revealed no evidence of significant rashes, suspicious appearing nevi or other concerning lesions. Neurologic to the patient awake and alert and is no focal neurological deficit. - Labs CBC & Chem 7: 04/22/18 06:47 04/21/18 09:56 Labs: Abnormal Lab Results - Last 24 Hours (Table) 04/22/18 Range/Units 06:47 RBC 3.05 L (3.80-5.40) m/uL Hgb 7.7 L (11.4-16.0) gm/dL Hct 25.3 L (34.0-46.0) % MCHC 30.6 L (31.0-37.0) g/dL RDW 16.1 H (11.5-15.5) % Lymphocytes # 0.8 L (1.0-4.8) k/uL Microbiology - Last 24 Hours (Table) 04/18/18 17:30 Blood Culture - Preliminary Blood No Growth after 72 hours Assessment and Plan Plan: Assessment 1 congestion heart failure which is essentially right-sided heart failure with severe pulmonary hypertension and extensive lower extremity edema. The patient has responded nicely to diuretics and there is considerable improvement in the lower extremity edema bilaterally. 2 limited left upper lobe bronchiectasis with fibrosis. 3 acute hypoxic history failure essentially secondary to CHF and the patient is currently responding nicely to diuretics. 4 chronic atrial fibrillation on long-term and to coagulation with Eliquis, currently no signs of any GI bleed 5 history of CVA without any residual deficits 6 hypertension 7 peripheral vascular disease 8 history of peptic ulcer disease 9 diverticular disease, involving the sigmoid colon in addition to polyps that were resected as mentioned and EGD. 10 osteoarthritis 11 skin cancer of a basal cell type, resected 12 new-onset anemia, iron deficiency, currently on oral iron replacement. Plan Continue bronchodilators. Continue IV Lasix 40 mg every 12 hours and switch the patient to oral related as of tomorrow. Continue oral iron. Clinically improving. She is back on anti-correlation with Eliquis. Discharge planning is in progress. Pulmonary services will be signing off..
[2018-04-22] MEDS: APIXABAN 2.5 MG TABLET PO SCH (20:38)
[2018-04-23] MEDS: IPRATROPIUM-ALBUTEROL 3 ML NEB INHALATION SCH ×6 (00:10→20:28)
[2018-04-23] MEDS: FERROUS SULFATE 325 MG TAB PO SCH ×2 (07:13→17:41)
--- NOTE | 2018-04-23 08:18 | P.PN ---
Subjective On-call hospitalist covering for Dr. Hyman This is a pleasant 77 years old female with past medical history of atrial fibrillation, congestive heart failure, hypertension, pulmonary fibrosis, pulmonary hypertension, right sided heart failure and cor pulmonale and, peripheral vascular disease, history of PUD and Citro with no residual weakness. Who presents because of generalized weakness, progressive over one month. Associated with exertional dyspnea for 1-2 weeks duration. Patient states she is sleeping in a chair for she has history of severe pulmonary hypertension, which makes her not sleep difficult and she spends day sleeping, and this affects her eating habits as per patient and for this she was noticed she is getting progressively weak. She came to the emergency room and they discharged her home when she was following up with her PCP nephrology has RN deficiency anemia and asked her to call to the hospital. Patient complaining of from chronic cough with yellow phlegm for 2 years without recent worsening. Patient denies chest pain or abdominal pain. No lightheadedness. However patient complaining of from progressive bilateral leg swelling which got worse after the IV fluid she got in the emergency room. Patient has been evaluated by the GI team and they recommended EGD/colonoscopy on 04/21/2018 Vitamin B12 came back high at 2500, DC vitamin B12 04/21/2018 Patient seen and examined today after she came back from colonoscopy/EGD. Patient tolerated the procedure well. Patient she was scuffing heavily after the procedure however it was dry cough. No chest pain or dyspnea. Rectus remained stable and patient is afebrile. She still feels generally weak and her bilateral leg swelling. EGD shows mild antral gastritis while colonoscopy reveals polyps . Eliquis is resumed for patient history of chronic A. fib and. Cardiology evaluated the patient for acute diastolic CHF. Patient still have bilateral leg swelling. Continue with IV diuretics. Physical therapy and occupational therapist recommended home health care 04/22/2018 Patient seen and examined today after she came back from colonoscopy/EGD. Patient tolerated the procedure well. her dry cough is better today. No chest pain or dyspnea. vitals remain stable and patient is afebrile. She still feels generally weak and her bilateral leg swelling however both are improving. EGD shows mild antral gastritis while colonoscopy reveals polyps . Eliquis is resumed for patient history of chronic A. fib and. Cardiology evaluated the patient for acute diastolic CHF. Patient still have bilateral leg swelling. Continue with IV diuretics. Physical therapy and occupational therapist recommended home health care. pulmonary f/u is appreciated . add Treatment for her constipation 04/23/2018 Patient looks clinically the same. With no chest pain or abdominal pain. No dyspnea. Him dry cough. Patient was updated about the results of the EEG and colonoscopy with a GI recommendation for outpatient capsule camera, patient was hesitant but later on she agrees to staff making her appointments with GI, cardiology and PCP Dr. Hyman. patient today is planning to go to [facility] for rehab Eliquis is resumed for patient history of chronic A. fib and. Cardiology evaluated the patient for acute diastolic CHF.her bilateral leg swelling is improving. Continue with IV diuretics. Physical therapy and occupational therapist recommended home health care, patient wants to go to rehab. pulmonary f/u is appreciated . add Treatment for her constipation Objective - Vital Signs Vital signs: Vital Signs Temp 98.9 F 04/23/18 07:03 Pulse 100 04/23/18 07:03 Resp 16 04/23/18 07:03 BP 110/69 04/23/18 07:03 Pulse Ox 93 L 04/22/18 23:43 Intake & Output 04/22/18 04/23/18 04/23/18 18:59 06:59 18:59 Intake Total 2011 640 Output Total 1 Balance 2011 640 Intake: Oral 2011 640 Output: Urine/Stool Mix 1 Other: # Voids 3 1 - Exam GENERAL: The patient is alert and oriented x3, not in any acute distress. Thin build HEENT: Pupils are round and equally reacting to light. EOMI. No scleral icterus. No conjunctival pallor. Normocephalic, atraumatic. No pharyngeal erythema. No thyromegaly. CARDIOVASCULAR: S1 and S2 present. No murmurs, rubs, or gallops. PULMONARY: Chest is clear to auscultation, no wheezing or crackles. ABDOMEN: Soft, nontender, nondistended, normoactive bowel sounds. No palpable organomegaly. MUSCULOSKELETAL: No joint swelling or deformity. -EXTREMITIES: No cyanosis, clubbing, 2+ bilateral pedal edema. NEUROLOGICAL: Gross neurological examination did not reveal any focal deficits. SKIN: No rashes. - Labs CBC & Chem 7: 04/22/18 06:47 04/21/18 09:56 Labs: Microbiology - Last 24 Hours (Table) 04/18/18 17:30 Blood Culture - Preliminary Blood No Growth after 96 hours Assessment and Plan Assessment: Iron deficiency anemia, Status post EGD: Mild antral gastritis, and colonoscopy showing polyps Acute on chronic Right sided failure, cor pulmonale. diastolic heart failure with ejection fraction 50-55% History of Severe pulmonary hypertension Generalized weakness, mostly related to above. Multifactorial Chronic atrial fibrillation History of peptic ulcer disease and History of stroke with no residual weakness Plan: This is a pleasant 77 years old female who presents with symptomatic anemia. Labs and medication were reviewed. Hemoglobin dropped from 12.4-8.6 over 4 months. Start iron pills. GI consult is appreciated patient is going for EGD/ colonoscopy on 04/21/2018. Cardiology and pulmonary consult are appreciated for pulmonary fibrosis, pulmonary hypertension and right-sided heart failure. Continue with IV diuretics for bilateral leg swelling. Same treatment. Continue with symptomatic treatment. Resume home medication. GI and DVT prophylaxis. Further recommendations based on the clinical course of the patient and DVT prophylaxis: No anticoagulation, for patient is going for procedure GI prophylaxis: Pepcid PT/OT: Home health care Prognosis is guarded
[2018-04-23] MEDS: APIXABAN 5 MG TAB PO SCH (08:47)
[2018-04-23] MEDS: BENZONATATE 100 MG CAP PO SCH ×3 (08:47→22:16)
[2018-04-23] MEDS: METOPROLOL SUCCINATE (ER) 25 MG TAB.ER.24H PO SCH (08:47)
[2018-04-23] MEDS: SPIRONOLACTONE 25 MG TAB PO SCH (08:47)
[2018-04-23] MEDS: FUROSEMIDE 10 MG/ML 4 ML VIAL IV SCH ×2 (08:47→20:39)
[2018-04-23] MEDS: FAMOTIDINE 20 MG TAB PO SCH (08:47)
[2018-04-23 09:00] LABS: Anisocytosis Slight; Basophils % (A) 0 %; Eosinophils % (A) 1 %; HGB 8.3 gm/dL (11.4-16.0); Hypochromasia Marked; Lymphocytes # (A) 0.6 k/uL (1.0-4.8); Lymphocytes % (A) 12 %; MCH 26.3 pg (25.0-35.0); MCHC 31.9 g/dL (31.0-37.0); MCV 82.6 fL (80.0-100.0); Mean Platelet Volume 7.5; Monocytes # (A) 0.3 k/uL (0-1.0); Monocytes % (A) 6 %; Neutrophils # (A) 4.2 k/uL (1.3-7.7); Neutrophils % (A) 79 %; Platelet Count 206 k/uL (150-450); Poikilocytosis Slight; RBC 3.15 m/uL (3.80-5.40); RDW 16.3 % (11.5-15.5); WBC 5.3 k/uL (3.8-10.6)
--- NOTE | 2018-04-23 09:56 | P.PN ---
Subjective Progress Note Date: 04/23/18 Principal diagnosis: CHF exacerbation symptomatic anemia Status post EGD colonoscopy no evidence of active bleeding. Resting comfortably. Denies hematemesis hematochezia melena. Hemoglobin 8.3. Objective - Vital Signs Vital signs: Vital Signs Temp 98.9 F 04/23/18 07:03 Pulse 88 04/23/18 09:12 Resp 16 04/23/18 07:03 BP 110/69 04/23/18 07:03 Pulse Ox 93 L 04/22/18 23:43 Intake & Output 04/22/18 04/23/18 04/23/18 18:59 06:59 18:59 Intake Total 2011 640 Output Total 1 Balance 2011 640 Weight 47.5 kg Intake: Oral 2011 640 Output: Urine/Stool Mix 1 Other: # Voids 3 1 - Exam General appearance: The patient is alert, oriented, in no acute distress. HET: Head is normocephalic and atraumatic. Pupils are equal and reactive. Oropharynx is clear without lesions. Neck: Supple without lymphadenopathy. Trachea midline. Heart: S1 S2. Lungs: Diminished mild bibasilar crackles. Abdomen: Soft, nontender, nondistended with bowel sounds. No peritoneal signs. No palpable organomegaly or masses. Extremities: Lower extremity edema. Radial and pedal pulses are 2/4 bilaterally. Neurological: No focal deficits. Strength and sensation are grossly intact. - Labs CBC & Chem 7: 04/23/18 08:41 04/21/18 09:56 Labs: Abnormal Lab Results - Last 24 Hours (Table) 04/23/18 Range/Units 08:41 RBC 3.15 L (3.80-5.40) m/uL Hgb 8.3 L (11.4-16.0) gm/dL Hct 26.0 L (34.0-46.0) % RDW 16.3 H (11.5-15.5) % Lymphocytes # 0.6 L (1.0-4.8) k/uL Microbiology - Last 24 Hours (Table) 04/18/18 17:30 Blood Culture - Preliminary Blood No Growth after 96 hours Assessment and Plan (1) Anemia Narrative/Plan: Symptomatic iron deficient anemia component of acute blood loss status post EGD colonoscopy evidence of mild antral gastritis polypectomy and moderate sigmoid diverticulosis Current Visit: Yes Status: Acute Code(s): D64.9 - ANEMIA, UNSPECIFIED SNOMED Code(s): 707018686 (2) Iron deficiency anemia Current Visit: Yes Status: Acute Code(s): D50.9 - IRON DEFICIENCY ANEMIA, UNSPECIFIED SNOMED Code(s): 74349833 Plan: 1. Agreeable for discharge. Continue with home medications. If patient has a precipitous drop of hemoglobin or evidence of GI bleeding recommend small bowel capsule endoscopy. Assessment and plan a care discussed with Dr. Hua
--- NOTE | 2018-04-23 11:37 | P.PN ---
Subjective Patient resting in room. Discussed discharge plans patient wanting to go to [facility] rehab. Awaiting word on her eligibility for that. Patient is stabilized and ready for discharge. Home or to [facility] Objective - Vital Signs Vital signs: Vital Signs Temp 98.9 F 04/23/18 07:03 Pulse 88 04/23/18 09:12 Resp 16 04/23/18 08:00 BP 110/69 04/23/18 07:03 Pulse Ox 93 L 04/22/18 23:43 Intake & Output 04/22/18 04/23/18 04/23/18 18:59 06:59 18:59 Intake Total 2011 640 Output Total 1 Balance 2011 640 Weight 47.5 kg Intake: Oral 2011 640 Output: Urine/Stool Mix 1 Other: Voiding Method Bedside Commode # Voids 3 1 - Constitutional General appearance: Present: average body habitus - EENT Eyes: Present: PERRLA Ears: bilateral: normal - Neck Neck: Present: normal ROM - Respiratory Respiratory: negative: CTA - Cardiovascular Rhythm: regular - Gastrointestinal General gastrointestinal: Present: soft - Integumentary Integumentary: Present: normal - Neurologic Neurologic: Present: CNII-XII intact - Musculoskeletal Musculoskeletal: Present: generalized weakness - Psychiatric Psychiatric: Present: A&O x's 3, appropriate affect, intact judgment & insight - Labs CBC & Chem 7: 04/23/18 08:41 04/21/18 09:56 Labs: Abnormal Lab Results - Last 24 Hours (Table) 04/23/18 Range/Units 08:41 RBC 3.15 L (3.80-5.40) m/uL Hgb 8.3 L (11.4-16.0) gm/dL Hct 26.0 L (34.0-46.0) % RDW 16.3 H (11.5-15.5) % Lymphocytes # 0.6 L (1.0-4.8) k/uL Microbiology - Last 24 Hours (Table) 04/18/18 17:30 Blood Culture - Preliminary Blood No Growth after 96 hours Assessment and Plan Plan: Assessment Anemia iron deficiency Post EGD and colonoscopy Edema to extremities secondary to protein malnutrition Chronic atrial fibrillation Generalized weakness Gastritis Diverticulosis Acute on chronic congestive heart failure right-sided failure with pulmonary hypertension Pulmonary fibrosis History of hypertension Peripheral vascular disease Plan Hopeful discharge soon either to [facility] rehab or home
--- NOTE | 2018-04-23 14:11 | P.CONS ---
History of Present Illness - Chief Complaint Medical debility - History of Present Illness I had the opportunity to see patient for inpatient rehab consultation with regard to medical debility. She was admitted to [facility] April 15 with hemoglobin 8.6. Seen by cardiology for atrial fibrillation and chronic diastolic heart failure. Seen by Dr. Johnson for pulmonary fibrosis and the CHF. Chest x-ray demonstrates mild cardiomegaly, pulmonary hypertension and pulmonary fibrosis. The patient did undergo colonoscopy and endoscopy diagnosed mild gastritis, polyps and diverticulitis. PT reports modified independent supervision for transfers and gait 50 feet. OT reports modified to completely independent for basic self-care tasks with both therapies have discontinued. Previous functional history as elicited from patient: 77-year-old left-handed white female who is lives with . They're both retired. does the driving and they share the cooking and laundry. Patient independent with dressing, toileting and gait with forward walker or standard cane. assist with tub bath. Dr. Kim Hyman is regular doctor. Denies tobacco or alcohol history. Family history mother with cancer. Review of Systems Review of systems: ENT: Denies sneezes or discharge. Eyes: Denies discharge or photophobia. Cardiac: Denies chest pain or palpitation. Pulmonary: Chronic shortness of breath. Breast: Denies discharge or lumps. Gastrointestinal: Denies nausea, emesis, constipation, diarrhea. Genitourinary: Denies discharge or frequency. Musculoskeletal: Denies muscle or bone aches. Neurologic: Generalized weakness, also long-standing. Endocrine: Denies shakes or sweats. Oncology: Denies cancers. Dermatologic: Denies rash, itching, pruritus. ALLERGY/immunology: Denies sneezes, rashes. Past Medical History Past Medical History: Atrial Fibrillation, Cancer, Heart Failure, Hypertension, Pneumonia, Vascular Disorder Additional Past Medical History / Comment(s): Limited Pulmonary fibrosis, Limited left upper lobe bronchiectasis, severe restrictive lung disease as noted to the previous pulmonary function test, right-sided heart failure, severe pulmonary hypertension, chronic atrial fibrillation, skin cancer, hypertension, peripheral vascular disease, previous history of cardiac ablation for A. fib/failed, varicose his lower extremities, diverticulosis, chronic sinus disease, degenerative arthritis, history of peptic ulcer disease requiring surgery, history of vertigo, basal cell cancer of the skin that was resected. History of CVA without any significant residuals. History of Any Multi-Drug Resistant Organisms: None Reported Past Surgical History: Ablation, Cardiac Ablation, Section, Cholecystectomy, Orthopedic Surgery, Tonsillectomy Additional Past Surgical History / Comment(s): R rotator cuff repair, skin cancer removed from nose. Past Anesthesia/Blood Transfusion Reactions: Postoperative Nausea & Vomiting ( PONV) Additional Past Anesthesia/Blood Transfusion Reaction / Comm: Pt received blood in past without reaction. Smoking Status: Never smoker - Past Family History Mother Family Medical History: Diabetes Mellitus Father Family Medical History: CVA/TIA, Myocardial Infarction (PR) Additional Family Medical History / Comment(s): Father had PR/CVA sometime in his 60's. Medications and Allergies Home Medications Medication Instructions Recorded Confirmed Type Cyanocobalamin (Vitamin B-12) 1,000 mcg PO DAILY 01/28/17 04/18/18 History [Vitamin B-12] Cholecalciferol [Vitamin D3] 1,000 unit PO DAILY 02/17/17 04/18/18 History Digoxin [Digitek] 125 mcg PO DAILY 02/17/17 04/18/18 History L.acidoph,Paracasei, B.lactis 1 cap PO DAILY 02/17/17 04/18/18 History [Probiotic] Spironolactone [Aldactone] 25 mg PO DAILY 02/17/17 04/18/18 History Metoprolol Tartrate [Lopressor] 25 mg PO BID tab 02/21/17 04/18/18 Rx Famotidine [Pepcid] 20 mg PO DAILY 11/23/17 04/18/18 History Furosemide [Lasix] 40 mg PO BID #60 tablet 11/24/17 04/18/18 Rx Apixaban [Eliquis] 2.5 mg PO HS 04/18/18 04/18/18 History Apixaban [Eliquis] 5 mg PO QAM 04/18/18 04/18/18 History Benzonatate [Tessalon Perles] 200 mg PO TID 04/18/18 04/18/18 History Levalbuterol HCl [Xopenex 0.63 mg INHALATION RT-Q4H 04/18/18 04/18/18 History Nebulized] Allergies Allergy/AdvReac Type Severity Reaction Status Date / Time diltiazem [From Cardizem] AdvReac Nausea & Verified 04/18/18 20:59 Vomiting verapamil AdvReac Nausea & Verified 04/18/18 20:59 Vomiting Physical Exam Vitals: Vital Signs Temp Pulse Pulse Pulse Resp BP Pulse Ox 04/23/18 13:09 86 04/23/18 13:01 84 04/23/18 09:12 88 04/23/18 09:02 84 04/23/18 08:00 16 04/23/18 07:03 98.9 F 100 16 110/69 04/23/18 03:42 96 04/23/18 03:31 95 04/23/18 00:22 100 04/23/18 00:10 96 04/22/18 23:43 97.7 F 104 H 15 115/54 93 L 04/22/18 20:13 100 04/22/18 20:00 98.7 F 98 89 16 106/64 96 04/22/18 16:27 100 04/22/18 16:15 102 H 94 L 04/22/18 15:00 98.7 F 98 16 111/52 94 L Intake and Output 04/22/18 04/23/18 04/23/18 22:59 06:59 14:59 Intake Total 2011 880 Output Total 1 Balance 2010 880 Intake: Oral 2011 880 Output: Urine/Stool Mix 1 Other: Voiding Method Bedside Commode # Voids 1 1 Weight 47.5 kg Skin: Atrophic, intact. General: Medium build and fatigued appearance. Head: Normocephalic, atraumatic. Eyes: Symmetric. Pupils equal round. Ears: Symmetric. Hearing within normal limits. Mouth: Clear. Neck: Supple. Carotid without bruit. Cardiac: Regular rate and rhythm. Lungs: Clear anteriorly and posteriorly. Abdomen: Soft active nontender. Extremities: Normal tone. Neurological: Mental status: Alert, cooperative, pleasant. Cranial nerves: Symmetric facial tone and trapezius. Motor: Normal strength and isolation all 4 limbs. Sensation: Intact throughout. DTRs: Symmetric and equal throughout. Mobility: Sits without assistance or verbal cueing. Results CBC & Chem 7: 04/23/18 08:41 04/21/18 09:56 Labs: Abnormal Lab Results - Last 24 Hours (Table) 04/23/18 Range/Units 08:41 RBC 3.15 L (3.80-5.40) m/uL Hgb 8.3 L (11.4-16.0) gm/dL Hct 26.0 L (34.0-46.0) % RDW 16.3 H (11.5-15.5) % Lymphocytes # 0.6 L (1.0-4.8) k/uL Microbiology - Last 24 Hours (Table) 04/18/18 17:30 Blood Culture - Preliminary Blood No Growth after 96 hours Assessment and Plan (1) Iron deficiency anemia Current Visit: Yes Status: Acute Code(s): D50.9 - IRON DEFICIENCY ANEMIA, UNSPECIFIED SNOMED Code(s): 20031502 (2) Acute right arterial ischemic stroke, MCA (middle cerebral artery) Current Visit: No Status: Acute Code(s): I63.511 - CEREB INFRC D/T UNSP OCCLS OR STENOS OF RIGHT MID CEREB ART SNOMED Code(s): 769235981 Plan: Impression: 1. Medical debility. 2. Acute on chronic diastolic heart failure. 3. Acute stroke right MCA. 4. Atrial fibrillation. 5. Hypertension. 6. Pulmonary fibrosis. Comments and plan: PT and OT have already seen patient in discharge due to independent. Unsure of when diagnosis of stroke was made and whether or not to reinstitute PT and OT. Note no head CT in chart or neural consult.
[2018-04-23] MEDS: APIXABAN 2.5 MG TABLET PO SCH (20:39)
[2018-04-24] MEDS: IPRATROPIUM-ALBUTEROL 3 ML NEB INHALATION SCH ×6 (01:26→19:20)
[2018-04-24 08:10] LABS: Anisocytosis Slight; Basophils % (A) 0 %; Eosinophils % (A) 1 %; HGB 7.8 gm/dL (11.4-16.0); Hypochromasia Marked; Lymphocytes # (A) 0.6 k/uL (1.0-4.8); Lymphocytes % (A) 14 %; MCH 25.5 pg (25.0-35.0); MCHC 31.1 g/dL (31.0-37.0); MCV 81.9 fL (80.0-100.0); Mean Platelet Volume 7.4; Monocytes # (A) 0.3 k/uL (0-1.0); Monocytes % (A) 6 %; Neutrophils # (A) 3.4 k/uL (1.3-7.7); Neutrophils % (A) 76 %; Platelet Count 195 k/uL (150-450); Poikilocytosis Slight; RBC 3.05 m/uL (3.80-5.40); RDW 16.7 % (11.5-15.5); WBC 4.5 k/uL (3.8-10.6)
[2018-04-24] MEDS: FUROSEMIDE 10 MG/ML 4 ML VIAL IV SCH ×2 (08:32→20:30)
[2018-04-24] MEDS: APIXABAN 5 MG TAB PO SCH (08:33)
[2018-04-24] MEDS: SPIRONOLACTONE 25 MG TAB PO SCH (08:33)
[2018-04-24] MEDS: FAMOTIDINE 20 MG TAB PO SCH (08:33)
[2018-04-24] MEDS: BENZONATATE 100 MG CAP PO SCH ×3 (08:33→20:29)
[2018-04-24] MEDS: METOPROLOL SUCCINATE (ER) 25 MG TAB.ER.24H PO SCH (08:33)
[2018-04-24] MEDS: FERROUS SULFATE 325 MG TAB PO SCH ×2 (08:33→18:47)
[2018-04-24 14:22] VITALS: BMI 19.8
--- NOTE | 2018-04-24 17:01 | P.DS ---
Providers Date of admission: 04/19/18 15:02 Expected date of discharge: 04/24/18 Attending physician: Rigo Hyman Consults: 04/19/18 09:53 Consult Physician Urgent Consulting Provider: Jacob Read Consult Reason/Comments: CHF Do you want consulting provider notified?: Yes 04/19/18 09:59 Consult Physician Urgent Consulting Provider: Cody Spear Consult Reason/Comments: pulmonary fibrosis Do you want consulting provider notified?: Yes 04/23/18 12:24 Consult Physician Routine Consulting Provider: Lakhwinder Iraheta Consult Reason/Comments: inpt rehab Do you want consulting provider notified?: Yes Primary care physician: Rigo Hyman Hospital Course: 77 year old female presented to family physician with complaints of generalized weakness. Patient had been evaluated in ER and released. Was found to have anemia did express she has had poor appetite. Patient was evaluated by gastroenterolgy pulmonolgy and cardiology. Had EGD and colonoscopy which was negative for bleediong.Attempted to admit to [facility] re[facility] unable to qualify for admission . Will use services of home health care Assessment iron deficiency anemia edema chronic atrial fibrilation generalized weakness gastritis diverticulosis acute on chronic diastolic CHF Hx hypertension pulmonary fibrosis pulmonary hypertension malnutrition protein deficiency PVD hx CVA 2015 plan follow up with gastroentrology and family physician Dr Rigo Hyman Patient Condition at Discharge: Good Plan - Discharge Summary New Discharge Prescriptions: New Acetaminophen Tab [Tylenol] 650 mg PO Q6HR PRN tab PRN Reason: Mild Pain Or Fever > 100.5 Ferrous Sulfate [Iron (65 MG Elemental)] 325 mg PO BID-W/MEALS #60 tab Sennosides-Docusate Sodium [Senokot-S] 2 each PO BID PRN tab PRN Reason: Constipation Continue Cyanocobalamin (Vitamin B-12) [Vitamin B-12] 1,000 mcg PO DAILY Cholecalciferol [Vitamin D3] 1,000 unit PO DAILY L.acidoph,Paracasei, B.lactis [Probiotic] 1 cap PO DAILY Metoprolol Tartrate [Lopressor] 25 mg PO BID tab Famotidine [Pepcid] 20 mg PO DAILY Furosemide [Lasix] 40 mg PO BID #60 tablet Apixaban [Eliquis] 2.5 mg PO HS Apixaban [Eliquis] 5 mg PO QAM Benzonatate [Tessalon Perles] 200 mg PO TID Levalbuterol HCl [Xopenex Nebulized] 0.63 mg INHALATION RT-Q4H No Action Spironolactone [Aldactone] 25 mg PO DAILY Digoxin [Digitek] 125 mcg PO DAILY Discharge Medication List Cyanocobalamin (Vitamin B-12) [Vitamin B-12] 1,000 mcg PO DAILY 01/28/17 [ History] Cholecalciferol [Vitamin D3] 1,000 unit PO DAILY 02/17/17 [History] Digoxin [Digitek] 125 mcg PO DAILY 02/17/17 [History] L.acidoph,Paracasei, B.lactis [Probiotic] 1 cap PO DAILY 02/17/17 [History] Spironolactone [Aldactone] 25 mg PO DAILY 02/17/17 [History] Metoprolol Tartrate [Lopressor] 25 mg PO BID tab 02/21/17 [Rx] Famotidine [Pepcid] 20 mg PO DAILY 11/23/17 [History] Furosemide [Lasix] 40 mg PO BID #60 tablet 11/24/17 [Rx] Apixaban [Eliquis] 2.5 mg PO HS 04/18/18 [History] Apixaban [Eliquis] 5 mg PO QAM 04/18/18 [History] Benzonatate [Tessalon Perles] 200 mg PO TID 04/18/18 [History] Levalbuterol HCl [Xopenex Nebulized] 0.63 mg INHALATION RT-Q4H 04/18/18 [History ] Acetaminophen Tab [Tylenol] 650 mg PO Q6HR PRN tab 04/24/18 [Rx] Ferrous Sulfate [Iron (65 MG Elemental)] 325 mg PO BID-W/MEALS #60 tab 04/24/18 [Rx] Sennosides-Docusate Sodium [Senokot-S] 2 each PO BID PRN tab 04/24/18 [Rx] Follow up Appointment(s)/Referral(s): Rigo Hyman MD [Primary Care Provider] - 04/27/18 10:20 am [facility], [NON-STAFF] - As Needed
[2018-04-24] MEDS: APIXABAN 2.5 MG TABLET PO SCH (20:29)
[2018-04-25] MEDS: IPRATROPIUM-ALBUTEROL 3 ML NEB INHALATION SCH ×4 (00:37→12:09)
[2018-04-25 07:44] VITALS: BP 95/59; RESP 14; TEMP 97.9
[2018-04-25] MEDS: METOPROLOL SUCCINATE (ER) 25 MG TAB.ER.24H PO SCH (08:25)
[2018-04-25] MEDS: FAMOTIDINE 20 MG TAB PO SCH (08:28)
[2018-04-25] MEDS: BENZONATATE 100 MG CAP PO SCH (08:28)
[2018-04-25] MEDS: APIXABAN 5 MG TAB PO SCH (08:29)
[2018-04-25] MEDS: SPIRONOLACTONE 25 MG TAB PO SCH (08:29)
[2018-04-25] MEDS: FERROUS SULFATE 325 MG TAB PO SCH (08:29)
[2018-04-25] MEDS: FUROSEMIDE 10 MG/ML 4 ML VIAL IV SCH ×2 (08:29→08:44)
[2018-04-25 09:41] LABS: Anisocytosis Slight; Basophils % (A) 0 %; Eosinophils # (A) 0.1 k/uL (0-0.7); Eosinophils % (A) 1 %; HCT 26.9 % (34.0-46.0); HGB 8.4 gm/dL (11.4-16.0); Hypochromasia Marked; Lymphocytes # (A) 0.7 k/uL (1.0-4.8); Lymphocytes % (A) 15 %; MCH 25.7 pg (25.0-35.0); MCHC 31.1 g/dL (31.0-37.0); MCV 82.8 fL (80.0-100.0); Mean Platelet Volume 7.4; Monocytes # (A) 0.2 k/uL (0-1.0); Monocytes % (A) 5 %; Neutrophils # (A) 3.6 k/uL (1.3-7.7); Neutrophils % (A) 76 %; Platelet Count 215 k/uL (150-450); Poikilocytosis Slight; RBC 3.25 m/uL (3.80-5.40); WBC 4.7 k/uL (3.8-10.6)
[2018-04-25 12:13] VITALS: PULSE 90
== END 2018-04-25 13:50 | disposition home health service (06) | DRG 811 ==
LOC: EC 16:43 → 4MS4W 19:23 → 1SOBS 20:10 → OBSVTOIN 04-19 15:02 → 4SSUR 04-20 17:44
PROVIDERS: ADMIT Family Medicine; ATTEND Family Medicine
PROC: 0DB98ZX Excision of Duodenum, Via Natural or Artificial Opening Endoscopic, Diagnostic (ICD-10-PCS; 2018-04-21)
PROC: 0DB78ZX Excision of Stomach, Pylorus, Via Natural or Artificial Opening Endoscopic, Diagnostic (ICD-10-PCS; 2018-04-21)
PROC: 0DBC8ZX Excision of Ileocecal Valve, Via Natural or Artificial Opening Endoscopic, Diagnostic (ICD-10-PCS; principal; 2018-04-21 07:00)
PROC: 0DBL8ZX Excision of Transverse Colon, Via Natural or Artificial Opening Endoscopic, Diagnostic (ICD-10-PCS; 2018-04-21 07:00)
DX: D62 Acute posthemorrhagic anemia (principal); I50.33 Acute on chronic diastolic (congestive) heart failure; J96.01 Acute respiratory failure with hypoxia; E44.0 Moderate protein-calorie malnutrition; I48.1 Persistent atrial fibrillation; K57.32 Diverticulitis of large intestine without perforation or abscess without bleeding; D50.9 Iron deficiency anemia, unspecified; D12.3 Benign neoplasm of transverse colon; I08.1 Rheumatic disorders of both mitral and tricuspid valves; I11.0 Hypertensive heart disease with heart failure; I45.10 Unspecified right bundle-branch block; I48.2 Chronic atrial fibrillation; I73.9 Peripheral vascular disease, unspecified; J47.9 Bronchiectasis, uncomplicated; J84.10 Pulmonary fibrosis, unspecified; J98.4 Other disorders of lung; K29.60 Other gastritis without bleeding; K59.00 Constipation, unspecified; M19.90 Unspecified osteoarthritis, unspecified site; Z79.01 Long term (current) use of anticoagulants; Z80.9 Family history of malignant neoplasm, unspecified; Z82.3 Family history of stroke; Z82.49 Family history of ischemic heart disease and other diseases of the circulatory system; Z83.3 Family history of diabetes mellitus; Z85.828 Personal history of other malignant neoplasm of skin; Z86.73 Personal history of transient ischemic attack (TIA), and cerebral infarction without residual deficits; Z87.11 Personal history of peptic ulcer disease; D12.0 Benign neoplasm of cecum; Z87.01 Personal history of pneumonia (recurrent); I27.20 Pulmonary hypertension, unspecified
CPT/HCPCS: 36415; 43239; 45385; 71046; 80048; 80053; 81003; 82272; 82550; 82553; 82607; 82728; 82747; 83540; 83550; 83735; 83880; 84443; 84484; 85025; 85610; 85730; 86850; 86900; 86901; 87040; 88305; 93005; 94640; 94760; 99285

== ENCOUNTER → 2018-06-20 | Outpatient (CLI) | payer OTHER, MEDICARE ==
[2018-06-20 11:52] LABS: Anisocytosis Moderate; Basophils % (A) 1 %; Eosinophils % (A) 1 %; HCT 36.4 % (34.0-46.0); Lymphocytes # (A) 0.5 k/uL (1.0-4.8); Lymphocytes % (A) 11 %; MCH 29.6 pg (25.0-35.0); MCHC 31.7 g/dL (31.0-37.0); Mean Platelet Volume 6.6; Microcytosis Slight; Monocytes # (A) 0.3 k/uL (0-1.0); Monocytes % (A) 6 %; Neutrophils # (A) 3.7 k/uL (1.3-7.7); Neutrophils % (A) 80 %; Platelet Count 180 k/uL (150-450); RBC 3.89 m/uL (3.80-5.40); RDW 20.6 % (11.5-15.5); WBC 4.6 k/uL (3.8-10.6)
[2018-06-20 12:07] LABS: HGB 11.5 gm/dL (11.4-16.0); MCV 93.5 fL (80.0-100.0)
[2018-06-20 17:08] LABS: Albumin 3.6 g/dL (3.80-4.90); Albumin/Globulin Ratio 0.82 (1.20-2.10); Anion Gap 6.3 mmol/L (4.00-12.00); Calcium 9.1 mg/dL (8.7-10.3); Carbon Dioxide 35.7 mmol/L (21.6-31.8); Globulin 4.4 g/dL (1.6-3.3); Iron Saturation 16.33 (12.00-45.00); Magnesium 1.7 mg/dL (1.5-2.4); Potassium 4.3 mmol/L (3.5-5.5); Total Bilirubin 0.6 mg/dL (0.3-1.2)
== END ==
LOC: LABWHC1 10:42
PROVIDERS: ATTEND Nurse Practitioner Adult Health
DX: I10 Essential (primary) hypertension (principal); D50.9 Iron deficiency anemia, unspecified
CPT/HCPCS: 36415; 80053; 83540; 83550; 83735; 85025

== ENCOUNTER 2018-09-02 14:11 | Inpatient (IN) | payer OTHER, MEDICARE ==
[2018-09-02] MEDS ORDERED: FUROSEMIDE 10 MG/ML 4 ML VIAL IV STA (14:45)
[2018-09-02] MEDS ORDERED: NITROGLYCERIN OINT 1 INCH/GM PACKET TOPICAL STA (14:45)
--- NOTE | 2018-09-02 14:49 | ED ---
General Adult HPI - General Chief complaint: Shortness of Breath Stated complaint: SOB Time Seen by Provider: 09/02/18 14:15 Source: patient, RN notes reviewed Mode of arrival: wheelchair Limitations: no limitations - History of Present Illness Initial comments: This is a 78-year-old female who presents emergency department with past medical history of congestive heart rate, atrial fibrillation and pulmonary fibrosis. Patient comes in today because her swelling in her leg is not moved up to her thighs and she's become more short of breath. Patient denies any chest pain. Patient denies any fever chills or increasing or cough. Patient states she was has a baseline cough but is no worse than normal. Patient denies any palpitations. Patient denies abdominal pain patient denies nausea vomiting diarrhea. Patient denies headache patient denies numbness weakness. Patient denies lightheadedness dizziness or near syncopal episode. - Related Data Home Medications Medication Instructions Recorded Confirmed Digoxin [Digitek] 125 mcg PO DAILY 02/17/17 09/02/18 L.acidoph,Paracasei, B.lactis 1 cap PO DAILY 02/17/17 09/02/18 [Probiotic] Spironolactone [Aldactone] 25 mg PO DAILY 02/17/17 09/02/18 Famotidine [Pepcid] 20 mg PO DAILY 11/23/17 09/02/18 Apixaban [Eliquis] 2.5 mg PO HS 04/18/18 09/02/18 Apixaban [Eliquis] 5 mg PO QAM 04/18/18 09/02/18 Benzonatate [Tessalon Perles] 200 mg PO TID 04/18/18 09/02/18 Levalbuterol HCl [Xopenex 0.63 mg INHALATION RT-Q4H 04/18/18 09/02/18 Nebulized] Ferrous Sulfate [Iron (65 MG 325 mg PO DAILY 09/02/18 09/02/18 Elemental)] Fexofenadine/Pseudoephedrine 1 tab PO BID 09/02/18 09/02/18 [Kaylee-D 12 Hour Tablet] Previous Rx's Medication Instructions Recorded Metoprolol Tartrate [Lopressor] 25 mg PO BID tab 02/21/17 Furosemide [Lasix] 40 mg PO BID #60 tablet 11/24/17 Acetaminophen Tab [Tylenol] 650 mg PO Q6HR PRN tab 04/24/18 Allergies Allergy/AdvReac Type Severity Reaction Status Date / Time diltiazem [From Cardizem] AdvReac Nausea & Verified 09/02/18 14:44 Vomiting verapamil AdvReac Nausea & Verified 09/02/18 14:44 Vomiting Review of Systems ROS Statement: Those systems with pertinent positive or pertinent negative responses have been documented in the HPI. ROS Other: All systems not noted in ROS Statement are negative. Past Medical History Past Medical History: Atrial Fibrillation, Cancer, Heart Failure, Hypertension, Pneumonia, Vascular Disorder Additional Past Medical History / Comment(s): Limited Pulmonary fibrosis, Limited left upper lobe bronchiectasis, severe restrictive lung disease as noted to the previous pulmonary function test, right-sided heart failure, severe pulmonary hypertension, chronic atrial fibrillation, skin cancer, hypertension, peripheral vascular disease, previous history of cardiac ablation for A. fib/failed, varicose his lower extremities, diverticulosis, chronic sinus disease, degenerative arthritis, history of peptic ulcer disease requiring surgery, history of vertigo, basal cell cancer of the skin that was resected. History of CVA without any significant residuals. anemia History of Any Multi-Drug Resistant Organisms: None Reported Past Surgical History: Ablation, Cardiac Ablation, Section, Cholecystectomy, Orthopedic Surgery, Tonsillectomy Additional Past Surgical History / Comment(s): R rotator cuff repair, skin cancer removed from nose. Past Anesthesia/Blood Transfusion Reactions: Postoperative Nausea & Vomiting (PONV) Additional Past Anesthesia/Blood Transfusion Reaction / Comment(s): Pt received blood in past without reaction. Past Psychological History: Anxiety Smoking Status: Never smoker Past Alcohol Use History: None Reported Past Drug Use History: None Reported - Past Family History Mother Family Medical History: Diabetes Mellitus Father Family Medical History: CVA/TIA, Myocardial Infarction ([place]) Additional Family Medical History / Comment(s): Father had [place]/CVA sometime in his 60's. General Exam - General Exam Comments Initial Comments: GENERAL: Patient is well-developed and well-nourished. Patient is nontoxic and well- hydrated and is in mild distress. ENT: Neck is soft and supple. No significant lymphadenopathy is noted. Oropharynx is clear. Moist mucous membranes. Neck has full range of motion without eliciting any pain. EYES: The sclera were anicteric and conjunctiva were pink and moist. Extraocular movements were intact and pupils were equal round and reactive to light. Eyelids were unremarkable. PULMONARY: Patient has crackles throughout CARDIOVASCULAR: There is a regular rate and rhythm without any murmurs gallops or rubs. ABDOMEN: Soft and nontender with normal bowel sounds. No palpable organomegaly was noted. There is no palpable pulsatile mass. SKIN: Skin is clear with no lesions or rashes and otherwise unremarkable. NEUROLOGIC: Patient is alert and oriented x3. Cranial nerves II through XII are grossly intact. Motor and sensory are also intact. Normal speech, volume and content. Symmetrical smile. MUSCULOSKELETAL: Normal extremities with adequate strength and full range of motion. She has 2+ edema up into her thigh. LYMPHATICS: No significant lymphadenopathy is noted PSYCHIATRIC: Normal psychiatric evaluation. Limitations: no limitations Course Vital Signs 09/02/18 09/02/18 14:13 14:19 Temperature 97.6 F Pulse Rate 92 Respiratory 20 20 Rate Blood Pressure 129/57 O2 Sat by Pulse 95 Oximetry Medical Decision Making - Medical Decision Making EKG shows atrial fibrillation with occasional PVC at a rate of 96 bpm QRS is 88 QT interval is 294 QTC is 371. Patient's EKG is compared to an old EKG no acute changes are noted. Chest x-ray shows possible congestive heart. Patient received Lasix and Nitropaste in the emergency department. Patient's hemoglobin was also 8.5 which is down from her last visit of 11.5. Patient states this has happened in the past could not understand why at that time. Patient will be admitted. Spoke with [facility] hospitalist and admitted the patient I wrote admitting orders I continue the Lasix and Nitropaste on the floor. I consult cardiology I did serial CBCs. - Lab Data Result diagrams: 09/02/18 15:02 09/02/18 15:02 Lab Results 09/02/18 09/02/18 09/02/18 Range/Units 15:02 15:02 15:02 WBC 6.3 (3.8-10.6) k/uL RBC 2.98 L (3.80-5.40) m/uL Hgb 8.5 L (11.4-16.0) gm/dL Hct 27.3 L (34.0-46.0) % MCV 91.8 (80.0-100.0) fL MCH 28.4 (25.0-35.0) pg MCHC 31.0 (31.0-37.0) g/dL RDW 16.1 H (11.5-15.5) % Plt Count 219 (150-450) k/uL Neutrophils % 80 % Lymphocytes % 9 % Monocytes % 7 % Eosinophils % 1 % Basophils % 1 % Neutrophils # 5.1 (1.3-7.7) k/uL Lymphocytes # 0.6 L (1.0-4.8) k/uL Monocytes # 0.4 (0-1.0) k/uL Eosinophils # 0.1 (0-0.7) k/uL Basophils # 0.0 (0-0.2) k/uL Hypochromasia Marked Anisocytosis Slight PT (9.0-12.0) sec INR (<1.2) APTT (22.0-30.0) sec Sodium 132 L (137-145) mmol/L Potassium 4.1 (3.5-5.1) mmol/L Chloride 90 L (98-107) mmol/L Carbon Dioxide 34 H (22-30) mmol/L Anion Gap 8 mmol/L BUN 26 H (7-17) mg/dL Creatinine 0.55 (0.52-1.04) mg/dL Est GFR (CKD-EPI)AfAm >90 (>60 ml/min/1.73 sqM) Est GFR (CKD-EPI)NonAf >90 (>60 ml/min/1.73 sqM) Glucose 122 H (74-99) mg/dL Calcium 8.7 (8.4-10.2) mg/dL Magnesium 1.7 (1.6-2.3) mg/dL Total Bilirubin 0.8 (0.2-1.3) mg/dL AST 23 (14-36) U/L ALT 24 (9-52) U/L Alkaline Phosphatase 185 H (38-126) U/L Troponin I (0.000-0.034) ng/mL NT-Pro-B Natriuret Pep 1840 pg/mL Total Protein 8.4 H (6.3-8.2) g/dL Albumin 3.4 L (3.5-5.0) g/dL 09/02/18 09/02/18 Range/Units 15:02 15:02 WBC (3.8-10.6) k/uL RBC (3.80-5.40) m/uL Hgb (11.4-16.0) gm/dL Hct (34.0-46.0) % MCV (80.0-100.0) fL MCH (25.0-35.0) pg MCHC (31.0-37.0) g/dL RDW (11.5-15.5) % Plt Count (150-450) k/uL Neutrophils % % Lymphocytes % % Monocytes % % Eosinophils % % Basophils % % Neutrophils # (1.3-7.7) k/uL Lymphocytes # (1.0-4.8) k/uL Monocytes # (0-1.0) k/uL Eosinophils # (0-0.7) k/uL Basophils # (0-0.2) k/uL Hypochromasia Anisocytosis PT 15.3 H (9.0-12.0) sec INR 1.5 H (<1.2) APTT 26.7 (22.0-30.0) sec Sodium (137-145) mmol/L Potassium (3.5-5.1) mmol/L Chloride (98-107) mmol/L Carbon Dioxide (22-30) mmol/L Anion Gap mmol/L BUN (7-17) mg/dL Creatinine (0.52-1.04) mg/dL Est GFR (CKD-EPI)AfAm (>60 ml/min/1.73 sqM) Est GFR (CKD-EPI)NonAf (>60 ml/min/1.73 sqM) Glucose (74-99) mg/dL Calcium (8.4-10.2) mg/dL Magnesium (1.6-2.3) mg/dL Total Bilirubin (0.2-1.3) mg/dL AST (14-36) U/L ALT (9-52) U/L Alkaline Phosphatase (38-126) U/L Troponin I <0.012 (0.000-0.034) ng/mL NT-Pro-B Natriuret Pep pg/mL Total Protein (6.3-8.2) g/dL Albumin (3.5-5.0) g/dL Critical Care Time Critical Care Time: Yes Total Critical Care Time: 35 Disposition Clinical Impression: Acute pulmonary edema, Pedal edema, Anemia Disposition: ADMITTED IP TO THIS HOSP Referrals: Rigo Hyman MD [Primary Care Provider] - 1-2 days Time of Disposition: 16:47
[2018-09-02 15:21] LABS: Anisocytosis Slight; Basophils % (A) 1 %; Eosinophils # (A) 0.1 k/uL (0-0.7); Eosinophils % (A) 1 %; HCT 27.3 % (34.0-46.0); HGB 8.5 gm/dL (11.4-16.0); Hypochromasia Marked; Lymphocytes # (A) 0.6 k/uL (1.0-4.8); Lymphocytes % (A) 9 %; MCH 28.4 pg (25.0-35.0); MCV 91.8 fL (80.0-100.0); Mean Platelet Volume 7.2; Monocytes # (A) 0.4 k/uL (0-1.0); Monocytes % (A) 7 %; Neutrophils # (A) 5.1 k/uL (1.3-7.7); Neutrophils % (A) 80 %; Platelet Count 219 k/uL (150-450); RBC 2.98 m/uL (3.80-5.40); RDW 16.1 % (11.5-15.5); WBC 6.3 k/uL (3.8-10.6)
[2018-09-02 15:27] LABS: ALT 24 U/L (9-52); AST 23 U/L (14-36); Albumin 3.4 g/dL (3.5-5.0); Alkaline Phosphatase 185 U/L (38-126); Anion Gap 8 mmol/L; Blood Urea Nitrogen 26 mg/dL (7-17); Calcium 8.7 mg/dL (8.4-10.2); Carbon Dioxide 34 mmol/L (22-30); Chloride 90 mmol/L (98-107); Glucose 122 mg/dL (74-99); Magnesium 1.7 mg/dL (1.6-2.3); Potassium 4.1 mmol/L (3.5-5.1); Sodium 132 mmol/L (137-145); Total Bilirubin 0.8 mg/dL (0.2-1.3); Total Protein 8.4 g/dL (6.3-8.2)
[2018-09-02 15:28] LABS: INR 1.5 (<1.2); Partial Thromboplastin Time 26.7 sec (22.0-30.0); Prothrombin Time 15.3 sec (9.0-12.0)
--- NOTE | 2018-09-02 15:46 | XR ---
EXAMINATION TYPE: XR chest 2V DATE OF EXAM: 09/02/2018 COMPARISON: Prior chest 04/18/2018 HISTORY: Difficulty breathing TECHNIQUE: Frontal and lateral views of the chest are obtained. FINDINGS: Findings are similar to prior exam. Heart is enlarged, central vascularity is prominent. A leonel is dense. Interstitium is diffusely increased. No evident pneumothorax or pleural effusion. IMPRESSION: Findings are similar to prior exam. Difficult to exclude congestive heart failure, findi ngs likely due to underlying pulmonary fibrosis.
[2018-09-02] MEDS: NITROGLYCERIN OINT 1 INCH/GM PACKET TOPICAL SCH ×2 (18:16→20:36)
[2018-09-02] MEDS ORDERED: ACETAMINOPHEN TAB 325 MG TAB PO PRN (18:48)
[2018-09-02] MEDS: ALBUTEROL NEBULIZED 1.25 MG/3 ML INHALATION SCH ×2 (19:29→23:14)
[2018-09-02] MEDS: FEXOFENADINE PO SCH (20:36)
[2018-09-02] MEDS: METOPROLOL TARTRATE 25 MG TAB PO SCH (20:40)
[2018-09-02] MEDS: BENZONATATE 100 MG CAP PO SCH (20:40)
[2018-09-02] MEDS: APIXABAN 2.5 MG TABLET PO SCH (20:40)
[2018-09-02] MEDS: FUROSEMIDE 10 MG/ML 4 ML VIAL IV SCH (22:33)
[2018-09-03] MEDS: ALBUTEROL NEBULIZED 1.25 MG/3 ML INHALATION SCH ×3 (03:12→11:08)
[2018-09-03] MEDS: FUROSEMIDE 10 MG/ML 4 ML VIAL IV SCH ×3 (06:18→23:01)
--- NOTE | 2018-09-03 08:24 | P.CRDCN ---
History of Present Illness Consult date: 09/03/18 Requesting physician: Teresa Ring Consult reason: congestive heart failure Chief complaint: Shortness of breath and swelling History of present illness: This is a pleasant 78-year-old female who follows regularly with Dr. Dhillon in the office. She has known history for chronic persistent atrial fibrillation on anticoagulation, chronic diastolic heart failure, hypertension, pulmonary fibrosis with pulmonary hypertension, peripheral vascular disease, hyperlipidemia. She presents to the hospital with symptoms of progressively worsening shortness of breath with associated worsening in bilateral lower extremity peripheral edema. Chest x-ray on admission here showed findings riccardo lar to prior exam, difficult to exclude congestive heart failure, underlying pulmonary fibrosis. EKG shows atrial fibrillation with controlled ventricular response. White blood cell count 6.3, hemoglobin 8.5, platelet count 219. Sodium 132, potassium 4.1, BUN 26 and creatinine 0.55. Troponin 0.012. BNP level 1840. Blood pressure 104/60 with a heart rate 90s to low 100s, 96% on room air. At the time of my examination this morning, patient is sitting up in her chair at bedside, she does state that she has been urinating a significant amount through the night last night. She has bilateral Wesley wraps to her lower extremities. Past Medical History Past Medical History: Atrial Fibrillation, Cancer, Heart Failure, Hypertension, Pneumonia, Vascular Disorder Additional Past Medical History / Comment(s): Limited Pulmonary fibrosis, Limited left upper lobe bronchiectasis, severe restrictive lung disease as noted to the previous pulmonary function test, right-sided heart failure, severe pulmonary hypertension, chronic atrial fibrillation, skin cancer, hypertension, peripheral vascular disease, previous history of cardiac ablation for A. fib/failed, varicose his lower extremities, diverticulosis, chronic sinus disease, degenerative arthritis, history of peptic ulcer disease requiring surgery, history of vertigo, basal cell cancer of the skin that was resected. History of CVA without any significant residuals. anemia History of Any Multi-Drug Resistant Organisms: None Reported Past Surgical History: Ablation, Cardiac Ablation, Section, Cholecystectomy, Orthopedic Surgery, Tonsillectomy Additional Past Surgical History / Comment(s): R rotator cuff repair, skin cancer removed from nose. Past Anesthesia/Blood Transfusion Reactions: Postoperative Nausea & Vomiting (PONV) Additional Past Anesthesia/Blood Transfusion Reaction / Comment(s): Pt received blood in past without reaction. Past Psychological History: Anxiety Additional Psychological History / Comment(s): Pt reides with her spouse. She normally does not use assistive device but recently d/t dizziness she has been using a walker. She drives. Family expressed that they will want PT/OT/speech therapy for pt. Smoking Status: Never smoker Past Alcohol Use History: None Reported Past Drug Use History: None Reported - Past Family History Mother Family Medical History: Diabetes Mellitus Father Family Medical History: CVA/TIA, Myocardial Infarction ([place]) Additional Family Medical History / Comment(s): Father had [place]/CVA sometime in his 60's. Medications and Allergies Home Medications Medication Instructions Recorded Confirmed Type Digoxin [Digitek] 125 mcg PO DAILY 02/17/17 09/02/18 History L.acidoph,Paracasei, B.lactis 1 cap PO DAILY 02/17/17 09/02/18 History [Probiotic] Spironolactone [Aldactone] 25 mg PO DAILY 02/17/17 09/02/18 History Metoprolol Tartrate [Lopressor] 25 mg PO BID tab 02/21/17 09/02/18 Rx Famotidine [Pepcid] 20 mg PO DAILY 11/23/17 09/02/18 History Furosemide [Lasix] 40 mg PO BID #60 tablet 11/24/17 09/02/18 Rx Apixaban [Eliquis] 2.5 mg PO HS 04/18/18 09/02/18 History Apixaban [Eliquis] 5 mg PO QAM 04/18/18 09/02/18 History Benzonatate [Tessalon Perles] 200 mg PO TID 04/18/18 09/02/18 History Levalbuterol HCl [Xopenex 0.63 mg INHALATION RT-Q4H 04/18/18 09/02/18 History Nebulized] Acetaminophen Tab [Tylenol] 650 mg PO Q6HR PRN tab 04/24/18 09/02/18 Rx Ferrous Sulfate [Iron (65 MG 325 mg PO DAILY 09/02/18 09/02/18 History Elemental)] Fexofenadine/Pseudoephedrine 1 tab PO BID 09/02/18 09/02/18 History [Kaylee-D 12 Hour Tablet] Allergies Allergy/AdvReac Type Severity Reaction Status Date / Time diltiazem [From Cardizem] AdvReac Nausea & Verified 09/02/18 14:44 Vomiting verapamil AdvReac Nausea & Verified 09/02/18 14:44 Vomiting Physical Exam Vitals: Vital Signs Temp Pulse Pulse Resp BP BP Pulse Ox 09/03/18 04:00 97.0 F L 97 18 117/67 94 L 09/02/18 23:05 91 18 09/02/18 23:04 97.2 F L 91 18 99/63 97 09/02/18 20:00 97.6 F 103 H 18 106/57 97 09/02/18 19:36 112 H 09/02/18 19:32 108 H 09/02/18 14:19 20 09/02/18 14:13 97.6 F 92 20 129/57 95 Intake and Output 09/02/18 09/03/18 09/03/18 22:59 06:59 14:59 Intake Total 270 Output Total 600 1050 Balance -330 -1050 Intake: Oral 270 Output: Urine 600 1050 Other: Voiding Method Bedside Commode Bedside Commode # Voids 3 2 Weight 44.7 kg PHYSICAL EXAMINATION: GENERAL: 78-year-old female in no acute distress at the time of my examination HEENT: Head is atraumatic, normocephalic. Pupils equal, round. Sclera anicte zhao. Conjunctiva are clear. Mucous membranes of the mouth are moist. Neck is supple. There is elevated jugular venous pressure. No carotid bruit is heard. HEART EXAMINATION: S1 and S2 irregularly irregular, soft systolic murmur is heard,para sternal heave is noted. CHEST EXAMINATION: Lungs reveal coarse fibrotic rales throughout ABDOMEN: Soft, nontender. Bowel sounds are heard. No organomegaly noted. EXTREMITIES: 1+ peripheral pulses with 1+ evidence of peripheral edema and no calf tenderness noted. Bilateral Wesley wraps in place NEUROLOGIC patient is awake, alert and oriented 3 . . Results 09/02/18 15:02 09/02/18 15:02 Cardiac Enzymes 09/02/18 09/02/18 Range/Units 15:02 15:02 AST 23 (14-36) U/L Troponin I <0.012 (0.000-0.034) ng/mL Coagulation 09/02/18 Range/Units 15:02 PT 15.3 H (9.0-12.0) sec APTT 26.7 (22.0-30.0) sec CBC 09/02/18 Range/Units 15:02 WBC 6.3 (3.8-10.6) k/uL RBC 2.98 L (3.80-5.40) m/uL Hgb 8.5 L (11.4-16.0) gm/dL Hct 27.3 L (34.0-46.0) % Plt Count 219 (150-450) k/uL Comprehensive Metabolic Panel 09/02/18 Range/Units 15:02 Sodium 132 L (137-145) mmol/L Potassium 4.1 (3.5-5.1) mmol/L Chloride 90 L (98-107) mmol/L Carbon Dioxide 34 H (22-30) mmol/L BUN 26 H (7-17) mg/dL Creatinine 0.55 (0.52-1.04) mg/dL Glucose 122 H (74-99) mg/dL Calcium 8.7 (8.4-10.2) mg/dL AST 23 (14-36) U/L ALT 24 (9-52) U/L Alkaline Phosphatase 185 H (38-126) U/L Total Protein 8.4 H (6.3-8.2) g/dL Albumin 3.4 L (3.5-5.0) g/dL Current Medications Generic Name Dose Route Start Last Admin Trade Name Freq PRN Reason Stop Dose Admin Acetaminophen 650 mg 09/02/18 18:48 Tylenol Tab PO Q6HR PRN Mild Pain or Fever > 100.5 Albuterol Sulfate 1.25 mg 09/02/18 20:00 09/03/18 08:01 Ventolin Nebulized INHALATION Not Given RT-Q4H REJI Apixaban 2.5 mg 09/02/18 21:00 09/02/18 20:40 Eliquis PO 2.5 mg HS REJI Administration Apixaban 5 mg 09/03/18 09:00 Eliquis PO QAM REJI Benzonatate 200 mg 09/02/18 22:00 09/02/18 20:40 Tessalon Perles PO 200 mg TID REJI Administration Digoxin 125 mcg 09/03/18 09:00 Lanoxin PO DAILY REJI Famotidine 20 mg 09/03/18 09:00 Pepcid PO DAILY REJI Ferrous Sulfate 325 mg 03/11/19 09:00 Feosol PO DAILY REJI Furosemide 40 mg 09/02/18 23:00 09/03/18 06:18 Lasix IV 40 mg Q8H REJI Administration Metoprolol Tartrate 25 mg 09/02/18 21:00 09/02/18 20:40 Lopressor PO 25 mg BID REJI Administration Nitroglycerin 1 inch 09/02/18 19:00 09/02/18 20:36 Nitro-Bid Oint TOPICAL Not Given QID REJI Non-Formulary Medication 1 tab 09/02/18 21:00 09/02/18 20:36 Fexofenadine/Pseudoephedrine [Kaylee-D 12 Hour Tablet] PO Not Given BID REJI Spironolactone 25 mg 09/03/18 09:00 Aldactone PO DAILY REJI Intake and Output 09/02/18 09/03/18 09/03/18 22:59 06:59 14:59 Intake Total 270 Output Total 600 1050 Balance -330 -1050 Intake: Oral 270 Output: Urine 600 1050 Other: Voiding Method Bedside Commode Bedside Commode # Voids 3 2 Weight 44.7 kg 09/02/18 15:02 09/02/18 15:02 EKG Interpretations (text) EKG shows atrial fibrillation with a controlled ventricular response nonspecific ST-T wave changes Assessment and Plan Plan: Assessment and plan #1 diastolic congestive heart failure acute on chronic #2 pulmonary fibrosis #3 hypertension #4 normocytic normochromic anemia #5 chronic persistent atrial fibrillation on Eliquis for anticoagulation #6 severe pulmonary hypertension #7 hyperlipidemia Plan We will continue current dose of IV Lasix, discontinue Nitropaste, we will repeat an echocardiogram with Doppler study, most recent echo performed in November of last year revealed an ejection fraction of 50-55% severe TR and severe pulmonary hypertension, RVSP 81 mmHg. continue Eliquis, continue Lanoxin, metoprolol, Aldactone. Further recommendations to follow. DNP note has been reviewed, I agree with a documented findings and plan of care. Patient was seen and examined.
[2018-09-03] MEDS: FEXOFENADINE PO SCH ×2 (09:52→20:57)
[2018-09-03] MEDS: SPIRONOLACTONE 25 MG TAB PO SCH (09:52)
[2018-09-03] MEDS: FAMOTIDINE 20 MG TAB PO SCH (09:52)
[2018-09-03] MEDS: BENZONATATE 100 MG CAP PO SCH ×3 (09:53→20:43)
[2018-09-03] MEDS: NITROGLYCERIN OINT 1 INCH/GM PACKET TOPICAL SCH (09:53)
[2018-09-03] MEDS: DIGOXIN 125 MCG TAB PO SCH (09:53)
[2018-09-03] MEDS: FERROUS SULFATE 325 MG TAB PO SCH (09:53)
[2018-09-03] MEDS: APIXABAN 5 MG TAB PO SCH (09:53)
[2018-09-03] MEDS: METOPROLOL TARTRATE 25 MG TAB PO SCH ×2 (09:53→20:43)
[2018-09-03] MEDS ORDERED: PROMETHAZ-COD 6.25-10 MG/5 ML 5 ML CUP PO PRN (11:14)
--- NOTE | 2018-09-03 11:44 | CONS ---
CONSULTATION DATE OF SERVICE: September 03, 2018 This is a 78-year-old female who presented to the emergency department on September 02 with a history of leg edema, orthopnea, shortness of breath, and just not feeling well. The patient states that her energy levels have been extremely low. She denied any chest pain or chest pressure. No fever or chills. She does have a bit of a cough, but no worse than usual. There is no nausea, vomiting or diarrhea. No significant GI or complaints. The patient was apparently evaluated in the emergency room and based on her chest x-ray, her lower extremity edema and her elevated N-terminal proBNP was admitted to the hospital with a diagnosis of fluid overload/CHF. She is sitting feeling a bit better today. She is sitting in the chair. She has got her legs elevated. They are still quite sore and swollen. She is not requiring any oxygen. She did want something for her cough. MEDICATIONS: Currently, her medications include digoxin, probiotics, Aldactone, Pepcid, Eliquis, Tessalon Perles, Xopenex, iron, Kaylee, D, metoprolol Lasix, and Tylenol. ALLERGIES: Allergies include CARDIZEM and VERAPAMIL. MEDICAL HISTORY: Medical history includes chronic atrial fibrillation, heart failure, hypertension, pneumonia, pulmonary fibrosis, upper lobe bronchiectasis, restrictive lung disease, right-sided heart failure/cor pulmonale, severe pulmonary hypertension, skin cancer, peripheral vascular occlusive disease, previous ablation for atrial fibrillation, lower extremity varicose veins, diverticular disease, chronic sinus disease, DJD, peptic ulcer disease, and vertigo. The patient has also previously had a CVA. SURGICAL HISTORY: Surgical history includes among other things cardiac ablation, , cholecystectomy, orthopedic procedures, tonsillectomy and skin cancer removal. SOCIAL HISTORY: Social history is negative tobacco use. She denies any alcohol or illicit drug use. FAMILY HISTORY: Family history is positive for CVA, diabetes, and myocardial infarction. REVIEW OF SYSTEMS: CONSTITUTIONAL: Weakness and fatigue. NEUROLOGIC: Negative. HEENT: Negative. CARDIOVASCULAR: Negative. PULMONARY: Shortness of breath. GI: Negative. : Negative. RHEUMATOLOGIC: Negative. IMMUNOLOGIC: Negative. ENDOCRINOLOGIC: Negative. DERMATOLOGIC: Negative. PHYSICAL EXAMINATION: Current vital signs are reviewed. Temperature is 98.2, heart rate 97, respiratory rate 18, blood pressure 104/60, mean 74, room air saturation 96%. Appears in no acute distress. Sitting up in a chair. Legs are elevated. HEENT examination is grossly unremarkable. Mucous membranes are moist. No oral lesions. NECK: Supple. Full range of motion. No adenopathy, thyromegaly or neck vein distention. Cardiovascular examination reveals a irregular rhythm and rate. Heart rate is about 90 to 100 beats per minute. She is in atrial fibrillation. S1, S2 normal. No murmur noted. Lungs reveal some bibasilar crackles. They are fine. Breath sounds are equal bilaterally. There are no rhonchi or wheezes. ABDOMEN: Soft. Bowel sounds are heard. Extremities reveal some edema. It is 1 to 2+. The legs are wrapped. There is diffuse erythema of the lower extremities. The edema is pitting. Skin without rash other than the erythema of the lower extremities. Neurologic examination is brief but nonfocal. Chest x-ray shows some interstitial changes likely on the basis of interstitial edema and/or interstitial fibrosis. Lab data reveals a white count of 6.3, hemoglobin 8.5, hematocrit 27.3, platelet count 219,000. PT 15.3, INR 1.5. Sodium 132, potassium 4.1, chloride 90, CO2 of 34. Anion gap is 8. BUN and creatinine were 26 and 0.55. Alkaline phosphatase 185. Troponin less than 0.012. N terminal proBNP elevated 1840. Albumin 3.4. Medications are reviewed. She is on all her usual medications including Aldactone, nitroglycerin ointment, metoprolol, Lasix, Kaylee, D, iron, famotidine, digoxin, Tessalon Perles, Eliquis, and Tylenol. She is on updrafts and probably does not need it and given the fact she has A. fib with borderline ventricular response rate, it will be discontinued. ASSESSMENT: 1. Congestive heart failure, somewhat improved clinically. 2. Chronic atrial fibrillation. 3. Mild interstitial lung disease/pulmonary fibrosis. 4. History of skin cancer. 5. History of heart failure. 6. History of hypertension. 7. Previous history of pneumonia. 8. Peripheral vascular occlusive disease. 9. Secondary pulmonary hypertension with cor pulmonale. 10.Multiple other medical problems and comorbidities as listed above. PLAN: Medications are appropriate. We will stop the albuterol. No additional recommendations are made. We will continue to follow. She is already on Tessalon Perles. Will offer some codeine-containing cough syrup as well. The cough is likely related to both heart failure and pulmonary fibrosis. No additional recommendations are made. Antibiotics are not necessary at this time. MMODL / IJN: [id number] /
--- NOTE | 2018-09-03 12:05 | P.CONS ---
History of Present Illness - Chief Complaint medical debility - History of Present Illness I had the opportunity to see patient for inpatient rehab consultation with regard to medical debility. She was admitted to [facility] September 02 with shortness of breath, known CHF, active fibrillation and pulmonary fibrosis. Seen by cardiology. Chest x-ray consistent with CHF and pulmonary fibrosis. Seen by OT who notes moderate assistance for upper dressing and total assistance for lower dressing, maximal assistance for bathing and moderate to maximal assistance for toileting and moderate assistance functional ability transfers. PT prescribed. Previous functional history as elicited from patient: 77-year-old left-handed white female who is lives in one floor home with . Patient retired and will retired and of September, losing his job. does the cooking. Patient describes independent with laundry and does receive assistance for sitdown shower and occasionally for dressing. patient reports that she normally sleeps in recliner chair. Uses 4 wheeled walker for gait. Dr.Aarin Hyman is regular doctor. Dr. Dhillon is a cook at school. Denies tobacco or alcohol. Family history of cancer in mother and heart disease in father. Review of Systems Review of systems: ENT: Denies sneezes or discharge. Eyes: Denies discharge or photophobia. Cardiac: Denies chest pain or palpitation. Pulmonary: [id number] shortness of breath, which is long-standing. Breast: Denies discharge or lumps. Gastrointestinal: Denies nausea, emesis, constipation, diarrhea. Genitourinary: Denies discharge or frequency. Musculoskeletal: Denies muscle or bone aches. Neurologic: generalized weaknessge. Endocrine: Denies shakes or sweats. Oncology: Denies cancers. Dermatologic: Denies rash, itching, pruritus. ALLERGY/immunology: Denies sneezes, rashes. Past Medical History Past Medical History: Atrial Fibrillation, Cancer, Heart Failure, Hypertension, Pneumonia, Vascular Disorder Additional Past Medical History / Comment(s): Limited Pulmonary fibrosis, Limited left upper lobe bronchiectasis, severe restrictive lung disease as noted to the previous pulmonary function test, right-sided heart failure, severe pulmonary hypertension, chronic atrial fibrillation, skin cancer, hypertension, peripheral vascular disease, previous history of cardiac ablation for A. fib/failed, varicose his lower extremities, diverticulosis, chronic sinus disease, degenerative arthritis, history of peptic ulcer disease requiring surgery, history of vertigo, basal cell cancer of the skin that was resected. History of CVA without any significant residuals. anemia History of Any Multi-Drug Resistant Organisms: None Reported Past Surgical History: Ablation, Cardiac Ablation, Section, Cholecystectomy, Orthopedic Surgery, Tonsillectomy Additional Past Surgical History / Comment(s): R rotator cuff repair, skin cancer removed from nose. Past Anesthesia/Blood Transfusion Reactions: Postoperative Nausea & Vomiting (PONV) Additional Past Anesthesia/Blood Transfusion Reaction / Comm: Pt received blood in past without reaction. Past Psychological History: Anxiety Additional Psychological History / Comment(s): Pt reides with her spouse. She normally does not use assistive device but recently d/t dizziness she has been using a walker. She drives. Family expressed that they will want PT/OT/speech therapy for pt. Smoking Status: Never smoker Past Alcohol Use History: None Reported Past Drug Use History: None Reported - Past Family History Mother Family Medical History: Diabetes Mellitus Father Family Medical History: CVA/TIA, Myocardial Infarction ([place]) Additional Family Medical History / Comment(s): Father had [place]/CVA sometime in his 60's. Medications and Allergies Home Medications Medication Instructions Recorded Confirmed Type Digoxin [Digitek] 125 mcg PO DAILY 02/17/17 09/02/18 History L.acidoph,Paracasei, B.lactis 1 cap PO DAILY 02/17/17 09/02/18 History [Probiotic] Spironolactone [Aldactone] 25 mg PO DAILY 02/17/17 09/02/18 History Metoprolol Tartrate [Lopressor] 25 mg PO BID tab 02/21/17 09/02/18 Rx Famotidine [Pepcid] 20 mg PO DAILY 11/23/17 09/02/18 History Furosemide [Lasix] 40 mg PO BID #60 tablet 11/24/17 09/02/18 Rx Apixaban [Eliquis] 2.5 mg PO HS 04/18/18 09/02/18 History Apixaban [Eliquis] 5 mg PO QAM 04/18/18 09/02/18 History Benzonatate [Tessalon Perles] 200 mg PO TID 04/18/18 09/02/18 History Levalbuterol HCl [Xopenex 0.63 mg INHALATION RT-Q4H 04/18/18 09/02/18 History Nebulized] Acetaminophen Tab [Tylenol] 650 mg PO Q6HR PRN tab 04/24/18 09/02/18 Rx Ferrous Sulfate [Iron (65 MG 325 mg PO DAILY 09/02/18 09/02/18 History Elemental)] Fexofenadine/Pseudoephedrine 1 tab PO BID 09/02/18 09/02/18 History [Kaylee-D 12 Hour Tablet] Allergies Allergy/AdvReac Type Severity Reaction Status Date / Time diltiazem [From Cardizem] AdvReac Nausea & Verified 09/02/18 14:44 Vomiting verapamil AdvReac Nausea & Verified 09/02/18 14:44 Vomiting Physical Exam Vitals: Vital Signs Temp Pulse Pulse Resp BP BP Pulse Ox 09/03/18 11:44 90 18 124/62 97 09/03/18 08:00 98.2 F 103 H 18 104/60 96 09/03/18 04:00 97.0 F L 97 18 117/67 94 L 09/02/18 23:05 91 18 09/02/18 23:04 97.2 F L 91 18 99/63 97 09/02/18 20:00 97.6 F 103 H 18 106/57 97 09/02/18 19:36 112 H 09/02/18 19:32 108 H 09/02/18 14:19 20 09/02/18 14:13 97.6 F 92 20 129/57 95 Intake and Output 09/02/18 09/03/18 09/03/18 22:59 06:59 14:59 Intake Total 270 160 Output Total 600 1050 275 Balance -330 -1050 -115 Intake: Oral 270 160 Output: Urine 600 1050 275 Other: Voiding Method Bedside Commode Bedside Commode # Voids 3 2 1 Weight 44.7 kg 44.7 kg Skin: Good color, texture, turgor. General: thin build and comfortable appearance. Head: Normocephalic, atraumatic. Eyes: Symmetric. Pupils equal round. Ears: Symmetric. Hearing within normal limits. Mouth: Clear. Neck: Supple. Carotid without bruit. Cardiac: Regular rate and rhythm. Lungs: Clear anteriorly and posteriorly. Abdomen: Soft active nontender. Extremities: Normal tone. Neurological: Mental status: Alert, cooperative, pleasant. Cranial nerves: Symmetric facial tone and trapezius. Motor: active movement all 4 limbs. Sensation: Intact throughout. DTRs: Symmetric and equal throughout. Mobility: Sits and stands with moderate to maximal assistance. Results CBC & Chem 7: 09/02/18 15:02 09/02/18 15:02 Labs: Abnormal Lab Results - Last 24 Hours (Table) 09/02/18 09/02/18 09/02/18 Range/Units 15:02 15:02 15:02 RBC 2.98 L (3.80-5.40) m/uL Hgb 8.5 L (11.4-16.0) gm/dL Hct 27.3 L (34.0-46.0) % RDW 16.1 H (11.5-15.5) % Lymphocytes # 0.6 L (1.0-4.8) k/uL PT 15.3 H (9.0-12.0) sec INR 1.5 H (<1.2) Sodium 132 L (137-145) mmol/L Chloride 90 L (98-107) mmol/L Carbon Dioxide 34 H (22-30) mmol/L BUN 26 H (7-17) mg/dL Glucose 122 H (74-99) mg/dL Alkaline Phosphatase 185 H (38-126) U/L Total Protein 8.4 H (6.3-8.2) g/dL Albumin 3.4 L (3.5-5.0) g/dL Assessment and Plan (1) Acute right arterial ischemic stroke, MCA (middle cerebral artery) Current Visit: No Status: Acute Code(s): I63.511 - CEREB INFRC D/T UNSP OCCLS OR STENOS OF RIGHT MID CEREB ART SNOMED Code(s): 840177898 (2) CHF (congestive heart failure) Current Visit: No Status: Acute Code(s): I50.9 - HEART FAILURE, UNSPECIFIED SNOMED Code(s): 01212614 Plan: impression: 1. Medical debility. 2. Pulmonary fibrosis. 3. CHF. 4. Hypertension. 5. Atrial fibrillation. 6. History cancer. Comments and plan: At this time OT are ongoing in PT prescribed. Must determine goals for patient to return home. Patient has diagnoses stroke but I suspect that this is a previous diagnosis and not current reason for admission.
--- NOTE | 2018-09-03 12:28 | P.HPIM ---
History of Present Illness 8-year-old female presented the emergency room with complaints of progressive shortness of breath and increasing edema to lower extremities. Patient has a history of diastolic congestive heart failure acute on chronic, pulmonary fi brosis, severe pulmonary hypertension, persistent atrial fibrillation chronic. Patient has been evaluated by cardiology and pulmonary. Plan is for an discharged to rehab for weakness Review of Systems Constitutional: Reports fatigue, Reports weakness Cardiovascular: Reports dyspnea on exertion, Reports edema, Reports irregular heart beat Respiratory: Reports cough, Reports dyspnea Past Medical History Past Medical History: Atrial Fibrillation, Cancer, Heart Failure, Hypertension, Pneumonia, Vascular Disorder Additional Past Medical History / Comment(s): Limited Pulmonary fibrosis, Limited left upper lobe bronchiectasis, severe restrictive lung disease as noted to the previous pulmonary function test, right-sided heart failure, severe pulmonary hypertension, chronic atrial fibrillation, skin cancer, hypertension, peripheral vascular disease, previous history of cardiac ablation for A. fib/failed, varicose his lower extremities, diverticulosis, chronic sinus disease, degenerative arthritis, history of peptic ulcer disease requiring surgery, history of vertigo, basal cell cancer of the skin that was resected. History of CVA without any significant residuals. anemia History of Any Multi-Drug Resistant Organisms: None Reported Past Surgical History: Ablation, Cardiac Ablation, Section, Cholecystectomy, Orthopedic Surgery, Tonsillectomy Additional Past Surgical History / Comment(s): R rotator cuff repair, skin cancer removed from nose. Past Anesthesia/Blood Transfusion Reactions: Postoperative Nausea & Vomiting (P ONV) Additional Past Anesthesia/Blood Transfusion Reaction / Comment(s): Pt received blood in past without reaction. Past Psychological History: Anxiety Additional Psychological History / Comment(s): Pt reides with her spouse. She normally does not use assistive device but recently d/t dizziness she has been using a walker. She drives. Family expressed that they will want PT/OT/speech therapy for pt. Smoking Status: Never smoker Past Alcohol Use History: None Reported Past Drug Use History: None Reported - Past Family History Mother Family Medical History: Diabetes Mellitus Father Family Medical History: CVA/TIA, Myocardial Infarction ([place]) Additional Family Medical History / Comment(s): Father had [place]/CVA sometime in his 60's. Medications and Allergies Home Medications Medication Instructions Recorded Confirmed Type Digoxin [Digitek] 125 mcg PO DAILY 02/17/17 09/02/18 History L.acidoph,Paracasei, B.lactis 1 cap PO DAILY 02/17/17 09/02/18 History [Probiotic] Spironolactone [Aldactone] 25 mg PO DAILY 02/17/17 09/02/18 History Metoprolol Tartrate [Lopressor] 25 mg PO BID tab 02/21/17 09/02/18 Rx Famotidine [Pepcid] 20 mg PO DAILY 11/23/17 09/02/18 History Furosemide [Lasix] 40 mg PO BID #60 tablet 11/24/17 09/02/18 Rx Apixaban [Eliquis] 2.5 mg PO HS 04/18/18 09/02/18 History Apixaban [Eliquis] 5 mg PO QAM 04/18/18 09/02/18 History Benzonatate [Tessalon Perles] 200 mg PO TID 04/18/18 09/02/18 History Levalbuterol HCl [Xopenex 0.63 mg INHALATION RT-Q4H 04/18/18 09/02/18 History Nebulized] Acetaminophen Tab [Tylenol] 650 mg PO Q6HR PRN tab 04/24/18 09/02/18 Rx Ferrous Sulfate [Iron (65 MG 325 mg PO DAILY 09/02/18 09/02/18 History Elemental)] Fexofenadine/Pseudoephedrine 1 tab PO BID 09/02/18 09/02/18 History [Kaylee-D 12 Hour Tablet] Allergies Allergy/AdvReac Type Severity Reaction Status Date / Time diltiazem [From Cardizem] AdvReac Nausea & Verified 09/02/18 14:44 Vomiting verapamil AdvReac Nausea & Verified 09/02/18 14:44 Vomiting Physical Exam Vitals: Vital Signs Temp Pulse Pulse Resp BP BP Pulse Ox 09/03/18 11:44 90 18 124/62 97 09/03/18 08:00 98.2 F 103 H 18 104/60 96 09/03/18 04:00 97.0 F L 97 18 117/67 94 L 09/02/18 23:05 91 18 09/02/18 23:04 97.2 F L 91 18 99/63 97 09/02/18 20:00 97.6 F 103 H 18 106/57 97 09/02/18 19:36 112 H 09/02/18 19:32 108 H 09/02/18 14:19 20 09/02/18 14:13 97.6 F 92 20 129/57 95 Intake and Output 09/02/18 09/03/18 09/03/18 22:59 06:59 14:59 Intake Total 270 160 Output Total 600 1050 275 Balance -330 -1050 -115 Intake: Oral 270 160 Output: Urine 600 1050 275 Other: Voiding Method Bedside Commode Bedside Commode # Voids 3 2 1 Weight 44.7 kg 44.7 kg - Constitutional General appearance: mild distress - EENT Eyes: PERRLA Ears: bilateral: normal - Respiratory Respiratory: bilateral: wheezing - Cardiovascular Rhythm: irregularly irregular Abnormal Heart Sounds: systolic murmur - Gastrointestinal General gastrointestinal: soft - Neurologic Neurologic: CNII-XII intact - Psychiatric Psychiatric: A&O x's 3, appropriate affect, intact judgment & insight Results CBC & Chem 7: 09/02/18 15:02 09/02/18 15:02 Labs: Abnormal Lab Results - Last 24 Hours (Table) 09/02/18 09/02/18 09/02/18 Range/Units 15:02 15:02 15:02 RBC 2.98 L (3.80-5.40) m/uL Hgb 8.5 L (11.4-16.0) gm/dL Hct 27.3 L (34.0-46.0) % RDW 16.1 H (11.5-15.5) % Lymphocytes # 0.6 L (1.0-4.8) k/uL PT 15.3 H (9.0-12.0) sec INR 1.5 H (<1.2) Sodium 132 L (137-145) mmol/L Chloride 90 L (98-107) mmol/L Carbon Dioxide 34 H (22-30) mmol/L BUN 26 H (7-17) mg/dL Glucose 122 H (74-99) mg/dL Alkaline Phosphatase 185 H (38-126) U/L Total Protein 8.4 H (6.3-8.2) g/dL Albumin 3.4 L (3.5-5.0) g/dL Chest x-ray: report reviewed Thrombosis Risk Factor Assmnt - Choose All That Apply Each Factor Represents 1 point: Abnormal pulmonary function (COPD), Heart failure (<1month), Swollen legs (current) Each Risk Factor Represents 3 Points: Age 75 years or older Thrombosis Risk Factor Assessment Total Risk Factor Score: 6 Thrombosis Risk Factor Assessment Level: High Risk Assessment and Plan Plan: Assessment Congestive heart failure and diastolic dysfunction acute on chronic Pulmonary fibrosis Severe pulmonary hypertension Hypertension Anemia normocytic Chronic persistent atrial fibrillation Hyperlipidemia Peripheral vascular disease history of CVA Medical debility with weakness Plan Cardiology and pulmonology consultation I consultation with Dr. Iraheta for rehab
[2018-09-03] MEDS: DOCUSATE 100 MG CAP PO PRN (15:30)
[2018-09-03] MEDS: APIXABAN 2.5 MG TABLET PO SCH (20:43)
[2018-09-03] MEDS ORDERED: LEVALBUTEROL HCL 0.63 MG INHALATION PRN (22:04)
[2018-09-04] MEDS: FUROSEMIDE 10 MG/ML 4 ML VIAL IV SCH ×3 (06:36→22:50)
[2018-09-04] MEDS: LEVALBUTEROL HCL 0.63 MG INHALATION PRN ×3 (08:02→15:09)
[2018-09-04] MEDS: BENZONATATE 100 MG CAP PO SCH ×3 (08:38→20:13)
[2018-09-04] MEDS: FAMOTIDINE 20 MG TAB PO SCH (08:38)
[2018-09-04] MEDS: METOPROLOL TARTRATE 25 MG TAB PO SCH ×2 (08:39→20:12)
[2018-09-04] MEDS: APIXABAN 5 MG TAB PO SCH (08:39)
[2018-09-04] MEDS: SPIRONOLACTONE 25 MG TAB PO SCH (08:39)
[2018-09-04] MEDS: FEXOFENADINE PO SCH ×2 (08:39→20:12)
[2018-09-04] MEDS: FERROUS SULFATE 325 MG TAB PO SCH (08:39)
[2018-09-04] MEDS: DIGOXIN 125 MCG TAB PO SCH (08:39)
--- NOTE | 2018-09-04 10:32 | ECHOF ---
Referral Reason:chf MEASUREMENTS -------- HEIGHT: 154.9 cm WEIGHT: 44.5 kg BP: 104/60 RVIDd: 4.5 cm (< 3.3) IVSd: 0.9 cm (0.6 - 1.1) LVIDd: 2.6 cm (3.9 - 5.3) LVPWd: 0.8 cm (0.6 - 1.1) IVSs: 1.2 cm LVIDs: 0.9 cm LVPWs: 1.5 cm LAESV Index (A-L): 35.35 ml/m Ao Diam: 2.6 cm (2.0 - 3.7) AV Cusp: 1.8 cm (1.5 - 2.6) LA Diam: 4.5 cm (2.7 - 3.8) MV EXCURSION: 13.883 mm (> 18.000) MV EF SLOPE: 107 mm/s (70 - 150) EPSS: 0.7 cm MV E Gilberto: 1.59 m/s MV DecT: 224 ms MV A Gilberto: 0.32 m/s MV E/A Ratio: 4.99 RAP: 20.00 mmHg RVSP: 87.75 mmHg FINDINGS -------- Sinus rhythm. This was a technically good study. The left ventricular size is normal. Left ventricular wall thickness is normal. Overall left vent ricular systolic function is normal with, an EF between 55 - 60 %. There is paradoxical/dysynergic septal motion consistent with right ventricular volume overload and/or elevated right ventricular end -diastolic pressure. The right ventricle is severely enlarged. The right ventricular systolic function is moderately imp aired. LA is moderately dilated 34-39 ml/m2 The right atrium is markedly enlarged. Aortic valve is trileaflet and is mildly thickened. The mitral valve leaflets are mildly thickened. Mild mitral regurgitation is present. Severe tricuspid regurgitation present. There is severe pulmonary hypertension. The right ventric ular systolic pressure, as measured by Doppler, is 87.75mmHg. The pulmonic valve was not well visualized. There is no pulmonic regurgitation present. The aortic root size is normal. The inferior vena cava is dilated with no significant inspiratory collapse which is consistent estima loida right atrial pressure of >20 mmHg. There is a trivial pericardial effusion present. CONCLUSIONS -------- 1. Sinus rhythm. 2. This was a technically good study. 3. The left ventricular size is normal. 4. Left ventricular wall thickness is normal. 5. Overall left ventricular systolic function is normal with, an EF between 55 - 60 %. 6. There is paradoxical/dysynergic septal motion consistent with right ventricular volume overload an d/or elevated right ventricular end-diastolic pressure. 7. The right ventricle is severely enlarged. 8. The right ventricular systolic function is moderately impaired. 9. LA is moderately dilated 34-39 ml/m2 10. The right atrium is markedly enlarged. 11. Aortic valve is trileaflet and is mildly thickened. 12. The mitral valve leaflets are mildly thickened. 13. Mild mitral regurgitation is present. 14. Severe tricuspid regurgitation present. 15. There is severe pulmonary hypertension. 16. There is no pulmonic regurgitation present. 17. The aortic root size is normal. 18. The inferior vena cava is dilated with no significant inspiratory collapse which is consistent es timated right atrial pressure of >20 mmHg. 19. There is a trivial pericardial effusion present. ANIMAL PATHOLOGY TEACHER: Winsome Hubbard RDCS
--- NOTE | 2018-09-04 11:27 | P.PN ---
Subjective Patient has been sleeping in a chair. States that when she elevates her feet she feels the need to cough. Continues with +3 bilateral pitting edema. Patient has been evaluated by cardiology and pulmonology and rehab Objective - Vital Signs Vital signs: Vital Signs Temp 97.4 F L 09/04/18 07:55 Pulse 100 09/04/18 11:22 Resp 18 09/04/18 07:55 BP 118/70 09/04/18 07:55 Pulse Ox 94 L 09/04/18 07:55 Intake & Output 09/03/18 09/04/18 09/04/18 18:59 06:59 18:59 Intake Total 400 240 Output Total 500 650 Balance -100 -650 240 Weight 44.7 kg 44.6 kg Intake: Oral 400 240 Output: Urine 500 650 Other: Voiding Method Bedside Commode # Voids 1 5 # Bowel Movements 1 - Constitutional General appearance: Present: mild distress - EENT Eyes: Present: PERRLA Ears: bilateral: normal - Neck Neck: Present: normal ROM - Respiratory Respiratory: bilateral: rales - Cardiovascular Rhythm: irregularly irregular Abnormal Heart Sounds: Present: systolic murmur - Peripheral edema leg Peripheral Edema: bilateral: 3+ - Gastrointestinal General gastrointestinal: Present: soft - Integumentary Integumentary: Present: normal - Neurologic Neurologic: Present: CNII-XII intact - Musculoskeletal Musculoskeletal: Present: generalized weakness - Psychiatric Psychiatric: Present: A&O x's 3, appropriate affect, intact judgment & insight - Labs CBC & Chem 7: 09/02/18 15:02 09/02/18 15:02 Labs: Microbiology - Last 24 Hours (Table) 09/02/18 15:02 Blood Culture - Preliminary Blood No Growth after 24 hours 09/02/18 20:40 Gram Stain - Preliminary Sputum Assessment and Plan Plan: Assessment Congestive heart failure diastolic dysfunction acute on chronic Pulmonary fibrosis Hypertension Normocytic anemia Chronic persistent atrial fibrillation Severe pulmonary hypertension Hyperlipidemia Peripheral vascular disease History of CVA with medical debility and weakness Plan continue consultation with cardiology and pulmonology Hopeful discharge to rehab for weakness
[2018-09-04 12:48] LABS: Anion Gap 7 mmol/L; Blood Urea Nitrogen 20 mg/dL (7-17); Calcium 8.9 mg/dL (8.4-10.2); Carbon Dioxide 39 mmol/L (22-30); Chloride 87 mmol/L (98-107); Glucose 140 mg/dL (74-99); Potassium 4.4 mmol/L (3.5-5.1); Sodium 133 mmol/L (137-145)
--- NOTE | 2018-09-04 13:15 | P.PN ---
Subjective Progress Note Date: 09/04/18 Principal diagnosis: Acute exacerbation of diastolic congestive heart failure. The patient is seen today in follow-up on the selective care unit. She is currently awake and alert in no acute distress. She is currently sitting up in a chair at the bedside. Currently maintaining good O2 saturations in the mid 90s on room air. She's been afebrile. Hemodynamically stable. Sputum cultures positive for gram-negative bacilli. Blood culture reveals no growth. Sodium 133. Bicarb 39. Creatinine 0.61. She remains on Lasix 40 mg IV every 8 hours. Bronchodilators form of Xopenex. Anticoagulated with Eliquis. She remains in a negative balance. Weight 44.6 kg. Objective - Vital Signs Vital signs: Vital Signs Temp 97.4 F L 09/04/18 07:55 Pulse 100 09/04/18 11:22 Resp 18 09/04/18 07:55 BP 118/70 09/04/18 07:55 Pulse Ox 94 L 09/04/18 07:55 Intake & Output 09/03/18 09/04/18 09/04/18 18:59 06:59 18:59 Intake Total 400 240 Output Total 500 650 Balance -100 -650 240 Weight 44.7 kg 44.6 kg Intake: Oral 400 240 Output: Urine 500 650 Other: Voiding Method Bedside Commode # Voids 1 5 # Bowel Movements 1 - Exam GENERAL EXAM: Alert, active, comfortable in no apparent distress. On room air. HEAD: Normocephalic. EYES: Normal reaction of pupils, equal size. NOSE: Clear with pink turbinates. THROAT: No erythema or exudates. NECK: No masses, no JVD. CHEST: No chest wall deformity. LUNGS: Equal air entry with crackles in the bilateral posterior bases left greater than right. CVS: S1 and S2 normal with no audible murmur, regular rhythm. ABDOMEN: No hepatosplenomegaly, normal bowel sounds, no guarding or rigidity. SPINE: No scoliosis or deformity SKIN: No rashes CENTRAL NERVOUS SYSTEM: No focal deficits, tone is normal in all 4 extremities. EXTREMITIES: There is 2-3+ peripheral edema. Wesley wraps in place. No clubbing, no cyanosis. Peripheral pulses are intact. - Labs CBC & Chem 7: 09/02/18 15:02 09/04/18 12:25 Labs: Abnormal Lab Results - Last 24 Hours (Table) 09/04/18 Range/Units 12:25 Sodium 133 L (137-145) mmol/L Chloride 87 L (98-107) mmol/L Carbon Dioxide 39 H (22-30) mmol/L BUN 20 H (7-17) mg/dL Glucose 140 H (74-99) mg/dL Microbiology - Last 24 Hours (Table) 09/02/18 20:40 Gram Stain - Preliminary Sputum Sputum Culture - Preliminary Gram Neg Bacilli 09/02/18 15:02 Blood Culture - Preliminary Blood No Growth after 24 hours Assessment and Plan Assessment: Impression: #1 Acute exacerbation of chronic diastolic congestive heart failure. #2 Moderate to severe pulmonary hypertension with an RVSP of 87 mmHg. #3 Atrial fibrillation, anticoagulated with Eliquis. Previous ablation. #4 Pulmonary fibrosis. #5 Hypertension. #6 Chronic lower extremity edema. Wesley wraps in place. #7 History of diverticulosis. #8 History of peptic ulcer disease requiring surgery. #9 History of CVA without significant residuals. Plan: The patient was seen and evaluated by Dr. Spear. She is improved today as compared to yesterday. We'll continue with the current medications. Continue to diurese. Increase her activity as tolerated. We'll continue to follow make further recommendations based on her clinical status. I, the cosigning physician, performed a history & physical examination of the patient. Lungs sounds with crackles in the bilateral posterior bases. Maintaining good O2 saturations in the 90s on room air. I discussed the assessment and plan of care with my nurse practitioner, Dea Desai. I attest to the above note as dictated by her.
--- NOTE | 2018-09-04 15:42 | P.PN ---
Subjective Progress Note Date: 09/04/18 This is a pleasant 78-year-old female who follows regularly with Dr. Dhillon in the office. She has known history for chronic persistent atrial fibrillation on anticoagulation, chronic diastolic heart failure, hypertension, pulmonary fibrosis with pulmonary hypertension, peripheral vascular disease, hyperlipidemia. She presents to the hospital with symptoms of progressively worsening shortness of breath with associated worsening in bilateral lower extremity peripheral edema. Chest x-ray on admission here showed findings similar to prior exam, difficult to exclude congestive heart failure, underlying pulmonary fibrosis. EKG shows atrial fibrillation with controlled ventricular response. White blood cell count 6.3, hemoglobin 8.5, platelet count 219. Sodium 132, potassium 4.1, BUN 26 and creatinine 0.55. Troponin 0.012. BNP level 1840. Blood pressure 104/60 with a heart rate 90s to low 100s, 96% on room air. At the time of my examination this morning, patient is sitting up in her chair at bedside, she does state that she has been urinating a significant amount through the night last night. She has bilateral Wesley wraps to her lower extremities. 09/04/2018 Patient seen and examined this morning, sitting up in the chair, overall feeling better. Continues to have a significant amount of bilateral peripheral edema. I pressure 128/60 with a heart rate in the 80s, 98% on room air. Sodium 133, potassium 4.4, BUN 20 and creatinine 0.6. P Objective - Vital Signs Vital signs: Vital Signs Temp 97.4 F L 09/04/18 07:55 Pulse 89 09/04/18 15:32 Resp 18 09/04/18 15:32 BP 128/61 09/04/18 15:32 Pulse Ox 98 09/04/18 15:32 Intake & Output 09/03/18 09/04/18 09/04/18 18:59 06:59 18:59 Intake Total 400 960 Output Total 152 062 5534 Balance -100 -650 -240 Weight 44.7 kg 44.6 kg Intake: Oral 400 960 Output: Urine 122 068 2214 Other: Voiding Method Bedside Commode # Voids 1 5 # Bowel Movements 1 - Exam PHYSICAL EXAMINATION: GENERAL: 78-year-old female in no acute distress at the time of my examination HEENT: Head is atraumatic, normocephalic. Pupils equal, round. Sclera anicteric. Conjunctiva are clear. Mucous membranes of the mouth are moist. N berta is supple. There is elevated jugular venous pressure. No carotid bruit is heard. HEART EXAMINATION: S1 and S2 irregularly irregular, soft systolic murmur is heard,para sternal heave is noted. CHEST EXAMINATION: Lungs reveal coarse fibrotic rales throughout ABDOMEN: Soft, nontender. Bowel sounds are heard. No organomegaly noted. EXTREMITIES: 1+ peripheral pulses with 1+ evidence of peripheral edema and no calf tenderness noted. Bilateral Wesley wraps in place NEUROLOGIC patient is awake, alert and oriented 3 . - Labs CBC & Chem 7: 09/02/18 15:02 09/04/18 12:25 Labs: Abnormal Lab Results - Last 24 Hours (Table) 09/04/18 Range/Units 12:25 Sodium 133 L (137-145) mmol/L Chloride 87 L (98-107) mmol/L Carbon Dioxide 39 H (22-30) mmol/L BUN 20 H (7-17) mg/dL Glucose 140 H (74-99) mg/dL Microbiology - Last 24 Hours (Table) 09/02/18 20:40 Gram Stain - Preliminary Sputum Sputum Culture - Preliminary Gram Neg Bacilli 09/02/18 15:02 Blood Culture - Preliminary Blood No Growth after 24 hours Assessment and Plan Plan: Assessment and plan #1 diastolic congestive heart failure acute on chronic #2 pulmonary fibrosis #3 hypertension #4 normocytic normochromic anemia #5 chronic persistent atrial fibrillation on Eliquis for anticoagulation #6 severe pulmonary hypertension #7 hyperlipidemia Plan We will continue current dose of IV Lasix, monitoring intake and output along with daily weights and daily lytes BUN and creatinine. DNP note has been reviewed, I agree with a documented findings and plan of care. Patient was seen and examined.
[2018-09-04] MEDS: APIXABAN 2.5 MG TABLET PO SCH (20:12)
[2018-09-04] MEDS: DOCUSATE 100 MG CAP PO PRN (20:12)
[2018-09-05] MEDS: FUROSEMIDE 10 MG/ML 4 ML VIAL IV SCH ×3 (06:26→22:43)
[2018-09-05 06:38] LABS: Anisocytosis Slight; Basophils % (A) 0 %; Eosinophils # (A) 0.1 k/uL (0-0.7); Eosinophils % (A) 1 %; HCT 28.3 % (34.0-46.0); HGB 8.8 gm/dL (11.4-16.0); Hypochromasia Marked; Lymphocytes # (A) 0.6 k/uL (1.0-4.8); Lymphocytes % (A) 8 %; MCH 28.8 pg (25.0-35.0); MCV 92.9 fL (80.0-100.0); Mean Platelet Volume 6.5; Monocytes # (A) 0.5 k/uL (0-1.0); Monocytes % (A) 6 %; Neutrophils # (A) 6.9 k/uL (1.3-7.7); Neutrophils % (A) 83 %; Platelet Count 296 k/uL (150-450); RBC 3.04 m/uL (3.80-5.40); RDW 16.6 % (11.5-15.5); WBC 8.3 k/uL (3.8-10.6)
[2018-09-05 07:20] LABS: ALT 20 U/L (9-52); AST 23 U/L (14-36); Albumin 3.7 g/dL (3.5-5.0); Alkaline Phosphatase 197 U/L (38-126); Anion Gap 10 mmol/L; Blood Urea Nitrogen 19 mg/dL (7-17); Carbon Dioxide 38 mmol/L (22-30); Chloride 85 mmol/L (98-107); Glucose 126 mg/dL (74-99); Potassium 3.9 mmol/L (3.5-5.1); Sodium 133 mmol/L (137-145); Total Bilirubin 0.9 mg/dL (0.2-1.3); Total Protein 8.9 g/dL (6.3-8.2)
[2018-09-05] MEDS: LEVALBUTEROL HCL 0.63 MG INHALATION PRN ×4 (07:41→20:31)
[2018-09-05] MEDS: BENZONATATE 100 MG CAP PO SCH ×3 (09:45→22:43)
[2018-09-05] MEDS: SPIRONOLACTONE 25 MG TAB PO SCH (09:45)
[2018-09-05] MEDS: METOPROLOL TARTRATE 25 MG TAB PO SCH ×2 (09:45→20:26)
[2018-09-05] MEDS: FAMOTIDINE 20 MG TAB PO SCH (09:45)
[2018-09-05] MEDS: DIGOXIN 125 MCG TAB PO SCH (09:45)
[2018-09-05] MEDS: DOCUSATE 100 MG CAP PO PRN (09:45)
[2018-09-05] MEDS: FERROUS SULFATE 325 MG TAB PO SCH (09:45)
[2018-09-05] MEDS: APIXABAN 5 MG TAB PO SCH (09:45)
[2018-09-05] MEDS: FEXOFENADINE PO SCH ×2 (09:46→20:26)
--- NOTE | 2018-09-05 11:56 | P.PN ---
Subjective Patient's wishes are to go to extended care facility for rehab first choice [facility] was declined. Patient hopeful for admission to [facility] for rehab. Continues to complain of shortness of breath and leg edema Objective - Vital Signs Vital signs: Vital Signs Temp 97.4 F L 09/05/18 08:00 Pulse 110 H 09/05/18 11:34 Resp 16 09/05/18 11:34 BP 114/65 09/05/18 08:00 Pulse Ox 99 09/05/18 08:00 Intake & Output 09/04/18 09/05/18 09/05/18 18:59 06:59 18:59 Intake Total 960 10 Output Total 1200 1075 200 Balance -240 -1065 -200 Weight 43.3 kg Intake: IV 10 0.9 10 Oral 960 Output: Urine 1200 1075 200 Other: Voiding Method Bedside Commode # Voids 2 - Constitutional General appearance: Present: mild distress - EENT Eyes: Present: PERRLA Ears: bilateral: normal - Neck Neck: Present: normal ROM - Respiratory Respiratory: bilateral: diminished, wheezing - Cardiovascular Rhythm: irregularly irregular Abnormal Heart Sounds: Present: systolic murmur - Peripheral edema leg Peripheral Edema: bilateral: 3+ - Gastrointestinal General gastrointestinal: Present: soft - Integumentary Integumentary: Present: normal - Neurologic Neurologic: Present: CNII-XII intact - Musculoskeletal Musculoskeletal: Present: generalized weakness - Psychiatric Psychiatric: Present: A&O x's 3, appropriate affect, intact judgment & insight - Labs CBC & Chem 7: 09/05/18 06:10 09/05/18 06:10 Labs: Abnormal Lab Results - Last 24 Hours (Table) 09/04/18 09/05/18 09/05/18 Range/Units 12:25 06:10 06:10 RBC 3.04 L (3.80-5.40) m/uL Hgb 8.8 L (11.4-16.0) gm/dL Hct 28.3 L (34.0-46.0) % RDW 16.6 H (11.5-15.5) % Lymphocytes # 0.6 L (1.0-4.8) k/uL Sodium 133 L 133 L (137-145) mmol/L Chloride 87 L 85 L (98-107) mmol/L Carbon Dioxide 39 H 38 H (22-30) mmol/L BUN 20 H 19 H (7-17) mg/dL Glucose 140 H 126 H (74-99) mg/dL Alkaline Phosphatase 197 H (38-126) U/L Total Protein 8.9 H (6.3-8.2) g/dL Microbiology - Last 24 Hours (Table) 09/02/18 15:02 Blood Culture - Preliminary Blood No Growth after 48 hours 09/02/18 20:40 Gram Stain - Preliminary Sputum Sputum Culture - Preliminary Gram Neg Bacilli Assessment and Plan Plan: Assessment Congestive heart failure diastolic dysfunction acute on chronic Pulmonary fibrosis Hypertension Normocytic anemia Chronic persistent atrial fibrillation Severe pulmonary hypertension Hyperlipidemia Peripheral vascular disease History of CVA medical debility Weakness Plan Continue consultation with cardiology pulmonology Hopeful transfer soon to [facility] for rehab
--- NOTE | 2018-09-05 12:33 | P.PN ---
Subjective Progress Note Date: 09/05/18 This is a pleasant 78-year-old female who follows regularly with Dr. Dhillon in the office. She has known history for chronic persistent atrial fibrillation on anticoagulation, chronic diastolic heart failure, hypertension, pulmonary fibrosis with pulmonary hypertension, peripheral vascular disease, hyperlipidemia. She presents to the hospital with symptoms of progressively worsening shortness of breath with associated worsening in bilateral lower extremity peripheral edema. Chest x-ray on admission here showed findings similar to prior exam, difficult to exclude congestive heart failure, underlying pulmonary fibrosis. EKG shows atrial fibrillation with controlled ventricular response. White blood cell count 6.3, hemoglobin 8.5, platelet count 219. Sodium 132, potassium 4.1, BUN 26 and creatinine 0.55. Troponin 0.012. BNP level 1840. Blood pressure 104/60 with a heart rate 90s to low 100s, 96% on room air. At the time of my examination this morning, patient is sitting up in her chair at bedside, she does state that she has been urinating a significant amount through the night last night. She has bilateral Wesley wraps to her lower extremities. 09/04/2018 Patient seen and examined this morning, sitting up in the chair, overall feeling better. Continues to have a significant amount of bilateral peripheral edema. I pressure 128/60 with a heart rate in the 80s, 98% on room air. Sodium 133, potassium 4.4, BUN 20 and creatinine 0.6. 09/05/2018 Patient seen and examined this morning, continues to improve every day. She is still on IV Lasix, we will continue that for this evening's dose, and from tomorrow morning global climate change analyst to oral diuretics. Check her lytes BUN and creatinine in the morning. P Objective - Vital Signs Vital signs: Vital Signs Temp 97.4 F L 09/05/18 08:00 Pulse 110 H 09/05/18 11:34 Resp 16 09/05/18 11:34 BP 114/65 09/05/18 08:00 Pulse Ox 99 09/05/18 08:00 Intake & Output 09/04/18 09/05/18 09/05/18 18:59 06:59 18:59 Intake Total 960 10 Output Total 1200 1075 200 Balance -240 -1065 -200 Weight 43.3 kg Intake: IV 10 0.9 10 Oral 960 Output: Urine 1200 1075 200 Other: Voiding Method Bedside Commode # Voids 2 - Exam PHYSICAL EXAMINATION: GENERAL: 78-year-old female in no acute distress at the time of my ex amination HEENT: Head is atraumatic, normocephalic. Pupils equal, round. Sclera anicteric. Conjunctiva are clear. Mucous membranes of the mouth are moist. Neck is supple. There is elevated jugular venous pressure. No carotid bruit is heard. HEART EXAMINATION: S1 and S2 irregularly irregular, soft systolic murmur is heard,para sternal heave is noted. CHEST EXAMINATION: Lungs reveal coarse fibrotic rales throughout ABDOMEN: Soft, nontender. Bowel sounds are heard. No organomegaly noted. EXTREMITIES: 1+ peripheral pulses with trace to 1+ evidence of peripheral edema and no calf tenderness noted. Bilateral Wesley wraps in place NEUROLOGIC patient is awake, alert and oriented 3 . - Labs CBC & Chem 7: 09/05/18 06:10 09/05/18 06:10 Labs: Abnormal Lab Results - Last 24 Hours (Table) 09/04/18 09/05/18 09/05/18 Range/Units 12:25 06:10 06:10 RBC 3.04 L (3.80-5.40) m/uL Hgb 8.8 L (11.4-16.0) gm/dL Hct 28.3 L (34.0-46.0) % RDW 16.6 H (11.5-15.5) % Lymphocytes # 0.6 L (1.0-4.8) k/uL Sodium 133 L 133 L (137-145) mmol/L Chloride 87 L 85 L (98-107) mmol/L Carbon Dioxide 39 H 38 H (22-30) mmol/L BUN 20 H 19 H (7-17) mg/dL Glucose 140 H 126 H (74-99) mg/dL Alkaline Phosphatase 197 H (38-126) U/L Total Protein 8.9 H (6.3-8.2) g/dL Microbiology - Last 24 Hours (Table) 09/02/18 15:02 Blood Culture - Preliminary Blood No Growth after 48 hours 09/02/18 20:40 Gram Stain - Preliminary Sputum Sputum Culture - Preliminary Gram Neg Bacilli Assessment and Plan Plan: Assessment and plan #1 diastolic congestive heart failure acute on chronic #2 pulmonary fibrosis #3 hypertension #4 normocytic normochromic anemia #5 chronic persistent atrial fibrillation on Eliquis for anticoagulation #6 severe pulmonary hypertension #7 hyperlipidemia Plan We will continue current dose of IV Lasix until this evening, from tomorrow morning we will global climate change analyst to oral diuretics. Check lytes BUN and creatinine this afternoon and in the morning. DNP note has been reviewed, I agree with a documented findings and plan of care. Patient was seen and examined.
--- NOTE | 2018-09-05 13:31 | P.PN ---
Subjective Progress Note Date: 09/05/18 Principal diagnosis: Acute exacerbation of diastolic congestive heart failure. The patient is seen again today in follow-up on the selective care unit. She is currently sitting up in a chair at the bedside. She is awake and alert in no acute distress. She is breathing easier today as compared to yesterday. Currently maintaining good O2 saturations in the upper 90s on room air. She's been afebrile. Sputum culture was positive for few gram-negative bacilli, still pending. Blood culture reveals no growth. White count 8.3. Hemoglobin 8.8. Creatinine 0.58. She remains on Lasix 40 mg IV every 8 hours. Currently in a negative balance. Weight 43.3 kg. Objective - Vital Signs Vital signs: Vital Signs Temp 97.4 F L 09/05/18 08:00 Pulse 110 H 09/05/18 12:00 Resp 18 09/05/18 12:00 BP 123/60 09/05/18 12:00 Pulse Ox 98 09/05/18 12:00 Intake & Output 09/04/18 09/05/18 09/05/18 18:59 06:59 18:59 Intake Total 960 10 Output Total 1200 1075 200 Balance -240 -1065 -200 Weight 43.3 kg Intake: IV 10 0.9 10 Oral 960 Output: Urine 1200 1075 200 Other: Voiding Method Bedside Commode # Voids 2 - Exam GENERAL EXAM: Frail elderly 78-year-old female. Alert, active, comfortable in no apparent distress. On room air. HEAD: Normocephalic. EYES: Normal reaction of pupils, equal size. NOSE: Clear with pink turbinates. THROAT: No erythema or exudates. NECK: No masses, no JVD. CHEST: No chest wall deformity. LUNGS: Equal air entry with crackles in the bilateral posterior bases left g reater than right. CVS: S1 and S2 normal with no audible murmur, regular rhythm. ABDOMEN: No hepatosplenomegaly, normal bowel sounds, no guarding or rigidity. SPINE: No scoliosis or deformity SKIN: No rashes CENTRAL NERVOUS SYSTEM: No focal deficits, tone is normal in all 4 extremities. EXTREMITIES: There is 2-3+ peripheral edema. Wesley wraps in place. No clubbing, no cyanosis. Peripheral pulses are intact. - Labs CBC & Chem 7: 09/05/18 06:10 03/13/19 06:10 Labs: Abnormal Lab Results - Last 24 Hours (Table) 09/05/18 09/05/18 Range/Units 06:10 06:10 RBC 3.04 L (3.80-5.40) m/uL Hgb 8.8 L (11.4-16.0) gm/dL Hct 28.3 L (34.0-46.0) % RDW 16.6 H (11.5-15.5) % Lymphocytes # 0.6 L (1.0-4.8) k/uL Sodium 133 L (137-145) mmol/L Chloride 85 L (98-107) mmol/L Carbon Dioxide 38 H (22-30) mmol/L BUN 19 H (7-17) mg/dL Glucose 126 H (74-99) mg/dL Alkaline Phosphatase 197 H (38-126) U/L Total Protein 8.9 H (6.3-8.2) g/dL Microbiology - Last 24 Hours (Table) 09/02/18 15:02 Blood Culture - Preliminary Blood No Growth after 48 hours 09/02/18 20:40 Gram Stain - Preliminary Sputum Sputum Culture - Preliminary Gram Neg Bacilli Assessment and Plan Assessment: Impression: #1 Acute exacerbation of chronic diastolic congestive heart failure. #2 Moderate to severe pulmonary hypertension with an RVSP of 87 mmHg. #3 Atrial fibrillation, anticoagulated with Eliquis. Previous ablation. #4 Pulmonary fibrosis. #5 Hypertension. #6 Chronic lower extremity edema. Wesley wraps in place. #7 History of diverticulosis. #8 History of peptic ulcer disease requiring surgery. #9 History of CVA without significant residuals. Plan: The patient was seen and evaluated by Dr. Spear. She is currently stable from the pulmonary standpoint. We'll continue with the current medications. Continue to diurese. Increase her activity as tolerated. Discharge planning is in place for possible subacute rehabilitation. We'll continue to follow make further recommendations based on her clinical status. I, the cosigning physician, performed a history & physical examination of the patient. Lungs sounds with crackles in the bilateral posterior bases. Ma intaining good O2 saturations in the 90s on room air. I discussed the assessment and plan of care with my nurse practitioner, Dea Desai. I attest to the above note as dictated by her.
[2018-09-05] MEDS: APIXABAN 2.5 MG TABLET PO SCH (20:26)
[2018-09-06] MEDS: FUROSEMIDE 10 MG/ML 4 ML VIAL IV SCH ×3 (06:39→22:08)
[2018-09-06] MEDS: FAMOTIDINE 20 MG TAB PO SCH (08:21)
[2018-09-06] MEDS: SPIRONOLACTONE 25 MG TAB PO SCH (08:21)
[2018-09-06] MEDS: DIGOXIN 125 MCG TAB PO SCH (08:21)
[2018-09-06] MEDS: FEXOFENADINE PO SCH ×2 (08:21→22:08)
[2018-09-06] MEDS: FERROUS SULFATE 325 MG TAB PO SCH (08:21)
[2018-09-06] MEDS: APIXABAN 5 MG TAB PO SCH (08:21)
[2018-09-06] MEDS: BENZONATATE 100 MG CAP PO SCH ×3 (08:21→22:08)
[2018-09-06] MEDS: METOPROLOL TARTRATE 25 MG TAB PO SCH ×2 (08:21→22:09)
--- NOTE | 2018-09-06 09:33 | P.PN ---
Progress Note - Text Progress Note Date: 09/06/18 This is 78-year-old female with history of pulmonary fibrosis and cor pulmonale was admitted to the hospital with increasing pedal swelling and shortness of breath. Patient has been treated with IV diuretics with improvement. Patient's edema is mostly clear. There is still 1-2+ edema. The legs are wrapped. She is feeling much better. Her LV function is preserved. Right ventricle is dilated with severe pulmonary hypertension.. Lab values: Laboratory values from today showed hemoglobin of 8.8 which seemed to be stable. White count is normal. Electoral lites are normal. Her BUN is 19 and creatinine is 0.58. These values are from September 05. GENERAL EXAM: Patient is alert and oriented and doesn't appear to be in any acute distress HEENT: Normocephalic. Normal reaction of pupils, equal size, normal range of extraocular motion. No erythema or exudates in the throat. NECK: No masses, no nuchal rigidity. CHEST: No chest wall deformity. LUNGS: Diminished air exchange HEART: S1 and S2 normal. Distant heart sounds ABDOMEN: No hepatosplenomegaly, normal bowel sounds, no guarding or rigidity. SKIN: No rashes CENTRAL NERVOUS SYSTEM: No focal deficits. EXTREMITIES: Resolving edema. Final impression: #1. Cor pulmonale/diastolic CHF #2. Pulmonary fibrosis #3. Severe pulmonary hypertension. #4. Chronic anemia. Plan continue current medical therapy. May switch to by mouth diuretics. Possible discharge within next 24-48 hours
[2018-09-06] MEDS ORDERED: IPRATROPIUM-ALBUTEROL 3 ML NEB INHALATION PRN (09:42)
--- NOTE | 2018-09-06 11:46 | P.PN ---
Subjective Patient noted to have a urinary tract infection pseudomonas sensitive to Levaquin ordered. Patient was decided [facility] . Hopeful transfer tomorrow. Continues to complain of poor appetite we'll continue on consult with cardiology Objective - Vital Signs Vital signs: Vital Signs Temp 97.6 F 09/06/18 07:30 Pulse 102 H 09/06/18 10:58 Resp 18 09/06/18 07:30 BP 117/58 09/06/18 07:30 Pulse Ox 96 09/06/18 07:41 Intake & Output 09/05/18 09/06/18 09/06/18 18:59 06:59 18:59 Intake Total 322 20 120 Output Total 200 450 325 Balance 122 -430 -205 Weight 43 kg Intake: IV 20 0.9 20 Oral 322 120 Output: Urine 200 450 325 Other: Voiding Method Bedside Commode # Voids 1 1 # Bowel Movements 1 - Constitutional General appearance: Present: mild distress - EENT Eyes: Present: PERRLA Ears: bilateral: normal - Neck Neck: Present: normal ROM - Respiratory Respiratory: bilateral: diminished - Cardiovascular Rhythm: irregularly irregular Abnormal Heart Sounds: Present: systolic murmur - Gastrointestinal General gastrointestinal: Present: soft - Integumentary Integumentary: Present: normal - Neurologic Neurologic: Present: CNII-XII intact - Musculoskeletal Musculoskeletal: Present: generalized weakness - Psychiatric Psychiatric: Present: appropriate affect, intact judgment & insight - Labs CBC & Chem 7: 09/05/18 06:10 09/05/18 06:10 Labs: Microbiology - Last 24 Hours (Table) 09/02/18 20:40 Gram Stain - Final Sputum Sputum Culture - Final Pseudomonas aeruginosa 09/02/18 15:02 Blood Culture - Preliminary Blood No Growth after 72 hours Assessment and Plan Plan: Assessment Congestive heart failure diastolic dysfunction acute on chronic Severe pulmonary hypertension Pulmonary fibrosis Hypertension Anemia normocytic chronic persistent atrial fibrillation Hyperlipidemia peripheral vascular disease UTI pseudomonas Levaquin ordered Peripheral vascular disease History of CVA with medical debility Weakness Leg edema Plan Transferred to [facility] Continue consultation with pulmonology and cardiology
[2018-09-06 11:57] VITALS: BMI 17.6
[2018-09-06] MEDS: LEVOFLOXACIN 500 MG TAB PO SCH (12:53)
--- NOTE | 2018-09-06 14:05 | P.PN ---
Subjective Progress Note Date: 09/06/18 Principal diagnosis: Acute exacerbation of diastolic congestive heart failure. The patient is seen today in follow-up in the selective care unit. She is awake and alert in no acute distress. Currently sitting up in a chair at the bedside. She denies any worsening shortness of breath, cough or congestion. He is maintaining good O2 saturations in the mid 90s on room air. She's been afebrile. Hemodynamically stable. Sputum culture positive for pseudomonas aeruginosa. She remains on Levaquin. She is anticoagulated with Eliquis. She remains on IV diuretics. Remains on Lopressor and Lanoxin for rate control. Objective - Vital Signs Vital signs: Vital Signs Temp 97.6 F 09/06/18 07:30 Pulse 102 H 09/06/18 10:58 Resp 18 09/06/18 07:30 BP 117/58 09/06/18 07:30 Pulse Ox 96 09/06/18 07:41 Intake & Output 09/05/18 09/06/18 09/06/18 18:59 06:59 18:59 Intake Total 322 20 360 Output Total 200 450 325 Balance 122 -430 35 Weight 43 kg 43 kg Intake: IV 20 0.9 20 Oral 322 360 Output: Urine 200 450 325 Other: Voiding Method Bedside Commode # Voids 1 1 # Bowel Movements 1 - Exam GENERAL EXAM: Frail elderly 78-year-old female. Alert, comfortable in no apparent distress. On room air. HEAD: Normocephalic. EYES: Normal reaction of pupils, equal size. NOSE: Clear with pink turbinates. THROAT: No erythema or exudates. NECK: No masses, no JVD. CHEST: No chest wall deformity. LUNGS: Equal air entry with crackles in the bilateral posterior bases left greater than right. CVS: S1 and S2 normal with no audible murmur, regular rhythm. ABDOMEN: No hepatosplenomegaly, normal bowel sounds, no guarding or rigidity. SPINE: No scoliosis or deformity SKIN: No rashes CENTRAL NERVOUS SYSTEM: No focal deficits, tone is normal in all 4 extremities. EXTREMITIES: There is 2-3+ peripheral edema. Wesley wraps in place. No clubbing, no cyanosis. Peripheral pulses are intact. - Labs CBC & Chem 7: 09/05/18 06:10 09/05/18 06:10 Labs: Microbiology - Last 24 Hours (Table) 09/02/18 20:40 Gram Stain - Final Sputum Sputum Culture - Final Pseudomonas aeruginosa 09/02/18 15:02 Blood Culture - Preliminary Blood No Growth after 72 hours Assessment and Plan Assessment: Impression: #1 Acute exacerbation of chronic diastolic congestive heart failure. #2 Moderate to severe pulmonary hypertension with an RVSP of 87 mmHg. #3 Atrial fibrillation, anticoagulated with Eliquis. Previous ablation. #4 Sputum positive for pseudomonas aeruginosa. Currently on Levaquin. #5 History of pulmonary fibrosis. #6 Chronic lower extremity edema. Wesley wraps in place. #7 History of diverticulosis. #8 History of peptic ulcer disease requiring surgery. #9 History of CVA without significant residuals. #10 Hypertension. Plan: The patient was seen and evaluated by Dr. Spear. She is currently stable from the pulmonary standpoint. We'll continue with the current medications. Continue to diurese. Increase her activity as tolerated. Discharge planning is in place for possible subacute rehabilitation. We'll continue to follow make further recommendations based on her clinical status. I, the cosigning physician, performed a history & physical examination of the patient. Lungs sounds with crackles in the bilateral posterior bases. Mainta ining good O2 saturations in the 90s on room air. I discussed the assessment and plan of care with my nurse practitioner, Dea Desai. I attest to the above note as dictated by her.
[2018-09-06] MEDS: DOCUSATE 100 MG CAP PO PRN (14:46)
[2018-09-06] MEDS: LEVALBUTEROL HCL 0.63 MG INHALATION PRN ×2 (15:19→20:12)
[2018-09-06] MEDS: APIXABAN 2.5 MG TABLET PO SCH (22:09)
[2018-09-07] MEDS: LEVALBUTEROL HCL 0.63 MG INHALATION PRN ×4 (01:14→11:45)
[2018-09-07 03:55] VITALS: RESP 20
[2018-09-07] MEDS: FUROSEMIDE 10 MG/ML 4 ML VIAL IV SCH ×2 (06:17→14:42)
[2018-09-07] MEDS: FAMOTIDINE 20 MG TAB PO SCH (08:12)
[2018-09-07] MEDS: LEVOFLOXACIN 500 MG TAB PO SCH (08:12)
[2018-09-07] MEDS: DIGOXIN 125 MCG TAB PO SCH (08:12)
[2018-09-07] MEDS: APIXABAN 5 MG TAB PO SCH (08:12)
[2018-09-07] MEDS: BENZONATATE 100 MG CAP PO SCH ×2 (08:12→14:42)
[2018-09-07] MEDS: SPIRONOLACTONE 25 MG TAB PO SCH (08:12)
[2018-09-07] MEDS: FEXOFENADINE PO SCH (08:13)
[2018-09-07] MEDS: FERROUS SULFATE 325 MG TAB PO SCH (08:13)
[2018-09-07] MEDS: METOPROLOL TARTRATE 25 MG TAB PO SCH (08:16)
[2018-09-07 09:00] VITALS: BP 114/71; TEMP 98.1
[2018-09-07 11:59] VITALS: PULSE 86
--- NOTE | 2018-09-07 12:41 | P.PN ---
Subjective Progress Note Date: 09/07/18 This 78-year-old female is admitted with increasing shortness of breath and edema. Patient was found to have evidence of carpal normal. Her echo [place] showed good LV function with severe pulmonary hypertension. Patient received IV Lasix with symptomatic improvement in her edema. Patient has feeling well. Patient is being discharged to [facility]. We'll discharge home on Lasix 40 mg by mouth twice a day. Follow-up as an outpatient Objective - Vital Signs Vital signs: Vital Signs Temp 98.1 F 09/07/18 07:20 Pulse 86 09/07/18 11:58 Resp 20 09/07/18 07:20 BP 114/71 09/07/18 07:20 Pulse Ox 94 L 09/07/18 07:20 Intake & Output 09/06/18 09/07/18 09/07/18 18:59 06:59 18:59 Intake Total 960 180 200 Output Total 675 700 Balance 285 -520 200 Weight 43 kg 43.3 kg Intake: Oral 960 180 200 Output: Urine 675 700 Other: Voiding Method Bedside Commode # Voids 1 1 # Bowel Movements 1 - Exam GENERAL EXAM: Patient is alert and oriented and doesn't appear to be in any acute distress HEENT: Normocephalic. Normal reaction of pupils, equal size, normal range of extraocular motion. No erythema or exudates in the throat. NECK: No masses, no nuchal rigidity. CHEST: No chest wall deformity. LUNGS: Equal air entry with no crackles or wheeze. HEART: S1 and S2 normal with no audible mumurs or gallops. Regular rhythm, femorals equal on both sides.. ABDOMEN: No hepatosplenomegaly, normal bowel sounds, no guarding or rigidity. SKIN: No rashes CENTRAL NERVOUS SYSTEM: No focal deficits. EXTREMITIES: Edema resolved - Labs CBC & Chem 7: 09/05/18 06:10 09/05/18 06:10 Labs: Microbiology - Last 24 Hours (Table) 09/02/18 15:02 Blood Culture - Preliminary Blood No Growth after 96 hours 09/02/18 20:40 Gram Stain - Final Sputum Sputum Culture - Final Pseudomonas aeruginosa Assessment and Plan Assessment: Patient is admitted with cor pulmonale and diastolic CHF. Patient is much better. She also has severe pulmonary hypertension and COPD. Patient could be discharged home
[2018-09-07] MEDS ORDERED: Magnesium Replacement Protocol 1 EACH MISC MISCELLANE PRN (12:48)
--- NOTE | 2018-09-07 12:49 | P.DS ---
Providers Date of admission: 09/02/18 16:50 Expected date of discharge: 09/07/18 Attending physician: Rigo Hyman Consults: 09/02/18 16:47 Consult Physician Routine Consulting Provider: [facility] Consult Reason/Comments: Acute pulmonary edema Do you want consulting provider notified?: Yes 09/03/18 11:51 Consult Physician Routine Consulting Provider: Lakhwinder Iraheta Consult Reason/Comments: evaluate for inpatient rehab Do you want consulting provider notified?: Already Contacted Pulmonary, Dr. Spear Primary care physician: Rigo Hyman Hospital Course: Final Diagnoses: #1 Acute exacerbation of chronic diastolic congestive heart failure, Cor pulmonale. #2 Moderate to severe pulmonary hypertension ,RVSP of 87 mmHg. #3 Atrial fibrillation, anticoagulated with Eliquis. Previous ablation. #4 Sputum positive for pseudomonas aeruginosa. Currently on Levaquin. #5 Pulmonary fibrosis. #6 Chronic lower extremity edema. Wesley wraps in place. #7 Chronic anemia. #8 History of peptic ulcer disease requiring surgery. #9 History of CVA without significant residuals. #10 Hypertension. Hospital course:this is a 78-year-old female admitted with acute exacerbation of CHF, diastolic dysfunction, moderate to severe pulmonary hypertension, atrial fibrilla and multiple other edical issues. Anticoagulated with Eliquis. Sputum positive for pseudomonas aeruginosa, maintained on Levaquin. Evaluated by cardiology and pulmonary. Diuresed well on Lasix IV push. Oral Lasix dosing increased for discharge as per cardiology.Maintaining O2 sats in the mid 90s on room air. Significant clinical improvement.cleared by all consults for discharge. Patient is being discharged to [facility] subacute rehab in stable condition with guarded prognosis. EXAM: GENERAL: ALert and oriented X 2,no acute distress LUNGS: Equal air entry, diminished with crackles in the bilateral posterior bases left greater than right. CVS: S1 and S2 normal with no audible murmur, regular rhythm. ABDOMEN: soft, nontender,no organomegaly, normal bowel sounds, no guarding or rigidity. NEUROLOGY: No focal deficits EXTREMITIES: Improving 1-2+ peripheral edema,reddened. Wesley wraps. Microbiology 09/02/18 15:02 Blood Blood Culture - Preliminary No Growth after 96 hours 09/02/18 20:40 Sputum Gram Stain - Final 09/02/18 20:40 Sputum Sputum Culture - Final Pseudomonas aeruginosa The impression and plan of care has been dictated as directed. : I performed a history and examination of this patient, discussed the same with the dictator. I agree with the dictator's note ,documented as a scribe. Any additional findings or plans will be noted. Time taken: 35 minutes Patient Condition at Discharge: Stable Plan - Discharge Summary Discharge Rx Participant: No New Discharge Prescriptions: New Docusate [Colace] 100 mg PO DAILY PRN cap PRN Reason: Constipation Levofloxacin [Levaquin] 500 mg PO Q24H #5 tab SILVER sulfADIAZINE CREAM [Silvadene Cream] 1 applic TOPICAL DAILY applic Furosemide [Lasix] 80 mg PO BID #60 tablet Continue L.acidoph,Paracasei, B.lactis [Probiotic] 1 cap PO DAILY Spironolactone [Aldactone] 25 mg PO DAILY Digoxin [Digitek] 125 mcg PO DAILY Metoprolol Tartrate [Lopressor] 25 mg PO BID tab Famotidine [Pepcid] 20 mg PO DAILY Apixaban [Eliquis] 2.5 mg PO HS Apixaban [Eliquis] 5 mg PO QAM Benzonatate [Tessalon Perles] 200 mg PO TID Levalbuterol HCl [Xopenex Nebulized] 0.63 mg INHALATION RT-Q4H Acetaminophen Tab [Tylenol] 650 mg PO Q6HR PRN tab PRN Reason: Mild Pain Or Fever > 100.5 Fexofenadine/Pseudoephedrine [Kaylee-D 12 Hour Tablet] 1 tab PO BID Ferrous Sulfate [Iron (65 MG Elemental)] 325 mg PO DAILY Levalbuterol HCl [Xopenex Nebulized] 0.63 mg INHALATION Q4-6H PRN PRN Reason: Wheezing Discharge Medication List Digoxin [Digitek] 125 mcg PO DAILY 02/17/17 [History] L.acidoph,Paracasei, B.lactis [Probiotic] 1 cap PO DAILY 02/17/17 [History] Spironolactone [Aldactone] 25 mg PO DAILY 02/17/17 [History] Metoprolol Tartrate [Lopressor] 25 mg PO BID tab 02/21/17 [Rx] Famotidine [Pepcid] 20 mg PO DAILY 11/23/17 [History] Apixaban [Eliquis] 2.5 mg PO HS 04/18/18 [History] Apixaban [Eliquis] 5 mg PO QAM 04/18/18 [History] Benzonatate [Tessalon Perles] 200 mg PO TID 04/18/18 [History] Levalbuterol HCl [Xopenex Nebulized] 0.63 mg INHALATION RT-Q4H 04/18/18 [History] Acetaminophen Tab [Tylenol] 650 mg PO Q6HR PRN tab 04/24/18 [Rx] Ferrous Sulfate [Iron (65 MG Elemental)] 325 mg PO DAILY 09/02/18 [History] Fexofenadine/Pseudoephedrine [Kaylee-D 12 Hour Tablet] 1 tab PO BID 09/02/18 [History] Levalbuterol HCl [Xopenex Nebulized] 0.63 mg INHALATION Q4-6H PRN 09/03/18 [History] Docusate [Colace] 100 mg PO DAILY PRN cap 09/07/18 [Rx] Furosemide [Lasix] 80 mg PO BID #60 tablet 09/07/18 [Rx] Levofloxacin [Levaquin] 500 mg PO Q24H #5 tab 09/07/18 [Rx] SILVER sulfADIAZINE CREAM [Silvadene Cream] 1 applic TOPICAL DAILY applic 09/07/18 [Rx] Follow up Appointment(s)/Referral(s): [facility] [Provider Group] - 1 Week Rigo Hyman MD [Primary Care Provider] - 1 Week (after dc from [facility]) Alphonso Maza DO [STAFF PHYSICIAN] - 3 Days (while at [facility]) Cody Spear DO [Doctor of Osteopathic Medicine[facility] Patient Instructions/Handouts: Heart Failure (DC) Activity/Diet/Wound Care/Special Instructions: Medi [facility] Diet: cardiac, Activity: as tolerated cbc,bmp, magnesium in 3 days Silvadene daily to bilateral lower legs daily, followed by gauze dressing, then Wesley wrapped.
[2018-09-07] MEDS: DOCUSATE 100 MG CAP PO PRN (14:42)
--- NOTE | 2018-09-10 14:36 | CDI ---
Documentation Clarification Form Date: 09/10/2018 1:20:00 PM From: Juanita Steen Justina Ledezma, Maori Liaison Adviser Hours-8:30 am & 5 pm MRadha Admit Date: 09/02/2018 4:50:00 PM Patient Name: Margarette Arambula Visit Number: [id number] Discharge Date: 09/07/2018 3:44:00 PM ATTENTION: The Clinical Documentation Specialists (CDI) and [facility] Coding Staff appreciate your assistance in clarifying documentation. Please respond to the clarification below the line at the bottom and electronically sign. The CDI & [facility] Coding staff will review the response and follow-up if needed. Please note: Queries are made part of the Legal Health Record. If you have any questions, please contact the author of this message via ITS. Dr. Rigo Hyman UTI with positive sputum cultures for pseudomonas aeruginosa, maintained on Levaquin is documented in the PNs, DS. History/Risk Factors: HTN, AFIB, CHF Lab findings: Sputum Pseudomonas aeruginosa Radiology findings: CHF/ Pulmonary Fibrosis Treatment: PO Levaquin In your professional opinion, can you please clarify if know the diagnosis related to the above? UTI URI Other, please specify Unable to determine MTDD
== END 2018-09-07 15:44 | DRG 292 ==
LOC: EC 14:11 → 3SCARD 16:50
PROVIDERS: ADMIT Family Medicine; ATTEND Family Medicine
DX: I11.0 Hypertensive heart disease with heart failure (principal); I48.1 Persistent atrial fibrillation; Z68.1 Body mass index [BMI] 19.9 or less, adult; J84.10 Pulmonary fibrosis, unspecified; I27.29 Other secondary pulmonary hypertension; I73.9 Peripheral vascular disease, unspecified; J44.9 Chronic obstructive pulmonary disease, unspecified; D64.9 Anemia, unspecified; R63.0 Anorexia; B96.5 Pseudomonas (aeruginosa) (mallei) (pseudomallei) as the cause of diseases classified elsewhere; I50.33 Acute on chronic diastolic (congestive) heart failure; M19.90 Unspecified osteoarthritis, unspecified site; K57.90 Diverticulosis of intestine, part unspecified, without perforation or abscess without bleeding; F41.9 Anxiety disorder, unspecified; E78.5 Hyperlipidemia, unspecified; R53.81 Other malaise; I83.90 Asymptomatic varicose veins of unspecified lower extremity; K59.00 Constipation, unspecified; J47.9 Bronchiectasis, uncomplicated; Z71.3 Dietary counseling and surveillance; Z79.899 Other long term (current) drug therapy; Z79.01 Long term (current) use of anticoagulants; Z87.01 Personal history of pneumonia (recurrent); Z86.73 Personal history of transient ischemic attack (TIA), and cerebral infarction without residual deficits; Z90.49 Acquired absence of other specified parts of digestive tract; Z87.11 Personal history of peptic ulcer disease; Z85.828 Personal history of other malignant neoplasm of skin; Z88.8 Allergy status to other drugs, medicaments and biological substances; Z83.3 Family history of diabetes mellitus; Z82.49 Family history of ischemic heart disease and other diseases of the circulatory system; Z82.3 Family history of stroke; Z80.9 Family history of malignant neoplasm, unspecified
CPT/HCPCS: 36415; 71046; 80048; 80053; 83735; 83880; 84484; 85025; 85610; 85730; 87040; 87070; 87077; 87186; 87205; 93005; 93306; 94640; 94760; 96374; 99291

== ENCOUNTER 2018-09-21 21:18 | Inpatient (IN) | payer OTHER, MEDICARE ==
[2018-09-21 22:34] LABS: Anisocytosis Slight; Basophils % (A) 1 %; Eosinophils # (A) 0.1 k/uL (0-0.7); Eosinophils % (A) 2 %; HCT 29.6 % (34.0-46.0); HGB 9.1 gm/dL (11.4-16.0); Hypochromasia Marked; Lymphocytes # (A) 0.5 k/uL (1.0-4.8); Lymphocytes % (A) 10 %; MCH 27.5 pg (25.0-35.0); MCHC 30.9 g/dL (31.0-37.0); Mean Platelet Volume 7.1; Monocytes # (A) 0.3 k/uL (0-1.0); Monocytes % (A) 6 %; Neutrophils # (A) 3.8 k/uL (1.3-7.7); Neutrophils % (A) 81 %; Platelet Count 222 k/uL (150-450); RBC 3.32 m/uL (3.80-5.40); RDW 16.4 % (11.5-15.5); WBC 4.7 k/uL (3.8-10.6)
--- NOTE | 2018-09-21 22:40 | XR ---
EXAM: XR Chest, 2 Views CLINICAL HISTORY: Weakness TECHNIQUE: Frontal and lateral views of the chest. COMPARISON: Chest x-ray dated 09/02/2018 FINDINGS: Lungs: Diffuse airspace opacities which may represent multifocal pneumonia versus pulmonary edema. Pleural space: Unremarkable. No pneumothorax. Heart: Heart is enlarged. Mediastinum: Unremarkable. Bones/joints: Unremarkable. IMPRESSION: Diffuse airspace opacities which may represent multifocal pneumonia versus pulmonary edema.
[2018-09-21 22:43] LABS: ALT 14 U/L (9-52); AST 26 U/L (14-36); Albumin 3.4 g/dL (3.5-5.0); Alkaline Phosphatase 185 U/L (38-126); Anion Gap 8 mmol/L; Blood Urea Nitrogen 17 mg/dL (7-17); Carbon Dioxide 36 mmol/L (22-30); Chloride 87 mmol/L (98-107); Glucose 139 mg/dL (74-99); Magnesium 1.7 mg/dL (1.6-2.3); Sodium 131 mmol/L (137-145); Total Bilirubin 0.8 mg/dL (0.2-1.3); Total Protein 8.4 g/dL (6.3-8.2)
[2018-09-21 22:46] LABS: Appearance,Urine Clear (Clear); Bilirubin,Urine Negative (Negative); Blood,Urine Small (Negative); Color,Urine Yellow; Glucose,Urine (UA) Negative (Negative); Hyaline Casts,Urine 1 /lpf (0-2); Ketones,Urine Negative (Negative); Leukocyte Esterase,Urine Large (Negative); Mucus,Urine Rare /hpf; Nitrite,Urine Negative (Negative); Potassium 3.8 mmol/L (3.5-5.1); Protein,Urine Trace (Negative); RBC,Urine 9 /hpf (0-5); Specific Gravity,Urine 1.017 (1.001-1.035); Squamous Epithelial Cell,Urine 1 /hpf (0-4); Urobilinogen,Urine <2.0 mg/dL (<2.0)
[2018-09-21 22:52] LABS: INR 1.3 (<1.2); Partial Thromboplastin Time 26.2 sec (22.0-30.0); Prothrombin Time 13.7 sec (9.0-12.0)
[2018-09-21] MEDS ORDERED: cefTRIAXone IN SWFI 1,000 MG/10 ML SYRINGE IVP STA (23:51)
[2018-09-21] MEDS ORDERED: AZITHROMYCIN 500 MG in SODIUM CHLORIDE 0.9% 250 ML IVPB STA (23:51)
[2018-09-21] MEDS ORDERED: VANCOMYCIN IV PER PHARMACY 1 EACH MISC MISCELLANE PRN (23:58)
[2018-09-21] MEDS ORDERED: PIPERACILLIN-TAZOBACTAM 3.375 GM in SODIUM CHLORIDE 0.9% 100 ML IVPB STA (23:59)
[2018-09-22] MEDS ORDERED: NALOXONE 0.4 MG/ML 1 ML VIAL IV PRN (00:11)
[2018-09-22] MEDS ORDERED: ACETAMINOPHEN TAB 325 MG TAB PO PRN (00:11)
[2018-09-22] MEDS ORDERED: IBUPROFEN 400 MG TAB PO PRN (00:11)
--- NOTE | 2018-09-22 00:13 | ED ---
Weakness HPI - General Chief complaint: Weakness Stated complaint: weak,unable to walk, CHF Source: patient Mode of arrival: ambulatory Limitations: no limitations - History of Present Illness Initial comments: Cele is a 78-year-old female with extensive past medical history listed below. Patient presents the emergency department today via private vehicle for evaluation of generalized malaise. Family reports that patient was recently admitted for 5 days she then spent 12 days in [facility]. While there she did dissipate and physical and occupational therapy. However around a 9 she began feeling unwell. During her stay there there was multiple people who had normal virus as well as influenza. For her last couple of days there she did not feel well enough to participate in PT or OT but she was subsequently discharged home. She has been home for 2 days but has been so weak she is been unable to ambulate. She reports that she feels like she has a worsening cough and generalized weakness. This prompted her family to bring her to the ER for further evaluation. - Related Data Home Medications Medication Instructions Recorded Confirmed Digoxin [Digitek] 125 mcg PO DAILY 02/17/17 09/21/18 L.acidoph,Paracasei, B.lactis 1 cap PO DAILY 02/17/17 09/21/18 [Probiotic] Spironolactone [Aldactone] 25 mg PO DAILY 02/17/17 09/21/18 Famotidine [Pepcid] 20 mg PO DAILY 11/23/17 09/21/18 Apixaban [Eliquis] 2.5 mg PO HS 04/18/18 09/21/18 Apixaban [Eliquis] 5 mg PO QAM 04/18/18 09/21/18 Benzonatate [Tessalon Perles] 200 mg PO TID 04/18/18 09/21/18 Levalbuterol HCl [Xopenex 0.63 mg INHALATION RT-Q4H 04/18/18 09/21/18 Nebulized] Ferrous Sulfate [Iron (65 MG 325 mg PO DAILY 09/02/18 09/21/18 Elemental)] Fexofenadine/Pseudoephedrine 1 tab PO BID 09/02/18 09/21/18 [Kaylee-D 12 Hour Tablet] Previous Rx's Medication Instructions Recorded Metoprolol Tartrate [Lopressor] 25 mg PO BID tab 02/21/17 Acetaminophen Tab [Tylenol] 650 mg PO Q6HR PRN tab 04/24/18 Docusate [Colace] 100 mg PO DAILY PRN cap 09/07/18 Furosemide [Lasix] 80 mg PO BID #60 tablet 09/07/18 SILVER sulfADIAZINE CREAM 1 applic TOPICAL DAILY applic 09/07/18 [Silvadene Cream] Allergies Allergy/AdvReac Type Severity Reaction Status Date / Time diltiazem [From Cardizem] AdvReac Nausea & Verified 09/21/18 22:10 Vomiting verapamil AdvReac Nausea & Verified 09/21/18 22:10 Vomiting Review of Systems ROS Statement: Those systems with pertinent positive or pertinent negative responses have been documented in the HPI. ROS Other: All systems not noted in ROS Statement are negative. Past Medical History Past Medical History: Atrial Fibrillation, Cancer, Heart Failure, Hypertension, Pneumonia, Vascular Disorder Additional Past Medical History / Comment(s): Limited Pulmonary fibrosis, Limited left upper lobe bronchiectasis, severe restrictive lung disease as noted to the previous pulmonary function test, right-sided heart failure, severe pulmonary hypertension, chronic atrial fibrillation, skin cancer, hypertension, peripheral vascular disease, previous history of cardiac ablation for A. fi b/failed, varicose his lower extremities, diverticulosis, chronic sinus disease, degenerative arthritis, history of peptic ulcer disease requiring surgery, history of vertigo, basal cell cancer of the skin that was resected. History of CVA without any significant residuals. anemia History of Any Multi-Drug Resistant Organisms: None Reported Past Surgical History: Ablation, Cardiac Ablation, Section, Cholecystectomy, Orthopedic Surgery, Tonsillectomy Additional Past Surgical History / Comment(s): R rotator cuff repair, skin cancer removed from nose. Past Anesthesia/Blood Transfusion Reactions: Postoperative Nausea & Vomiting (PONV) Additional Past Anesthesia/Blood Transfusion Reaction / Comment(s): Pt received blood in past without reaction. Past Psychological History: Anxiety Smoking Status: Never smoker Past Alcohol Use History: None Reported Past Drug Use History: None Reported - Past Family History Mother Family Medical History: Diabetes Mellitus Father Family Medical History: CVA/TIA, Myocardial Infarction (MS) Additional Family Medical History / Comment(s): Father had MS/CVA sometime in his 60's. General Exam - General Exam Comments Initial Comments: Physical Exam GENERAL: Chronically ill appearing debilitated elderly female HENT: Normocephalic, Atraumatic. EYES: PERRL, EOMI PULMONARY: Coarse breath sounds bilaterally CARDIOVASCULAR: There is a regular rate and rhythm without any murmurs gallops or rubs. Warm well perfused extremities ABDOMEN: Soft and nontender with normal bowel sounds. SKIN: Pallor : Deferred NEUROLOGIC: Patient is alert and oriented x3. Moving all extremities spontaneously MUSCULOSKELETAL: Normal extremities with adequate strength and full range of motion. No lower extremity swelling or edema. No calf tenderness. PSYCHIATRIC: Appropriate situational depression Limitations: no limitations Limitations: no limitations Course Vital Signs 09/21/18 09/21/18 09/22/18 21:47 22:55 00:41 Temperature 98.2 F 98.2 F 97.8 F Pulse Rate 94 88 92 Pulse Rate [ Pulse Oximetery ] Respiratory 16 19 17 Rate Blood Pressure 109/56 122/69 121/60 Blood Pressure [Right Arm] O2 Sat by Pulse 98 97 96 Oximetry 09/22/18 02:14 Temperature 98.4 F Pulse Rate Pulse Rate [ 104 H Pulse Oximetery ] Respiratory 16 Rate Blood Pressure Blood Pressure 121/71 [Right Arm] O2 Sat by Pulse 93 L Oximetry EKG Findings - EKG Comments: EKG Findings:: EKG was obtained at 2158, EKG has a narrow complex irregularly irregular rhythm with a rate of 98. Rhythm is consistent with atrial fibrillation though in lead V1 there does appear to be some sawtooth pattern concerning for atrial flutter. There is a incomplete right bundle branch block, there are no acute ST elevations, there is digitalis effect consistent with patient's history of being on dig. No evidence of acute ischemia or infarction Medical Decision Making - Medical Decision Making was seen and evaluated history was obtained from the patient and review of medical records Patient with a recent stay in the hospital followed by 12 day stay in extended care facility now presenting with generalized weakness malaise Vital signs unremarkable patient is afebrile Labs were reviewed patient has chronic anemia Chest x-ray is concerning for bilateral pulmonary infiltrates versus fluid overload, patient's BNP seems to be at her baseline given that she does feel she has more productive cough and bilateral infiltrates on x-ray I will treat her for healthcare associated pneumonia Analysis is also concerning for urinary tract infection I suspect the urinary tract infection and possible pneumonia are likely contributing to the patient's generalized malaise and fatigue. I also believe that the patient will require a longer stay in an extended care facility or more intensive home physical therapy to return to her baseline physical activity. At this time I feel the patient would benefit from admission to the hospital for IV antibiotics for treatment of healthcare associated pneumonia and urinary tract infection. Patient and family at bedside are agreeable to this. Vancomycin and Zosyn were ordered due to this being healthcare associated pneumonia. Patient was admitted to the hospital. Did discuss with the patient she confirmed that she would want to be a full code in the event of any need for resuscitation. - Lab Data Result diagrams: 09/21/18 22:05 09/21/18 22:05 Lab Results 09/21/18 09/21/18 09/21/18 Range/Units 22:05 22:05 22:05 WBC 4.7 (3.8-10.6) k/uL RBC 3.32 L (3.80-5.40) m/uL Hgb 9.1 L (11.4-16.0) gm/dL Hct 29.6 L (34.0-46.0) % MCV 89.0 (80.0-100.0) fL MCH 27.5 (25.0-35.0) pg MCHC 30.9 L (31.0-37.0) g/dL RDW 16.4 H (11.5-15.5) % Plt Count 222 (150-450) k/uL Neutrophils % 81 % Lymphocytes % 10 % Monocytes % 6 % Eosinophils % 2 % Basophils % 1 % Neutrophils # 3.8 (1.3-7.7) k/uL Lymphocytes # 0.5 L (1.0-4.8) k/uL Monocytes # 0.3 (0-1.0) k/uL Eosinophils # 0.1 (0-0.7) k/uL Basophils # 0.0 (0-0.2) k/uL Hypochromasia Marked Anisocytosis Slight PT (9.0-12.0) sec INR (<1.2) APTT (22.0-30.0) sec Sodium 131 L (137-145) mmol/L Potassium 3.8 (3.5-5.1) mmol/L Chloride 87 L (98-107) mmol/L Carbon Dioxide 36 H (22-30) mmol/L Anion Gap 8 mmol/L BUN 17 (7-17) mg/dL Creatinine 0.58 (0.52-1.04) mg/dL Est GFR (CKD-EPI)AfAm >90 (>60 ml/min/1.73 sqM) Est GFR (CKD-EPI)NonAf >90 (>60 ml/min/1.73 sqM) Glucose 139 H (74-99) mg/dL Plasma Lactic Acid Christopher 1.7 (0.7-2.0) mmol/L Calcium 9.0 (8.4-10.2) mg/dL Magnesium 1.7 (1.6-2.3) mg/dL Total Bilirubin 0.8 (0.2-1.3) mg/dL AST 26 (14-36) U/L ALT 14 (9-52) U/L Alkaline Phosphatase 185 H (38-126) U/L Troponin I (0.000-0.034) ng/mL NT-Pro-B Natriuret Pep pg/mL Total Protein 8.4 H (6.3-8.2) g/dL Albumin 3.4 L (3.5-5.0) g/dL Urine Color Urine Appearance (Clear) Urine pH (5.0-8.0) Ur Specific [place] (1.001-1.035) Urine Protein (Negative) Urine Glucose (UA) (Negative) Urine Ketones (Negative) Urine Blood (Negative) Urine Nitrite (Negative) Urine Bilirubin (Negative) Urine Urobilinogen (<2.0) mg/dL Ur Leukocyte Esterase (Negative) Urine RBC (0-5) /hpf Urine WBC (0-5) /hpf Ur Squamous Epith Cells (0-4) /hpf Hyaline Casts (0-2) /lpf Urine Mucus (None) /hpf 09/21/18 09/21/18 09/21/18 Range/Units 22:05 22:05 22:05 WBC (3.8-10.6) k/uL RBC (3.80-5.40) m/uL Hgb (11.4-16.0) gm/dL Hct (34.0-46.0) % MCV (80.0-100.0) fL MCH (25.0-35.0) pg MCHC (31.0-37.0) g/dL RDW (11.5-15.5) % Plt Count (150-450) k/uL Neutrophils % % Lymphocytes % % Monocytes % % Eosinophils % % Basophils % % Neutrophils # (1.3-7.7) k/uL Lymphocytes # (1.0-4.8) k/uL Monocytes # (0-1.0) k/uL Eosinophils # (0-0.7) k/uL Basophils # (0-0.2) k/uL Hypochromasia Anisocytosis PT 13.7 H (9.0-12.0) sec INR 1.3 H (<1.2) APTT 26.2 (22.0-30.0) sec Sodium (137-145) mmol/L Potassium (3.5-5.1) mmol/L Chloride (98-107) mmol/L Carbon Dioxide (22-30) mmol/L Anion Gap mmol/L BUN (7-17) mg/dL Creatinine (0.52-1.04) mg/dL Est GFR (CKD-EPI)AfAm (>60 ml/min/1.73 sqM) Est GFR (CKD-EPI)NonAf (>60 ml/min/1.73 sqM) Glucose (74-99) mg/dL Plasma Lactic Acid Christopher (0.7-2.0) mmol/L Calcium (8.4-10.2) mg/dL Magnesium (1.6-2.3) mg/dL Total Bilirubin (0.2-1.3) mg/dL AST (14-36) U/L ALT (9-52) U/L Alkaline Phosphatase (38-126) U/L Troponin I 0.018 (0.000-0.034) ng/mL NT-Pro-B Natriuret Pep 1930 pg/mL Total Protein (6.3-8.2) g/dL Albumin (3.5-5.0) g/dL Urine Color Urine Appearance (Clear) Urine pH (5.0-8.0) Ur Specific [place] (1.001-1.035) Urine Protein (Negative) Urine Glucose (UA) (Negative) Urine Ketones (Negative) Urine Blood (Negative) Urine Nitrite (Negative) Urine Bilirubin (Negative) Urine Urobilinogen (<2.0) mg/dL Ur Leukocyte Esterase (Negative) Urine RBC (0-5) /hpf Urine WBC (0-5) /hpf Ur Squamous Epith Cells (0-4) /hpf Hyaline Casts (0-2) /lpf Urine Mucus (None) /hpf 09/21/18 Range/Units 22:05 WBC (3.8-10.6) k/uL RBC (3.80-5.40) m/uL Hgb (11.4-16.0) gm/dL Hct (34.0-46.0) % MCV (80.0-100.0) fL MCH (25.0-35.0) pg MCHC (31.0-37.0) g/dL RDW (11.5-15.5) % Plt Count (150-450) k/uL Neutrophils % % Lymphocytes % % Monocytes % % Eosinophils % % Basophils % % Neutrophils # (1.3-7.7) k/uL Lymphocytes # (1.0-4.8) k/uL Monocytes # (0-1.0) k/uL Eosinophils # (0-0.7) k/uL Basophils # (0-0.2) k/uL Hypochromasia Anisocytosis PT (9.0-12.0) sec INR (<1.2) APTT (22.0-30.0) sec Sodium (137-145) mmol/L Potassium (3.5-5.1) mmol/L Chloride (98-107) mmol/L Carbon Dioxide (22-30) mmol/L Anion Gap mmol/L BUN (7-17) mg/dL Creatinine (0.52-1.04) mg/dL Est GFR (CKD-EPI)AfAm (>60 ml/min/1.73 sqM) Est GFR (CKD-EPI)NonAf (>60 ml/min/1.73 sqM) Glucose (74-99) mg/dL Plasma Lactic Acid Christopher (0.7-2.0) mmol/L Calcium (8.4-10.2) mg/dL Magnesium (1.6-2.3) mg/dL Total Bilirubin (0.2-1.3) mg/dL AST (14-36) U/L ALT (9-52) U/L Alkaline Phosphatase (38-126) U/L Troponin I (0.000-0.034) ng/mL NT-Pro-B Natriuret Pep pg/mL Total Protein (6.3-8.2) g/dL Albumin (3.5-5.0) g/dL Urine Color Yellow Urine Appearance Clear (Clear) Urine pH 6.0 (5.0-8.0) Ur Specific [place] 1.017 (1.001-1.035) Urine Protein Trace H (Negative) Urine Glucose (UA) Negative (Negative) Urine Ketones Negative (Negative) Urine Blood Small H (Negative) Urine Nitrite Negative (Negative) Urine Bilirubin Negative (Negative) Urine Urobilinogen <2.0 (<2.0) mg/dL Ur Leukocyte Esterase Large H (Negative) Urine RBC 9 H (0-5) /hpf Urine WBC 37 H (0-5) /hpf Ur Squamous Epith Cells 1 (0-4) /hpf Hyaline Casts 1 (0-2) /lpf Urine Mucus Rare H (None) /hpf Disposition Clinical Impression: HCAP (healthcare-associated pneumonia), UTI (urinary tract infection), Chronic anemia, Generalized weakness, Pulmonary fibrosis, Chronic atrial fibrillation, CHF (congestive heart failure), Clinical decompensation Disposition: ADMITTED IP TO THIS [facility] Condition: Serious Is patient prescribed a controlled substance at d/c from ED?: No
[2018-09-22] MEDS ORDERED: VANCOMYCIN 750 MG in SODIUM CHLORIDE 0.9% 250 ML IVPB ONE (02:00)
[2018-09-22 02:11] VITALS: BMI 16.9
[2018-09-22] MEDS: PIPERACILLIN-TAZOBACTAM 3.375 GM in SODIUM CHLORIDE 0.9% 100 ML IVPB SCH ×2 (10:35→19:06)
[2018-09-22] MEDS ORDERED: DOCUSATE 100 MG CAP PO PRN (11:17)
[2018-09-22] MEDS ORDERED: FUROSEMIDE 10 MG/ML 4 ML VIAL IV STA (11:28)
--- NOTE | 2018-09-22 11:33 | P.HPIM ---
History of Present Illness This is a pleasant 78 years old female with past medical history of atrial fibrillation, heart failure, hypertension, pneumonia, limited pulmonary fibrosis, left upper lobe bronchiectasis, restrictive lung disease and right- sided heart failure with severe pulmonary hypertension, peripheral vascular disease, atrial fibrillation status post ablation, history of vertigo and peptic ulcer disease. History of stroke with mild left hemiparesis. Patient was recently discharged from [facility] where she was therefore rehab about 2-3 days ago, she is being discharged from the hospital for acute diastolic CHF with cor pulmonale. However patient presents with generalized weakness and progressive increasing urination but without dysuria and no lower abdominal tenderness. She has chronic dyspnea and all as she has cough with yellow phlegm and she is telling me with no recent worsening. All the patient looks a little bit tachypneic with respiratory rate about 20 to. Also she is tachycardic with heart rate 104. on admission patient was saturating 93-96% on room air, she is tachycardic with heart rate 104, patient is afebrile. No leukocytosis, hemoglobin 9.1, INR 1.3, sodium 131. Urinalysis is suspicious for infection. Chest x-ray showing diffuse airspace opacity which may represent multifocal pneumonia versus pulmonary edema. EKG atrial fibrillation at 98 BPM, on admission patient was started on Zithromax and ceftriaxone and got 1 dose of Zosyn and vancomycin Review of Systems CONSTITUTIONAL: No fever, no malaise, no fatigue. HEENT: No recent visual problems or hearing problems. Denied any sore throat. CARDIOVASCULAR: No orthopnea, PND, no palpitations, no syncope. PULMONARY: No shortness of breath, no cough, no hemoptysis. GASTROINTESTINAL: No diarrhea, no nausea, no vomiting, no abdominal pain. Normoactive bowel sounds. NEUROLOGICAL: No headaches, no weakness, no numbness. HEMATOLOGICAL: Denies any bleeding or petechiae. GENITOURINARY: Denies any burning micturition, frequency, or urgency. MUSCULOSKELETAL/RHEUMATOLOGICAL: Denies any joint pain, swelling, or any muscle pain. ENDOCRINE: Denies any polyuria or polydipsia. Past Medical History Past Medical History: Atrial Fibrillation, Cancer, Heart Failure, Hypertension, Pneumonia, Vascular Disorder Additional Past Medical History / Comment(s): Limited Pulmonary fibrosis, Limited left upper lobe bronchiectasis, severe restrictive lung disease as noted to the previous pulmonary function test, right-sided heart failure, severe pulm onary hypertension, chronic atrial fibrillation, skin cancer, hypertension, peripheral vascular disease, previous history of cardiac ablation for A. fib/failed, varicose his lower extremities, diverticulosis, chronic sinus disease, degenerative arthritis, history of peptic ulcer disease requiring hernandez rgery, history of vertigo, basal cell cancer of the skin that was resected. History of CVA without any significant residuals. anemia History of Any Multi-Drug Resistant Organisms: None Reported Past Surgical History: Ablation, Cardiac Ablation, Section, Cholecystectomy, Orthopedic Surgery, Tonsillectomy Additional Past Surgical History / Comment(s): R rotator cuff repair, skin cancer removed from nose. Past Anesthesia/Blood Transfusion Reactions: Postoperative Nausea & Vomiting (PONV) Additional Past Anesthesia/Blood Transfusion Reaction / Comment(s): Pt received blood in past without reaction. Past Psychological History: Anxiety Smoking Status: Never smoker Past Alcohol Use History: None Reported Past Drug Use History: None Reported - Past Family History Mother Family Medical History: Diabetes Mellitus Father Family Medical History: CVA/TIA, Myocardial Infarction (NH) Additional Family Medical History / Comment(s): Father had NH/CVA sometime in his 60's. Medications and Allergies Home Medications Medication Instructions Recorded Confirmed Type RX: Digoxin [Digitek] 125 mcg PO DAILY 02/17/17 09/21/18 History RX: L.acidoph,Paracasei, B.lactis 1 cap PO DAILY 02/17/17 09/21/18 History [Probiotic] RX: Spironolactone [Aldactone] 25 mg PO DAILY 02/17/17 09/21/18 History RX: Metoprolol Tartrate [Lopressor] 25 mg PO BID tab 02/21/17 09/21/18 Rx RX: Famotidine [Pepcid] 20 mg PO DAILY 11/23/17 09/21/18 History RX: Apixaban [Eliquis] 2.5 mg PO HS 04/18/18 09/21/18 History RX: Apixaban [Eliquis] 5 mg PO QAM 04/18/18 09/21/18 History RX: Benzonatate [Tessalon Perles] 200 mg PO TID 04/18/18 09/21/18 History RX: Levalbuterol HCl [Xopenex 0.63 mg INHALATION RT-Q4H 04/18/18 09/21/18 History Nebulized] RX: Acetaminophen Tab [Tylenol] 650 mg PO Q6HR PRN tab 04/24/18 09/21/18 Rx RX: Ferrous Sulfate [Iron (65 MG 325 mg PO DAILY 09/02/18 09/21/18 History Elemental)] RX: Fexofenadine/Pseudoephedrine 1 tab PO BID 09/02/18 09/21/18 History [Kaylee-D 12 Hour Tablet] Furosemide [Lasix] 80 mg PO BID #60 tablet 09/07/18 09/21/18 Rx RX: Docusate [Colace] 100 mg PO DAILY PRN cap 09/07/18 09/21/18 Rx RX: SILVER sulfADIAZINE CREAM 1 applic TOPICAL DAILY applic 09/07/18 09/21/18 Rx [Silvadene Cream] Allergies Allergy/AdvReac Type Severity Reaction Status Date / Time diltiazem [From Cardizem] AdvReac Nausea & Verified 09/21/18 22:10 Vomiting verapamil AdvReac Nausea & Verified 09/21/18 22:10 Vomiting Physical Exam Vitals: Vital Signs Temp Pulse Pulse Resp BP BP Pulse Ox 09/22/18 02:14 98.4 F 104 H 16 121/71 93 L 09/22/18 01:45 104 H 16 09/22/18 00:41 97.8 F 92 17 121/60 96 09/21/18 22:55 98.2 F 88 19 122/69 97 09/21/18 21:47 98.2 F 94 16 109/56 98 Intake and Output 09/21/18 09/22/18 09/22/18 22:59 06:59 14:59 Other: Voiding Method Bedside Commode Diaper Weight 42.184 kg GENERAL: The patient is alert and oriented x3, not in any acute distress. Well developed, well nourished. HEENT: Pupils are round and equally reacting to light. EOMI. No scleral icterus. No conjunctival pallor. Normocephalic, atraumatic. No pharyngeal erythema. No thyromegaly. CARDIOVASCULAR: S1 and S2 present. No murmurs, rubs, or gallops. -PULMONARY: Chest is clear to auscultation, no wheezing . She has coarse crackles on both sides. ABDOMEN: Soft, nontender, nondistended, normoactive bowel sounds. No palpable organomegaly. MUSCULOSKELETAL: No joint swelling or deformity. EXTREMITIES: No cyanosis, clubbing, or pedal edema. NEUROLOGICAL: Gross neurological examination did not reveal any focal deficits. She has left upper extremity hemiparesis, chronic SKIN: No rashes. Results CBC & Chem 7: 09/21/18 22:05 09/21/18 22:05 Labs: Abnormal Lab Results - Last 24 Hours (Table) 09/21/18 09/21/18 09/21/18 Range/Units 22:05 22:05 22:05 RBC 3.32 L (3.80-5.40) m/uL Hgb 9.1 L (11.4-16.0) gm/dL Hct 29.6 L (34.0-46.0) % MCHC 30.9 L (31.0-37.0) g/dL RDW 16.4 H (11.5-15.5) % Lymphocytes # 0.5 L (1.0-4.8) k/uL PT 13.7 H (9.0-12.0) sec INR 1.3 H (<1.2) Sodium 131 L (137-145) mmol/L Chloride 87 L (98-107) mmol/L Carbon Dioxide 36 H (22-30) mmol/L Glucose 139 H (74-99) mg/dL Alkaline Phosphatase 185 H (38-126) U/L Total Protein 8.4 H (6.3-8.2) g/dL Albumin 3.4 L (3.5-5.0) g/dL Urine Protein (Negative) Urine Blood (Negative) Ur Leukocyte Esterase (Negative) Urine RBC (0-5) /hpf Urine WBC (0-5) /hpf Urine Mucus (None) /hpf 09/21/18 Range/Units 22:05 RBC (3.80-5.40) m/uL Hgb (11.4-16.0) gm/dL Hct (34.0-46.0) % MCHC (31.0-37.0) g/dL RDW (11.5-15.5) % Lymphocytes # (1.0-4.8) k/uL PT (9.0-12.0) sec INR (<1.2) Sodium (137-145) mmol/L Chloride (98-107) mmol/L Carbon Dioxide (22-30) mmol/L Glucose (74-99) mg/dL Alkaline Phosphatase (38-126) U/L Total Protein (6.3-8.2) g/dL Albumin (3.5-5.0) g/dL Urine Protein Trace H (Negative) Urine Blood Small H (Negative) Ur Leukocyte Esterase Large H (Negative) Urine RBC 9 H (0-5) /hpf Urine WBC 37 H (0-5) /hpf Urine Mucus Rare H (None) /hpf Thrombosis Risk Factor Assmnt - Choose All That Apply Each Factor Represents 1 point: Heart failure (<1month) Other Risk Factors: Yes Each Risk Factor Represents 3 Points: Age 75 years or older Thrombosis Risk Factor Assessment Total Risk Factor Score: 4 Thrombosis Risk Factor Assessment Level: Moderate Risk Assessment and Plan Assessment: Urinary tract infection Systemic erythema to response secondary to above, with tachypnea and tachycardia Generalized weakness Chronic dyspnea with chronic cough and phlegm History of restrictive lung disease History of left upper lobe bronchiectasis History of severe pulmonary hypertension History of right heart failure History of chronic atrial fibrillation status post ablation History of stroke with mild left upper extremity hemiparesis History of peptic ulcer disease History of vertigo Essential hypertension Plan: This is a pleasant 78 years old female who presents with urinary tract infection, there was suspicion of pneumonia on the chest x-ray however patient has no fever or leukocytosis. Patient was started on IV vancomycin and Zosyn. We will ask for infectious disease consult. Stop NSAIDs and ibuprofen. Continue with oral Lasix Labs and medication were reviewed.. Continue same treatment. Continue with symptomatic treatment. Resume home medication. Monitor lytes and vitals. DVT and GI prophylaxis. Further recommendations of the clinical course of the patient DVT prophylaxis: eliquis GI Prophylaxis: Pepcid PT/OT: Pending Prognosis is guarded
[2018-09-22] MEDS ORDERED: LEVALBUTEROL HCL 0.63 MG INHALATION SCH (12:00)
[2018-09-22] MEDS: FUROSEMIDE 80 MG TAB PO SCH ×2 (13:22→17:52)
[2018-09-22] MEDS: IPRATROPIUM-ALBUTEROL 3 ML NEB INHALATION PRN ×2 (13:43→19:57)
[2018-09-22] MEDS: VANCOMYCIN 750 MG in SODIUM CHLORIDE 0.9% 250 ML IVPB SCH (16:18)
[2018-09-22] MEDS ORDERED: METOPROLOL TARTRATE 25 MG TAB PO STA (16:55)
[2018-09-22] MEDS ORDERED: VANCOMYCIN 750 MG in SODIUM CHLORIDE 0.9% 250 ML IVPB SCH (18:00)
[2018-09-22] MEDS: APIXABAN 2.5 MG TABLET PO SCH (21:30)
[2018-09-22] MEDS: METOPROLOL TARTRATE 25 MG TAB PO SCH ×2 (21:30→21:32)
[2018-09-23] MEDS ORDERED: BENZOCAINE/MENTHOL LOZENG 1 EACH LOZENGE MUCOUS MEM PRN (00:09)
[2018-09-23] MEDS: IPRATROPIUM-ALBUTEROL 3 ML NEB INHALATION PRN ×5 (00:12→20:29)
[2018-09-23] MEDS: guaiFENesin-DM 100-10MG/5ML 10 ML CUP PO PRN ×2 (00:28→10:53)
--- NOTE | 2018-09-23 00:56 | P.CONS ---
History of Present Illness - Reason for Consult Consult date: 09/22/18 - Chief Complaint Increasing weakness - History of Present Illness 78-year-old female who has multiple medical troubles that includes cardiovascular disease, atrial fibrillation, interstitial pulmonary fibrosis with significant pulmonary hypertension and right ventricular dysfunction. The patient has history of feeling chronically short of breath and feeling very poorly overall. At the time of presentation she has significant weakness, shortness of breath, and urinary symptoms. Feeling quite poorly and consequently was brought to hospital. Patient has multiple recent medical troubles was actually recently in the extended care after hospitalization she was having some difficulties with left- sided weakness possible TIA. The patient has chronic copious sputum production related to her pulmonary disease and some bronchiectasis. Cultures reveal evidence of Pseudomonas in her sputum and Klebsiella in her urine. Since hospitalization is feeling only slightly better. Continues to feel short of breath and has sputum production. Review of Systems HEENT:Denies headache or acute visual change. Denies sinus or mouth discomforts. Denies neck stiffness or pain. Denies significant oral cavity pain. Denies difficulty on swallowing. Lungs: Chronic shortness of breath chronic cough or chronic sputum production thick yellow-green in nature without hemoptysis Cardiovascular: Chronic shortness of breath, chronic dyspnea on exertion no recent syncope no current chest pain does have discomforts with heavy coughing Gastrointestinal:Denies nausea, vomiting, diarrhea, constipation, hematemesis, melena, hematochezia. No no significant change of bowel habit noticed. Complais of some abdominal discomforts with coughing Musculoskeletal: Chronic pain especially to her back and limbs Skin: Skin is thin and easily bruised no open ulcerations but does have some redness to her coccyx which is present on admission Neuro: Difficulties with ambulation no recent falls Psychiatric: Chronic anxiety and depression related to her shortness of breath Endocrine: Profound fatigue and progressive weight loss BMIs now at 17. Past Medical History Past Medical History: Atrial Fibrillation, Cancer, Heart Failure, Hypertension, Pneumonia, Vascular Disorder Additional Past Medical History / Comment(s): Pulmonary fibrosis, Limited left upper lobe bronchiectasis, severe restrictive lung disease as noted to the previous pulmonary function test, right-sided heart failure, severe pulmonary hypertension, chronic atrial fibrillation, skin cancer, hypertension, peripheral vascular disease, previous history of cardiac ablation for A. fib/failed, varicose his lower extremities, diverticulosis, chronic sinus disease, degenerative arthritis, history of peptic ulcer disease requiring surgery, history of vertigo, basal cell cancer of the skin that was resected. History of CVA without any significant residuals. anemia History of Any Multi-Drug Resistant Organisms: None Reported Past Surgical History: Ablation, Cardiac Ablation, Section, Cholecystectomy, Orthopedic Surgery, Tonsillectomy Additional Past Surgical History / Comment(s): R rotator cuff repair, skin cancer removed from nose. Past Anesthesia/Blood Transfusion Reactions: Postoperative Nausea & Vomiting (PONV) Additional Past Anesthesia/Blood Transfusion Reaction / Comm: Pt received blood in past without reaction. Past Psychological History: Anxiety Additional Psychological History / Comment(s): Very involved family members, daughter is a nurse son-in-law podiatry Smoking Status: Never smoker Past Alcohol Use History: None Reported Past Drug Use History: None Reported - Past Family History Mother Family Medical History: Diabetes Mellitus Father Family Medical History: CVA/TIA, Myocardial Infarction (NH) Additional Family Medical History / Comment(s): Father had NH/CVA sometime in his 60's. Medications and Allergies Home Medications and Allergies Comment(s): Current Medications Acetaminophen (Tylenol Tab) 650 mg PO Q6HR PRN PRN Reason: Mild Pain or Fever > 100.5 Albuterol/Ipratropium (Duoneb 0.5 Mg-3 Mg/3 Ml Soln) 3 ml INHALATION RT-QID PRN PRN Reason: Shortness Of Breath Or Wheezing Last Admin: 09/23/18 00:12 Dose: 3 ml Documented by: Apixaban (Eliquis) 2.5 mg PO HS REJI Last Admin: 09/22/18 21:30 Dose: 2.5 mg Documented by: Apixaban (Eliquis) 5 mg PO QAM REJI Benzocaine/Menthol (Cepacol Lozenge) 1 each MUCOUS MEM Q4HR PRN PRN Reason: Sore Throat Last Admin: 09/23/18 00:24 Dose: 1 each Documented by: Digoxin (Lanoxin) 125 mcg PO DAILY REJI Docusate Sodium (Colace) 100 mg PO DAILY PRN PRN Reason: Constipation Famotidine (Pepcid) 20 mg PO DAILY REPLACED BY [facility] Furosemide (Lasix) 80 mg PO BID@0900,1600 REPLACED BY [facility] Last Admin: 09/22/18 17:52 Dose: Not Given Documented by: Guaifenesin/Dextromethorphan (Robitussin Dm) 10 ml PO Q6H PRN PRN Reason: Cough Last Admin: 09/23/18 00:28 Dose: 10 ml Documented by: Piperacillin Sod/Tazobactam (Sod 3.375 gm/ Sodium Chloride) 100 mls @ 25 mls/hr IVPB Q8HR REPLACED BY [facility] Last Admin: 09/22/18 19:06 Dose: 25 mls/hr Documented by: Vancomycin HCl 750 mg/ Sodium (Chloride) 250 mls @ 125 mls/hr IVPB Q12H REPLACED BY [facility] Last Admin: 09/22/18 16:18 Dose: 125 mls/hr Documented by: Ferric Sodium Gluconate 125 mg (/ Sodium Chloride) 110 mls @ 100 mls/hr IVPB DAILY REPLACED BY [facility] Stop: 09/25/18 10:05 Metoprolol Tartrate (Lopressor) 25 mg PO BID REPLACED BY [facility] Last Admin: 09/22/18 21:32 Dose: Not Given Documented by: Naloxone HCl (Narcan) 0.2 mg IV Q2M PRN PRN Reason: Opioid Reversal Spironolactone (Aldactone) 25 mg PO DAILY REPLACED BY [facility] Home Medications Medication Instructions Recorded Confirmed Type Digoxin [Digitek] 125 mcg PO DAILY 02/17/17 09/21/18 History L.acidoph,Paracasei, B.lactis 1 cap PO DAILY 02/17/17 09/21/18 History [Probiotic] Spironolactone [Aldactone] 25 mg PO DAILY 02/17/17 09/21/18 History Metoprolol Tartrate [Lopressor] 25 mg PO BID tab 02/21/17 09/21/18 Rx Famotidine [Pepcid] 20 mg PO DAILY 11/23/17 09/21/18 History Apixaban [Eliquis] 2.5 mg PO HS 04/18/18 09/21/18 History Apixaban [Eliquis] 5 mg PO QAM 04/18/18 09/21/18 History Benzonatate [Tessalon Perles] 200 mg PO TID 04/18/18 09/21/18 History Levalbuterol HCl [Xopenex 0.63 mg INHALATION RT-Q4H 04/18/18 09/21/18 History Nebulized] Acetaminophen Tab [Tylenol] 650 mg PO Q6HR PRN tab 04/24/18 09/21/18 Rx Ferrous Sulfate [Iron (65 MG 325 mg PO DAILY 09/02/18 09/21/18 History Elemental)] Fexofenadine/Pseudoephedrine 1 tab PO BID 09/02/18 09/21/18 History [Kaylee-D 12 Hour Tablet] Docusate [Colace] 100 mg PO DAILY PRN cap 09/07/18 09/21/18 Rx Furosemide [Lasix] 80 mg PO BID #60 tablet 09/07/18 09/21/18 Rx SILVER sulfADIAZINE CREAM 1 applic TOPICAL DAILY applic 09/07/18 09/21/18 Rx [Silvadene Cream] Allergies Allergy/AdvReac Type Severity Reaction Status Date / Time diltiazem [From Cardizem] AdvReac Nausea & Verified 09/21/18 22:10 Vomiting verapamil AdvReac Nausea & Verified 09/21/18 22:10 Vomiting Physical Exam Vitals: Vital Signs Temp Pulse Pulse Pulse Resp BP Pulse Ox 09/23/18 00:22 88 09/23/18 00:14 80 09/22/18 21:31 80 09/22/18 20:08 88 09/22/18 19:57 90 98 09/22/18 19:42 98.2 F 85 20 108/65 92 L 09/22/18 15:00 98.1 F 141 H 12 128/70 95 09/22/18 13:54 132 H 09/22/18 13:44 122 H 20 09/22/18 07:00 98 F 107 H 12 105/53 100 09/22/18 02:14 98.4 F 104 H 16 121/71 93 L 09/22/18 01:45 104 H 16 Intake and Output 09/22/18 09/22/18 09/23/18 14:59 22:59 06:59 Output Total 1200 Balance -1200 Output: Urine 1200 Other: # Voids 12 Weight 42.184 kg 78-year-old woman cachectic in appearance, short of breath coughs frequently HEENT: Anicteric conjunctiva are pink and moist nasal mucosa grossly intact without significant lesions, there is no thrush. Poor dentition Neck: The neck is supple without significant lymphadenopathy or thyromegaly. Lungs: Symmetrical air entry, crackles to the lung [place], amphoric sounds scattered through the lung [place] no dullness or egophony Heart: Irregular tachycardic, 2/6 systolic murmur left sternal border PMI nondisplaced no heave or thrill Abdomen: Positive bowel sounds soft and nontender without palpable masses or organomegaly. There was no guarding or rebound. Extremities: The extremities relates of the extensive muscular wasting easy bruisability no open ulcers Neuro: Awake alert oriented to person place and time. There are no acute new gross focal sensory motor deficits. Positive anxiety Results CBC & Chem 7: 09/21/18 22:05 09/21/18 22:05 Labs: Microbiology - Last 24 Hours (Table) 09/21/18 22:05 Urine Culture - Preliminary Urine,Voided Laboratory Results WBC 4.7 k/uL (3.8-10.6) 09/21/18 22:05 RBC 3.32 m/uL (3.80-5.40) L 09/21/18 22:05 Hgb 9.1 gm/dL (11.4-16.0) L 09/21/18 22:05 Hct 29.6 % (34.0-46.0) L 09/21/18 22:05 MCV 89.0 fL (80.0-100.0) 09/21/18 22:05 MCH 27.5 pg (25.0-35.0) 09/21/18 22:05 MCHC 30.9 g/dL (31.0-37.0) L 09/21/18 22:05 RDW 16.4 % (11.5-15.5) H 09/21/18 22:05 Plt Count 222 k/uL (150-450) 09/21/18 22:05 Neutrophils % 81 % 09/21/18 22:05 Lymphocytes % 10 % 09/21/18 22:05 Monocytes % 6 % 09/21/18 22:05 Eosinophils % 2 % 09/21/18 22:05 Basophils % 1 % 09/21/18 22:05 Neutrophils # 3.8 k/uL (1.3-7.7) 09/21/18 22:05 Lymphocytes # 0.5 k/uL (1.0-4.8) L 09/21/18 22:05 Monocytes # 0.3 k/uL (0-1.0) 09/21/18 22:05 Eosinophils # 0.1 k/uL (0-0.7) 09/21/18 22:05 Basophils # 0.0 k/uL (0-0.2) 09/21/18 22:05 Hypochromasia Marked 09/21/18 22:05 Anisocytosis Slight 09/21/18 22:05 PT 13.7 sec (9.0-12.0) H 09/21/18 22:05 INR 1.3 (<1.2) H 09/21/18 22:05 APTT 26.2 sec (22.0-30.0) 09/21/18 22:05 Sodium 131 mmol/L (137-145) L 09/21/18 22:05 Potassium 3.8 mmol/L (3.5-5.1) 09/21/18 22:05 Chloride 87 mmol/L (98-107) L 09/21/18 22:05 Carbon Dioxide 36 mmol/L (22-30) H 09/21/18 22:05 Anion Gap 8 mmol/L 09/21/18 22:05 BUN 17 mg/dL (7-17) 09/21/18 22:05 Creatinine 0.58 mg/dL (0.52-1.04) 09/21/18 22:05 Est GFR (CKD-EPI)AfAm >90 (>60 ml/min/1.73 sqM) 09/21/18 22:05 Est GFR (CKD-EPI)NonAf >90 (>60 ml/min/1.73 sqM) 09/21/18 22:05 Glucose 139 mg/dL (74-99) H 09/21/18 22:05 Plasma Lactic Acid Christopher 1.7 mmol/L (0.7-2.0) 09/21/18 22:05 Calcium 9.0 mg/dL (8.4-10.2) 09/21/18 22:05 Magnesium 1.7 mg/dL (1.6-2.3) 09/21/18 22:05 Total Bilirubin 0.8 mg/dL (0.2-1.3) 09/21/18 22:05 AST 26 U/L (14-36) 09/21/18 22:05 ALT 14 U/L (9-52) 09/21/18 22:05 Alkaline Phosphatase 185 U/L (38-126) H 09/21/18 22:05 Troponin I 0.018 ng/mL (0.000-0.034) 09/21/18 22:05 NT-Pro-B Natriuret Pep 1930 pg/mL 09/21/18 22:05 Total Protein 8.4 g/dL (6.3-8.2) H 09/21/18 22:05 Albumin 3.4 g/dL (3.5-5.0) L 09/21/18 22:05 Urine Color Yellow 09/21/18 22:05 Urine Appearance Clear (Clear) 09/21/18 22:05 Urine pH 6.0 (5.0-8.0) 09/21/18 22:05 Ur Specific Wilber 1.017 (1.001-1.035) 09/21/18 22:05 Urine Protein Trace (Negative) H 09/21/18 22:05 Urine Glucose (UA) Negative (Negative) 09/21/18 22:05 Urine Ketones Negative (Negative) 09/21/18 22:05 Urine Blood Small (Negative) H 09/21/18 22:05 Urine Nitrite Negative (Negative) 09/21/18 22:05 Urine Bilirubin Negative (Negative) 09/21/18 22:05 Urine Urobilinogen <2.0 mg/dL (<2.0) 09/21/18 22:05 Ur Leukocyte Esterase Large (Negative) H 09/21/18 22:05 Urine RBC 9 /hpf (0-5) H 09/21/18 22:05 Urine WBC 37 /hpf (0-5) H 09/21/18 22:05 Ur Squamous Epith Cells 1 /hpf (0-4) 09/21/18 22:05 Hyaline Casts 1 /lpf (0-2) 09/21/18 22:05 Urine Mucus Rare /hpf (None) H 09/21/18 22:05 Influenza Type A RNA Not Detected (Not Detectd) 09/23/18 00:20 Influenza Type B (PCR) Not Detected (Not Detectd) 09/23/18 00:20 Microbiology 09/21/18 22:05 Urine,Voided Urine Culture - Preliminary Comments: Echocardiogram with the severe right ventricular hypertrophy and pulmonary hypertension CT scan - chest: report reviewed (Chronic changes, COPD) Assessment and Plan (1) Pulmonary fibrosis Narrative/Plan: 78-year-old female with multiple medical troubles but has the history of pulmonary fibrosis, bronchiectasis and chronic pulmonary infection. Was recently hospitalized at extended care and within a few days of her discharge to home again has marked worsening. She has profound fatigue and malaise. His diet eating well. His cough and sputum production that is thick in nature. No hemoptysis. Has some urinary symptoms with frequency and discomfort. The patient's x-rays are abnormal and she has copious sputum production concerns ongoing pseudomonas infection. Recent history also of the Klebsiella infection of her urine. Intravenous antibiotic therapy with Zosyn is being utilized at this point in time he may need to be arranged the home setting depending on the findings of cultures. Clear liquid protein supplement was added to her diet to try to improve her protein intake since she eats so poorly we discussed the importance of protein and calorie intake to prevent further muscle loss. Muscular loss will worsen her pulmonary disease and shortness of breath. She is chronic lower extremity edema but does not do well with any kind of compression. This discussed with her family members that Kopper fit her CircAid may be helpful since they're easy to apply, are comfortable and can help with her edema which may improve her overall comfort. Current Visit: Yes Status: Acute Code(s): J84.10 - PULMONARY FIBROSIS, UNSPECIFIED SNOMED Code(s): 24361103 (2) UTI (urinary tract infection) Current Visit: Yes Status: Acute Code(s): N39.0 - URINARY TRACT INFECTION, SITE NOT SPECIFIED SNOMED Code(s): 08358094 (3) Iron deficiency anemia Current Visit: No Status: Acute Code(s): D50.9 - IRON DEFICIENCY ANEMIA, UNSPECIFIED SNOMED Code(s): 53318198 (4) Moderate protein-calorie malnutrition Current Visit: Yes Status: Acute Code(s): E44.0 - MODERATE PROTEIN-CALORIE M ALNUTRITION SNOMED Code(s): 390881877
[2018-09-23] MEDS: VANCOMYCIN 750 MG in SODIUM CHLORIDE 0.9% 250 ML IVPB SCH ×2 (01:43→15:39)
[2018-09-23] MEDS: PIPERACILLIN-TAZOBACTAM 3.375 GM in SODIUM CHLORIDE 0.9% 100 ML IVPB SCH ×3 (02:10→17:43)
[2018-09-23] MEDS: SODIUM FERRIC GLUCONAT-SUCROSE 125 MG in SODIUM CHLORIDE 0.9% 100 ML IVPB SCH (09:11)
[2018-09-23 09:19] LABS: Anisocytosis Slight; Basophils % (A) 0 %; Eosinophils % (A) 1 %; HCT 25.9 % (34.0-46.0); HGB 7.8 gm/dL (11.4-16.0); Hypochromasia Marked; Lymphocytes # (A) 0.4 k/uL (1.0-4.8); Lymphocytes % (A) 7 %; MCH 26.9 pg (25.0-35.0); MCHC 30.2 g/dL (31.0-37.0); MCV 88.8 fL (80.0-100.0); Mean Platelet Volume 7.4; Monocytes # (A) 0.3 k/uL (0-1.0); Monocytes % (A) 7 %; Neutrophils # (A) 3.9 k/uL (1.3-7.7); Neutrophils % (A) 83 %; Platelet Count 167 k/uL (150-450); RBC 2.92 m/uL (3.80-5.40); RDW 16.9 % (11.5-15.5); WBC 4.7 k/uL (3.8-10.6)
[2018-09-23 09:30] LABS: Anion Gap 9 mmol/L; Blood Urea Nitrogen 13 mg/dL (7-17); Calcium 8.2 mg/dL (8.4-10.2); Carbon Dioxide 34 mmol/L (22-30); Chloride 90 mmol/L (98-107); Glucose 146 mg/dL (74-99); Potassium 3.4 mmol/L (3.5-5.1); Sodium 133 mmol/L (137-145)
[2018-09-23] MEDS: FAMOTIDINE 20 MG TAB PO SCH (10:40)
[2018-09-23] MEDS: SPIRONOLACTONE 25 MG TAB PO SCH (10:40)
[2018-09-23] MEDS: FUROSEMIDE 80 MG TAB PO SCH ×2 (10:40→17:42)
[2018-09-23] MEDS: METOPROLOL TARTRATE 25 MG TAB PO SCH ×2 (10:40→22:28)
[2018-09-23] MEDS: DIGOXIN 125 MCG TAB PO SCH (10:41)
[2018-09-23] MEDS: APIXABAN 5 MG TAB PO SCH (10:41)
[2018-09-23] MEDS ORDERED: MELATONIN 1 MG TAB PO PRN (18:00)
--- NOTE | 2018-09-23 18:00 | P.PN ---
Subjective This is a pleasant 78 years old female with past medical history of atrial fibrillation, heart failure, hypertension, pneumonia, limited pulmonary f ibrosis, left upper lobe bronchiectasis, restrictive lung disease and right- sided heart failure with severe pulmonary hypertension, peripheral vascular disease, atrial fibrillation status post ablation, history of vertigo and peptic ulcer disease. History of stroke with mild left hemiparesis. Patient was recently discharged from and [facility] where she was therefore rehab about 2-3 days ago, she is being discharged from the hospital for acute diastolic CHF with cor pulmonale. However patient presents with generalized weakness and progressive increasing urination but without dysuria and no lower abdominal tenderness. She has chronic dyspnea and all as she has cough with yellow phlegm and she is telling me with no recent worsening. All the patient looks a little bit tachypneic with respiratory rate about 20 to. Also she is tachycardic with heart rate 104. on admission patient was saturating 93-96% on room air, she is tachycardic with heart rate 104, patient is afebrile. No leukocytosis, hemoglobin 9.1, INR 1.3, sodium 131. Urinalysis is suspicious for infection. Chest x-ray showing diffuse airspace opacity which may represent multifocal pneumonia versus pulmonary edema. EKG atrial fibrillation at 98 BPM, on admission patient was started on Zithromax and ceftriaxone and got 1 dose of Zosyn and vancomycin 09/23/2018 Patient was sitting in the chair, feeling still weak. No specific complaint no chest pain or dyspnea. Tolerating diet well. No nausea vomiting. No change in bowel habits. No dysuria but she still complaining of from frequent urination. She has a chronic cough and yellow phlegm as per patient and daughter at bedside. Patient is on Zosyn and vancomycin, infectious disease consult is appreciated. Continue with the current antibiotic. Urine culture showing the floor only. Medication provided to help her sleep upon request Objective - Vital Signs Vital signs: Vital Signs Temp 98.5 F 09/23/18 15:00 Pulse 84 09/23/18 17:23 Resp 16 09/23/18 15:00 BP 108/60 09/23/18 15:00 Pulse Ox 98 09/23/18 17:11 Intake & Output 09/22/18 09/23/18 09/23/18 18:59 06:59 18:59 Intake Total 930 240 Output Total 1200 Balance -1200 930 240 Weight 42.184 kg Intake: Intake, IV Titration 450 Amount Piperacillin-Tazobactam 3 100 .375 gm In Sodium Chloride 0.9% 100 ml @ 25 mls/hr IVPB ONCE [facility] Rx# :[id number] Piperacillin-Tazobactam 3 100 .375 gm In Sodium Chloride 0.9% 100 ml @ 25 mls/hr IVPB Q8HR [facility] Rx# :[id number] Vancomycin 750 mg In 250 Sodium Chloride 0.9% 250 ml @ 125 mls/hr IVPB Q12H [facility] Rx#:[id number] Oral 480 240 Output: Urine 1200 Other: Voiding Method Bedside Commode # Voids 12 3 6 - Exam GENERAL: The patient is alert and oriented x3, not in any acute distress. Well developed, well nourished. HEENT: Pupils are round and equally reacting to light. EOMI. No scleral icterus. No conjunctival pallor. Normocephalic, atraumatic. No pharyngeal erythema. No thyromegaly. CARDIOVASCULAR: S1 and S2 present. No murmurs, rubs, or gallops. -PULMONARY: Chest is clear to auscultation, no wheezing . She has coarse crackles on both sides. ABDOMEN: Soft, nontender, nondistended, normoactive bowel sounds. No palpable organomegaly. MUSCULOSKELETAL: No joint swelling or deformity. EXTREMITIES: No cyanosis, clubbing, or pedal edema. NEUROLOGICAL: Gross neurological examination did not reveal any focal deficits. She has left upper extremity hemiparesis, chronic SKIN: No rashes. - Labs CBC & Chem 7: 09/23/18 08:46 09/23/18 08:46 Labs: Abnormal Lab Results - Last 24 Hours (Table) 09/23/18 09/23/18 Range/Units 08:46 08:46 RBC 2.92 L (3.80-5.40) m/uL Hgb 7.8 L (11.4-16.0) gm/dL Hct 25.9 L (34.0-46.0) % MCHC 30.2 L (31.0-37.0) g/dL RDW 16.9 H (11.5-15.5) % Lymphocytes # 0.4 L (1.0-4.8) k/uL Sodium 133 L (137-145) mmol/L Potassium 3.4 L (3.5-5.1) mmol/L Chloride 90 L (98-107) mmol/L Carbon Dioxide 34 H (22-30) mmol/L Glucose 146 H (74-99) mg/dL Calcium 8.2 L (8.4-10.2) mg/dL Microbiology - Last 24 Hours (Table) 09/21/18 22:05 Urine Culture - Final Urine,Voided 09/22/18 00:14 Blood Culture - Preliminary Blood No Growth after 24 hours Assessment and Plan Assessment: Urinary tract infection Systemic erythema to response secondary to above, with tachypnea and tachycardia Generalized weakness Chronic dyspnea with chronic cough and phlegm History of restrictive lung disease History of left upper lobe bronchiectasis History of severe pulmonary hypertension History of right heart failure History of chronic atrial fibrillation status post ablation History of stroke with mild left upper extremity hemiparesis History of peptic ulcer disease History of vertigo Essential hypertension Plan: This is a pleasant 78 years old female who presents with urinary tract i nfection, there was suspicion of pneumonia on the chest x-ray however patient has no fever or leukocytosis. Patient was started on IV vancomycin and Zosyn. We will ask for infectious disease consult. Stop NSAIDs and ibuprofen. Continue with oral Lasix Labs and medication were reviewed.. Continue same treatment. Continue with symptomatic treatment. Resume home medication. Monitor lytes and vitals. DVT and GI prophylaxis. Further recommendations of the clinical course of the patient DVT prophylaxis: eliquis GI Prophylaxis: Pepcid PT/OT: Pending Prognosis is guarded
[2018-09-23] MEDS: APIXABAN 2.5 MG TABLET PO SCH (22:28)
--- NOTE | 2018-09-23 23:38 | P.PN ---
Subjective Progress Note Date: 09/23/18 78-year-old female who has multiple medical troubles that includes cardiovascular disease, atrial fibrillation, interstitial pulmonary fibrosis with significant pulmonary hypertension and right ventricular dysfunction. The patient has history of feeling chronically short of breath and feeling very poorly overall. At the time of presentation she has significant weakness, shortness of breath, and urinary symptoms. Feeling quite poorly and consequently was brought to hospital. Patient has multiple recent medical troubles was actually recently in the extended care after hospitalization she was having some difficulties with left- sided weakness possible TIA. The patient has chronic copious sputum production related to her pulmonary disease and some bronchiectasis. Cultures reveal evidence of Pseudomonas in her sputum and Klebsiella in her urine. Since hospitalization is feeling only slightly better. Continues to feel short of breath and has sputum production. 09/23/2018 patient is little price changer status. Possibly slightly less short of breath. Is sitting upright. Legs continue have the edema. She's having no fevers or chills. She does have cough and copious sputum production. Does require some when necessary respiratory treatments to help her shortness of breath. No chest pain. No syncope. Objective - Vital Signs Vital signs: Vital Signs Temp 97.9 F 09/23/18 20:13 Pulse 82 09/23/18 22:27 Resp 18 09/23/18 20:13 BP 124/81 09/23/18 20:13 Pulse Ox 95 09/23/18 20:13 Intake & Output 09/23/18 09/23/18 09/24/18 06:59 18:59 06:59 Intake Total 930 240 Balance 930 240 Intake: Intake, IV Titration 450 Amount Piperacillin-Tazobactam 3 100 .375 gm In Sodium Chloride 0.9% 100 ml @ 25 mls/hr IVPB ONCE STA Rx# :[id number] Piperacillin-Tazobactam 3 100 .375 gm In Sodium Chloride 0.9% 100 ml @ 25 mls/hr IVPB Q8HR [facility] Rx# :[id number] Vancomycin 750 mg In 250 Sodium Chloride 0.9% 250 ml @ 125 mls/hr IVPB Q12H [facility] Rx#:[id number] Oral 480 240 Other: Voiding Method Bedside Commode # Voids 3 6 1 - Exam 78-year-old woman cachectic in appearance, short of breath coughs frequently HEENT: Anicteric conjunctiva are pink and moist nasal mucosa grossly intact without significant lesions, there is no thrush. Poor dentition Neck: The neck is supple without significant lymphadenopathy or thyromegaly. Lungs: Symmetrical air entry, crackles to the lung [place], amphoric sounds scattered through the lung [place] no dullness or egophony Heart: Irregular tachycardic, 2/6 systolic murmur left sternal border PMI nondisplaced no heave or thrill Abdomen: Positive bowel sounds soft and nontender without palpable masses or organomegaly. There was no guarding or rebound. Extremities: The extremities relates of the extensive muscular wasting easy bruisability no open ulcers Neuro: Awake alert oriented to person place and time. There are no acute new gross focal sensory motor deficits. Positive anxiety - Labs CBC & Chem 7: 09/23/18 08:46 09/23/18 08:46 Labs: Abnormal Lab Results - Last 24 Hours (Table) 09/23/18 09/23/18 Range/Units 08:46 08:46 RBC 2.92 L (3.80-5.40) m/uL Hgb 7.8 L (11.4-16.0) gm/dL Hct 25.9 L (34.0-46.0) % MCHC 30.2 L (31.0-37.0) g/dL RDW 16.9 H (11.5-15.5) % Lymphocytes # 0.4 L (1.0-4.8) k/uL Sodium 133 L (137-145) mmol/L Potassium 3.4 L (3.5-5.1) mmol/L Chloride 90 L (98-107) mmol/L Carbon Dioxide 34 H (22-30) mmol/L Glucose 146 H (74-99) mg/dL Calcium 8.2 L (8.4-10.2) mg/dL Microbiology - Last 24 Hours (Table) 09/21/18 22:05 Urine Culture - Final Urine,Voided 09/22/18 00:14 Blood Culture - Preliminary Blood No Growth after 24 hours Assessment and Plan (1) Pulmonary fibrosis Narrative/Plan: 78-year-old female with multiple medical troubles but has the history of pulmonary fibrosis, bronchiectasis and chronic pulmonary infection. Was recently hospitalized at extended care and within a few days of her discharge to home again has marked worsening. She has profound fatigue and malaise. His diet eating well. Has cough and sputum production that is thick in nature. No hemoptysis. Has some urinary symptoms with frequency and discomfort. The patient's x-rays are abnormal and she has copious sputum production concerns ongoing pseudomonas infection. Recent history also of the Klebsiella infection of her urine. Intravenous antibiotic therapy with Zosyn is being utilized at this point in time he may need to be arranged the home setting depending on the findings of cultures. Clear liquid protein supplement was added to her diet to try to improve her protein intake since she eats so poorly we discussed the importance of protein and calorie intake to prevent further muscle loss. Muscular loss will worsen her pulmonary disease and shortness of breath. She is chronic lower extremity edema but does not do well with any kind of compression. This discussed with her family members that comprifit or CircAid may be helpful since they're easy to apply, are comfortable and can help with her edema which may improve her overall comfort. 09/23/2018 patient is stable to slightly improved. She is denying of any acute difficulties. Has profound fatigue and is requiring some when necessary respiratory treatments because of her shortness of breath and sputum production. Silvadene wrap the lower extremities She is tolerating the addition of the clear liquid protein supplement which she actually finds quite satisfying. Continue treatment of the potential pulmonary infection, cultures though are negative so far. Patient however is symptomatically and clinically with evidence of at least a purulent tracheobronchitis and does seem to have some mild improvement to current antibiotic therapy. He is being monitored. Unclear if she is a candidate for a percussion vest. Current Visit: Yes Status: Acute Code(s): J84.10 - PULMONARY FIBROSIS, UNSPECIFIED SNOMED Code(s): 86159103 (2) UTI (urinary tract infection) Current Visit: Yes Status: Acute Code(s): N39.0 - URINARY TRACT INFECTION, SITE NOT SPECIFIED SNOMED Code(s): 68577332 (3) Iron deficiency anemia Current Visit: No Status: Acute Code(s): D50.9 - IRON DEFICIENCY ANEMIA, UNSPECIFIED SNOMED Code(s): 78134557 (4) Moderate protein-calorie malnutrition Current Visit: Yes Status: Acute Code(s): E44.0 - MODERATE PROTEIN-CALORIE MALNUTRITION SNOMED Code(s): 060862456
[2018-09-24] MEDS: PIPERACILLIN-TAZOBACTAM 3.375 GM in SODIUM CHLORIDE 0.9% 100 ML IVPB SCH ×3 (00:01→18:25)
[2018-09-24] MEDS: guaiFENesin-DM 100-10MG/5ML 10 ML CUP PO PRN ×2 (00:48→13:57)
[2018-09-24] MEDS ORDERED: VANCOMYCIN TROUGH DUE 1 EACH MISC MISCELLANE ONE (01:00)
[2018-09-24] MEDS: VANCOMYCIN 750 MG in SODIUM CHLORIDE 0.9% 250 ML IVPB SCH (02:20)
[2018-09-24 09:20] LABS: Anisocytosis Slight; Basophils % (A) 0 %; Eosinophils # (A) 0.1 k/uL (0-0.7); Eosinophils % (A) 1 %; HCT 26.6 % (34.0-46.0); HGB 7.9 gm/dL (11.4-16.0); Hypochromasia Marked; Lymphocytes # (A) 0.4 k/uL (1.0-4.8); Lymphocytes % (A) 7 %; MCH 26.5 pg (25.0-35.0); MCHC 29.6 g/dL (31.0-37.0); MCV 89.3 fL (80.0-100.0); Mean Platelet Volume 7.3; Monocytes # (A) 0.3 k/uL (0-1.0); Monocytes % (A) 6 %; Neutrophils # (A) 4.4 k/uL (1.3-7.7); Neutrophils % (A) 84 %; Platelet Count 178 k/uL (150-450); RBC 2.97 m/uL (3.80-5.40); RDW 17.1 % (11.5-15.5); WBC 5.2 k/uL (3.8-10.6)
[2018-09-24] MEDS: DIGOXIN 125 MCG TAB PO SCH (09:36)
[2018-09-24] MEDS: FUROSEMIDE 80 MG TAB PO SCH ×2 (09:36→16:11)
[2018-09-24] MEDS: METOPROLOL TARTRATE 25 MG TAB PO SCH ×2 (09:36→22:20)
[2018-09-24] MEDS: APIXABAN 5 MG TAB PO SCH (09:36)
[2018-09-24] MEDS: FAMOTIDINE 20 MG TAB PO SCH (09:36)
[2018-09-24] MEDS: SPIRONOLACTONE 25 MG TAB PO SCH (09:39)
[2018-09-24 09:44] LABS: Anion Gap 9 mmol/L; Blood Urea Nitrogen 11 mg/dL (7-17); Carbon Dioxide 35 mmol/L (22-30); Chloride 90 mmol/L (98-107); Glucose 97 mg/dL (74-99); Potassium 3.3 mmol/L (3.5-5.1); Sodium 134 mmol/L (137-145)
--- NOTE | 2018-09-24 10:06 | P.CONS ---
History of Present Illness - Chief Complaint Medical debility - History of Present Illness I had the opportunity to see patient for inpatient rehab consultation with regard to medical debility. She was admitted to [facility] September 22 with weakness, pulmonary fibrosis and UTI. Seen by Drs. Zepeda and Robbi. Chest x-ray demonstrates an air space opacities. PT and OT prescribed. Patient reports that she was just recently admitted with similar problem and lower extremity weakness. Reports that she was only home 1 or 2 days. I did in fact see her and approved her for rehab but declined by insurance. She was in inpatient rehab copy years ago related to stroke. Previous functional history as elicited from patient: 78-year-old left-handed white female who is lives in one floor home with . does the cooking and driving. Patient independent with laundry, sitdown shower and gait with 4 wheeled walker. Denies tobacco or alcohol. Dr. Kim Hyman is regular doctor. Family history of mother with cancer and diabetes in father with heart disease. Review of Systems Review of systems: ENT: Denies sneezes or discharge. Eyes: Denies discharge or photophobia. Cardiac: Denies chest pain or palpitation. Pulmonary: Mild to moderate shortness of breath. Breast: Denies discharge or lumps. Gastrointestinal: Denies nausea, emesis, constipation, diarrhea. Genitourinary: Denies discharge or frequency. Musculoskeletal: Denies muscle or bone aches. Neurologic: Generalized weakness. Endocrine: Denies shakes or sweats. Oncology: Denies cancers. Dermatologic: Denies rash, itching, pruritus. ALLERGY/immunology: Denies sneezes, rashes. Past Medical History Past Medical History: Atrial Fibrillation, Cancer, Heart Failure, Hypertension, Pneumonia, Vascular Disorder Additional Past Medical History / Comment(s): Pulmonary fibrosis, Limited left upper lobe bronchiectasis, severe restrictive lung disease as noted to the previous pulmonary function test, right-sided heart failure, severe pulmonary hypertension, chronic atrial fibrillation, skin cancer, hypertension, peripheral vascular disease, previous history of cardiac ablation for A. fib/failed, varicose his lower extremities, diverticulosis, chronic sinus disease, degenerative arthritis, history of peptic ulcer disease requiring surgery, history of vertigo, basal cell cancer of the skin that was resected. History of CVA without any significant residuals. anemia History of Any Multi-Drug Resistant Organisms: None Reported Past Surgical History: Ablation, Cardiac Ablation, Section, Cholecystectomy, Orthopedic Surgery, Tonsillectomy Additional Past Surgical History / Comment(s): R rotator cuff repair, skin cancer removed from nose. Past Anesthesia/Blood Transfusion Reactions: Postoperative Nausea & Vomiting (PO NV) Additional Past Anesthesia/Blood Transfusion Reaction / Comm: Pt received blood in past without reaction. Past Psychological History: Anxiety Additional Psychological History / Comment(s): Very involved family members, josiah felix is a nurse son-in-law podiatry Smoking Status: Never smoker Past Alcohol Use History: None Reported Past Drug Use History: None Reported - Past Family History Mother Family Medical History: Diabetes Mellitus Father Family Medical History: CVA/TIA, Myocardial Infarction (ID) Additional Family Medical History / Comment(s): Father had ID/CVA sometime in his 60's. Medications and Allergies Home Medications Medication Instructions Recorded Confirmed Type Digoxin [Digitek] 125 mcg PO DAILY 02/17/17 09/21/18 History L.acidoph,Paracasei, B.lactis 1 cap PO DAILY 02/17/17 09/21/18 History [Probiotic] Spironolactone [Aldactone] 25 mg PO DAILY 02/17/17 09/21/18 History Metoprolol Tartrate [Lopressor] 25 mg PO BID tab 02/21/17 09/21/18 Rx Famotidine [Pepcid] 20 mg PO DAILY 11/23/17 09/21/18 History Apixaban [Eliquis] 2.5 mg PO HS 04/18/18 09/21/18 History Apixaban [Eliquis] 5 mg PO QAM 04/18/18 09/21/18 History Benzonatate [Tessalon Perles] 200 mg PO TID 04/18/18 09/21/18 History Levalbuterol HCl [Xopenex 0.63 mg INHALATION RT-Q4H 04/18/18 09/21/18 History Nebulized] Acetaminophen Tab [Tylenol] 650 mg PO Q6HR PRN tab 04/24/18 09/21/18 Rx Ferrous Sulfate [Iron (65 MG 325 mg PO DAILY 09/02/18 09/21/18 History Elemental)] Fexofenadine/Pseudoephedrine 1 tab PO BID 03/10/19 03/29/19 History [Kaylee-D 12 Hour Tablet] Docusate [Colace] 100 mg PO DAILY PRN cap 09/07/18 09/21/18 Rx Furosemide [Lasix] 80 mg PO BID #60 tablet 09/07/18 09/21/18 Rx SILVER sulfADIAZINE CREAM 1 applic TOPICAL DAILY applic 09/07/18 09/21/18 Rx [Silvadene Cream] Allergies Allergy/AdvReac Type Severity Reaction Status Date / Time diltiazem [From Cardizem] AdvReac Nausea & Verified 09/21/18 22:10 Vomiting verapamil AdvReac Nausea & Verified 09/21/18 22:10 Vomiting Physical Exam Vitals: Vital Signs Temp Pulse Pulse Pulse Resp BP Pulse Ox 09/24/18 00:46 98.5 F 86 14 100/61 94 L 09/23/18 22:27 82 09/23/18 20:44 84 09/23/18 20:29 80 09/23/18 20:13 97.9 F 106 H 18 124/81 95 09/23/18 17:23 84 09/23/18 17:11 80 98 09/23/18 15:00 98.5 F 98 16 108/60 97 09/23/18 12:18 84 09/23/18 12:05 82 Intake and Output 09/23/18 09/24/18 09/24/18 22:59 06:59 14:59 Intake Total 350 Balance 350 Intake: Intake, IV Titration 350 Amount Piperacillin-Tazobactam 3 100 .375 gm In Sodium Chloride 0.9% 100 ml @ 25 mls/hr IVPB Q8HR [facility] Rx# :[id number] Vancomycin 750 mg In 250 Sodium Chloride 0.9% 250 ml @ 125 mls/hr IVPB Q12H [facility] Rx#:[id number] Other: # Voids 1 6 Skin: Atrophic, intact. Discoloration forelegs. General: Medium build and comfortable appearance. Head: Normocephalic, atraumatic. Eyes: Symmetric. Pupils equal round. Ears: Symmetric. Hearing within normal limits. Mouth: Clear. Neck: Supple. Carotid without bruit. Cardiac: Regular rate and rhythm. Lungs: Clear anteriorly and posteriorly. Abdomen: Soft active nontender. Extremities: Normal tone. Lower extremity edema 1+. Neurological: Mental status: Alert, cooperative, pleasant. Cranial nerves: Symmetric facial tone and trapezius. Motor: Can actively elevate all 4 limbs, but legs appeared to be at best antigravity. Sensation: Intact throughout. DTRs: Symmetric and equal throughout. Mobility: Sits with physical assistance. Results CBC & Chem 7: 09/24/18 07:25 09/24/18 07:25 Labs: Abnormal Lab Results - Last 24 Hours (Table) 09/24/18 09/24/18 Range/Units 07:25 07:25 RBC 2.97 L (3.80-5.40) m/uL Hgb 7.9 L (11.4-16.0) gm/dL Hct 26.6 L (34.0-46.0) % MCHC 29.6 L (31.0-37.0) g/dL RDW 17.1 H (11.5-15.5) % Lymphocytes # 0.4 L (1.0-4.8) k/uL Sodium 134 L (137-145) mmol/L Potassium 3.3 L (3.5-5.1) mmol/L Chloride 90 L (98-107) mmol/L Carbon Dioxide 35 H (22-30) mmol/L Calcium 8.0 L (8.4-10.2) mg/dL Microbiology - Last 24 Hours (Table) 09/22/18 00:14 Blood Culture - Preliminary Blood No Growth after 48 hours 09/21/18 22:05 Urine Culture - Final Urine,Voided Assessment and Plan (1) HCAP (healthcare-associated pneumonia) Current Visit: Yes Status: Acute Code(s): J18.9 - PNEUMONIA, UNSPECIFIED ORGANISM SNOMED Code(s): 124374937 (2) UTI (urinary tract infection) Current Visit: Yes Status: Acute Code(s): N39.0 - URINARY TRACT INFECTION, SITE NOT SPECIFIED SNOMED Code(s): 22813085 Plan: Impression: 1. Medical debility. 2. Pulmonary fibrosis. 3. Healthcare acquired pneumonia. 4. UTI. 5. History of previous stroke. 6. History cancer. 7. Active fibrillation. 8. Hypertension. 9. Advanced elderly. Comments and plan: PT and OT prescribed. Patient has demonstrated failure of return to home. In the past this was suggested or reinforced the need for inpatient rehab. This however appears to be insurance criteria dependent currently.
[2018-09-24] MEDS: SODIUM FERRIC GLUCONAT-SUCROSE 125 MG in SODIUM CHLORIDE 0.9% 100 ML IVPB SCH (10:18)
[2018-09-24] MEDS: IPRATROPIUM-ALBUTEROL 3 ML NEB INHALATION PRN ×3 (11:50→23:11)
--- NOTE | 2018-09-24 13:04 | P.PN ---
Subjective Patient sitting in chair at bedside continues to complain of weakness. Patient had evaluation by infectious disease Dr. Culp and Dr. Iraheta for rehabilitation Objective - Vital Signs Vital signs: Vital Signs Temp 98.7 F 09/24/18 07:00 Pulse 80 09/24/18 12:04 Resp 16 09/24/18 07:00 BP 120/80 09/24/18 07:00 Pulse Ox 93 L 09/24/18 07:00 Intake & Output 09/23/18 09/24/18 09/24/18 18:59 06:59 18:59 Intake Total 240 350 Balance 240 350 Intake: Intake, IV Titration 350 Amount Piperacillin-Tazobactam 3 100 .375 gm In Sodium Chloride 0.9% 100 ml @ 25 mls/hr IVPB Q8HR [facility] Rx# :[id number] Vancomycin 750 mg In 250 Sodium Chloride 0.9% 250 ml @ 125 mls/hr IVPB Q12H [facility] Rx#:[id number] Oral 240 Other: Voiding Method Bedside Commode # Voids 6 6 - Constitutional General appearance: Present: mild distress, thin - EENT Eyes: Present: PERRLA Ears: bilateral: normal - Neck Neck: Present: normal ROM - Respiratory Respiratory: bilateral: CTA - Cardiovascular Rhythm: irregularly irregular Abnormal Heart Sounds: Present: systolic murmur - Gastrointestinal General gastrointestinal: Present: soft - Integumentary Integumentary: Present: normal - Neurologic Neurologic: Present: CNII-XII intact - Musculoskeletal Musculoskeletal: Present: generalized weakness - Psychiatric Psychiatric: Present: A&O x's 3, appropriate affect, intact judgment & insight - Labs CBC & Chem 7: 09/24/18 07:25 09/24/18 07:25 Labs: Abnormal Lab Results - Last 24 Hours (Table) 09/24/18 09/24/18 Range/Units 07:25 07:25 RBC 2.97 L (3.80-5.40) m/uL Hgb 7.9 L (11.4-16.0) gm/dL Hct 26.6 L (34.0-46.0) % MCHC 29.6 L (31.0-37.0) g/dL RDW 17.1 H (11.5-15.5) % Lymphocytes # 0.4 L (1.0-4.8) k/uL Sodium 134 L (137-145) mmol/L Potassium 3.3 L (3.5-5.1) mmol/L Chloride 90 L (98-107) mmol/L Carbon Dioxide 35 H (22-30) mmol/L Calcium 8.0 L (8.4-10.2) mg/dL Microbiology - Last 24 Hours (Table) 09/22/18 00:14 Blood Culture - Preliminary Blood No Growth after 48 hours 09/21/18 22:05 Urine Culture - Final Urine,Voided - Imaging and Cardiology Chest x-ray: report reviewed Assessment and Plan Plan: Assessment Iron deficiency anemia Urinary tract infection history of Klebsiella Generalized weakness Chronic dyspnea History of restrictive lung disease pulmonary fibrosis History of upper lobe bronchiectasis with pneumonia pseudomonas history of severe pulmonary hypertension History of right heart failure Chronic atrial fibrillation History of CVA with mild extremity hemiparesis History of GERD history of vertigo Essential hypertension Moderate protein calorie malnutrition Plan Continue consultation with Dr. Culp on vancomycin and Zosyn Consultation with Dr. Bhakta regarding physical therapy and rehab
[2018-09-24] MEDS: VANCOMYCIN 1,000 MG in SODIUM CHLORIDE 0.9% 250 ML IVPB SCH (16:08)
[2018-09-24] MEDS ORDERED: POTASSIUM CHLORIDE ER 20 MEQ TAB.ER PO STA (20:37)
[2018-09-24] MEDS: APIXABAN 2.5 MG TABLET PO SCH (22:20)
[2018-09-25] MEDS: PIPERACILLIN-TAZOBACTAM 3.375 GM in SODIUM CHLORIDE 0.9% 100 ML IVPB SCH ×2 (00:21→07:58)
[2018-09-25] MEDS: guaiFENesin-DM 100-10MG/5ML 10 ML CUP PO PRN (00:25)
[2018-09-25 01:17] VITALS: TEMP 98.2
[2018-09-25] MEDS: VANCOMYCIN 1,000 MG in SODIUM CHLORIDE 0.9% 250 ML IVPB SCH (03:02)
[2018-09-25] MEDS: IPRATROPIUM-ALBUTEROL 3 ML NEB INHALATION PRN (03:16)
[2018-09-25] MEDS: IPRATROPIUM-ALBUTEROL 3 ML NEB INHALATION SCH ×3 (07:15→15:05)
[2018-09-25 07:33] VITALS: BP 118/60; RESP 14
[2018-09-25] MEDS: FAMOTIDINE 20 MG TAB PO SCH (08:49)
[2018-09-25] MEDS: SPIRONOLACTONE 25 MG TAB PO SCH (08:49)
[2018-09-25] MEDS: FUROSEMIDE 80 MG TAB PO SCH (08:49)
[2018-09-25] MEDS: APIXABAN 5 MG TAB PO SCH (08:49)
[2018-09-25] MEDS: DIGOXIN 125 MCG TAB PO SCH (08:49)
[2018-09-25] MEDS: METOPROLOL TARTRATE 25 MG TAB PO SCH (08:49)
[2018-09-25 09:00] LABS: Anisocytosis Slight; Basophils % (A) 0 %; Eosinophils % (A) 1 %; HCT 26.7 % (34.0-46.0); HGB 7.9 gm/dL (11.4-16.0); Hypochromasia Marked; Lymphocytes # (A) 0.3 k/uL (1.0-4.8); Lymphocytes % (A) 8 %; MCH 26.7 pg (25.0-35.0); MCHC 29.5 g/dL (31.0-37.0); MCV 90.4 fL (80.0-100.0); Mean Platelet Volume 7.5; Monocytes # (A) 0.2 k/uL (0-1.0); Monocytes % (A) 4 %; Neutrophils # (A) 3.6 k/uL (1.3-7.7); Neutrophils % (A) 85 %; Platelet Count 167 k/uL (150-450); RBC 2.95 m/uL (3.80-5.40); WBC 4.2 k/uL (3.8-10.6)
[2018-09-25 09:08] LABS: Anion Gap 7 mmol/L; Blood Urea Nitrogen 10 mg/dL (7-17); Calcium 8.4 mg/dL (8.4-10.2); Carbon Dioxide 36 mmol/L (22-30); Chloride 90 mmol/L (98-107); Glucose 135 mg/dL (74-99); Potassium 3.2 mmol/L (3.5-5.1); Sodium 133 mmol/L (137-145)
[2018-09-25] MEDS: SODIUM FERRIC GLUCONAT-SUCROSE 125 MG in SODIUM CHLORIDE 0.9% 100 ML IVPB SCH (11:01)
--- NOTE | 2018-09-25 11:34 | P.PN ---
Subjective Continues with weakness needs assistance with ambulation with walker. Continues with vancomycin and Zosyn Objective - Vital Signs Vital signs: Vital Signs Temp 98.2 F 09/25/18 07:12 Pulse 92 09/25/18 11:17 Resp 14 09/25/18 07:12 BP 118/60 09/25/18 07:12 Pulse Ox 97 09/25/18 07:12 Intake & Output 09/24/18 09/25/18 09/25/18 18:59 06:59 18:59 Intake Total 236 800 Balance 236 800 Intake: Intake, IV Titration 350 Amount Piperacillin-Tazobactam 3 100 .375 gm In Sodium Chloride 0.9% 100 ml @ 25 mls/hr IVPB Q8HR REJI Rx# :[id number] Vancomycin 1,000 mg In 250 Sodium Chloride 0.9% 250 ml @ 125 mls/hr IVPB Q12H REJI Rx#:[id number] Oral 236 450 Other: Voiding Method Bedside Commode Bedside Commode Bedside Commode # Voids 3 4 - Constitutional General appearance: Present: mild distress - EENT Eyes: Present: PERRLA Ears: bilateral: normal - Neck Neck: Present: normal ROM - Respiratory Respiratory: bilateral: rales - Cardiovascular Rhythm: irregularly irregular Abnormal Heart Sounds: Present: systolic murmur - Gastrointestinal General gastrointestinal: Present: soft - Integumentary Integumentary: Present: normal - Neurologic Neurologic: Present: CNII-XII intact - Musculoskeletal Musculoskeletal: Present: generalized weakness - Psychiatric Psychiatric: Present: A&O x's 3, appropriate affect, intact judgment & insight - Labs CBC & Chem 7: 09/25/18 08:04 09/25/18 08:04 Labs: Abnormal Lab Results - Last 24 Hours (Table) 09/25/18 09/25/18 Range/Units 08:04 08:04 RBC 2.95 L (3.80-5.40) m/uL Hgb 7.9 L (11.4-16.0) gm/dL Hct 26.7 L (34.0-46.0) % MCHC 29.5 L (31.0-37.0) g/dL RDW 17.0 H (11.5-15.5) % Lymphocytes # 0.3 L (1.0-4.8) k/uL Sodium 133 L (137-145) mmol/L Potassium 3.2 L (3.5-5.1) mmol/L Chloride 90 L (98-107) mmol/L Carbon Dioxide 36 H (22-30) mmol/L Glucose 135 H (74-99) mg/dL Microbiology - Last 24 Hours (Table) 09/22/18 00:14 Blood Culture - Preliminary Blood No Growth after 72 hours Assessment and Plan Plan: Assessment Urinary tract infection history of Klebsiella Iron deficient anemia Generalized weakness history of resected lung disease pulmonary fibrosis pneumonia history of Pseudomonas health care acquired Severe pulmonary hypertension Right heart failure Chronic persistent atrial fibrillation History of stroke History of peptic ulcer Hypertension Moderate protein calorie deficiency malnutrition Plan Patient had consultation with rehab Dr. Iraheta Patient qualifies for inpatient rehab but insurance not covering that at this time Continue consultation with Dr. Culp Patient on vancomycin and Zosyn
--- NOTE | 2018-09-25 14:17 | P.DS ---
Providers Date of admission: 09/22/18 09:58 Expected date of discharge: 09/25/18 Attending physician: Rigo Hyman Consults: 09/22/18 11:30 Consult Physician Urgent Consulting Provider: Villa Culp Consult Reason/Comments: UTI ,vs others Do you want consulting provider notified?: Yes 09/22/18 11:33 Consult Physician Urgent Consulting Provider: Villa Culp Consult Reason/Comments: UTI, versus others Do you want consulting provider notified?: Already Contacted 09/24/18 07:27 Consult Physician Routine Consulting Provider: Lakhwinder Iraheta Consult Reason/Comments: weakness Do you want consulting provider notified?: Yes Primary care physician: Rigo Hyman Hospital Course: 78-year-old female was admitted to the emergency room. Complained of shortness of breath. Was found to be a atrial fibrillation. Treated for urinary tract infection and pneumonia per infectious disease Dr. Culp. Patient was evaluated by rehab Dr. Iraheta and was accepted to [facility]. Insurance was improved Assessment urinary tract infection history of Klebsiella iron deficiency anemia generalize weakness history of restrictive lung disease pulmonary fibrosis upper lobe pneumonia history pseudomonas health care acquired history of severe pulmonary hypertension right-sided heart failure chronic and persistent atrial fibrillation history of stroke history of peptic ulcer disease essential hypertension moderate protein calorie deficit malnutrition Plan transferred extended care facility for rehab. Levaquin continued Patient Condition at Discharge: Serious Plan - Discharge Summary Discharge Rx Participant: No New Discharge Prescriptions: New Levofloxacin [Levaquin] 500 mg PO DAILY #7 tab Benzocaine/Menthol Lozeng [Cepacol lozenge] 1 each MUCOUS MEM Q4HR PRN lozenge PRN Reason: Sore Throat Melatonin 1 mg PO HS PRN tab PRN Reason: Insomnia Continue L.acidoph,Paracasei, B.lactis [Probiotic] 1 cap PO DAILY Digoxin [Digitek] 125 mcg PO DAILY Metoprolol Tartrate [Lopressor] 25 mg PO BID tab Famotidine [Pepcid] 20 mg PO DAILY Apixaban [Eliquis] 2.5 mg PO HS Apixaban [Eliquis] 5 mg PO QAM Levalbuterol HCl [Xopenex Nebulized] 0.63 mg INHALATION RT-Q4H Acetaminophen Tab [Tylenol] 650 mg PO Q6HR PRN tab PRN Reason: Mild Pain Or Fever > 100.5 Fexofenadine/Pseudoephedrine [Kaylee-D 12 Hour Tablet] 1 tab PO BID Ferrous Sulfate [Iron (65 MG Elemental)] 325 mg PO DAILY Docusate [Colace] 100 mg PO DAILY PRN cap PRN Reason: Constipation SILVER sulfADIAZINE CREAM [Silvadene Cream] 1 applic TOPICAL DAILY applic Furosemide [Lasix] 80 mg PO BID #60 tablet Discontinued Benzonatate [Tessalon Perles] 200 mg PO TID No Action Spironolactone [Aldactone] 25 mg PO DAILY Discharge Medication List Digoxin [Digitek] 125 mcg PO DAILY 02/17/17 [History] L.acidoph,Paracasei, B.lactis [Probiotic] 1 cap PO DAILY 02/17/17 [History] Spironolactone [Aldactone] 25 mg PO DAILY 02/17/17 [History] Metoprolol Tartrate [Lopressor] 25 mg PO BID tab 02/21/17 [Rx] Famotidine [Pepcid] 20 mg PO DAILY 11/23/17 [History] Apixaban [Eliquis] 2.5 mg PO HS 04/18/18 [History] Apixaban [Eliquis] 5 mg PO QAM 04/18/18 [History] Levalbuterol HCl [Xopenex Nebulized] 0.63 mg INHALATION RT-Q4H 04/18/18 [History] Acetaminophen Tab [Tylenol] 650 mg PO Q6HR PRN tab 04/24/18 [Rx] Ferrous Sulfate [Iron (65 MG Elemental)] 325 mg PO DAILY 09/02/18 [History] Fexofenadine/Pseudoephedrine [Kaylee-D 12 Hour Tablet] 1 tab PO BID 09/02/18 [History] Docusate [Colace] 100 mg PO DAILY PRN cap 09/07/18 [Rx] Furosemide [Lasix] 80 mg PO BID #60 tablet 09/07/18 [Rx] SILVER sulfADIAZINE CREAM [Silvadene Cream] 1 applic TOPICAL DAILY applic 09/07/18 [Rx] Benzocaine/Menthol Lozeng [Cepacol lozenge] 1 each MUCOUS MEM Q4HR PRN lozenge 09/25/18 [Rx] Levofloxacin [Levaquin] 500 mg PO DAILY #7 tab 09/25/18 [Rx] Melatonin 1 mg PO HS PRN tab 09/25/18 [Rx] Follow up Appointment(s)/Referral(s): Rigo Hyman MD [Primary Care Provider] - 1-2 days [facility], [NON-STAFF] - As Needed Discharge Disposition: TRANSFER TO SNF/ECF
[2018-09-25 15:19] VITALS: PULSE 92
[2018-09-26] MEDS ORDERED: VANCOMYCIN TROUGH DUE 1 EACH MISC MISCELLANE ONE (01:00)
== END 2018-09-25 15:48 | DRG 194 ==
LOC: EC 21:18 → 4SSUR 09-22 00:11 → OBSVTOIN 09-22 09:58
PROVIDERS: ADMIT Family Medicine; ATTEND Family Medicine
DX: J18.9 Pneumonia, unspecified organism (principal); E44.0 Moderate protein-calorie malnutrition; I48.1 Persistent atrial fibrillation; I50.32 Chronic diastolic (congestive) heart failure; J47.0 Bronchiectasis with acute lower respiratory infection; N39.0 Urinary tract infection, site not specified; I11.0 Hypertensive heart disease with heart failure; I27.29 Other secondary pulmonary hypertension; I50.810 Right heart failure, unspecified; J84.10 Pulmonary fibrosis, unspecified; I69.934 Monoplegia of upper limb following unspecified cerebrovascular disease affecting left non-dominant side; D50.9 Iron deficiency anemia, unspecified; F41.9 Anxiety disorder, unspecified; I25.10 Atherosclerotic heart disease of native coronary artery without angina pectoris; I73.9 Peripheral vascular disease, unspecified; K21.9 Gastro-esophageal reflux disease without esophagitis; K57.90 Diverticulosis of intestine, part unspecified, without perforation or abscess without bleeding; M19.90 Unspecified osteoarthritis, unspecified site; I83.90 Asymptomatic varicose veins of unspecified lower extremity; L53.8 Other specified erythematous conditions; Z79.01 Long term (current) use of anticoagulants; Z79.899 Other long term (current) drug therapy; Z91.09 Other allergy status, other than to drugs and biological substances; Z85.828 Personal history of other malignant neoplasm of skin; Z87.01 Personal history of pneumonia (recurrent); Z87.11 Personal history of peptic ulcer disease; Z87.440 Personal history of urinary (tract) infections; Z80.9 Family history of malignant neoplasm, unspecified; Z82.3 Family history of stroke; Z82.49 Family history of ischemic heart disease and other diseases of the circulatory system; Z83.3 Family history of diabetes mellitus; Y95 Nosocomial condition
CPT/HCPCS: 36415; 71046; 80048; 80053; 80202; 81001; 83605; 83735; 83880; 84484; 85025; 85610; 85730; 87040; 87086; 87502; 93005; 94640; 96365; 99285